=== PATIENT | female | born 1955 | race Caucasian/White ===

== ENCOUNTER 2017-11-17 02:16 | Outpatient (CLI) | payer MEDICAID, SELFPAY ==
[2017-11-17 11:18] LABS: Cholesterol 151 mg/dL (50-200); HDL Cholesterol 60 mg/dL (40-60); LDL CHOLESTEROL 77 mg/dL (<100); Triglyceride 100 mg/dL (30-150)
[2017-11-17 11:31] LABS: TSH 6.07 uIU/mL (0.358-3.74)
[2017-11-17 14:43] LABS: FREE T4 0.79 ng/dL (0.76-1.46)
[2017-11-17 15:02] LABS: Hemoglobin A1C 7.6 % (4.5-6.2)
[2017-11-17 21:33] LABS: T3, Total 157 ng/dl (97-169)
== END 2017-11-17 02:36 ==
PROVIDERS: PCP Family Medicine; Visit Provider Internal Medicine Endocrinology, Diabetes & Metabolism
DX: E05.90 Thyrotoxicosis, unspecified without thyrotoxic crisis or storm (principal); E78.5 Hyperlipidemia, unspecified; E11.3299 Type 2 diabetes mellitus with mild nonproliferative diabetic retinopathy without macular edema, unspecified eye
CPT/HCPCS: 36415; 80061; 83721; 83036; 84439; 84443; 84480

== ENCOUNTER 2018-01-25 02:19 | Outpatient (CLI) | payer MEDICAID, SELFPAY ==
[2018-01-25 13:14] LABS: FREE T4 0.89 ng/dL (0.76-1.46); TSH 2.85 uIU/mL (0.358-3.74)
[2018-01-25 21:50] LABS: T3, Total 148 ng/dl (97-169)
== END 2018-01-25 02:39 ==
PROVIDERS: PCP Family Medicine; Visit Provider Internal Medicine Endocrinology, Diabetes & Metabolism
DX: E05.90 Thyrotoxicosis, unspecified without thyrotoxic crisis or storm (principal)
CPT/HCPCS: 36415; 84439; 84443; 84480

== ENCOUNTER 2018-05-30 01:52 | Outpatient (CLI) | payer MEDICAID, SELFPAY ==
[2018-05-30 11:08] LABS: ALT 40 U/L (12-78); AST 23 U/L (15-37); Albumin 3.7 g/dL (3.4-5.0); Alkaline Phosphatase 87 U/L (46-116); Anion Gap 11.1 mmol/L (3-11); BUN 15 mg/dL (7-18); Bilirubin, Total 0.6 mg/dL (0.2-1.0); CO2 30.9 mmol/L (21.0-32.0); CREATININE 0.76 mg/dL (0.55-1.02); Calcium 9.5 mg/dL (8.5-10.1); Chloride 100 mmol/L (98-107); Cholesterol 166 mg/dL (50-200); Glucose 188 mg/dL (70-100); HDL Cholesterol 55 mg/dL (40-60); LDL CHOLESTEROL 88 mg/dL (<100); Potassium 3.9 mmol/L (3.5-5.1); Sodium 142 mmol/L (136-145); TSH 2.38 uIU/mL (0.358-3.74); Total Protein 7.1 g/dL (6.4-8.2); Triglyceride 104 mg/dL (30-150)
[2018-05-30 11:29] LABS: FREE T4 0.98 ng/dL (0.76-1.46)
[2018-05-30 12:48] LABS: Hemoglobin A1C 8.7 % (4.5-6.2)
[2018-05-30 21:25] LABS: T3, Total 150 ng/dl (97-169)
== END 2018-05-30 02:12 ==
PROVIDERS: PCP Family Medicine; Visit Provider Family Medicine
DX: E11.9 Type 2 diabetes mellitus without complications (principal); E05.90 Thyrotoxicosis, unspecified without thyrotoxic crisis or storm
CPT/HCPCS: 36415; 80053; 80061; 83721; 83036; 84439; 84443; 84480

== ENCOUNTER 2018-05-31 12:33 | Outpatient (REF) | payer MEDICAID, SELFPAY ==
[2018-05-31 13:10] LABS: Microalb ug/mg Crea 4.4 ug/mg Cr
== END 2018-05-31 12:53 ==
LOC: LBN 12:33
PROVIDERS: PCP Family Medicine; Visit Provider Family Medicine
DX: E11.9 Type 2 diabetes mellitus without complications (principal)
CPT/HCPCS: 82043; 82570

== ENCOUNTER 2018-06-16 02:14 | Outpatient (CLI) | payer MEDICAID, SELFPAY ==
--- NOTE | 2018-06-16 07:07 | DI.RAD_ITS ---
SYMPTOMS/DIAGNOSIS: PAIN ON PALPATION OF LATERAL MID PHALANX, M79.644, NO TRAUMA RIGHT MIDDLE FINGER: No fracture or dislocation is seen. There are mild to moderate degenerative changes of the distal interphalangeal joint. The proximal interphalangeal joint is unremarkable. No lytic or blastic bony lesion or foreign body is seen. IMPRESSION: Mild to moderate degenerative changes of the distal interphalangeal joint.
--- NOTE | 2018-06-16 15:39 | DI.MAMMO_ITS ---
SYMPTOMS/DIAGNOSIS: SCREENING, Z12.31 BILATERAL SCREENING MAMMOGRAM: Mammograms were interpreted according to the usual protocol including computer analysis with CAD system, tomosynthesis and C view imaging. Comparison is made with exams from 2012 and 2015. The breasts are composed of scattered fibroglandular densities, breast density category B. Left Breast: There is a new a mass in the upper outer quadrant with spiculated borders measuring 15 mm in diameter. A grouping of pleomorhic calcifications is seen anteromedial to the mass, also new. No additional masses are seen in the left breast. No adenopathy is visible. No skin thickening is seen. Right Breast: No masses or suspicious calcifications or changes are identified in the right breast. IMPRESSION: Right breast category 1, negative. Left breast category 0. New suspicious mass as well as calcifications in the upper outer quadrant of the left breast. Spot compression views and ultrasound are requested for further evaluation. MQSA ASSESSMENT OF FINDINGS: Incomplete: Needs additional imaging evaluation. Category 0. Patient will receive a letter notifying them of these results. BI-RADS category B. There are scattered areas of fibroglandular density.
== END 2018-06-16 02:34 ==
PROVIDERS: PCP Family Medicine; Visit Provider Family Medicine
DX: Z12.31 Encounter for screening mammogram for malignant neoplasm of breast (principal); R92.8 Other abnormal and inconclusive findings on diagnostic imaging of breast; M79.644 Pain in right finger(s); M19.041 Primary osteoarthritis, right hand
CPT/HCPCS: 77063; 77067; 73140

== ENCOUNTER 2018-06-19 00:39 | Outpatient (CLI) | payer MEDICAID, SELFPAY ==
--- NOTE | 2018-06-19 14:00 | DI.COMBO_ITS ---
SYMPTOMS/DIAGNOSIS: F/U MAMMO, NEW MASS UPPER OUTER QUADRANT WITH SPICULATED BORDERS, GROUPING OF PLEOMORPHIC CALCIFICATIONS ADDITIONAL VIEWS OF THE LEFT BREAST AND LEFT BREAST ULTRASOUND: Additional images are interpreted according to the usual protocol including tomosynthesis and 2D imaging. Additional views of the left breast again show a spiculated mass in the upper outer quadrant of the left breast. There is a collection of microcalcifications anterior and medial to the mass, which were not present on prior examinations. A left breast ultrasound was performed. There is a hypoechoic mass seen at the 2 o'clock position of the left breast, which appears to correspond to the mammographic abnormality. It exhibits an antiradial orientation. There is some posterior acoustic shadowing present. No definite internal blood flow is seen. IMPRESSION: A 1.4 cm mass at the 2 o'clock position of the left breast corresponding to the mammographic abnormality. There are new microcalcifications adjacent to the mass in the upper outer quadrant. Category 5. Breast density B. The findings were discussed with the patient and Dr. Morenita Ochoa on the date of the examination. MQSA ASSESSMENT OF FINDINGS: Highly suspicious of malignancy. Biopsy should be obtained. Category 5. Patient will receive a letter notifying them of these results. BI-RADS category B. There are scattered areas of fibroglandular density.
== END 2018-06-19 00:59 ==
PROVIDERS: PCP Family Medicine; Visit Provider Family Medicine
DX: Z12.31 Encounter for screening mammogram for malignant neoplasm of breast (principal); R92.8 Other abnormal and inconclusive findings on diagnostic imaging of breast; N63.21 Unspecified lump in the left breast, upper outer quadrant; R92.0 Mammographic microcalcification found on diagnostic imaging of breast
CPT/HCPCS: 76642; 77063; 77067

== ENCOUNTER 2018-07-06 08:50 | Outpatient (CLI) | payer MEDICAID, SELFPAY ==
--- NOTE | 2018-07-06 10:30 | DI.NM_ITS ---
SYMPTOMS/DIAGNOSIS: HYPERTHYROIDISM, E05.90 THYROID UPTAKE: 344 microcuries of I 123 Sodium Iodide was administered po. The four uptake is 18.4%, slightly above normal. The 24 hour uptake is calculated at 42%, above the normal range of 35%. IMPRESSION: Mildly increased thyroid uptake. THYROID SCAN: 0.34 millicuries of I 123 Sodium Iodide was administered IV for the thyroid scan. There is again noted to be increased activity in an apparently enlarged right lobe of the thyroid. The appearance is unchanged from the previous exam.
== END 2018-07-06 09:10 ==
PROVIDERS: PCP Family Medicine; Visit Provider Internal Medicine Endocrinology, Diabetes & Metabolism
DX: E05.90 Thyrotoxicosis, unspecified without thyrotoxic crisis or storm (principal); E04.8 Other specified nontoxic goiter
CPT/HCPCS: A9516

== ENCOUNTER 2018-07-07 12:29 | Outpatient (CLI) | payer MEDICAID, SELFPAY ==
--- NOTE | 2018-07-07 11:00 | DI.NM_ITS ---
SYMPTOMS/DIAGNOSIS: HYPERTHYROIDISM, E05.90 THYROID UPTAKE AND SCAN / AND 07/07/18: Please see dictation of 07/06/18 for the complete results of the thyroid uptake and scan.
== END 2018-07-07 12:49 ==
PROVIDERS: PCP Family Medicine; Visit Provider Internal Medicine Endocrinology, Diabetes & Metabolism
DX: E05.90 Thyrotoxicosis, unspecified without thyrotoxic crisis or storm (principal); E04.8 Other specified nontoxic goiter
CPT/HCPCS: 78014; A9512

== ENCOUNTER 2018-08-28 01:39 | Outpatient (CLI) | payer MEDICAID, SELFPAY ==
[2018-08-28 09:31] LABS: ALT 30 U/L (12-78); AST 15 U/L (15-37); Albumin 3.7 g/dL (3.4-5.0); Alkaline Phosphatase 85 U/L (46-116); Anion Gap 9.8 mmol/L (3-11); BUN 17 mg/dL (7-18); Bilirubin, Total 0.5 mg/dL (0.2-1.0); CO2 30.2 mmol/L (21.0-32.0); CREATININE 0.81 mg/dL (0.55-1.02); Calcium 9.6 mg/dL (8.5-10.1); Chloride 102 mmol/L (98-107); Glucose 182 mg/dL (70-100); Potassium 4.1 mmol/L (3.5-5.1); Sodium 142 mmol/L (136-145)
[2018-08-28 09:40] LABS: FREE T4 1.04 ng/dL (0.76-1.46); TSH 2.41 uIU/mL (0.358-3.74)
[2018-08-28 10:14] LABS: Hemoglobin A1C 8.1 % (4.5-6.2)
[2018-08-28 16:04] LABS: T3, Total 134 ng/dl (97-169)
== END 2018-08-28 01:59 ==
PROVIDERS: PCP Family Medicine; Visit Provider Internal Medicine Endocrinology, Diabetes & Metabolism
DX: E11.9 Type 2 diabetes mellitus without complications (principal); E05.90 Thyrotoxicosis, unspecified without thyrotoxic crisis or storm
CPT/HCPCS: 36415; 80053; 82043; 82570; 83036; 84439; 84443; 84480

== ENCOUNTER 2018-08-30 13:11 | Outpatient (REF) | payer MEDICAID, SELFPAY ==
[2018-08-30 14:34] LABS: COMMENT (LAB VIEW ONLY) 90.51 mg/dL; Microalb ug/mg Crea 6.4 ug/mg Cr
== END 2018-08-30 13:31 ==
LOC: NCHCN 13:11
PROVIDERS: PCP Family Medicine; Visit Provider Family Medicine
DX: E11.9 Type 2 diabetes mellitus without complications (principal)
CPT/HCPCS: 82043; 82570

== ENCOUNTER 2018-11-23 02:41 | Outpatient (CLI) | payer MEDICAID, SELFPAY ==
--- NOTE | 2018-11-23 13:40 | DI.DEXA_ITS ---
EXAM: XR DEXA BONE DENSITY W/WO JOE INDICATION: BREAST CA,C50.912, RESIDENTIAL USE OF AROMATASE INHIBITOR, Z79.811. COMPARISON: [facility] ONLY from 09/05/2012 TECHNIQUE: 2D digital imaging was performed. FINDINGS: DEXA scan was performed according to the usual protocol. Please see the accompanying data sheets. F indings for left hip scanning are T-score -1.0 with left femoral neck T-score -1.7. Findings for lum bar scanning are T-score -0.9. Findings for left forearm scanning or T-score -2.0. IMPRESSION: Findings consistent with osteopenia according to the WHO criteria. There appears to be minimal anter ior compression fracture of L3 vertebral body of uncertain age.
== END 2018-11-23 03:01 ==
PROVIDERS: PCP Family Medicine; Visit Provider Internal Medicine Hematology & Oncology
DX: C50.912 Malignant neoplasm of unspecified site of left female breast (principal); Z79.811 Long term (current) use of aromatase inhibitors; M85.88 Other specified disorders of bone density and structure, other site
CPT/HCPCS: 77080

== ENCOUNTER 2018-12-07 01:27 | Outpatient (CLI) | payer MEDICAID, SELFPAY ==
[2018-12-07 13:30] LABS: Vitamin D 25 Total 54.3 ng/ml (30-100)
[2018-12-07 13:37] LABS: Hemoglobin A1C 8.3 % (4.5-6.2)
[2018-12-07 13:39] LABS: TSH 2.75 uIU/mL (0.36-3.74)
== END 2018-12-07 01:47 ==
PROVIDERS: Internal Medicine Endocrinology, Diabetes & Metabolism; PCP Family Medicine; Visit Provider Internal Medicine Hematology & Oncology
DX: E05.90 Thyrotoxicosis, unspecified without thyrotoxic crisis or storm (principal); M85.80 Other specified disorders of bone density and structure, unspecified site
CPT/HCPCS: 36415; 82306; 83036; 84443

== ENCOUNTER 2019-01-19 01:16 | Outpatient (CLI) | payer MEDICAID, SELFPAY ==
[2019-01-19 10:17] LABS: Abs Immature Grans 0.01 k/cumm (0.0-0.09); Absolute Basophil Count 0.03 k/cumm (0.0-0.2); Absolute Eosinophil Count 0.11 k/cumm (0.0-0.7); Absolute Lymphocyte Count 0.79 k/cumm (1.2-3.4); Absolute Monocyte Count 0.44 k/cumm (0.11-0.7); Absolute Neutrophil Count 3.31 k/cumm (1.2-6.7); Basophils % 0.6; Eosinophils % 2.3; HCT 43.8 % (36.0-46.0); HGB 13.9 g/dL (12.0-15.5); Immature Grans % 0.2; Lymphocytes % 16.8; Mean Corp. HGB Concentration 31.7 g/dL (32.0-36.0); Mean Corpuscular Hemoglobin 28.9 pg (27.0-33.0); Mean Corpuscular Volume 91.1 fL (80-95); Mean Platelet Volume 10.2 fL (8.0-11.0); Monocytes % 9.4; Neutrophils % 70.7; Platelet Count 187 x1000/uL (130-400); RBC 4.81 m/cumm (4.00-5.20); RBC Distribution Width 13.9 % (11.7-14.6); White Blood Cell Count 4.69 k/cumm (4.4-10.8)
[2019-01-19 10:31] LABS: ALT 33 U/L (14-59); AST 20 U/L (15-37); Albumin 3.7 g/dL (3.4-5.0); Alkaline Phosphatase 75 U/L (46-116); Anion Gap 5.2 mmol/L (3-11); BUN 20 mg/dL (7-18); Bilirubin, Total 0.4 mg/dL (0.2-1.0); CO2 32.8 mmol/L (21.0-32.0); CREATININE 0.81 mg/dL (0.55-1.02); Calcium 9.4 mg/dL (8.5-10.1); Chloride 101 mmol/L (98-107); Glucose 244 mg/dL (74-106); Potassium 4.3 mmol/L (3.5-5.1); Sodium 139 mmol/L (136-145); Total Protein 7.6 g/dL (6.4-8.2)
== END 2019-01-19 01:36 ==
PROVIDERS: PCP Family Medicine; Visit Provider Internal Medicine Hematology & Oncology
DX: C50.912 Malignant neoplasm of unspecified site of left female breast (principal)
CPT/HCPCS: 36415; 80053; 85025

== ENCOUNTER 2019-03-13 01:35 | Outpatient (CLI) | payer MEDICAID, SELFPAY ==
[2019-03-13 10:53] LABS: ALT 29 U/L (14-59); AST 23 U/L (15-37); Albumin 3.5 g/dL (3.4-5.0); Alkaline Phosphatase 63 U/L (46-116); BUN 18 mg/dL (7-18); Bilirubin, Total 0.5 mg/dL (0.2-1.0); CREATININE 0.75 mg/dL (0.55-1.02); Calcium 9.3 mg/dL (8.5-10.1); Chloride 102 mmol/L (98-107); Glucose 240 mg/dL (74-106); Potassium 4.1 mmol/L (3.5-5.1); Sodium 138 mmol/L (136-145); Total Protein 6.8 g/dL (6.4-8.2)
== END 2019-03-13 01:55 ==
PROVIDERS: PCP Family Medicine; Visit Provider Internal Medicine Hematology & Oncology
DX: C50.912 Malignant neoplasm of unspecified site of left female breast (principal); Z17.0 Estrogen receptor positive status [ER+]
CPT/HCPCS: 36415; 80053

== ENCOUNTER 2019-04-30 01:51 | Outpatient (CLI) | payer MEDICAID, SELFPAY ==
[2019-04-30 12:06] LABS: Hemoglobin A1C 8.5 % (3.8-5.6)
[2019-04-30 12:17] LABS: Calculated LDL 74 mg/dL (<100); Cholesterol 144 mg/dL (<200); HDL Cholesterol 52 mg/dL (40-60); Triglyceride 94 mg/dL (<150); Vitamin B12 273 pg/mL (193-986)
== END 2019-04-30 02:11 ==
PROVIDERS: PCP Family Medicine; Visit Provider Family Medicine
DX: E11.9 Type 2 diabetes mellitus without complications (principal); E53.8 Deficiency of other specified B group vitamins
CPT/HCPCS: 36415; 80061; 82607; 83036

== ENCOUNTER 2019-07-23 02:34 | Outpatient (CLI) | payer MEDICAID, SELFPAY | END 2019-07-23 02:54 | PROVIDERS: PCP Family Medicine; Visit Provider Family Medicine | DX: E11.9 Type 2 diabetes mellitus without complications (principal) | CPT/HCPCS: 36415; 83036 ==

== ENCOUNTER 2019-09-20 03:12 | Outpatient (CLI) | payer MEDICAID, SELFPAY ==
[2019-09-20 13:30] LABS: COMMENT (LAB VIEW ONLY) 152.02 mg/dL; Microalb ug/mg Crea 10.5 ug/mg Cr
[2019-09-20 13:32] LABS: ALT 40 U/L (14-59); AST 29 U/L (15-37); Alkaline Phosphatase 68 U/L (46-116); Anion Gap 9.4 mmol/L (3-11); BUN 15 mg/dL (7-18); Bilirubin, Total 0.7 mg/dL (0.2-1.0); CO2 29.6 mmol/L (21.0-32.0); CREATININE 0.82 mg/dL (0.55-1.02); Calcium 9.7 mg/dL (8.5-10.1); Chloride 102 mmol/L (98-107); FREE T4 1.19 ng/dL (0.76-1.46); Glucose 135 mg/dL (74-106); Sodium 141 mmol/L (136-145); TSH 2.49 uIU/mL (0.36-3.74); Total Protein 7.1 g/dL (6.4-8.2)
[2019-09-20 13:34] LABS: Hemoglobin A1C 7.2 % (3.8-5.6)
[2019-09-20 22:09] LABS: T3, Total 145 ng/dL (97-169)
== END 2019-09-20 03:32 ==
PROVIDERS: PCP Family Medicine; Visit Provider Family Medicine
DX: E11.9 Type 2 diabetes mellitus without complications (principal); E04.9 Nontoxic goiter, unspecified
CPT/HCPCS: 36415; 80053; 82043; 82570; 83036; 84439; 84443; 84480

== ENCOUNTER 2020-01-28 03:05 | Outpatient (CLI) | payer MEDICAID, SELFPAY ==
[2020-01-28 11:57] LABS: ALT 37 U/L (14-59); AST 18 U/L (15-37); Albumin 3.8 g/dL (3.4-5.0); Alkaline Phosphatase 72 U/L (46-116); Anion Gap 3.2 mmol/L (3-11); BUN 14 mg/dL (7-18); Bilirubin, Total 0.6 mg/dL (0.2-1.0); CO2 31.8 mmol/L (21.0-32.0); CREATININE 0.92 mg/dL (0.55-1.02); Calcium 9.5 mg/dL (8.5-10.1); Chloride 102 mmol/L (98-107); Glucose 142 mg/dL (74-106); Potassium 4.1 mmol/L (3.5-5.1); Sodium 137 mmol/L (136-145); Total Protein 7.4 g/dL (6.4-8.2)
== END 2020-01-28 03:25 ==
PROVIDERS: PCP Family Medicine; Visit Provider Internal Medicine Hematology & Oncology
DX: C50.912 Malignant neoplasm of unspecified site of left female breast (principal); Z17.0 Estrogen receptor positive status [ER+]
CPT/HCPCS: 36415; 80053

== ENCOUNTER 2020-05-12 03:33 | Outpatient (CLI) | payer MEDICAID, SELFPAY ==
[2020-05-12 12:34] LABS: ALT 37 U/L (14-59); AST 22 U/L (15-37); Albumin 3.9 g/dL (3.4-5.0); Alkaline Phosphatase 71 U/L (46-116); Anion Gap 7.1 mmol/L (3-11); BUN 16 mg/dL (7-18); Bilirubin, Total 0.5 mg/dL (0.2-1.0); CO2 31.9 mmol/L (21.0-32.0); CREATININE 0.8 mg/dL (0.55-1.02); Calcium 9.4 mg/dL (8.5-10.1); Calculated LDL 71 mg/dL (<100); Chloride 104 mmol/L (98-107); Cholesterol 139 mg/dL (<200); Glucose 138 mg/dL (74-106); HDL Cholesterol 50 mg/dL (40-60); Potassium 4.3 mmol/L (3.5-5.1); Sodium 143 mmol/L (136-145); Triglyceride 94 mg/dL (<150)
[2020-05-12 12:40] LABS: Hemoglobin A1C 7.1 % (<5.7)
== END 2020-05-12 03:34 | disposition home or self-care (01) ==
LOC: LOS 03:33
PROVIDERS: PCP Family Medicine; Visit Provider Internal Medicine Hematology & Oncology
DX: E11.9 Type 2 diabetes mellitus without complications (principal); E55.9 Vitamin D deficiency, unspecified
CPT/HCPCS: 36415; 80053; 80061; 82306; 83036

== ENCOUNTER 2020-05-27 08:35 | Outpatient (CLI) | payer MEDICAID, SELFPAY ==
[2020-05-27 09:24] LABS: Bilirubin Negative (Negative); Blood Large (Negative); Clarity Cloudy (Clear); Glucose Negative (Negative); Ketones Negative (Negative); Leukocyte Esterase Large (Negative); Nitrite Positive (Negative)
[2020-05-27 09:33] LABS: Bacteria Packed HPF (Negative); C & S Indicated? Yes; WBC >50 HPF (0-5)
== END 2020-05-27 08:36 | disposition home or self-care (01) ==
LOC: LBO 08:39
PROVIDERS: PCP Family Medicine; Visit Provider Nurse Practitioner Family
DX: C50.412 Malignant neoplasm of upper-outer quadrant of left female breast (principal); Z17.0 Estrogen receptor positive status [ER+]; R82.998 Other abnormal findings in urine
CPT/HCPCS: 87077; 81003; 81015; 87086; 87186

== ENCOUNTER 2020-06-05 15:20 | Outpatient (REF) | payer MEDICAID, SELFPAY ==
[2020-06-05 15:59] LABS: Bilirubin Negative (Negative); Blood Small (Negative); Clarity Sl Cloudy (Clear); Glucose Negative (Negative); Ketones Negative (Negative); Leukocyte Esterase Large (Negative); Nitrite Positive (Negative); Urobilinogen 0.2 EU/dL (Up TO 0.2); pH 6.5 (5-8)
[2020-06-05 16:07] LABS: Bacteria Many HPF (Negative); C & S Indicated? Yes; Casts Negative LPF (Negative); Crystals Negative HPF (Negative); Epithelial Cells Rare HPF (Negative); Mucus Negative (Negative); RBC 0-2 HPF (0-2); WBC >50 HPF (0-5)
== END 2020-06-05 15:21 | disposition home or self-care (01) ==
LOC: LBN 15:20
PROVIDERS: PCP Family Medicine; Visit Provider Nurse Practitioner Family
DX: C50.412 Malignant neoplasm of upper-outer quadrant of left female breast (principal); Z17.0 Estrogen receptor positive status [ER+]; N39.0 Urinary tract infection, site not specified
CPT/HCPCS: 87077; 81003; 81015; 87086; 87186

== ENCOUNTER 2020-06-30 20:31 | Outpatient (REF) | payer MEDICAID, SELFPAY | END 2020-06-30 20:32 | disposition home or self-care (01) | LOC: LBN 20:31 | PROVIDERS: PCP Family Medicine; Visit Provider Obstetrics & Gynecology | DX: R39.15 Urgency of urination (principal) | CPT/HCPCS: 87077; 87086; 87186 ==

== ENCOUNTER 2020-08-06 17:25 | Outpatient (REF) | payer MEDICAID, SELFPAY | END 2020-08-06 17:26 | disposition home or self-care (01) | LOC: LBN 17:25 | PROVIDERS: PCP Family Medicine; Visit Provider Obstetrics & Gynecology Gynecology | DX: R30.0 Dysuria (principal); N39.0 Urinary tract infection, site not specified | CPT/HCPCS: 87077; 87086; 87186 ==

== ENCOUNTER 2020-09-01 03:09 | Outpatient (CLI) | payer MEDICAID, SELFPAY ==
[2020-09-01 12:43] LABS: Hemoglobin A1C 7.4 % (<5.7)
[2020-09-01 12:54] LABS: Anion Gap 10.1 mmol/L (3-11); BUN 10 mg/dL (7-18); CO2 28.9 mmol/L (21.0-32.0); CREATININE 0.9 mg/dL (0.55-1.02); Calcium 9.2 mg/dL (8.5-10.1); Chloride 101 mmol/L (98-107); FREE T4 1.09 ng/dL (0.76-1.46); Glucose 135 mg/dL (74-106); Potassium 3.9 mmol/L (3.5-5.1); Sodium 140 mmol/L (136-145)
[2020-09-01 16:05] LABS: T3, Total 155 ng/dL (97-169)
== END 2020-09-01 03:10 | disposition home or self-care (01) ==
LOC: LOS 03:10
PROVIDERS: PCP Nurse Practitioner Family; Visit Provider Family Medicine
DX: E11.9 Type 2 diabetes mellitus without complications (principal); E04.9 Nontoxic goiter, unspecified; N39.0 Urinary tract infection, site not specified
CPT/HCPCS: 36415; 80048; 87077; 83036; 84439; 84443; 84480; 87086

== ENCOUNTER 2020-09-05 03:05 | Outpatient (CLI) | payer MEDICAID, SELFPAY ==
--- NOTE | 2020-09-05 07:45 | DI.CT_ITS ---
Exam(s) CT ABDOMEN PELVIS WO/W EXAM: CT ABDOMEN PELVIS WO/W CLINICAL HISTORY: pelvic discomfort,RT URETERAL CALCULUS,HEMATURIA,R31.9,N20.1. TECHNIQUE: Imaging Protocol: Axial computed tomography images with coronal and sagittal reformatted images were created and reviewed. Images were performed before IV contrast, during the venous phase and after a 7 minutes delay after a dministration of IV contrast. CONTRAST MATERIAL: Intravenous: Omnipaque 350 Contrast volume:100 ml Oral: no COMPARISON: CT RENAL COLIC WO CONTRAST from 01/16/2016 FINDINGS: ABDOMEN: Lung Bases: Normal where visualized. Liver: Mild hepatic steatosis. No measurable mass. Gallbladder and biliary tract: No radiodense calculus. Stable mild dilation of the common bile duct. Pancreas: Mildly atrophic. Normal density, no abnormal calcifications or inflammatory process. Spleen: Normal. A few small accessory splenic tissue is seen. Kidneys: Normal size, contour and axis. No radiodense stones or obstructive uropathy. Few tiny cysts . No masses seen. Adrenal glands: No masses seen. Abdominal Aorta: Abdominal portion non-dilated. Mild atherosclerotic changes. PELVIS: Bladder: Mildly distended. No calculi.No wall thickening. Question of a small projection on the lef t inferior bladder.. Bowel: No obstruction or bowel wall thickening. Appendix is not visualized. Peritoneal cavity: No ascites, collection or mesenteric inflammatory response. Bones: Degenerative changes. Within normal limits for age. Reproductive organs: Status post hysterectomy. Pessary noted. Lymph nodes: Unremarkable. Soft tissues: Fatty containing hernia to the left of midline at the lower aspect of the incisional sc ar. Impression: No evidence of renal mass. No evidence of urinary tract calculi. Question of a small area of nodula rity at the inferior left side of the bladder. Cystoscopy could be considered for further evaluation . 4 centimeter fatty containing hernia left lower anterior abdominal wall. RADIATION DOSE DELIVERED: 3,984.56mGy.cm Total DLP 3,984.56mGy.cm Total DLP DATA REPOSITORY: All CT scans at this facility are submitted to the National Radiology Data Registry (NRDR) Dose Index Registry (DIR) with the [employer] (ACR). RADIATION OPTIMIZATION: All CT scans at this facility use at least one of these dose optimization te chniques: automated exposure control; mA and/or kV adjustment per patient size (includes targeted exa ms where dose is matched to clinical indication); or iterative reconstruction.
[2020-09-05] MEDS: Omnipaque 350 MG/ML 100 ML BTL IJ (14:29)
[2020-09-05] MEDS: Normal Saline - Diluent 50 ML VIAL IV (14:31)
== END 2020-09-05 03:25 ==
PROVIDERS: PCP Nurse Practitioner Family; Visit Provider Nurse Practitioner Gerontology
DX: K43.9 Ventral hernia without obstruction or gangrene; R31.9 Hematuria, unspecified
CPT/HCPCS: 74178; J3490

== ENCOUNTER 2020-09-18 14:30 | Outpatient (REF) | payer MEDICAID, SELFPAY | END 2020-09-18 14:31 | disposition home or self-care (01) | LOC: LBN 14:30 | PROVIDERS: PCP Nurse Practitioner Family; Visit Provider Urology | DX: N39.0 Urinary tract infection, site not specified (principal) | CPT/HCPCS: 87086 ==

== ENCOUNTER 2021-04-02 02:04 | Outpatient (CLI) | payer MEDICARE, MEDICAID, OTHER, SELFPAY ==
--- NOTE | 2021-04-02 13:24 | DI.DEXA_ITS ---
Exam(s) XR DEXA BONE DENSITY W/WO JOE EXAM: XR DEXA BONE DENSITY W/WO JOE CLINICAL HISTORY: LT BREAST CA,C50.912,OSTEOPENIA, M85.80,ALF USE AROMATASE INHIBITOR, TECHNIQUE: Routine DEXA evaluation of the lumbar spine, hip, or forearm. COMPARISON: CR XR DEXA BONE DENSITY W/WO JOE from 11/23/2018 FINDINGS: Performed on a Hologic unit. Lateral image: No compression fracture evident. Lumbar Spine total T-score: -0.6 . Two thousand nineteen reading was -0.9 Hip total T-score:-1.2. Reading in 2019 was -1.0 Independent reading at the level of the femoral neck yields at T-score of -1.8. Forearm total T-score: -2.4 IMPRESSION: Bone mineral density measures in the osteopenia range. Fracture risk is moderate. Note: Any spine fracture indicates 5x risk for subsequent spine fracture and 2x risk for subsequent h ip fracture. World Health Organization criteria for BMD interpretation classify patients: Normal...... T- Score at or above -1.0 Osteopenic... T- Score between -1.0 and -2.5 Osteoporosis... T-Score at or below -2.5
== END 2021-04-02 02:24 ==
PROVIDERS: PCP Nurse Practitioner Family; Visit Provider Nurse Practitioner Family
DX: M85.88 Other specified disorders of bone density and structure, other site (principal); C50.412 Malignant neoplasm of upper-outer quadrant of left female breast; Z79.811 Long term (current) use of aromatase inhibitors
CPT/HCPCS: 77080

== ENCOUNTER 2021-05-01 03:55 | Outpatient (CLI) | payer MEDICARE, MEDICAID, OTHER, SELFPAY ==
[2021-05-01 09:01] LABS: Hemoglobin A1C 8.1 % (<5.7)
[2021-05-01 09:24] LABS: ALT 33 U/L (14-59); AST 16 U/L (15-37); Albumin 3.7 g/dL (3.4-5.0); Alkaline Phosphatase 71 U/L (46-116); Anion Gap 6.4 mmol/L (3-11); BUN 18 mg/dL (7-18); Bilirubin, Total 0.4 mg/dL (0.2-1.0); CO2 31.6 mmol/L (21.0-32.0); CREATININE 0.7 mg/dL (0.55-1.02); Calculated LDL 68 mg/dL (<100); Chloride 102 mmol/L (98-107); Cholesterol 137 mg/dL (<200); Glucose 168 mg/dL (74-106); HDL Cholesterol 51 mg/dL (40-60); Potassium 4.3 mmol/L (3.5-5.1); Sodium 140 mmol/L (136-145); Total Protein 6.9 g/dL (6.4-8.2); Triglyceride 93 mg/dL (<150)
[2021-05-01 09:26] LABS: COMMENT (LAB VIEW ONLY) 161.81 mg/dL; Microalb ug/mg Crea 7.8 ug/mg Cr
[2021-05-01 09:28] LABS: Calcium 9.1 mg/dL (8.5-10.1)
== END 2021-05-01 03:56 | disposition home or self-care (01) ==
LOC: LBO 03:56
PROVIDERS: Nurse Practitioner Gerontology; PCP Nurse Practitioner Family; Visit Provider Internal Medicine Hematology & Oncology
DX: E11.9 Type 2 diabetes mellitus without complications (principal); E78.2 Mixed hyperlipidemia; I10 Essential (primary) hypertension; C50.412 Malignant neoplasm of upper-outer quadrant of left female breast; M85.88 Other specified disorders of bone density and structure, other site; Z79.811 Long term (current) use of aromatase inhibitors
CPT/HCPCS: 36415; 80053; 80061; 82043; 82570; 83036

== ENCOUNTER → 2021-08-19 01:05 | Outpatient (CLI) | payer MEDICARE, MEDICAID, SELFPAY ==
--- NOTE | 2021-08-19 15:00 | DI.MAMMO_ITS ---
Exam(s) MG MAMMO SCREENING 60 MIN DUR EXAM: MG MAMMO SCREENING 60 MIN DUR CLINICAL HISTORY: MALIGNANT NEOPLASM,UOQ,LT BREAST, ESTROGEN-RECEPTOR POSITIVE, C50.412,Z17.0 TECHNIQUE: Bilateral full field digital CC and MLO mammographic images were obtained with 3D tomosyn thesis and utilizing computer aided detection (CAD). COMPARISON: Available for comparison. FINDINGS: Masses/Architectural Distortion: None seen. The postoperative seroma in the upper outer quadrant of t he left breast has shown slight decrease in size compared to the prior examination from 08/13/2020. Microcalcifications: No suspicious pleomorphic-type are seen. There are stable calcifications seen in the upper outer quadrant of the left breast. Skin Thickening/Nipple Retraction: The patient is status post lumpectomy in the upper-outer quadrant of the left breast with a post operative seroma again seen. IMPRESSION: 1. Postsurgical changes of a left lumpectomy in the upper outer quadrant with a postoperative seroma again seen. There is been slight decrease in size of the seroma since 08/13/2020. 2. There are stable calcifications in the upper outer quadrant of the left breast. 3. Unless there is more urgent need, screening mammography is recommended, as per [employer] guidelines. BI-RADS Category 2 - Benign Findings Breast Density - Category A - Almost entirely fatty Breast density category C or D implies that the patient has dense breast tissue. Dense breast tissue is very common and is not abnormal but dense breast tissue can make it harder to find cancer on a ma mmogram. Also, dense breast tissue may increase their breast cancer risk. This information about the result of the mammogram report was provided to the patient to raise their awareness. Use this report when you speak with the patient about their risks for breast cancer, which includes their family hist ory. At that time, you may recommend for more screening tests (Ultrasound or MRI) as they might be us eful based on their risk. A negative radiographic report should not delay biopsy if a dominant or clinically suspicious mass is present. Up to ten percent of cancers are not identified on mammography. A negative report may reinforce clinical impression. Adenosis and dense breasts may obscure an underlying neoplasm. False positive reports average 6 to 10%. Patient will receive a letter notifying them of these results.
== END ==
PROVIDERS: PCP Nurse Practitioner Family; Visit Provider Surgery Surgical Oncology
DX: Z12.31 Encounter for screening mammogram for malignant neoplasm of breast (principal); Z85.3 Personal history of malignant neoplasm of breast; Z17.0 Estrogen receptor positive status [ER+]; Z98.890 Other specified postprocedural states; R92.1 Mammographic calcification found on diagnostic imaging of breast
CPT/HCPCS: 77063; 77067

== ENCOUNTER 2021-10-23 02:18 | Outpatient (CLI) | payer MEDICARE, MEDICAID, SELFPAY ==
--- OUTSIDE RECORDS SUMMARY | 2021-10-23 02:22 | XMS_ITS | Encounter Summary ---
:1955 Author Organization [place] [address] Care Team Providers Name Role Phone Veronica Chun MD Primary Care Provider Encounter Details Date Type Department Care Team Description 06/22/2021 Telephone General Surgery at [facility] [place] [phone] Social History Tobacco Use Types Packs/Day Years Used Date Never Smoker Smokeless Tobacco: Never Used Alcohol Use Standard Drinks/Week Comments Yes 0 (1 standard drink = 0.6 oz pure alcoho l) not even that much Alcohol Habits Answer Date Recorded How often do you have a drink containing alcohol? Monthly or less 08/28/2018 How many drinks containing alcohol do you have on a 1 or 2 08/28/2018 typical day when you are drinking? How often do you have six or more drinks on one Not asked occasion? Comment: not even that much 08/28/2018 Sex Assigned at Date Recorded Female 05/16/2020 8:19 PM EDT documented as of this encounter Miscellaneous Notes Telephone Encounter - Radha Ervin - 06/22/2021 11:09 AM EDT Corina is due to see Dr Larry and have a mammogram in July. She requested to have mammogram locally and just be followed by Dr Armendariz for her breast cancer care due to distance and difficulty getting transportation. Both Dr Larry and Dr Armendariz agreed to this plan. Will fax order to [facility]. documented in this encounter Plan of Treatment Upcoming Encounters Date Type Specialty Care Team Description 10/23/2021 Office Visit Hematology and Oncology Navid Armendariz MD [facility] DR ONCOLOGY [place], [place] [address] (Wo rk) 10/23/2021 Infusion Hematology and Oncology documented as of this encounter Visit Diagnoses Not on filedocumented in this encounter Care Teams Instrumentation Fitter Relationship Specialty Start Date End Date Veronica Chun MD PCP - General Family Medicine 01/20/[address] [place] [address] documented as of this encounter
--- OUTSIDE RECORDS SUMMARY | 2021-10-23 02:22 | XMS_ITS | Encounter Summary ---
:1955 Author Organization [facility] [place] [address] Care Team Providers Name Role Phone Veronica Chun MD Primary Care Provider Reason for Visit Reason Onset Date Comments Labs Only 05/05/2021 Encounter Details Date Type Department Care Team Description 05/05/2021 [facility] RN [address] [place] [phone] Social History Tobacco Use Types Packs/Day Years [...] this encounter Miscellaneous Notes Telephone Encounter - Damon Harrison RN - 05/05/2021 8:39 AM EDT Labs done at [facility] 05/01 are WNL for Prolia injection (her A1c is elevated, she is seeing her PCP nextmonth to follow up on this). Called to let her know. She is coming this for her Prolia as planned. ----- Message ----- From: Prerna Rodney APRN Sent: 04/09/2021 10:35 AM EST To: Stj Chemo Triage Corina Vo is tentatively scheduled for Prolia 05/07, with labs 05/05, please look for labs to make sure CA++ and renal are ok. She has new insurance plans now, so I wrote a new therapy plan with all the diagnosis and hopefully this goes through. Thanks, Lucy documented in this encounter Plan of Treatment Upcoming Encounters Date Type Specialty Care Team Description 10/23/2021 Office Visit Hematology and Oncology Navid Armendariz MD [facility] [address] ONCOLOGY [place], [place] [address] (Wo rk) 10/23/2021 Infusion Hematology and Oncology documented as of this encounter Visit Diagnoses Not on filedocumented in this encounter Care Teams Platen Press Feeder Relationship Specialty Start Date End Date Veronica Chun MD PCP - General Family Medicine 01/20/[address] [place] [address] documented as of this encounter
--- OUTSIDE RECORDS SUMMARY | 2021-10-23 02:22 | XMS_ITS | Encounter Summary ---
:1955 Author Organization [facility] [place] [address] Care Team Providers Name Role Phone Veronica Chun MD Primary Care Provider Encounter Details Date Type Department Care Team Description 03/30/2021 [facility] [address] [phone] Social History Tobacco Use Types [...] this encounter Miscellaneous Notes Telephone Encounter - Promise Velasquez - 03/30/2021 1:13 PM EST I spoke with Corina today and she let me know that her insurance coverage has changed. She is coming in for a visit on Monday 04/03 and plans to bring her updated insurance cards with her to be scanned into her chart. Corina was scheduled to have a Prolia injection after her visit with Dr. Armendariz but has chosen to opt out of this cycle because she does not believe she has insurance coverage for the injection. Corina said she was planning to defer anyway but will plan to speak with Dr. Armendariz about this when she comes in this week. documented in this encounter Plan of Treatment Upcoming Encounters Date Type Specialty Care Team Description 10/23/2021 Office Visit Hematology and Oncology Navid Armendariz MD [facility] [address] ONCOLOGY [place], [place] [address] (Wo rk) 10/23/2021 Infusion Hematology and Oncology documented as of this encounter Visit Diagnoses Not on filedocumented in this encounter Care Teams Pharmacometrician Relationship Specialty Start Date End Date Veronica Chun MD PCP - General Family Medicine 01/20/[address] [place] [address] documented as of this encounter
--- OUTSIDE RECORDS SUMMARY | 2021-10-23 02:22 | XMS_ITS | Encounter Summary ---
:1955 Author Organization [facility] [place] [address] Care Team Providers Name Role Phone Veronica Chun MD Primary Care Provider Reason for Visit Reason Onset Date Comments Other 05/11/2021 Encounter Details Date Type Department Care Team Description 05/11/2021 Telephone Hematology/Oncology at Brenda Pena RN Other [address] [phone] Social History Tobacco Use [...] this encounter Miscellaneous Notes Telephone Encounter - Brenda Lima RN - 05/11/2021 11:54 AM EDT Patient calls and states she had her prolia shot on felt fine that day then on Tuesday she started with aching back, and joints. She got hot and cold sweats. This went into Tuesday. Tuesday night she still had hot sweats. She feels tired today. She takes two aleve every night which helped her to sleep. She took two extra strength tylenol which helped with the achiness. The las time she had this shot she got a UTI. Reviewed side effects of prolia and the achiness and fatigue are there. Let her know that I would update Dr. Armendariz and if there was anything different he wanted he to do I would call her back, she agrees with plan. Dr. Armendariz agreed with plan. He states if he symptoms do get worse she needs to be evaluated by PCP.Spoke with Corina who agrees with this plan. documented in this encounter Plan of Treatment Upcoming Encounters Date Type Specialty Care Team Description 10/23/2021 Office Visit Hematology and Oncology Navid Armendariz MD [facility] DR ONCOLOGY [place], [place] [address] (Wo rk) 10/23/2021 Infusion Hematology and Oncology documented as of this encounter Visit Diagnoses Not on filedocumented in this encounter Care Teams Tandem Operator Relationship Specialty Start Date End Date Veronica Chun MD PCP - General Family Medicine 01/20/[address] [place] [address] documented as of this encounter
--- OUTSIDE RECORDS SUMMARY | 2021-10-23 02:22 | XMS_ITS | Encounter Summary ---
:1955 Author Organization [facility] [place] [address] Care Team Providers Name Role Phone Veronica Chun MD Primary Care Provider Encounter Details Date Type Department Care Team Description 04/03/2021 Office Visit Hematology/Oncology Rodger Armendariz MD [facility] [place] [address] Malignant neoplasm of upper-outer quadra nt of left breast in female, estrogen receptor positive; at [facility] Prerna oRdney APRN [address] [place] [address] [place] [address] [facility] current use of aromatase inhib itor; [address] [place] [address] Osteopenia, [place] [address] Social History Tobacco Use Types Packs/Day Years [...] PM EDT documented as of this encounter Last Filed Vital Signs Vital Sign Reading Time Taken Comments Blood Pressure 156/73 04/03/2021 2:34 PM EST Pulse 66 04/03/2021 2:34 PM EST Temperature 36.6 ??C (97.8 ??F) 04/03/2021 2:34 PM EST Respiratory Rate 16 04/03/2021 2:34 PM EST Oxygen Saturation 98% 04/03/2021 2:34 PM EST Inhaled Oxygen Concentration - - Weight 108 kg (238 lb 3.2 oz) 04/03/2021 2:34 PM EST Height 160 cm (5' 2.99) 04/03/2021 2:34 PM EST Body Mass Index 42.21 04/03/2021 2:34 PM EST documented in this encounter Progress Notes Prerna Rodney, ASSOCIATE DIRECTOR OF SALES - 04/03/2021 2:30 PM EST Subjective: Patient ID: Corina Brewster is a 65 y.o. female. Patient Active Problem List Diagnosis Code ??? Thyroid nodule E04.1 ??? Osteoarthrosis, unspecified whether generalized or localized, hand M19.049 ??? Osteoarthrosis, unspecified whether generalized or localized, lower leg [id number] ??? Trigger middle finger of left hand M65.332 ??? Trigger index finger of right hand M65.321 ??? HAM (obstructive sleep apnea) G47.33 ??? Restless leg syndrome G25.81 ??? Malignant neoplasm of upper-outer quadrant of left breast in female, estrogen receptor positive C50.412, Z17.0 HPI (Rodger Armendariz MD notes 02/01/20 phone visit) Ms. Brewster is a 64 yo female seen for evaluation and management of stage I cancer of the left breast(pT1c, N0, ER/WA +, Her-2/jocelin -). ?? Screening bilateral mammogram 05/2018. The right breast was negative. On the left, a 1.5 cm mass was seen in the UOQ with microcalcifications anterior and medial to the mass. US guided bx 06/27/18. Path -invasive ductal carcinoma, low grade with an SBR score of 5, and DCIS, low to intermediated grade. ER/WA was positive with strong staining and Her-2/jocelin was negative. ?? 07/31/18 - partial mastectomy and SLN excision. Path report is above - 1.7 cm invasive ductal carcinoma, low grade. 3 SLNs and 4 non-SLNs were removed, all negative - pT1c, pN0. The margins of resectionwere negative. Grade 2 DCIS was also seen and the margins were negative for this also (closest < 0.5 mm). ?? She met with Dr. Moya on 08/16/18 and discussed adjuvant systemic therapy. Adjuvant endocrine therapy with an AI was recommended. Oncotype Dx testing was done and showed a score of 13, in the low riskrange, and chemotherapy was not recommended. ?? She met with Dr. Pickard and received adjuvant radiation therapy from 10/03/18 to 10/31/18. ?? In 11/2018, she began therapy with anastrozole. Stopped after about a month due to stomach upset, myalgias and arthralgias. ?? A dexa scan was done on 11/23/18. Findings were consistent with osteopenia. BMD may be worsened by AIs. Therefore, asked that she start calcium with vitaimin D and encouraged weight bearing activity. She does not smoke and rarely drinks alcohol. Her vitamin D level in 11/2018 was WNL. Given the question of anterior L3 compression fracture, I felt it was reasonable to consider bisphosphonate therapy and we talked about starting reclast, 5 mg once a year. We reviewed potential side effects of bisphosphonate therapy, including transient flu-like symptoms, renal insufficiency, hypocalcemia, and osteonecrosis of the jaw (ONJ). The latter is a rare problem that is dependent upon the dose and duration of b isphosphonate treatment. It is most common in cancer patients with bone metastases who are treated with monthly doses of IV bisphosphonates for longer than two years. In patients with early-stage breast cancer, the incidence of IV ZA-related ONJ is about 0.25 percent. She preferred not to start a bisph osphonate. She is taking caltrate with D. ?? In 12/2019 she began therapy with aromasin. INTERVAL HPI 04/03/21 Corina Wick is a 64 yo female diagnosed with stage 1 left IDC breast cancer, T1N0, ER/WA+, HER2-jocelin negative in 05/2018. She had 3 negative sentinel nodes and 4 negative non-sentinel nodes removed. She had a partial mastectomy and radiation. (See history as summarized above.) Corina returns to the [facility] oncology clinic in [facility] alone today for 6 month routine follow-up. Corina has now been taking Aromasin since after trying Arimidex for about a month and finding the side effects intolerable. She had pelvic surgery for prolapse repair in 10/11. She was due for Prolia in 12/11 but was not seenhere. Corina says her insurance would not approve the Prolia, but now her insurance has changed again. She did ok with the dose given 06/11, felt a little ill for a day but no prolonged side effects. She gets intermittent hot flashes a few times a week. She has aches in her knees and lower back and blames those on age. She takes Aleve at night for those. Corina has not noticed new lumps or bumps in her breasts or other skin changes. She has not had lymphedema symptoms in her left arm. I have muscle aches I blame on my adge, my knees and lower back , I take a couple of aleve at night before I go to bed. Some days it feels stiff and hard Near her left breast on the upper chest. She does frequent breast and chest massage in the shower and does arm stretches which help control those symptoms. She feels she is recovering well from surgery. No shortness of breath, new cough, fever or chills. Other ROS are negative. Allergies Allergen Reactions ??? Oxycodone Nausea And Vomiting Current Medications ??? acetaminophen (Tylenol) 325 mg Tablet ??? ibuprofen (Advil) 200 mg Tablet ??? exemestane (Aromasin) 25 mg Tablet ??? estradioL (ESTRACE) 0.01 % (0.1 mg/gram) Cream ??? calcium citrate (CALCITRATE) 200 mg (950 mg) Tablet ??? ONETOUCH ULTRA BLUE TEST STRIP Strip ??? hydroCHLOROthiazide (HYDRODIURIL) 25 mg Tablet ??? naproxen sodium (ALEVE) 220 mg Capsule ??? atorvastatin (LIPITOR) 40 mg Tablet ??? atenolol (TENORMIN) 50 mg Tablet ??? ERGOCALCIFEROL, VITAMIN D2, (VITAMIN D ORAL) ??? metFORMIN (GLUCOPHAGE) 1,000 mg Tablet ??? zolpidem (AMBIEN CR) 12.5 mg Tablet, Multiphasic Release ??? aspirin 81 mg EC tablet ??? nitroGLYcerin (NITROSTAT) 0.4 mg SL tablet Social History Retired, lives in own home in [place], [place] . Never smoker Minimal social alcohol use No illicit drug use. Review of Systems Constitutional: Negative. HENT: Negative. Negative for dental problem. Respiratory: Negative for cough and shortness of breath. Cardiovascular: Negative for chest pain. Gastrointestinal: Negative for constipation, diarrhea and nausea. Endocrine: Hot flashes Genitourinary: Negative. Negative for frequency. Musculoskeletal: Positive for arthralgias. Knees and low back Skin: Negative. Psychiatric/Behavioral: Negative. Objective: Physical Exam Vitals reviewed. Constitutional: Comments: Pleasant, well-appearing, well-nourished female in NAD Cardiovascular: Rate and Rhythm: Normal rate and regular rhythm. Pulmonary: Breath sounds: Normal breath sounds. No wheezing or rales. Abdominal: General: Bowel sounds are normal. Palpations: Abdomen is soft. Musculoskeletal: General: Normal range of motion. Comments: Bilateral arms, full ROM Skin: General: Skin is warm and dry. Neurological: Mental Status: She is oriented to person, place, and time. Coordination: Coordination normal. Psychiatric: Mood and Affect: Mood normal. Thought Content: Thought content normal. Breast Exam - No new lumps or masses in right or left breast. No nipple discharge. Well healed left breast scar. No evidence of swelling or lumps in axillary areas. BP 156/73 (Patient Position: Sitting) Pulse 66 Temp 36.6 ??C (97.8 ??F) Resp 16 Ht 160 cm (5' 2.99) Wt 108 kg (238 lb 3.2 oz) SpO2 98% BMI 42.21 kg/m?? NO LABS THIS VISIT RECENT IMAGING 04/02/21 - Dexa Scan - Hip T-score -1.2; Forearm t-score -2.4. Osteopenia 08/13/20 - Mammogram with additional views on left breast due to calcifications. Final result Right breast normal and left breast negatve, BIRADS 2 on additional views. Assessment and Plan: Assessment: Corina Wick is a 64 yo female diagnosed with stage 1 left breast cancer, T1N0, ER/WA+, HER 2-jocelin negative in 05/2018. (See history as summarized above.) Corina returns to the [facility] onc[facility] clinicin [facility] alone today for 11 month routine follow-up. Corina is tolerating Aromasin with mild side effects. No clinical sign of breast cancer recurrence Osteopenia slightly worse in hip when compared to 2019 Plan; Continue daily Aromasin and daily Calcium/VitD supplement. Encouraged daily resistance or weight bearing exercises. Will reschedule Corina for Prolia 05/07/21 as stand alone with labs, and resubmit for approval. RTC 11/11 for visit with CMP and Prolia injection. documented in this encounter Plan of Treatment Upcoming Encounters Date Type Specialty Care Team Description 10/23/2021 Office Visit Hematology and Oncology Navid Armendariz MD [facility] DR ONCOLOGY [place] [address] (Wo rk) 10/23/2021 Infusion Hematology and Oncology Scheduled Orders Name Type Priority Associated Diagnoses Order S chedule Comprehensive metabolic Lab Routine Malignant neoplas m of Expected: 05/05/2021, panel (non-fasting) upper-outer quadrant of Expires: 04/09/2022 left breast in female, estrogen receptor positive [facility] current use of aromatase inhibi tor Osteopenia, unspecified location documented as of this encounter Visit Diagnoses Diagnosis Malignant neoplasm of upper-outer quadra nt of left breast in female, estrogen receptor positive 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
--- OUTSIDE RECORDS SUMMARY | 2021-10-23 02:22 | XMS_ITS | Clinical Summary ---
:1955 Author Organization [facility] [place] [address] Care Team Providers Name Role Phone Veronica Chun MD Primary Care Provider Allergies Active Allergy Reactions Severity Noted Date Comments Oxycodone Nausea And Vomiting 02/01/2017 Medications Medication Sig Dispensed Refills Start Date End Date Status aspirin 81 mg EC tablet 0 05/21/2008 Active metFORMIN (GLUCOPHAGE) take 1 tablet 0 01/24/2017 Active 1,000 mg by mouth twice TabletIndications: a day Osteoarthritis, unspecified osteoarthritis type, unspecified site, Osteoarthritis of left hand, unspecified osteoarthritis type, Fibromyalgia, Vitamin D deficiency atorvastatin (LIPITOR) 40 Take 40 mg by 0 Active mg Tablet mouth daily. atenolol (TENORMIN) 50 mg Take 50 mg by 0 Active Tablet mouth daily. naproxen sodium (ALEVE) Take by mouth 0 Active 220 mg Capsule as needed. hydroCHLOROthiazide Take 25 mg by 0 Active (HYDRODIURIL) 25 mg mouth. Tablet ONETOUCH ULTRA BLUE TEST TEST ONCE DAILY 0 9 Active STRIP Strip estradioL (ESTRACE) 0.01 Place 1 g 42.5 g 12 07/30/2020 Active % (0.1 mg/gram) Cream vaginally three times a week. exemestane (Aromasin) 25 Take 1 tablet 90 tablet 3 09/25/2020 Active mg TabletIndications: by mouth daily. 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 0 Active D3 315 mg-6.25 mcg (250 unit) Tablet [id number] Take by mouth. 0 Active MELN ORAL Active Problems Problem Noted Date [facility] current use of aromatase inhibitor 2 Osteopenia 04/09/2021 Malignant neoplasm of upper-outer quadrant of left lorenza ast in female, 08/28/2018 estrogen receptor positive Cancer Staging: Clinical: Stage IA (cT1c , cN0(sn), cM0, G1, ER+, IL+, HER2-) - Signed by Ziyad Pickard MD on 09/15/2018 Thyroid nodule 02/23/2012 Osteoarthrosis, unspecified whether generalized or loc alized, hand 02/23/2012 Osteoarthrosis, unspecified whether generalized or loc alized, lower leg 02/23/2012 Trigger middle finger of left hand 02/23/2012 Trigger index finger of right hand 02/23/2012 HAM (obstructive sleep apnea) 02/23/2012 Restless leg syndrome 02/23/2012 Resolved Problems Problem Noted Date Resolved Date Foreign body of bladder, initial encounter 09/19/2020 11/18/2020 Encounters Date Type Specialty Care Team Description 10/20/2021 Telephone Hematology and Oncology Navid Armendariz MD 08/19/2021 Ancillary Procedure Radiology Charlie Larry MD from Last 3 Months Family History Medical History Relation Comments Lymphoma Brother age 54 of same in 2006 Breast Cancer Neg Hx Ovarian Cancer Neg Hx Relation Status Comments Brother Social History Tobacco Use Types Packs/Day Years [...] Date Recorded Female 05/16/2020 8:19 PM EDT Last Filed Vital Signs Vital Sign Reading Time Taken Comments Blood Pressure 148/54 05/07/2021 11:52 AM EDT Pulse 59 05/07/2021 11:52 AM EDT Temperature 36.9 ??C (98.4 ??F) 05/07/2021 11:52 AM EDT Respiratory Rate 18 05/07/2021 11:52 AM EDT Oxygen Saturation 99% 05/07/2021 11:52 AM EDT Inhaled Oxygen Concentration - - Weight 106.1 kg (234 lb) 04/09/2021 2:31 PM EST Height 160 cm (5' 3) 05/07/2021 11:52 AM EDT Body Mass Index 41.45 04/09/2021 2:31 PM EST Plan of Treatment Upcoming Encounters Date Type Specialty Care Team Description 10/23/2021 Office Visit Hematology and Oncology Navid Armendariz MD [facility] DR ONCOLOGY [place] [address] (Wo rk) 10/23/2021 Infusion Hematology and Oncology Health Maintenance Due Date Last Done Comments Covid-19 Vaccine (#1) 07/30/1960 Hepatitis C Screening 07/30/1973 Tdap adult 07/30/1974 Tetanus vaccine 07/30/1974 HPV test 07/30/1985 PAP Smear 07/30/1985 Breast Cancer Share Decision Needed 1995 Colonoscopy 07/30/2000 Zoster vaccine (1 of 2) 07/30/2005 Bone Density Scan 07/30/2020 Pneumoccocal Vaccine: 65+ (1 - PCV) 07/30/2020 Diabetes Screening (HgbA1C or Glucose) 07/19/2021 9 Influenza (Flu) vaccine (1 of 1 - 10/22/2021 Influenza standard series) Breast Cancer screening 08/13/2022 08/13/2020, 08/01/2019 Medical Devices Implanted Type Area Director Mortgage Device Shelf Model / Serial / Identifier Expiration Lot Date Breast Clip-06/27/2018 Breast Left: [id number] / Implanted: Qty: 1 on 06/27/2018 by Liseth Henson MD Clip Breast [id number] / Description: [employer] ULTRACOR SUSAN LES ION 1 OF 2 Procedures Procedure Name Priority Date/Time Associated Diagnosis Comme nts MAMMOGRAM SCAN 08/20/2021 12:00 AM Result s for this EDT procedure are i n the results section. FILM LIBRARY Routine 08/19/2021 12:00 AM Results for this STORAGE ONLY MAMMO EDT procedure are in the results section. from Last 3 Months Results SCAN DOC: MAMMOGRAM (08/20/2021 12:00 AM EDT) Narrative This result has an attachment that is no t available. Unknown MEDIA MGR SCAN EXT ORDR/RSLT Film Library- Storage Only Mammo (08/19/2021 12:00 AM EDT) Specimen (Source) Anatomical Location Collection Method / Collectio n Time Received Time / Laterality Volume Narrative DH RAD - 08/20/2021 11:06 AM EDT This exam is auto-finalizing. It's purpo se is for storage only. Charlie Larry MD IMG FILM LIBRARY ORDERABLES Performing Organization Address City/State/ZIP Code Phon e Number [place], [place] from Last 3 Months Insurance Payer Benefit Plan / Subscriber ID Effective Dates Phone Addre ss Type Group MEDICARE MEDICARE PART [id number] 2021-Presen [phone] [id number] [place] [address] [place] [id number] 2019-Prese [phone] [address] [place] [address] [phone] [address] (Work) Advance Directives Documents on File Type Date Recorded Patient Scale Clerk Explanati on Advance Directives and 09/26/2018 4:54 PM [place] CE DIRECTIVES Living Will 09/26/2018 Latest Code Status on File Code Status Date Activated Date Inactivated Comments Full Code 2018 10:26 AM 2018 5:48 PM Does patient have capacity to make decision: Yes Care Teams Data Security Analyst Relationship Specialty Start Date End Date Veronica Chun MD PCP - General Family Medicine 01/20/[address] [place] [address]
--- OUTSIDE RECORDS SUMMARY | 2021-10-23 02:22 | XMS_ITS | Encounter Summary ---
:1955 Author Organization [place] [address] Care Team Providers Name Role Phone Veronica Chun MD Primary Care Provider Encounter Details Date Type Department Care Team Description 04/16/2021 TH Visit Obstetrics and Roni Lubin Recurren t UTI (urinary tract infection); (TeleHealth) Gynecology at [facility] OAB (overactive bladder) [facility] [address] [place] [phone] Social History Tobacco Use Types Packs/Day Years [...] Sign Reading Time Taken Comments Blood Pressure - - Pulse - - Temperature - - Respiratory Rate - - Oxygen Saturation - - Inhaled Oxygen Concentration - - Weight 106.1 kg (234 lb) 04/09/2021 2:31 PM EST Height 160 cm (5' 3) 04/09/2021 2:31 PM EST Body Mass Index 41.45 04/09/2021 2:31 PM EST documented in this encounter Progress Notes Michelle Oneal CCMA - 04/16/2021 9:30 AM EST ____ Patient not reached _x___Patient reached and the following information was reviewed/obtained per protocol. _x__Confirmed patient name and date of _x__Confirmed tele med appt (Virtual visit) is downloaded and functioning _x__Confirmed location of patient- TeleVisit is taking place in [place]_x_ [place]__[place]__ [place]__ If not on [facility], working on signing up for my DH Confirmed has completed any pre-visit questionnaires If has not received required previsit questionnaires, send via [facility] _x__Reviewed medications, allergies, pharmacy, pain/depression, education _x__Documented height/weight/LMP Other information or concerns: Roni Lubin MD - 04/16/2021 9:30 AM EST Female Pelvic Medicine and Reconstructive Surgery @ [facility] Telephone Follow-up Office Visit Patient Name: Corina Brewster Patient Primary Care Provider: Veronica Chun MD Corina Brewster verbally consented to conduct this clinical encounter by telephone. She acknowledges that her insurance may be billed for the care provided, similar to an in person appointment. She is currently at home in [place]. Prior to beginning the visit, I confirmed the patients name and date of . I obtained the patient's consent to receiving health care services at [facility] through telemedicine. We discussed the opportunities and limitations of delivering health care services through telemedicine. I told the patient that the telemedicine service is being delivered over a secure connection, except in the event of emergency conditions when such requirements may be waived. Patient agreed to the participation of other individuals assisting with their care by telemedicine, if indicated. Patient informed that telemedicine informed consent form is available for patient's review in [facility]'s patient portal, [facility]. Patient Active Problem List Diagnosis Code ??? Thyroid nodule E04.1 ??? Osteoarthrosis, unspecified whether generalized or localized, hand M19.049 ??? Osteoarthrosis, unspecified whether generalized or localized, lower leg [id number] ??? Trigger middle finger of left hand M65.332 ??? Trigger index finger of right hand M65.321 ??? HAM (obstructive sleep apnea) G47.33 ??? Restless leg syndrome G25.81 ??? Malignant neoplasm of upper-outer quadrant of left breast in female, estrogen receptor positive C50.412, Z17.0 ??? 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 Osteopenia M85.80 Date of surgery: 10-08-20 Procedure: Vaginectomy/colpocliesis, posterior colporrhaphy, cystoscopy and resection of synechiae by Chief Complaint: OAB History of Present Illness: Ms. Brewster is a 65 y.o. old woman, last seen 11/18/20 for post-op check. At that time she was healing well but noted an increased frequency q2-3 hours. This has persisted and she wonders if this is because of the surgery. Prior to the procedure, she had vaginal vault prolapse and recurrent UTIs. She denies recent UTIs. No urinary incontinence. But she does report the urinehaving different odors, not particular foul-smelling. She continues D-Mannose and topical Estrogen. Past Medical History: Diagnosis Date ??? Breast cancer ??? CAD (coronary artery disease) s/p circumflex angioplasty and stent ??? Diabetes ??? Essential hypertension ??? GERD (gastroesophageal reflux disease) ??? History of thyroid nodule 06/2018 S/p I-131 in June 2018 for hyperthyroidism. ??? Hyperlipemia ??? HAM (obstructive sleep apnea) ??? Restless leg syndrome ??? Trigger finger, left middle finger ??? Trigger finger, right index finger Past Surgical History: Procedure Laterality Date ??? BREAST BIOPSY Left 06/27/2018 DCIS ??? BREAST BIOPSY Left 06/27/2018 IDC ??? CORONARY ANGIOPLASTY WITH STENT PLACEMENT 2008 ??? HYSTERECTOMY age 27. for scar tissue. Still has 1 ovary ??? MAMMO STEREOTACTIC BIOPSY LEFT N/A 06/27/2018 Mammo Stereotactic Biopsy Left 06/27/2018 Liseth Henson MD [facility] RAD MAMMOGRAPHY ??? MAMMO US BIOPSY LEFT Left 06/27/2018 Mammo Us Biopsy Left 06/27/2018 Liseth Henson MD [facility] RAD MAMMOGRAPHY ??? PRO BX/REMV, LYMPH NODE, DEEP AXILL Left 2018 BIOPSY OR EXCISION OF LYMPH NODE(S), OPEN, DEEP AXILLARY NODE(S) (WRVU 6.43) performed by Charlie Larry MD at [facility] OSC ??? PRO CYSTOSCOPY, REMV CALCULUS, SIMPLE N/A 10/08/2020 CYSTO, REMOVAL OF STENT, FOREIGN BODY OR CALCULUS, SIMPLE (WRVU 2.81) performed by Yasemin Sparks MD at [facility] MAIN OR ??? PRO CYSTOURETHROSCOPY N/A 10/08/2020 CYSTO, CYSTOURETHROSCOPY, DIAGNOSTIC (WRVU 2.23) performed by Yasemin Sparks MD at [facility] MAIN OR ??? PRO EXC SKIN BENIG 0.6-1CM FACE, FACIAL N/A 2018 EXC BENIGN LESION ,RAINER .6 TO 1.0CM, FACE (WRVU 1.53) performed by Charlie Larry MD at [facility] OSC ??? PRO INTRAOP SENTINEL LYMPH ID W/DYE INJECTION Left 2018 INTRAOPERATIVE ID (MAPPING) SENTINEL LYMPH NODE,INCLUDES INJECTION (WRVU 2.5) performed by Charlie Larry MD at [facility] OSC ??? PRO MASTECTOMY PARTIAL Left 2018 MASTECTOMY PARTIAL (WRVU 10.13) performed by Charlie Larry MD at [facility] OSC ??? PRO POST COLPORRHAPHY, RECTUM/VAGINA N/A 10/08/2020 COLPORRHAPHY, POST RECTOCELE WITH OR W\O PERINEORRHAPHY (WRVU 11.5) performed by Roni Lubin MD at [facility] MAIN OR ??? PRO REMOVE VAGINA WALL, PARTIAL N/A 10/08/2020 VAGINECTOMY, PARTIAL REMOVAL OF VAGINAL WALL (WRVU 7.5) performed by Roni Lubin MD at [facility] MAIN OR OB History No obstetric history on file. Outpatient Medications Marked as Taking for the 04/16/21 encounter (TH Visit (TeleHealth)) with Roni Lubin MD Medication Sig Dispense Refill ??? Calcium Citrate-Vitamin D3 315 mg-6.25 mcg (250 unit) Tablet Take by mouth. ??? [id number]-[id number]-[id number]-FOS-BROMELN ORAL Take by mouth. ??? exemestane (Aromasin) 25 mg Tablet Take 1 tablet by mouth daily. 90 tablet 3 ??? estradioL (ESTRACE) 0.01 % (0.1 mg/gram) Cream Place 1 g vaginally three times a week. 42.5 g 12 ??? ONETOUCH ULTRA BLUE TEST STRIP Strip TEST ONCE DAILY 0 ??? hydroCHLOROthiazide (HYDRODIURIL) 25 mg Tablet Take 25 mg by mouth. ??? naproxen sodium (ALEVE) 220 mg Capsule Take by mouth as needed. ??? atorvastatin (LIPITOR) 40 mg Tablet Take 40 mg by mouth daily. ??? atenolol (TENORMIN) 50 mg Tablet Take 50 mg by mouth daily. ??? metFORMIN (GLUCOPHAGE) 1,000 mg Tablet take 1 tablet by mouth twice a day 0 ??? zolpidem (AMBIEN CR) 12.5 mg Tablet, Multiphasic Release nightly. 0 ??? aspirin 81 mg EC tablet Allergies Allergen Reactions ??? Oxycodone Nausea And Vomiting OBJECTIVE: Not performed Impression: Ms. Brewster is a .65 y.o. woman with OAB 6 months s/p vaginectomy, posterior colporrhaphy and resection of synechiae Recommendations: Based on the patients expressed goals for management I have recommended the following: ?? Ongoing behavioral measures for OAB ?? Continue D-Mannose and topical Estrogen ?? F/u PRN I spent 20 minutes total on the call with the patient, with 20 minutes of the time spent discussing her diagnosis and reviewing options for treatment. Call start: [phone] Call end: [phone] Roni Lubin MD Division of Female Pelvic Medicine/Reconstructive Surgery documented in this encounter Plan of Treatment Upcoming Encounters Date Type Specialty Care Team Description 10/23/2021 Office Visit Hematology and Oncology Navid Armendariz MD [facility] ONCOLOGY [place], [place] [address] (Wo rk) 10/23/2021 Infusion Hematology and Oncology documented as of this encounter Visit Diagnoses Diagnosis Recurrent UTI (urinary tract infection) Urinary tract infection, site not specif ied OAB (overactive bladder) Hypertonicity of bladder Breast cancer, stage 1, left documented in this encounter Care Teams Herd Tester Relationship Specialty Start Date End Date Veronica Chun MD PCP - General Family Medicine 01/20/[address] [place] [address] [address] [place] [address] documented as of this encounter
--- OUTSIDE RECORDS SUMMARY | 2021-10-23 02:22 | XMS_ITS | Encounter Summary ---
:1955 Author Organization [facility] [place] [address] Care Team Providers Name Role Phone Veronica Chun MD Primary Care Provider Encounter Details Date Type Department Care Team Description 04/03/2021 Telephone Obstetrics and Gynec ology at [facility] [place] [address] Social History Tobacco Use Types Packs/Day [...] PM EDT documented as of this encounter Plan of Treatment Upcoming Encounters Date Type Specialty Care Team Description 10/23/2021 Office Visit Hematology and Oncology Navid Armendariz MD [facility] ONCOLOGY [place], [place] [address] (Wo rk) 10/23/2021 Infusion Hematology and Oncology documented as of this encounter Visit Diagnoses Not on filedocumented in this encounter Care Teams High Man Relationship Specialty Start Date End Date Veronica Chun MD PCP - General Family Medicine 01/20/[address] [place] [address] documented as of this encounter
--- OUTSIDE RECORDS SUMMARY | 2021-10-23 02:22 | XMS_ITS | Encounter Summary ---
:1955 Author Organization [facility] [place] [address] Care Team Providers Name Role Phone Veronica Chun MD Primary Care Provider Encounter Details Date Type Department Care Team Description 10/20/2021 Telephone Hematology/Oncology at [facility] Navid MD [address] [phone] [place] [address] [phone] (Wo rk) Social History Tobacco Use Types Packs/Day Years [...] Visit Hematology and Oncology Navid Armendariz MD [facility] ONCOLOGY [place], [place] [address] (Wo rk) 10/23/2021 Infusion Hematology and Oncology Scheduled Orders Name Type Priority Associated Diagnoses Order S chedule Comprehensive metabolic Lab STAT Breast cancer, st age 1, Expected: 10/20/2021, panel (non-fasting) estrogen receptor Exp ires: 12/20/2021 positive, left documented as of this encounter Visit Diagnoses Diagnosis Breast cancer, stage 1, estrogen recepto r positive, left Breast cancer, stage 1, left documented in this encounter Care Teams Rn Night Relationship Specialty Start Date End Date Veronica Chun MD PCP - General Family Medicine 01/20/[address] [place] [address] documented as of this encounter
--- OUTSIDE RECORDS SUMMARY | 2021-10-23 02:22 | XMS_ITS | Encounter Summary ---
:1955 Author Organization [facility] [place] [address] Care Team Providers Name Role Phone Veronica Chun MD Primary Care Provider Reason for Visit Reason Comments Injections Prolia Treatment/Therapy Plan Authorization (Routine) - Authorized Specialty Diagnoses / Procedures Referred By Contact Refer red To Contact Diagnoses Malignant neoplasm of upper-outer quadrant of left breast in female, estrogen receptor positive residential current use of aromatase inhibitor Osteopenia, unspecified location Prerna Rodney APRN [address] [place] [address] HEMATOLOGY ONCOLOGY [place], [place] [address] Referral ID Status Reason Start Date Expiration Date Visits V isits Requested Authorized [id number] Authorized 04/09/2021 04/09/2022 99 99 Encounter Details Date Type Department Care Team Description 05/07/2021 Infusion Hematology Oncology at [facility] ng term current use of aromatase inhibitor; [facility] Osteopenia, unspecified loca tion; [address] [place] [address] Malignant neoplasm of upper- outer quadrant of left breast in female, estrogen receptor positive [place], [place] [phone] Social History Tobacco Use Types [...] EDT Inhaled Oxygen Concentration - - Weight - - Height 160 cm (5' 3) 05/07/2021 11:52 AM EDT Body Mass Index - - documented in this encounter Progress Notes Damon Harrison RN - 05/07/2021 12:00 PM EDT Infusion Note Diagnosis: Breast cancer Treatment: Prolia injection Labs done 05/01/21 at [facility]- CrCl 135 ml/min. Prolia given SQ in right arm. Patient advised to call clinic with any questions or concerns. Plan: Return to clinic as scheduled. documented in this encounter Plan of Treatment Upcoming Encounters Date Type Specialty Care Team Description 10/23/2021 Office Visit Hematology and Oncology Navid Armendariz MD [facility] DR ONCOLOGY [place] [id number] (Wo rk) 10/23/2021 Infusion Hematology and Oncology documented as of this encounter Visit Diagnoses Diagnosis residential current use of aromatase inhib itor Use of aromatase inhibitors Osteopenia, unspecified location Malignant neoplasm of upper-outer quadra nt of left breast in female, estrogen receptor positive Breast cancer, stage 1, left documented in this encounter Administered Medications Inactive Administered Medications - up to 3 most recent administrations Medication Order MAR Action Action Date Dose Rate Site denosumab (Prolia) (60 mg/mL) Given 05/07/2021 12:08 PM EDT 60 m g Right Arm subcutaneous injection 60 mg 60 mg, Subcutaneous, ONCE, 1 dose, On Naty 05/07/21 at 1200, Bring to room temperature 15-30 mins before administration. Monitor patients with severe impairment (CRCL less than 30 mL/minute or on dialysis) due to increased risk of hypocalcemia., Restricted to outpatient use. Requires P&T approval for inpatient use. Use in outpatient setting documented in this encounter Care Teams Branch Office Manager Relationship Specialty Start Date End Date Veronica Chun MD PCP - General Family Medicine 01/20/17 [facility] [address] [place] [address] documented as of this encounter
--- OUTSIDE RECORDS SUMMARY | 2021-10-23 02:23 | XMS_ITS | Encounter Summary ---
:1955 Author Organization [facility] [place] [address] Care Team Providers Name Role Phone Veronica Chun MD Primary Care Provider Encounter Details Date Type Department Care Team Description 07/29/2020 Office Visit Obstetrics and Roni Lubin, OAB (ove ractive bladder); Gynecology at [facility] Recurrent UTI (urinary tract infection) [facility] [address] [place] [phone] Social History Tobacco Use Types Packs/Day Years [...] Sign Reading Time Taken Comments Blood Pressure 136/103 07/29/2020 1:23 PM EDT Pulse 69 07/29/2020 1:23 PM EDT Temperature - - Respiratory Rate 18 07/29/2020 1:23 PM EDT Oxygen Saturation 99% 07/29/2020 1:23 PM EDT Inhaled Oxygen Concentration - - Weight 104.8 kg (231 lb) 07/29/2020 1:23 PM EDT Height 160 cm (5' 3) 07/29/2020 1:23 PM EDT Body Mass Index 40.92 07/29/2020 1:23 PM EDT documented in this encounter Progress Notes Roni Lubin MD - 07/29/2020 1:00 PM EDT Images from the original note were not included. Cystourethroscopy Procedure Note Indications/Diagnosis: Urinary urgency, Urinary frequency, Urge Incontinence and Recurrent urinary tract infections Anesthesia: 2% Xylocaine jelly, intraurethral. Procedure Details The risks, benefits, complications, treatment options, and expected outcomes were discussed with thepatient. The patient concurred with the proposed plan, giving informed consent. Prior to the procedure, time out protocol was followed with identification of the patient by name, date of . The planned procedure was confirmed. Cystoscopy was performed today under local anesthesia, using sterile technique. The patient was placed in the dorsal lithotomy position, prepped with Betadine, and draped in the usual sterile fashion. 2% Xylocaine jelly was inserted intraurethrally with a sterile cotton swab. A rigid cystoscope was used to inspect both the urethra and bladder. Findings: Urethra: angled superiorly with support from prior urethropexy, coapts well, no strictures Bladder: mucosa normal aside from a pillar extending from the trigone 5mm medial to the left (patent) UO to the Space of Retzius - suspicious for a permanent suture covered by healthy urothelium (photobelow); mild trabeculations; no stones or polyps. Cystocele present and bladder base raised with a digit in the vagina. Ureteral orifice(s): were seen bilaterally with urine efflux and in normal position. Specimens: None Complications: None, patient tolerated the procedure well. Prophylaxis: The patient is planning to complete tomorrow a 1-week course of Augmentin for urinary tract infection. Condition: stable Roni Lubin MD documented in this encounter Plan of Treatment Upcoming Encounters Date Type Specialty Care Team Description 10/23/2021 Office Visit Hematology and Oncology Navid Armendariz MD [facility] ONCOLOGY [place], [place] [address] (Wo rk) 10/23/2021 Infusion Hematology and Oncology documented as of this encounter Visit Diagnoses Diagnosis OAB (overactive bladder) Hypertonicity of bladder Recurrent UTI (urinary tract infection) Urinary tract infection, site not specif ied Breast cancer, stage 1, left documented in this encounter Care Teams Home Economist Consumer Service Relationship Specialty Start Date End Date Veronica Chun MD PCP - General Family Medicine 01/20/[address] [place] [address] documented as of this encounter
--- OUTSIDE RECORDS SUMMARY | 2021-10-23 02:23 | XMS_ITS | Encounter Summary ---
:1955 Author Organization [facility] Address [facility] [place] [address] Care Team Providers Name Role Phone Veronica Chun MD Primary Care Provider Encounter Details Date Type Department Care Team Description 09/04/2020 Orders Only Urology at [facility] Yasemin Sparks Other symptoms and [facility] MD Lor signs involving the Drive [facility] [place] [address] UROLOGY DEPT. [phone] [place], [place] [address] (Wo rk) Social History Tobacco Use Types [...] Armendariz MD [facility] ONCOLOGY [place], [place] [address] (Wo rk) 10/23/2021 Infusion Hematology and Oncology documented as of this encounter Visit Diagnoses Diagnosis Other symptoms and signs involving the g enitourinary system Breast cancer, stage 1, left documented in this encounter Care Teams Utilities Estimator And Drafter Relationship Specialty Start Date End Date Veronica Chun MD PCP - General Family Medicine 01/20/[address] [place] [address] documented as of this encounter
--- OUTSIDE RECORDS SUMMARY | 2021-10-23 02:23 | XMS_ITS | Encounter Summary ---
:1955 Author Organization [facility] [place] [address] Care Team Providers Name Role Phone Veronica Chun MD Primary Care Provider Reason for Visit Reason Onset Date Comments Follow-up 05/29/2020 Encounter Details Date Type Department Care Team Description 05/29/2020 Telephone Hematology/Oncology at Brenda Pena RN Follow-up [address] [phone] Social History Tobacco Use [...] Telephone Encounter - Brenda Lima RN - 05/29/2020 3:47 PM EDT Lukas Rodney NP reviewed urine culture sensitivities and will keep pt on macrodantin. Pt called and told about this. She agrees with plan. documented in this encounter Plan of Treatment Upcoming Encounters Date Type Specialty Care Team Description 10/23/2021 Office Visit Hematology and Oncology Navid Armendariz MD [facility] DR ONCOLOGY [place], [place] [address] (Wo rk) 10/23/2021 Infusion Hematology and Oncology documented as of this encounter Visit Diagnoses Not on filedocumented in this encounter Care Teams Manager Bilingual Relationship Specialty Start Date End Date Veronica Chun MD PCP - General Family Medicine 01/20/[address] [place] [address] documented as of this encounter
--- OUTSIDE RECORDS SUMMARY | 2021-10-23 02:23 | XMS_ITS | Encounter Summary ---
:1955 Author Organization [facility] [place] [address] Care Team Providers Name Role Phone Veronica Chun MD Primary Care Provider Encounter Details Date Type Department Care Team Description 02/01/2020 TH Visit Hematology/Oncology Rodger Armendariz MD [facility] [place] [address] Osteopenia, unspecified location; (TeleHealth) at [facility] Prerna Rodney APRN [address] [place] [address] [place] [address] Breast cancer, stage 1, left [address] [place] [phone] Social History Tobacco Use Types Packs/Day [...] PM EDT documented as of this encounter Progress Notes Navid Armendariz MD - 02/01/2020 2:00 PM EST Subjective: Patient ID: Corina Brewster is a 64 y.o. female. Problem List: 1. Cancer of the left breast, pT1cN0; ER/KY+, Her-2/jocelin - A. Bilateral breast mammogram 05/2018, [facility] second read - FINDINGS: Left breast: Within the upper and outer left breast, at approximately 2:00, 9.5 cm from the nipple, there is an irregular/spiculated mass which measures approximately 1.5 cm with subtle internal microcalcifications. Segmental and indeterminant microcalcifications are noted immediately anterior and medial to the mass. ?? Additional diagnostic views of the left breast, confirm this irregular mass, and segmental extension of abnormal microcalcifications, as above. ?? Static images from outside ultrasound, for review, not for primary interpretation. Within those limitations, static images labeled 2:00, 5 cm from the nipple, left breast reveal an antiparallel hypoechoic mass with irregular echogenic margin, which measures approximately 1.4 x 1.2 x 1.1 cm with peripheral vascular flow. No additional findings. ?? Right breast: No suspicious calcifications, mass, distortion. ?? IMPRESSION Left breast: Highly suspicious mass on outside static ultrasound images/mammography with microcalcifications extension anterior/medial to the mass in a segmental distribution. Right breast: Negative mammography. ?? RECOMMENDATION: Left breast: Ultrasound-guided biopsy. Prior to ultrasound biopsy, spot magnification views of abnormal microcalcifications are recommended, left breast. Right breast: Annual screening. B. US guided biopsy 06/27/18 Path - A - ??Needle biopsies: ??Left breast, lesion 1 of 2. Diagnosis: - Invasive ductal carcinoma (see discussion) ? Low grade, modified SBR score = 5 ? 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 Diagnosis: ?Ductal carcinoma in-situ, low to intermediate nuclear grade, cribriformand solid patterns without necrosis, and involving a intraductal papilloma Microcalcifications: ??Associated with intraductal papilloma ER immunoreactivity: Positive (>90% cancer cells with immunostaining) Stain intensity: Strong [place] immunoreactivity: Positive (>90% cancer cells with immunostaining) Stain intensity: Strong NEGATIVE FOR HER2/JOCELIN AMPLIFICATION C. 07/31/18 - Left breast partial mastectomy and SLN excision Path - DIAGNOSIS A - Left breast new anterior margin: - Benign fibroadipose tissue. B - Left breast partial mastectomy: - Invasive ductal carcinoma, 1.7 cm, low grade, associated with intermediate grade DCIS (biopsy site 1) - Ductal carcinoma in-situ, low and intermediate grade, involving a papillary lesion, (biopsy site 2). - See Discussion. (See SYNOPTIC REPORT) C - Left non sentinel node: One lymph node, negative for malignancy, (0/1). D - Left axillary sentinel node: Three lymph nodes, negative for malignancy, (0/3). E - Left axillary non-sentinel node Three lymph nodes, negative for malignancy, (0/3). Specimen ?Procedure: ??Excision (less than total mastectomy) ?Specimen Laterality: ?? Left Tumor ?Histologic Type: ?? Invasive carcinoma of no special type (ductal, not otherwise specified) ?Histologic Grade ([place] Histologic Score) ? Glandular (Acinar) / Tubular Differentiation: ?Score 1 ? Nuclear Pleomorphism: ?? Score 3 ? Diameter of Microscope Field in Millimeters (mm): ?0.55 mm ? Mitotic Rate: ?? Score 1 (<=3 mitoses per mm2) ? Overall Grade: ?? Grade 1 (scores of 3, 4 or 5) ?Tumor Size: ?? 17 Millimeters (mm) ?Tumor Focality: ?? Single focus of invasive carcinoma ?Ductal Carcinoma In Situ (DCIS): ?Present ? Architectural Patterns: ?? Cribriform, Papillary ? Nuclear Grade: ?? Grade II (intermediate) ? Necrosis: ??Present, focal (small foci or single cell necrosis) ?Tumor Extent ? Skin: ??Skin is not present ? Skeletal Muscle: ?? No skeletal muscle is present ?Accessory Findings ? Lymphovascular Invasion: ?? Cannot be determined - See Comment ? Dermal Lymphovascular Invasion: ?? No skin present ? Treatment Effect: ?? No known presurgical therapy Margins ?Invasive Carcinoma Margins: ?? Uninvolved by invasive carcinoma ? Distance from Other Specified Margin: ?From all RM > 10 Millimeters (mm) ?DCIS Margins: ?? Uninvolved by DCIS ? Distance of DCIS to Posterior Margin: ?0.5 Millimeters (mm) ? Distance from Other Specified Margin: ?From other RM > 10 Millimeters (mm) Lymph Nodes ?Regional Lymph Nodes: ?? Uninvolved by tumor cells ? Number of Lymph Nodes Examined: ?? 7 ? Number of [place] Nodes Examined: ?3 Pathologic Stage Classification (pTNM, AJCC 8th Edition) ?Primary Tumor (Invasive Carcinoma) (pT): ?pT1c ?Regional Lymph Nodes (pN) ? Category (pN): ?? pN0 Additional Findings ?Additional Pathologic Findings: ?? Atypical ductal hyperplasia (ADH). ?Columnar cell change and hyperplasia with adenosis. ?Papillary lesion associated with DCIS in biopsy site #2. Comments ?In B11, a small arteriole shows tumor within the lumen with intimal reactive change. D. OncoType Dx score - 13, in low risk E. Adjuvant radiation, completed 10/31/18 F. 11/2018 - began therapy with anastrozole Tolerated poorly, stopped after about a month 12/2018 - began therapy with aromasin G. Bilateral mammogram 08/01/2019 - CONCLUSION: No mammographic evidence of malignancy. ?? RECOMMENDATION:Routine screening. ?? BIRADS CATEGORY 2: BENIGN FINDINGS 2. Hyperthyroidism S/p LEWIS 06/2018 3. DM 4. HTN 5. Hyperlipidemia 6. Osteoarthritis 7. Obstructive sleep apnea, presumed. She has not undergone formal testing 8. Restless leg syndrome 9. S/p hysterectomy and USO at age 27 10. Dexa scan 11/23/18 - Impression: Findings consistent with osteopenia according to WHO criteria. There appears to be minimal anteriorcompression fracture of L3 vertebral body of uncertain age. HPI Ms. Brewster is referred for evaluation and continued management of stage I cancer of the left breast. The history is summarized above. She completed a course of adjuvant radiation therapy to the left breast on 10/31/18. In 11/2018, she began therapy with anastrozole. Stopped after about a month due to stomach upset, myalgias and arthralgias. This is a telephone encounter. She is feeling well overall. She is taking aromasin and tolerating that well. She has some occasional twinges of the chest wall in the area of the prior breast surgery.She still has intermittent tenderness in the axilla. These symptoms are mor noticeable if she is doing more with her arm. She has been doing lymphedema massage and the swelling that she has is much better. She has a hot flash on occasion. She checks her BP at home. Yesterday it was 134/73, her HR was 62 and her weight was 232.2# and her BS was 108. She does BSE and has not noted any areas of concern.She has some areas of myalgias and arthralgias but no new or worsening areas of pain. 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 Genitourinary: Comments: Breast exam - not performed, telephone encounter Neurological: Mental Status: She is alert. Labs: BUN//Cr - 14/0.92. Glucose - 142. Lytes and LFTs o/w unremarkable Vit D 11/2018 - 54.3 Assessment and Plan: Ms. Brewster is a 64 yo female seen for evaluation and management of stage I cancer of the left breast(pT1c, N0, ER/KY +, Her-2/joceiln -). Screening bilateral mammogram 05/2018. The right breast was negative. On the left, a 1.5 cm mass was seen in the UOQ with microcalcifications anterior and medial to the mass. US guided bx 06/27/18. Path -invasive ductal carcinoma, low grade with an SBR score of 5, and DCIS, low to intermediated grade. ER/KY was positive with strong staining and Her-2/jocelin was negative. 07/31/18 - partial mastectomy and SLN excision. Path report is above - 1.7 cm invasive ductal carcinoma, low grade. 3 SLNs and 4 non-SLNs were removed, all negative - pT1c, pN0. The margins of resectionwere negative. Grade 2 DCIS was also seen and the margins were negative for this also (closest < 0.5 mm). She met with Dr. Moya on 08/16/18 and discussed adjuvant systemic therapy. Adjuvant endocrine therapy with an AI was recommended. Oncotype Dx testing was done and showed a score of 13, in the low riskrange, and chemotherapy was not recommended. She met with Dr. Pickard and received adjuvant radiation therapy from 10/03/18 to 10/31/18. In 11/2018, she began therapy with anastrozole. Stopped after about a month due to stomach upset, myalgias and arthralgias. A dexa scan was done on 10/3/19. Findings were consistent with osteopenia. BMD may [...] osphonate. She is taking caltrate with D. In 12/2019 she began therapy with aromasin. Clinically she is doing well. Will have her continue the aromasin. We will see her in 3 months. She is planning to have a mammogram and f/u appt with Dr. Larry in July. We will recheck her Vit D level and a fastin lipid panel. She will be due for a repeat Dexa scan next fall. I provided care to the patient today via telephone call. The total time associated with this visit was 20 minutes. documented in this encounter Plan of Treatment Upcoming Encounters Date Type Specialty Care Team Description 10/23/2021 Office Visit Hematology and Oncology Navid Armendariz MD [facility] ONCOLOGY [place], [place] [address] (Wo rk) 10/23/2021 Infusion Hematology and Oncology documented as of this encounter Visit Diagnoses Diagnosis Osteopenia, unspecified location Breast cancer, stage 1, left Breast cancer, stage 1, left documented in this encounter Care Teams Chemical Processing Laborer Relationship Specialty Start Date End Date Veronica Chun MD PCP - General Family Medicine 01/20/[address] [place] [address] [address] [place] [address] documented as of this encounter
--- OUTSIDE RECORDS SUMMARY | 2021-10-23 02:23 | XMS_ITS | Encounter Summary ---
:1955 Author Organization [facility] Address [address] [place] [address] Care Team Providers Name Role Phone Veronica Chun MD Primary Care Provider Reason for Visit Reason Comments Follow-up Encounter Details Date Type Department Care Team Description 08/01/2019 Office Visit Hematology and Kendy, Charlie Hale, Zeeshan t neoplasm of Oncology at [facility] left breast in female, [facility] est rogen receptor [address] DR positive, unspecified [place], [place] GENERAL SURGERY site of breast [address] [place] [address] [phone] Social History Tobacco Use Types Packs/Day Years [...] Sign Reading Time Taken Comments Blood Pressure 147/73 08/01/2019 11:28 AM EDT Pulse 89 08/01/2019 11:28 AM EDT Temperature 36.8 ??C (98.2 ??F) 08/01/2019 11:28 AM EDT Respiratory Rate 18 08/01/2019 11:28 AM EDT Oxygen Saturation 98% 08/01/2019 11:28 AM EDT Inhaled Oxygen Concentration - - Weight 111.6 kg (246 lb) 08/01/2019 11:28 AM EDT Height 160.5 cm (5' 3.19) 08/01/2019 11:28 AM EDT Body Mass Index 43.32 08/01/2019 11:28 AM EDT documented in this encounter Progress Notes Charlie Larry MD - 08/01/2019 11:30 AM EDT Chante Brewster is a 64-year-old woman who returns after left partial mastectomy and sentinel node excision for breast cancer on 2018. She had a 1.7 cm low-grade infiltrating ductal carcinoma, ER positive, HER-2 negative excised with negative margins. 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 She had 3 negative sentinel nodes and 4 negative non-sentinel nodes. Oncotype dx score 13, low. Received XRT in [facility]. Dr. Armendariz prescribed Arimidex, caused GI upset, she is now on exemestane. She now returns for a check. She has felt a mass at her surgical site since soon after surgery that is not increasing in size and does not bother her. She has been doing breast massage for edema after XRT and feels that there has been improvement. On physical exam there is a 4 X 3 cm mass that is soft and consistent with a seroma under her left breast scar, upper outer breast. She does have mild left breast edema. There are no right breast masses. No axillary adenopathy. Bilateral mammo from today: benign. A 5-6 cm oval shaped density is seen consistent with a seroma. Her 6 month f/u mammo showed a larger density that appears to have consolidated since then. Impression: No evidence of breast cancer recurrence. Seroma. Plan: I will plan to see her back in 1 year with a bilateral mammogram. documented in this encounter Plan of Treatment Upcoming Encounters Date Type Specialty Care Team Description 10/23/2021 Office Visit Hematology and Oncology Navid Armendariz MD [facility] DR ONCOLOGY [place], [place] [address] (Wo rk) 10/23/2021 Infusion Hematology and Oncology documented as of this encounter Results Mammo Screening Cad and Sadi Bilateral (08/13/2020 10:04 AM EDT) Anatomical Region Laterality Modality Breast Bilateral Mammography Specimen (Source) Anatomical Location Collection Method / Collectio n Time Received Time / Laterality Volume Impressions 08/13/2020 11:03 AM EDT The Left breast demonstrates two groups of calcifications in the upper outer breast, at 1:00, 2 cm from t he nipple, for which additional imaging is recommended. The Breast Imaging Division will contact the patient to coordinate this follow-up. BI-RADS Category 0: Incomplete-Need Akin tional Imaging Evaluation and/or Prior Mammograms for Comparison * ??Regular screening mammograms startin g between age 40 and 50 reduces the risk of from breast cancer. * ??All screening tests have both risks and benefits. These risks and benefits should be assessed for each individual p atient through discussion with their provider to determine their preferred [facility] cancer screening schedule. * ??Women should report any breast patel es to a health care provider right away. * ??Some women, because of their family history, a genetic tendency, or other factors, should be screened with annual breast MRI as well as with mammograms. (The number of women who fall into this category is very small). Patients and health care providers should discuss the history of each patient to decide if earlier screening and/or breast MRI are appropriate. * ??Screening should continue as long as a woman is in good health and is expected to live 10 years or longer. * ??Screening mammography may not detect 10-15% of breast cancers. Thank you for letting us participate in the care of this patient. ??If you are a health care provider and have any questi ons regarding this report, please contact the number below. ??For patients who have questions please contact the health critical care unit nurse that requested your imaging first. ? Narrative 08/13/2020 11:03 AM EDT EXAMINATION: MAMMO SCREENING CAD AND SADI BILATERAL CLINICAL HISTORY: s/p left lumpectomy fo r left breast cancer 2018. TECHNIQUE: CC and MLO views were obtaine d of each breast. 2-D and 3- D tomosynthesis images were obtained. Comp uter aided detection was used. COMPARISON: This is compared with prior images. FINDINGS: Breast density: There are scattered area s of fibroglandular density. The right breast is normal. There are post treatment changes in the Left breast; the previously seen seroma at the excision site has decreased in si ze. The Left breast demonstrates two groups of calcifications in the upper ou ter breast, at 1:00, 2 cm from the nipple. ?? Charlie Larry MD IMG MAMMO ORDERABLES documented in this encounter Visit Diagnoses Diagnosis Malignant neoplasm of left breast in fem radha, estrogen receptor positive, unspecified site of breast Malignant neoplasm of left breast in fem radha, estrogen receptor positive, unspecified site of breast Breast cancer, stage 1, left documented in this encounter Care Teams Accounting/Finance Tutor Relationship Specialty Start Date End Date Veronica Chun MD PCP - General Family Medicine 01/20/[address] [place] [address] [address] [facility] [address] [place] [address] documented as of this encounter
--- OUTSIDE RECORDS SUMMARY | 2021-10-23 02:23 | XMS_ITS | Encounter Summary ---
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 of aromatase inhib itor [address] [place] [address] HEMATOLOGY ONCO LOGY [address] [place], [place] [phone] (Wo rk) Social History Tobacco Use Types [...] Visit Hematology and Oncology Navid Armendariz MD [facility] [address] [place], [place] [address] (Wo rk) 10/23/2021 Infusion Hematology and Oncology Scheduled Orders Name Type Priority Associated Diagnoses Order S chedule CBC (with Diff) Lab Routine Malignant neoplasm of Exp ected: 02/14/2021 upper-outer quadrant of (Arlin roximate), left breast in female, Expir es: 01/15/2022 estrogen receptor positive long-term current use of aromatase inhibitor Comprehensive metabolic Lab Routine Malignant neoplas m of Expected: 02/14/2021, panel (non-fasting) upper-outer quadrant of Expires: 01/15/2022 left breast in female, estrogen receptor positive long-term current use of aromatase inhibitor documented as of this encounter Visit Diagnoses Diagnosis Malignant neoplasm of upper-outer quadra nt of left breast in female, estrogen receptor positive long-term current use of aromatase inhib itor Use of aromatase inhibitors Breast cancer, stage 1, left documented in this encounter Care Teams Returned Goods Sorter Relationship Specialty Start Date End Date Veronica Chun MD PCP - General Family Medicine 01/20/[address] [place] [address] documented as of this encounter
--- OUTSIDE RECORDS SUMMARY | 2021-10-23 02:23 | XMS_ITS | Encounter Summary ---
:1955 Author Organization [facility] [place] [address] Care Team Providers Name Role Phone Veronica Chun MD Primary Care Provider Encounter Details Date Type Department Care Team Description 12/04/2020 Telephone Urology at [facility] Yasemin Sparks, [facility] [place] [address] [facility] [phone] UROLOGY DEPT. [place], [place] [address] (Wo rk) Social History Tobacco [...] this encounter Miscellaneous Notes Telephone Encounter - PrasadRudy townsend - 12/04/2020 1:15 PM EDT Patient calling, wondering if it is okay to have her post op appointment with Dr. Sparks be a telehealth instead of coming into the clinic. Patient is feeling back to herself again since surgery and if she doesn't have to make the trip up here as transportation is sometimes hard than that would be best. PHONE: [phone] documented in this encounter Plan of Treatment Upcoming Encounters Date Type Specialty Care Team Description 10/23/2021 Office Visit Hematology and Oncology Navid Armendariz MD [facility] DR ONCOLOGY [place], [place] [address] (Wo rk) 10/23/2021 Infusion Hematology and Oncology documented as of this encounter Visit Diagnoses Not on filedocumented in this encounter Care Teams Grievance And Appeals Specialist Relationship Specialty Start Date End Date Veronica Chun MD PCP - General Family Medicine 01/20/17 [address] [place] [address] documented as of this encounter
--- OUTSIDE RECORDS SUMMARY | 2021-10-23 02:23 | XMS_ITS | Encounter Summary ---
:1955 Author Organization [facility] [place] [address] Care Team Providers Name Role Phone Veronica Chun MD Primary Care Provider Reason for Visit Reason Onset Date Comments Medication Refill 01/01/2020 Exemestane Encounter Details Date Type Department Care Team Description 01/01/2020 [facility] neoplasm of left breast in female, estrogen receptor positive, unspecified site of breast; [facility] Malignant neoplasm of upper-outer quadra nt of left breast in female, estrogen receptor positive; [address] [place] [address] 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 She uses [facility] in [place]. She is asking for her FUV next month alicia a TOV unless Dr Armendariz needs to see her in the office. She has concerns with the growing cases ofCOVID and wants to avoid coming in if that is reasonable. Explained I would ask provider and call her with answer. ----- Message from Carmen Delarosa sent at 01/01/2020 11:59 AM EST ----- Regarding: pls call Corina called regarding her exemestane (Aromasin) 25 mg Tablet prescription. She went to have it refilled and per the pharmacy, she is out of refills. She will run out before she sees Dr. Armendariz and wants to know what she should do. Please reach out to her when available at [phone]. Thanks Carmen documented in this encounter Plan of Treatment Upcoming Encounters Date Type Specialty Care Team Description 10/23/2021 Office Visit Hematology and Oncology Navid Armendariz MD [facility] DR ONCOLOGY [place] [address] (Wo rk) 10/23/2021 Infusion Hematology and Oncology documented as of this encounter Visit Diagnoses Diagnosis Malignant neoplasm of left breast in fem radha, estrogen receptor positive, unspecified site of breast Malignant neoplasm of upper-outer quadra nt of left breast in female, estrogen receptor positive assisted current use of aromatase inhib itor Use of aromatase inhibitors Breast cancer, stage 1, left documented in this encounter Care Teams Cinder Snapper Relationship Specialty Start Date End Date Veronica Chun MD PCP - General Family Medicine 01/20/[address] [place] [address] documented as of this encounter
--- OUTSIDE RECORDS SUMMARY | 2021-10-23 02:23 | XMS_ITS | Encounter Summary ---
:1955 Author Organization [facility] [place] [address] Care Team Providers Name Role Phone Veronica Chun MD Primary Care Provider Encounter Details Date Type Department Care Team Description 07/29/2020 Office Visit Obstetrics and Roni Lubin, OAB (ove ractive bladder); Gynecology at [facility] Foreign body in bladder, initial encount er [facility] [address] [place] [id number] [phone] Social History Tobacco Use Types Packs/Day Years [...] documented as of this encounter Progress Notes Roni Lubin MD - 07/29/2020 2:00 PM EDT Images from the original note were not included. Female Pelvic Medicine and Reconstructive Surgery @ [facility] Follow-up visit Patient Name: Corina Brewster Patient Primary Care Provider: Veronica Chun MD Patient Active Problem List Diagnosis Code ??? Thyroid nodule E04.1 ??? Osteoarthrosis, unspecified whether generalized or localized, hand M19.049 ??? Osteoarthrosis, unspecified whether generalized or localized, lower leg M17.10 ??? Trigger middle finger of left hand M65.332 ??? Trigger index finger of right hand M65.321 ??? HAM (obstructive sleep apnea) G47.33 ??? Restless leg syndrome G25.81 ??? Malignant neoplasm of upper-outer quadrant of left breast in female, estrogen receptor positive C50.412, Z17.0 Chief Complaint: OAB and recurrent prolapse History of Present Illness: Ms. Brewster is a 65 y.o. old woman, last seen 07/22/20 for OAB and likely recurrent pelvic organ prolapse in the setting of multiple prior pelvic surgeries At that time she reported a PSH significant for x1 , x1 (breech), CHANCE in 1982 c/b cystotomy, open my bladder, a subsequent retropubic urethropexy or paravaginal repair (with Gortex sutures) and a rectocele repair (Dr. Martinez Flowers) at time of abdominal incision for concomitant RSO and omentectomy for benign pelvic mass. Scan docs from [facility]: UA 5/10 mod leuks, +ve nitrites and trace blood UA 4/6 large leuks, +ve nitrites and large blood --> Report of E coli on urine culture 06/06/2005/12 labs: BUN 16, Cr 0.8, eGFR >60, HbA1c 7.1 Today she is here for pelvic exam and cystoscopy. Past Medical History: Diagnosis Date ??? Breast [...] Stereotactic Biopsy Left 06/27/2018 Liseth Henson MD [facility]MO[facility] ??? MAMMO US BIOPSY LEFT Left 06/27/2018 Mammo Us Biopsy Left 06/27/2018 Liseth Henson MD [facility] ??? PRO BX/REMV, LYMPH NODE, DEEP AXILL Left 2018 BIOPSY OR EXCISION OF LYMPH NODE(S), OPEN, DEEP AXILLARY NODE(S) (WRVU 6.43) performed by Charlie Larry MD at [facility] ??? PRO EXC SKIN BENIG 0.6-1CM FACE, FACIAL N/A 2018 EXC BENIGN LESION ,RAINER .6 TO 1.0CM, FACE (WRVU 1.53) performed by Charlie Larry MD at [facility] ??? PRO INTRAOP SENTINEL LYMPH ID W/DYE INJECTION Left 2018 INTRAOPERATIVE ID (MAPPING) SENTINEL LYMPH NODE,INCLUDES INJECTION (WRVU 2.5) performed by Charlie Larry MD at [facility] ??? PRO MASTECTOMY PARTIAL Left 2018 MASTECTOMY PARTIAL (WRVU 10.13) performed by Charlie Larry MD at [facility] OB History No obstetric history on file. No outpatient medications have been marked as taking for the 07/29/20 encounter (Office Visit) with Roni Lubin MD. Allergies Allergen Reactions ??? Oxycodone Nausea And Vomiting Social History Socioeconomic History ??? Marital status: Spouse name: Not on file ??? Number of children: Not on file ??? Years of education: Not on file ??? Highest education level: Not on file Occupational History ??? 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 Smoking status: Never Smoker ??? Smokeless tobacco: Never Used Vaping Use ??? Vaping Use: Never used Substance and Sexual Activity ??? Alcohol use: Yes Comment: not even that much ??? Drug use: Not Currently ??? Sexual activity: Not on file Other Topics Concern ??? Not on file Social History Narrative ??? Not on file Social Determinants of Health Financial Resource Strain: ??? Difficulty of Paying Living Expenses: Food Insecurity: ??? Worried About Running Out of Food in the Last Year: ??? Ran Out of Food in the Last Year: Transportation Needs: ??? Lack of Transportation (Medical): ??? Lack of Transportation (Non-Medical): Physical Activity: ??? Days of Exercise per Week: ??? Minutes of Exercise per Session: Family History Problem Relation Age of Onset ??? Lymphoma Brother 54 age 54 of same in 2006 ??? Breast Cancer Neg Hx ??? Ovarian Cancer Neg Hx OBJECTIVE: VS: HR 69 General: normal appearing female, pleasant mood, normal speech Skin: skin of abdomen/pelvis normal appearance Respiratory: clear to auscultation bilaterally Neuro: no paraspinous tenderness; saddle sensory function (S2-4) intact in the pelvic area to touch Cardiac: regular rate and rhythm, no appreciated murmurs Gastrointestinal: vertical midline scar, no palpable masses/organomegaly, soft/nontender, no appreciable hernia Musculoskeletal: levator ani tone (0-5): 1, levator ani contraction (0-5): 2, moderate levator tenderness; lower extremity motor 5/5 bilaterally Pelvic: Cough stress test (empty supine): neg External Genitalia: Vulva, Rossiter's and Bartholin glands normal, urethra without tenderness or mass Vagina: See POPQ Atrophic epithelium (yes/no)?: yes Discharge?: no Cervix: absent Bimanual (uterus/adnexa): tender at cuff Rectovaginal: Enterocele: yes Rectocele: no Anal sphincter: Resting tone 2/5 and squeeze 3/5 Anal wink: present External anal sphincter: intact POP Q Measurements: Aa -2 Ba 0 C -3 GH 4, 5 PB 4, 4 TVL 6 Ap -2 Bp -2 D n/a A #3 ring and small Gellhorn (short stem) pessaries were attmepted but no comfortable fit found. Therefore, a small cube pessary was inserted patient was comfortable with the pessary in situ. The patient was instructed to ambulate for several minutes, and to try void without expelling the pessary. She was not counseled on proper techniques for pessary insertion and removal today. Photos from today's cysto: Impression: Ms. Brewster is a .65 y.o. woman with recurrent pelvic organ prolapse, incomplete bladder emptying andrecurrent UTIs in setting of prior urethropexy - cystoscopy today confirms cystocele, chronic irritation, h/o foreign body - now covered with urothelium Recommendations: Based on the patients expressed goals for management I have recommended the following: ?? Correction of prolapse and incomplete bladder emptying with pessary (cube pessary placed today) ?? Vaginal Estrogen (pea-sized amount) twice weekly - script sent to preferred pharmacy - to call ifinsurance does not cover and/or too expensive and we would then send script to compounding pharmacy ?? Will discuss with Urology regarding optimum management of intra-vesical foreign body ?? F/u in 2 days via Telehealth to determine comfort with pessary I spent 60 minutes total with the patient, with 40 minutes of the time spent [id number] in discussing her diagnosis and reviewing options for treatment. Roni Lubin MD Division of Female Pelvic Medicine/Reconstructive Surgery CC: Veronica Chun MD No ref. provider found documented in this encounter Plan of Treatment Upcoming Encounters Date Type Specialty Care Team Description 10/23/2021 Office Visit Hematology and Oncology Navid Armendariz MD [facility] [address] ONCOLOGY [place], [place] [address] (Wo rk) 10/23/2021 Infusion Hematology and Oncology documented as of this encounter Visit Diagnoses Diagnosis OAB (overactive bladder) Hypertonicity of bladder Foreign body in bladder, initial encount er Breast cancer, stage 1, left documented in this encounter Care Teams Ultrasound Manager Relationship Specialty Start Date End Date Veronica Chun MD PCP - General Family Medicine 01/20/[address] [place] [address] [address] [place] [address] documented as of this encounter
--- OUTSIDE RECORDS SUMMARY | 2021-10-23 02:23 | XMS_ITS | Encounter Summary ---
:1955 Author Organization [facility] [place] [address] Care Team Providers Name Role Phone Veronica Chun MD Primary Care Provider Encounter Details Date Type Department Care Team Description 10/09/2020 Telephone Urology at [facility] Yasemin Sparks, [facility] [place] [address] [facility] [phone] UROLOGY DEPT. [place], [place] [address] (Wo rk) Social History Tobacco [...] Notes Telephone Encounter - PrasadRudy townsend - 10/09/2020 9:58 AM EDT Patient calling, would like to discuss with someone on what she can and can't use since having surgery on the soreness where the incision is. 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 documented in this encounter Plan of Treatment Upcoming Encounters Date Type Specialty Care Team Description 10/23/2021 Office Visit Hematology and Oncology Navid Armendariz MD [facility] DR ONCOLOGY [place], [place] [address] (Wo rk) 10/23/2021 Infusion Hematology and Oncology documented as of this encounter Visit Diagnoses Not on filedocumented in this encounter Care Teams Internal Control Consultant Relationship Specialty Start Date End Date Veronica Chun MD PCP - General Family Medicine 01/20/17 [facility] [address] [place] [address] documented as of this encounter
--- OUTSIDE RECORDS SUMMARY | 2021-10-23 02:23 | XMS_ITS | Encounter Summary ---
:1955 Author Organization [facility] Address [facility] [facility] [place] [address] Care Team Providers Name Role Phone Veronica Chun MD Primary Care Provider Reason for Visit Reason Comments Follow-up Encounter Details Date Type Department Care Team Description 08/13/2020 Office Visit Hematology and Kendy, Charlie Hale, Zeeshan junior neoplasm of Oncology [place] [facility] upper-outer quadrant [facility] of left breast in Drive DR arredondo, estrogen [place], [place] GENERAL SURGERY receptor positive [id number] [place] [address] [phone] Social History Tobacco Use Types Packs/Day Years [...] Sign Reading Time Taken Comments Blood Pressure 148/63 08/13/2020 10:38 AM EDT Pulse 64 08/13/2020 10:38 AM EDT Temperature 36.5 ??C (97.7 ??F) 08/13/2020 10:38 AM EDT Respiratory Rate 18 08/13/2020 10:38 AM EDT Oxygen Saturation 95% 08/13/2020 10:38 AM EDT Inhaled Oxygen Concentration - - Weight 104.1 kg (229 lb 6.4 oz) 08/13/2020 10:38 AM EDT Height - - Body Mass Index 40.65 07/30/2020 8:57 AM EDT documented in this encounter Progress Notes Charlie Larry MD - 08/13/2020 11:00 AM EDT Chante Brewster is a 65-year-old woman who returns after left partial mastectomy [...] dx score 13, low. Received XRT in [facility]. Dr. Armendariz prescribed Arimidex, caused GI [...] mass that is soft and consistent with fibrosis under her left breast scar, upper outer breast. She does have mild left breast edema. There are no right breast masses. No axillary adenopathy. Bilateral mammo from today: benign. A 5-6 cm oval shaped density is seen consistent with a seroma/fibrosis. Her 6 month f/u mammo showed a larger density that appears to have consolidated since then. She had some coarse calcifications seen that required additional views and were felt to be benign. Impression: No evidence of breast cancer recurrence. Has seroma/fibrosis. Plan: I will schedule her to see our breast TOP INSTALLER in 1 year with a bilateral mammogram. documented in this encounter Plan of Treatment Upcoming Encounters Date Type Specialty Care Team Description 10/23/2021 Office Visit Hematology and Oncology Navid Armendariz MD [facility] ONCOLOGY [place], [place] [address] (Wo rk) 10/23/2021 Infusion Hematology and Oncology documented as of this encounter Visit Diagnoses Diagnosis Malignant neoplasm of upper-outer quadra nt of left breast in female, estrogen receptor positive Breast cancer, stage 1, left documented in this encounter Care Teams Circuit Designer Relationship Specialty Start Date End Date Veronica Chun MD PCP - General Family Medicine 01/20/[address] [place] [address] documented as of this encounter
--- OUTSIDE RECORDS SUMMARY | 2021-10-23 02:23 | XMS_ITS | Encounter Summary ---
:1955 Author Organization [facility] [place] [address] Care Team Providers Name Role Phone Veronica Chun MD Primary Care Provider Encounter Details Date Type Department Care Team Description 09/25/2020 Telephone Hematology/Oncology at [place] Navid MD [phone] [place] [address] [phone] (Wo rk) Social History Tobacco Use Types [...] Visit Hematology and Oncology Navid Armendariz MD [facility] ONCOLOGY [place], [place] [address] (Wo rk) 10/23/2021 Infusion Hematology and Oncology documented as of this encounter Visit Diagnoses Diagnosis Malignant neoplasm of left breast in fem radha, estrogen receptor positive, unspecified site of breast Malignant neoplasm of upper-outer quadra nt of left breast in female, estrogen receptor positive 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
--- OUTSIDE RECORDS SUMMARY | 2021-10-23 02:23 | XMS_ITS | Encounter Summary ---
:1955 Author Organization [facility] [place] [address] Care Team Providers Name Role Phone Veronica Chun MD Primary Care Provider Encounter Details Date Type Department Care Team Description 09/04/2020 Telephone Urology at [facility] Yasemin Sparks, [facility] [place] [address] [facility] [phone] UROLOGY DEPT. [place], [place] [address] (Wo rk) Social History Tobacco [...] this encounter Miscellaneous Notes Telephone Encounter - Dolores Feliz - 09/04/2020 10:47 AM EDT Spoke with patient who would like to get CT done at [facility]. Sent info over to see if can be done priorto 09/15 documented in this encounter Plan of Treatment Upcoming Encounters Date Type Specialty Care Team Description 10/23/2021 Office Visit Hematology and Oncology Navid Armendariz MD [facility] DR ONCOLOGY [place], [place] [address] (Wo rk) 10/23/2021 Infusion Hematology and Oncology documented as of this encounter Visit Diagnoses Not on filedocumented in this encounter Care Teams Ingot Buggy Operator Relationship Specialty Start Date End Date Veronica Chun MD PCP - General Family Medicine 01/20/[address] [place] [address] documented as of this encounter
--- OUTSIDE RECORDS SUMMARY | 2021-10-23 02:23 | XMS_ITS | Encounter Summary ---
:1955 Author Organization [facility] [place] [address] Care Team Providers Name Role Phone Veronica Chun MD Primary Care Provider Encounter Details Date Type Department Care Team Description 08/13/2020 Hospital Encounter Mammography/DXA at Charlie Larry neoplasm [facility] MD Geoffrey of left breast in [facility] DR receptor positive, [place], [place] GENERAL SURGERY unspecified site of [address] [place] [address] breast [phone] [facility] Social History Tobacco Use Types Packs/Day Years [...] PM EDT documented as of this encounter Medications at Time of Discharge Medication Sig Dispensed Refills Start Date End Date estradioL (ESTRACE) 0.01 % Place 1 g 42.5 g 12 1 (0.1 mg/gram) Cream vaginally three times a week. [employer] ULTRA BLUE TEST TEST ONCE DAILY 0 2018 STRIP Strip hydroCHLOROthiazide Take 25 mg by 0 (HYDRODIURIL) 25 mg Tablet mouth. naproxen sodium (ALEVE) 220 Take by mouth as 0 mg Capsule needed. atorvastatin (LIPITOR) 40 Take 40 mg by 0 mg Tablet mouth daily. atenolol (TENORMIN) 50 mg Take 50 mg by 0 Tablet mouth daily. metFORMIN (GLUCOPHAGE) take 1 tablet by 0 017 1,000 mg TabletIndications: mouth twice a day Osteoarthritis, unspecified osteoarthritis type, unspecified site, Osteoarthritis of left hand, unspecified osteoarthritis type, Fibromyalgia, Vitamin D deficiency aspirin 81 mg EC tablet 0 05/21/2008 amoxicillin-clavulanate TAKE 1 TABLET BY 0 202009/23/2020 (Augmentin) 875-125 mg MOUTH TWICE DAILY Tablet solifenacin (VESICARE) 5 mg Take 10 mg by 0 09/23/2020 Tablet mouth daily. nitrofurantoin Take 1 capsule by 20 capsule 0 05/28/202004/2020 (MACRODANTIN) 50 mg mouth 4 times CapsuleIndications: Acute daily. UTI (urinary tract infection) empagliflozin (JARDIANCE Take 10 mg by 0 09/23/2020 ORAL) mouth daily. exemestane (Aromasin) 25 mg Take 1 tablet by 30 tablet 11 09/25/2020 TabletIndications: mouth daily. Malignant neoplasm of left breast in female, estrogen receptor positive, unspecified site of breast, Malignant neoplasm of upper-outer quadrant of left breast in female, estrogen receptor positive, nursing home current use of aromatase inhibitor calcium citrate Take 1 tablet by 0 12/2021 (CALCITRATE) 200 mg (950 mouth daily. mg) Tablet ERGOCALCIFEROL, VITAMIN D2, Take 1,000 mg by 0 04/03/2021 (VITAMIN D ORAL) mouth daily. zolpidem (AMBIEN CR) 12.5 nightly. 0 01/11/2017 04/16/2021 mg Tablet, Multiphasic ReleaseIndications: Osteoarthritis, unspecified osteoarthritis type, unspecified site, Osteoarthritis of left hand, unspecified osteoarthritis type, Fibromyalgia, Vitamin D deficiency nitroGLYcerin (NITROSTAT) 0 05/21/2008 04/03/2021 0.4 mg SL tablet documented as of this encounter Plan of Treatment Upcoming Encounters Date Type Specialty Care Team Description 10/23/2021 Office Visit Hematology and Oncology Navid Armendariz MD [facility] [address] ONCOLOGY [place], [place] [address] (Wo rk) 10/23/2021 Infusion Hematology and Oncology documented as of this encounter Procedures Procedure Name Priority Date/Time Associated Diagnosis Comme nts MAMMO SCREENING CAD Routine 08/13/2020 10:04 AM Malignant neop lasm Results for this AND FERNANDO BILATERAL EDT of left breast in proc edure are in female, estrogen the results receptor positive, section. unspecified site of breast documented in this encounter Results Mammo Screening Cad and Fernando Bilateral (08/13/2020 10:04 AM EDT) Anatomical Region [...] with their provider to determine their preferred [facility] cancer screening schedule. * ??Women should report [...] who have questions please contact the health palliative care coordinator that requested your imaging first. ? Electronically signed by: Claudia Reyes MD, [facility] ([phone]), at 08/13/2020 11:03 AM Narrative 08/13/2020 11:03 AM EDT EXAMINATION: MAMMO SCREENING CAD AND FERNANDO BILATERAL CLINICAL HISTORY: s/p left lumpectomy fo [...] left documented in this encounter Care Teams Dean Of Graduate Studies Relationship Specialty Start Date End Date Veronica Chun MD PCP - General Family Medicine 01/20/[address] [place] [address] documented as of this encounter
--- OUTSIDE RECORDS SUMMARY | 2021-10-23 02:23 | XMS_ITS | Encounter Summary ---
:1955 Author Organization [facility] Address [address] [place] [address] Care Team Providers Name Role Phone Veronica Chun MD Primary Care Provider Encounter Details Date Type Department Care Team Description 2020 TH Visit Obstetrics and Roni Lubin Recurren t UTI (urinary tract infection); (TeleHealth) Gynecology at [facility] Foreign body in bladder, initial encount er [facility] [address], [place], [place] [phone] Social History Tobacco Use Types Packs/Day Years [...] - Inhaled Oxygen Concentration - - Weight 104.8 kg (231 lb) 07/30/2020 8:57 AM EDT Height 160 cm (5' 2.99) 07/30/2020 8:57 AM EDT Body Mass Index 40.93 07/30/2020 8:57 AM EDT documented in this encounter Progress Notes Cherise Arias LNA - 2020 1:00 PM EDT ____ Patient not reached __X__Patient reached and the following information was reviewed/obtained per protocol. __X_Confirmed patient name and date of _X__Confirmed tele med appt (Virtual visit) is downloaded and functioning __X_Confirmed location of patient- TeleVisit is taking place in [place]_X_ [place]__[place]__ [place]__ If not on myD, working on signing up for my DH Confirmed has completed any pre-visit questionnaires If has not received required previsit questionnaires, send via [facility] _X__Reviewed medications, allergies, pharmacy, pain/depression, education _X__Documented height/weight/LMP Other information or concerns: Roni Lubin MD - 2020 1:00 PM EDT Female Pelvic Medicine and Reconstructive Surgery @ [facility] Telehealth Follow-up Office Visit Patient Name: Corina Brewster Patient Primary Care Provider: Veronica Chun MD Corina Brewster verbally consented to conduct this clinical encounter by telephone. She acknowledges that her insurance may be billed for the care provided, similar to an in person appointment. She is currently at home in [place]. Prior to beginning the visit, I confirmed the patients name and date of . I obtained the patient's consent to receiving health care services at [facility] through telemedicine. We discussed the opportunities and [...] form is available for patient's review in [facility] patient portal, [facility]. Patient Active Problem List Diagnosis Code [...] estrogen receptor positive C50.412, Z17.0 Chief Complaint: OAB, rUTIs History of Present Illness: Ms. Brewster is a 65 y.o. old para 2 woman, last seen 07/29 for recurrent pelvic organ prolapse, incomplete bladder emptying and recurrent UTIs in setting of prior urethropexy. At that time she was fitted for a small cube pessary. Since then she reports a better urinary streamwithout ice-pick feeling with urination. Feels like bladder emptying better. However, she is not very comfortable with the pessary. Would like to plan definitive surgical management for the prolapse. Past Medical History: Diagnosis Date ??? Breast [...] Stereotactic Biopsy Left 06/27/2018 Liseth Henson MD [facility] RAD MAMMOGRAPHY ??? MAMMO US BIOPSY LEFT Left 06/27/2018 Mammo Us Biopsy Left 06/27/2018 Liseth Henson MD [facility] RAD MAMMOGRAPHY ??? PRO BX/REMV, LYMPH NODE, DEEP AXILL Left 2018 BIOPSY OR EXCISION OF LYMPH NODE(S), OPEN, DEEP AXILLARY NODE(S) (WRVU 6.43) performed by Charlie Larry MD at [facility] OSC ??? PRO EXC SKIN BENIG 0.6-1CM FACE, FACIAL N/A 2018 EXC BENIGN LESION ,RAINER .6 TO 1.0CM, FACE (WRVU 1.53) performed by Charlie Larry MD at [facility] OSC ??? PRO INTRAOP SENTINEL LYMPH ID W/DYE INJECTION Left 2018 INTRAOPERATIVE ID (MAPPING) SENTINEL LYMPH NODE,INCLUDES INJECTION (WRVU 2.5) performed by Charlie Larry MD at [facility] OSC ??? PRO MASTECTOMY PARTIAL Left 2018 MASTECTOMY PARTIAL (WRVU 10.13) performed by Charlie Larry MD at [facility] OSC OB History No obstetric history on file. Outpatient Medications Marked as Taking for the 07/31/20 encounter (TH Visit (TeleHealth)) with Roni Lubin MD Medication Sig Dispense Refill ??? solifenacin (VESICARE) 5 mg Tablet Take 10 mg by mouth daily. ??? empagliflozin (JARDIANCE ORAL) Take 10 mg by mouth daily. ??? exemestane (Aromasin) 25 mg Tablet Take 1 tablet by mouth daily. 30 tablet 11 ??? calcium citrate (CALCITRATE) 200 mg (950 mg) Tablet Take 1 tablet by mouth daily. ??? ONETOUCH ULTRA BLUE TEST STRIP Strip TEST ONCE DAILY 0 ??? hydroCHLOROthiazide (HYDRODIURIL) 25 mg Tablet Take 25 mg by mouth. ??? naproxen sodium (ALEVE) 220 mg Capsule Take by mouth as needed. ??? atorvastatin (LIPITOR) 40 mg Tablet Take 40 mg by mouth daily. ??? atenolol (TENORMIN) 50 mg Tablet Take 50 mg by mouth daily. ??? ERGOCALCIFEROL, VITAMIN D2, (VITAMIN D ORAL) Take 1,000 mg by mouth daily. ??? metFORMIN (GLUCOPHAGE) 1,000 mg Tablet take 1 tablet by mouth twice a day 0 ??? zolpidem (AMBIEN CR) 12.5 mg Tablet, Multiphasic Release nightly. 0 ??? aspirin 81 mg EC tablet (Patient taking differently: daily) Allergies Allergen Reactions ??? Oxycodone Nausea And Vomiting OBJECTIVE: Not performed Impression: Ms. Brewster is a .65 y.o. woman with recurrent pelvic organ prolapse, incomplete bladder emptying andrecurrent UTIs in setting of prior urethropexy The following surgical options were reviewed with the patient for treatment of her vaginal vault prolapse: 1. Galena ligament (uterosacral or sacrospinous) repair, with 70-80% success at 5 years out from surgery. 2. Laparoscopic mesh sacral colpopexy, with 90% success at 5 years out from surgery, but increased risks for complications of bowel obstruction, mesh erosion and longer anesthetic time. 3. Partial or complete colpectomy, with closure of the vagina, with 90-95% success at 5 years out from surgery. We discussed that this closed the vagina and that vaginal sexual intercourse is no longerpossible. We discussed that this would have the shortest anesthetic time and lower risks. - She is interested in a colpectomy. She is no longer sexually active and desires the procedure withthe lowest risks and best longevity. Recommendations: Based on the patients expressed goals for management I have recommended the following: ?? Find surgical date for colpectomy/colpocleisis and pre-op visit (would repeat attempt at PVR then) ?? Referral to Urology for consideration of concomitant intra-vesical excision of bladder pillar, likely surrounding prior urethropexy permanent suture ?? Continue topical Estrogen three times weekly I spent 15 minutes total on the call with the patient, with 15 minutes of the time spent discussing her diagnosis and reviewing options for treatment. Call start: [phone] Call end: [phone] Roni Lubin MD Division of Female Pelvic Medicine/Reconstructive Surgery documented in this encounter Plan of Treatment Upcoming Encounters Date Type Specialty Care Team Description 10/23/2021 Office Visit Hematology and Oncology Navid Armendariz MD [facility] ONCOLOGY [place], [place] [address] (Wo rk) 10/23/2021 Infusion Hematology and Oncology documented as of this encounter Visit Diagnoses Diagnosis Recurrent UTI (urinary tract infection) Urinary tract infection, site not specif ied Foreign body in bladder, initial encount er Breast cancer, stage 1, left documented in this encounter Care Teams Pin Worker Relationship Specialty Start Date End Date Veronica Chun MD PCP - General Family Medicine 01/20/[address] [place] [address] documented as of this encounter
--- OUTSIDE RECORDS SUMMARY | 2021-10-23 02:23 | XMS_ITS | Encounter Summary ---
:1955 Author Organization [facility] [place] [address] Care Team Providers Name Role Phone Veronica Chun MD Primary Care Provider Encounter Details Date Type Department Care Team Description 01/01[facility] [address] [phone] Social History Tobacco Use [...] Visit Hematology and Oncology Navid Armendariz MD [facility] [address] ONCOLOGY [place], [place] [address] (Wo rk) 10/23/2021 Infusion Hematology and Oncology documented as of this encounter Visit Diagnoses Not on filedocumented in this encounter Care Teams Slide Fastener Repairer Relationship Specialty Start Date End Date Veronica Chun MD PCP - General Family Medicine 01/20/[address] [place] [address] documented as of this encounter
--- OUTSIDE RECORDS SUMMARY | 2021-10-23 02:23 | XMS_ITS | Encounter Summary ---
:1955 Author Organization [place] [address] Care Team Providers Name Role Phone Veronica Chun MD Primary Care Provider Reason for Visit Physical Therapy (Routine) - Closed Specialty Diagnoses / Procedures Referred By Contact Refer red To Contact Physical Therapy Diagnoses Breast cancer Pt would like telehealth visit Charlie Larry MD [facility] Pt Rehab [facility] [place] [address] [place] [address] Fax: Referral ID Status Reason Start Date Expiration Date Visits Requ ested Visits Authorized [id number] Closed 08/01/2019 2020 1 1 Encounter Details Date Type Department Care Team Description 08/06/2019 TH Visit Physical Therapy at Shanon Welch, PT Swelling (TeleHealth) [facility] PHYSICAL MEDICINE [address] [place] [address] [place] [address] Social History Tobacco Use Types Packs/Day Years [...] documented as of this encounter Miscellaneous Notes Initial Evaluation - Jared Welch, PT - 08/06/2019 1:00 PM EDT Rehabilitation Medicine - Telemedicine Encounter Patient: Corina Brewster MR Number: [id number] Date of : 1955 Home Address: [address] [facility] [address] Phone Number (Home, Mobile): Mobile Not on file. Date of Visit: 08/06/2019 Patient Location at time of visit: [place], [place]; Corina Brewster is aware that I will need to confirm this location each time we meet. Others in the same physical location as the patient: pt'faye sprague This therapist is legally able to treat the patient in [place] and [place] via Telehealth due to license waiver agreement during Covid 19 crisis. NOTE: Corina Wick has verbally consented to participate in a Telemedicine visit with JARED WELCH PT as her Rehabilitation Medicine provider while the [facility] Covid 19 crisis is takingplace. This Telemedicine visit was comprised of both Audio and Visual through a secure connection throughout the duration of this visit. Patient understands this is a therapy service and will be billed to her insurance. Patient consents that therapy or educational materials could be sent through [facility] or e-mail address at: [email or web address]. Corina Wick did not have any questions for me at this time and was informed the best way to reach me is through [facility]. PHYSICAL THERAPY EVALUATION Date of Exam/First treatment: 08/06/19 Date of Onset : ~ Jan 2019 Referring Provider: Charlie Larry MD Primary Insurance: Payor: [place] / Plan: [place] / Product Type: *No Product type* / Diagnosis and pertinent co-morbidities: L breast edema s/p partial mastectomy 07/31/18 total treatment time: 30 minutes total timed code treatment: 30 minutes eval CURRENT HISTORY: Corina Brewster is a 64 y.o. female s/p left partial mastectomy 07/31/18 with 0/7 LNPinfiltrating ductal carcinoma, ER positive, HER-2 negative , . No complications. S/P XRT. Pt noted swelling in her left breast ~ Jan 2019. She looked for lymphedema therapist closer to home without much luck. She noted some arm swelling shortly after surgery and purchased an OTS athletic compression sleeve and since then she no longer has any arm swelling. Patient Active Problem List Diagnosis Date Noted ??? Malignant neoplasm of upper-outer quadrant of left breast in female, estrogen receptor positive 08/28/2018 ??? Thyroid nodule 02/23/2012 ??? Osteoarthrosis, unspecified whether generalized or localized, hand 02/23/2012 ??? Osteoarthrosis, unspecified whether generalized or localized, lower leg 02/23/2012 ??? Trigger middle finger of left hand 02/23/2012 ??? Trigger index finger of right hand 02/23/2012 ??? HAM (obstructive sleep apnea) 02/23/2012 ??? Restless leg syndrome 02/23/2012 Social: Pt. lives in Lives in [place], [place] Work: not working outside the home Pain: No pain. FUNCTIONAL LIMITATIONS: On a difficulty scale with 0 being unable to perform an activity, and 10 being able to perform at a pre injury level she rates 10/10 but sometimes the swelling really bothers her by the end of the day. At risk for cellulitis CLINICAL FINDINGS: Unable to inspect area very well given we are using telehealth. Pt points to/indicates her swelling is in her lateral left breast area. CLINICAL EVALUATION AND DIAGNOSIS: 64 yo female s/p left partial mastectomy 07/31/18 0/7 LNP, followed by radiation. Pt began to experience left lateral breast swelling several months ago. Her symptoms are consistent with breast lymphedema (secondary lymphedema). She would likely benefit from MLD and co mpression with bra and Swell Spot/Chip pad/Jovipak. Clinical presentation: Stable Evolving Unstable x Notes: Today Eval Pt education re lymphedema and lymphedema treatment Instruction in self MLD and link for video sent Discussion about compression garments OTS sports bra vs medical grade bra. Patient stated she has a good fitting sports bra that zips in the front that she'd like to try first. She would also prefer to order a Swell Spot/Jovipak on -line and I provided her with suggested sites. Because of the costs involved and patient would prefer to keep out of pocket costs minimal I suggested she could try lateral pad or even an oval or round multipurpose pad. Pt declined going through [employer] to see if insurance would cover costs. Clinical decision making of low complexity using standardized patient assessment instrument and measurable assessment of functional outcome. The patient's rehabilitation potential is good. GOALS: Therapy Short Term Goals: 3 weeks 1. Obtain Swell Spot for lateral chest 2. Decrease left lateral breast swelling 3.Ind in self care Therapy Care Home Goals: 6 weeks 1. Maintain reduction in swelling Plan: No FU scheduled at this time. Pt declined however said she would be in touch through [facility] or will call our office to schedule in-person or telehealth if needed. I also offered to provide names of other lymphedema therapists in her area. She declined at this time and is hoping telehealth will suffice, avoiding the need for an in-person visit. The plan has been discussed with the patient and she has agreed with it. JARED WELCH, PT documented in this encounter Plan of Treatment Upcoming Encounters Date Type Specialty Care Team Description 10/23/2021 Office Visit Hematology and Oncology Navid Armendariz MD [facility] DR ONCOLOGY [place], [place] [address] (Wo rk) 10/23/2021 Infusion Hematology and Oncology documented as of this encounter Visit Diagnoses Diagnosis Swelling Edema Breast cancer, stage 1, left documented in this encounter Care Teams Solution Developer Relationship Specialty Start Date End Date Veronica Chun MD PCP - General Family Medicine 01/20/[address] [place] [address] documented as of this encounter
--- OUTSIDE RECORDS SUMMARY | 2021-10-23 02:23 | XMS_ITS | Encounter Summary ---
:1955 Author Organization [facility] [place] [address] Care Team Providers Name Role Phone Veronica Chun MD Primary Care Provider Reason for Referral Consultation (Urgent) - Closed Specialty Diagnoses / Procedures Referred By Contact Refer red To Contact Urology Diagnoses Recurrent UTI (urinary tract infection) Roni Lubin MD [place], Elizabeth Ann, [facility] [place] [address] [facility] UROLOGY DEPT. [place], [place] [address] Phone: Fax: Referral ID Status Reason Start Date Expiration Date Visits V isits Requested Authorized [id number] Closed Consult, 08/21/2020 08/21/2021 1 1 Test & Treat Encounter Details Date Type Department Care Team Description 08/21/2020 Orders Only Obstetrics and Roni Lubin Recurren t UTI (urinary Gynecology at [facility] MD tract infection) [facility] [address] [place], [place] [phone] Social History Tobacco Use Types Packs/Day Years [...] Visit Hematology and Oncology Navid Armendariz MD [facility] ON[facility] [place], [place] [address] (Wo rk) 10/23/2021 Infusion Hematology and Oncology Scheduled Referrals Name Type Priority Associated Diagnoses Order S chedule Referral to Outpatient Referral Routine Recurrent UTI Ordered : Urology (urinary tract 08/21/2020 infection) documented as of this encounter Visit Diagnoses Diagnosis Recurrent UTI (urinary tract infection) Urinary tract infection, site not specif ied Breast cancer, stage 1, left documented in this encounter Care Teams Long Filler Cigar Roller Machine Relationship Specialty Start Date End Date Veronica Chun MD PCP - General Family Medicine 01/20/[address] [place] [address] [address] [place] [address] documented as of this encounter
--- OUTSIDE RECORDS SUMMARY | 2021-10-23 02:23 | XMS_ITS | Encounter Summary ---
:1955 Author Organization [facility] [place] [address] Care Team Providers Name Role Phone Veronica Chun MD Primary Care Provider Encounter Details Date Type Department Care Team Description 08/13/2020 Hospital Encounter M[facility] [place] [facility]-Amy Abnormal mammogram [facility] Claudia MD of left breast Drive [facility] [address] DIAGNOSTIC [phone] [place] [address] Social History Tobacco Use Types Packs/Day Years [...] mg/gram) Cream vaginally three times a week. [employer] ULTRA BLUE TEST TEST ONCE DAILY 0 [...] left breast in female, estrogen receptor positive, watermaster current use of aromatase inhibitor calcium citrate [...] Navid Armendariz MD [facility] [address] [place] [address] (Wo rk) 10/23/2021 Infusion Hematology and Oncology documented as of this encounter Procedures Procedure Name Priority Date/Time Associated Comments Diagnosis MAMMO CALL BACK Routine 08/13/2020 3:18 PM Abnormal mammogram Results for this DIAGNOSTIC CAD LEFT EDT of left breast proced ure are in the results section. documented in this encounter Results Mammo Call Back Diagnostic Cad Left (08/13/2020 3:18 PM EDT) Anatomical Region Laterality Modality Breast Left Mammography Specimen (Source) Anatomical Location Collection Method / Collectio n Time Received Time / Laterality Volume Narrative 08/13/2020 3:30 PM EDT DIAGNOSTIC MAMMOGRAPHY OF THE LEFT BREAST CLINICAL HISTORY: abnormal . ??New cance r and history of LEFT breast lumpectomy and radiation treatment TECHNIQUE AND VIEWS OBTAINED: Images acquired with direct digital capt ure LEFT mag CC, LEFT mag ML, tangential ski n calcification views. COMPARISONS: Audible priors BREAST DENSITY: The breasts are almost entirely fatty FINDINGS: The tangential views confirmed that the patient's 2 groups of new coarse heterogeneous calcifications are within the skin consistent with dystrophic calcifications in the her scar tissue of no clinical significance INTERPRETATION: BIRADS 2. Benign finding RECOMMENDATION: * ??Regular screening mammograms startin g between age 40 and 50 reduces the risk of from breast cancer. * ??All screening tests have both risks and benefits. These risks and benefits should be assessed for each individual p atient through discussion with their provider to determine their preferred [facility] cancer screening schedule. * ??Women should report any breast patel es to a health care provider right away. * ??Some women, because of their family history, a genetic tendency, or other factors, should be screened with annual breast MRI as well as with mammograms. (The number of women who fall into this category is very small). Patients and health care providers should discuss eac h patients history to decide if earlier screening and/or breast MRI are appropri ate. * ??Screening should continue as long as [...] who have questions please contact the health post acute care nurse practitioner that requested your imaging first. ? Claudia Davidson MD IMG MAMMO ORDERABLES documented in this encounter Visit Diagnoses Diagnosis Abnormal mammogram of left breast Breast cancer, stage 1, left documented in this encounter Care Teams Casing Puller Relationship Specialty Start Date End Date Veronica Chun MD PCP - General Family Medicine 01/20/[address] [place] [address] documented as of this encounter
--- OUTSIDE RECORDS SUMMARY | 2021-10-23 02:23 | XMS_ITS | Encounter Summary ---
:1955 Author Organization [facility] [place] [address] Care Team Providers Name Role Phone Veronica Chun MD Primary Care Provider Encounter Details Date Type Department Care Team Description 10/13/2020 Telephone Obstetrics and Gynec ology at [facility] Kaylynn Schmidt, [place] [address] Social History Tobacco Use Types Packs/Day [...] this encounter Miscellaneous Notes Telephone Encounter - Kaylynn Schmidt RN - 10/13/2020 11:05 AM EDT TELEPHONE NOTE Caller: Chante Brewster Reason for call: Questions procedure 10/08/20 Tender vaginal opening after washing this morning, reports using washcloth which caught on a suture - Denies bleeding, advised to wash with hand only. Discussed that sutures will dissolve but can be long lasting. She should be seen if there is increasing pain or bleeding Asks if she can do kegel exercises yet - Advised not to until seen post op Sutures Assessment: Plan/Instructions: Pt agrees to scheduled F/u and to call with pain fever or bleeding ----- Message from Gloria Nguyen RN sent at 10/13/2020 10:36 AM EDT ----- Regarding: FW: Post Op questions ----- Message ----- From: Cecilia Davis Sent: 10/13/2020 9:26 AM EDT To: [facility] Vice President Of Manufacturing Triage Nurse Subject: Post Op questions Caller's name: Corina Call back #: [phone] Patient's provider/team: Dr Lubin Reason for call: post op questions documented in this encounter Plan of Treatment Upcoming Encounters Date Type Specialty Care Team Description 10/23/2021 Office Visit Hematology and Oncology Navid Armendariz MD [facility] ONCOLOGY [place], [place] [address] (Wo rk) 10/23/2021 Infusion Hematology and Oncology documented as of this encounter Visit Diagnoses Not on filedocumented in this encounter Care Teams Customer Service Sales Associate Relationship Specialty Start Date End Date Veronica Chun MD PCP - General Family Medicine 01/20/[address] [place] [address] documented as of this encounter
--- OUTSIDE RECORDS SUMMARY | 2021-10-23 02:23 | XMS_ITS | Encounter Summary ---
:1955 Author Organization [facility] [place] [address] Care Team Providers Name Role Phone Veronica Chun MD Primary Care Provider Encounter Details Date Type Department Care Team Description 09/23/2020 Orders Only Obstetrics and Gynecology Roni Lubin MD at [facility] [place] [address] [place] [address] [phone] Social History Tobacco Use Types Packs/Day Years [...] Armendariz MD [facility] ONCOLOGY [place], [place] [address] (Wo rk) 10/23/2021 Infusion Hematology and Oncology documented as of this encounter Visit Diagnoses Not on filedocumented in this encounter Care Teams Requisition Approver Relationship Specialty Start Date End Date Veronica Chun MD PCP - General Family Medicine 01/20/17 [address] [place] [address] documented as of this encounter
--- OUTSIDE RECORDS SUMMARY | 2021-10-23 02:23 | XMS_ITS | Encounter Summary ---
:1955 Author Organization [facility] [place] [address] Care Team Providers Name Role Phone Veronica Chun MD Primary Care Provider Encounter Details Date Type Department Care Team Description 05/28/2020 Orders Only Hematology/Oncology Prerna Rodney kay UTI (urinary at [facility] A, PHOTO FINISHER tract infection) [address] [place], [place] HEMATOLOGY ONCO LOGY [address] [place], [place] [phone] (Wo rk) Social History Tobacco Use Types [...] Visit Hematology and Oncology Navid Armendariz MD [facility] ONCOLOGY [place], [place] [address] (Wo rk) 10/23/2021 Infusion Hematology and Oncology documented as of this encounter Visit Diagnoses Diagnosis Acute UTI (urinary tract infection) Urinary tract infection, site not specif ied Breast cancer, stage 1, left documented in this encounter Care Teams Manager Credit Relationship Specialty Start Date End Date Veronica Chun MD PCP - General Family Medicine 01/20/[address] [place] [address] [address] [place] [address] documented as of this encounter
--- OUTSIDE RECORDS SUMMARY | 2021-10-23 02:23 | XMS_ITS | Encounter Summary ---
:1955 Author Organization [facility] [address] Care Team Providers Name Role Phone Veronica Chun MD Primary Care Provider Encounter Details Date Type Department Care Team Description 09/04/2020 Telephone Urology at [place] Yasemin Sparks, [facility] [place] [address] [facility] [phone] UROLOGY DEPT. [place], [place] [address] (Wo rk) Social History Tobacco [...] Telephone Encounter - Dolores Feliz - 09/04/2020 11:41 AM EDT Sent order to [facility] for CRE to be done prior to 09/15 CT and Appt. Pt knows to go. documented in this encounter Plan of Treatment Upcoming Encounters Date Type Specialty Care Team Description 10/23/2021 Office Visit Hematology and Oncology Navid Armendariz MD [facility] [address] ONCOLOGY [place], [place] [address] (Wo rk) 10/23/2021 Infusion Hematology and Oncology documented as of this encounter Visit Diagnoses Not on filedocumented in this encounter Care Teams Building Construction Ironworker Relationship Specialty Start Date End Date Veronica Chun MD PCP - General Family Medicine 01/20/[address] [place] [address] documented as of this encounter
--- OUTSIDE RECORDS SUMMARY | 2021-10-23 02:23 | XMS_ITS | Encounter Summary ---
:1955 Author Organization [facility] Address [facility] [place] [address] Care Team Providers Name Role Phone Veronica Chun MD Primary Care Provider Encounter Details Date Type Department Care Team Description 09/04/2020 Orders Only Urology at [facility] Yasemin Sparks Other symptoms and [facility] MD Lor signs involving the Drive [facility] [place] [address] UROLOGY DEPT. [phone] [place], [place] [address] (Wo rk) Social History Tobacco [...] Visit Hematology and Oncology Navid Armendariz MD [facility] ONCOLOGY [place], [place] [address] (Wo rk) 10/23/2021 Infusion Hematology and Oncology Scheduled Orders Name Type Priority Associated Diagnoses Order S chedule Creatinine Lab Routine Other symptoms and signs Exp ected: 09/04/2020 involving the genitourinary (Approximate), Expires: system 09/04/2021 documented as of this encounter Visit Diagnoses Diagnosis Other symptoms and signs involving the g enitourinary system Breast cancer, stage 1, left documented in this encounter Care Teams Subscription Clerk Relationship Specialty Start Date End Date Veronica Chun MD PCP - General Family Medicine 01/20/[address] [facility] [address] [place] [address] documented as of this encounter
--- OUTSIDE RECORDS SUMMARY | 2021-10-23 02:23 | XMS_ITS | Encounter Summary ---
:1955 Author Organization [facility] [place] [address] Care Team Providers Name Role Phone Veronica Chun MD Primary Care Provider Encounter Details Date Type Department Care Team Description 09/23/2020 Office Visit Obstetrics and Roni Lubin MD [facility] [address] Recurrent UTI (urinary tract infection); Gynecology at [facility] Betty Fofana APRN [facility] [place] [address] Foreign body in bladder, initial encount er; [facility] Vaginal v [place] [address] Social History Tobacco Use Types Packs/Day Years [...] Sign Reading Time Taken Comments Blood Pressure 139/69 09/23/2020 3:47 PM EDT Pulse 76 09/23/2020 3:47 PM EDT Temperature 35.9 ??C (96.7 ??F) 09/23/2020 3:47 PM EDT Respiratory Rate 12 09/23/2020 3:47 PM EDT Oxygen Saturation 97% 09/23/2020 3:47 PM EDT Inhaled Oxygen Concentration - - Weight 101.2 kg (223 lb) 09/23/2020 3:47 PM EDT Height - - Body Mass Index 39.51 07/30/2020 8:57 AM EDT documented in this encounter Progress Notes Betty Fofana, SELLING SPECIALIST - 09/23/2020 4:00 PM EDT Date of Visit: 09/23/2020 Planned Surgery Date: 10-08-20 Planned Procedure: Vaginectomy/colpocleisis, posterior repair, cystoscopy - combined with cystoscopic resection of permanent suture (Dr. Sparks) Indications/Pre-op Diagnosis: recurrent vaginal vault prolapse HISTORY OF PRESENT ILLNESS: Ms. Brewster is a 65 y.o. para 2 woman who presents for her preoperative examination with urinalysis, C&S and post-void residual. Patient presents with a history of symptomatic vaginal vault prolapse. She desires surgical repair. Please see prior encounter notes for more detail. Shamika is a type 2 diabetic on metformin, and I have not found a recent hgbA1c in her scan docs. She says it was done at [facility] and was 7.4. A urine culture is pending at [facility]. REVIEW OF SYMPTOMS/FUNCTIONAL STATUS: Chest pain: none lately Shortness of breath: no Can you walk 1/2 mile or more? yes Can you go up more than 2 flights of stairs? yes Patient can dress herself? yes Prepare meals herself? yes Bleeding disorder (h/o nose bleeds, excessive bleeding following a surgical procedure?): no Personal or Family history of blood clots?: no but she has a cardiac stent and takes 81 mg aspirin Sexually active?: no Last PAP smear: S/p hysterectomy, no further screening Past anesthesia problems?: Nausea and vomiting Past Medical History: Diagnosis Date ??? Breast [...] Stereotactic Biopsy Left 06/27/2018 Liseth Henson MD [facility] RAD MAMMOGRAPHY ??? MAMMO US BIOPSY LEFT Left 06/27/2018 Mammo Us Biopsy Left 06/27/2018 Liseth Henson MD [facility] RAD MAMMOGRAPHY ??? PRO BX/REMV, LYMPH NODE, DEEP AXILL Left 2018 BIOPSY OR EXCISION OF LYMPH NODE(S), OPEN, DEEP AXILLARY NODE(S) (WRVU 6.43) performed by Charlie Larry MD at [facility] OSC ??? PRO EXC SKIN BENIG 0.6-1CM FACE, FACIAL N/A 2018 EXC BENIGN LESION ,RAINER .6 TO 1.0CM, FACE (WRVU 1.53) performed by Charlie Larry MD at [facility] OSC ??? PRO INTRAOP SENTINEL LYMPH ID W/DYE INJECTION Left 2018 INTRAOPERATIVE ID (MAPPING) SENTINEL LYMPH NODE,INCLUDES INJECTION (WRVU 2.5) performed by Charlie Larry MD at [facility] OSC ??? PRO MASTECTOMY PARTIAL Left 2018 MASTECTOMY PARTIAL (WRVU 10.13) performed by Charlie Larry MD at [facility] OSC Social History Socioeconomic History ??? Marital status: Spouse name: Not on file ??? Number of children: Not on file ??? Years of education: Not on file ??? Highest education level: Not on file Occupational History ??? 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 Smoking status: Never [...] Brother 54 age 54 of same in 2005 ??? Breast Cancer Neg Hx ??? Ovarian Cancer Neg Hx Allergies Allergen Reactions ??? Oxycodone Nausea And Vomiting Outpatient Medications Marked as Taking for the 09/23/20 encounter (Office Visit) with Roni Lubin MD Medication Sig Dispense Refill ??? estradioL (ESTRACE) 0.01 % (0.1 mg/gram) Cream Place 1 g vaginally three times a week. 42.5 g 12 ??? [DISCONTINUED] solifenacin (VESICARE) 5 mg Tablet Take 10 mg by mouth daily. ??? [DISCONTINUED] empagliflozin (JARDIANCE ORAL) Take 10 mg by [...] mg EC tablet (Patient taking differently: daily) ??? nitroGLYcerin (NITROSTAT) 0.4 mg SL tablet PHYSICAL EXAMINATION: POC UA: pending US PVR: 20 mL Blood pressure 139/69, pulse 76, temperature 35.9 ??C (96.7 ??F), resp. rate 12, weight 101.2 kg (223 lb), SpO2 97 %. EXAM: General: alert/oriented x 3, NAD, cooperative ENT: No lymphadenopathy, pharynx Mallampati III, full dentures Neck: No lymphadenopathy, no thyromegaly Chest: clear to ausc bilaterally COR: Regular rate, normal rhythm, no murmur Abdomen: obese, soft, periumbilical hernia, no mass noted Rectal: deferred to operating room. Extremities: no calf tenderness, minimal swelling Opioid Risk Tool Female Male 1. Family history of Substance Abuse Alcohol [] 1 [] 3 Illegal Drugs [] 2 [] 3 Prescription Drugs [] 4 [] 4 2. Personal History of Substance Abuse Alcohol [] 3 [] 3 Illegal Drugs [] 4 [] 4 Prescription Drugs [] 5 [] 5 3. Age (eric box if 16-45) [] 1 [] 1 4. History of Preadolescent Sexual Abuse [] 3 [] 0 5. Psychological Disease Attention Deficit Disorder, Obsessive Compulsive D/o, Bipolar, Schizophrenia [] 2 [] 2 Depression [] 1 [] 1 TOTAL: 0 Comments about ORT in relation to this patient: N& v with oxycodone Opioid Risk Category: low risk 0-3 The patient has signed the opioid consent in anticipation of requiring opioid pain medications following their surgery. IMPRESSION: Corina Brewster is a 65 y.o. woman with vaginal vault prolapse and recurrent UTIs who desires surgical repair. The following surgical options were reviewed with the patient for treatment of her vaginal vault prolapse: 1. [place] ligament (uterosacral or sacrospinous) repair, with 70-80% [...] have the shortest anesthetic time and lower risks - She elects for vaginectomy/colpocleisis, posterior repair This will be combined with cystoscopic resection of permanent suture with Dr. Sparks PLAN: ??? We will proceed with the above procedures on 10-08-20. ??? In view of h/o recurrent UTIs and today's UA suggestive of a UTI, I am empirically prescribing Macrobid 100mg BID for 10 days to treat the current UTI and prevent recurrence prior to DOS. - would switch abx pending urine culture ??? Anesthesia preference: per anesthesia and patient. ??? Pre- and post-op patient education sheets are printed, personalized, and reviewed with her in detail during this visit. Med list printed and reviewed in detail. ??? Do all you can to keep blood sugar in normal range before and after surgery. ??? (x) Medications and herbal preparations reviewed Discussed: (x) Discontinuation of all herbal preparations, vitamin E 7-10 days preop (x) 81 mg ASA to continue unless otherwise advised, stop all NSAIDS 10 days prior to surgery (x) Hormones: Continue vaginal estradiol as ordered ?? (x) Discontinue Solid foods at midnight ?? (x) Clear liquids (water, apple juice, andrew radha, or black coffee) may be consumed until 2 hoursprior to scheduled procedure. PROCEDURE CONSENT: ?? (x) Reviewed and signed with Dr. Lubin on this date ?? As part of the consent for surgery, we reviewed that there are health care personnel who are trainees at [facility], which includes medical students, resident physicians, and fellows. As a part of the start of any surgery, a pelvic exam is usually performed by the attending physician, which then may be repeated by the trainee with supervision. The patient does give her permission for a trainee to perform an exam under anesthesia. Betty Fofana APRN Division of Female Pelvic Medicine and Reconstructive Surgery documented in this encounter Plan of Treatment Upcoming Encounters Date Type Specialty Care Team Description 10/23/2021 Office Visit Hematology and Oncology Navid Armendariz MD [facility] [address] ONCOLOGY [place] [address] (Wo rk) 10/23/2021 Infusion Hematology and Oncology documented as of this encounter Procedures Procedure Name Priority Date/Time Associated Diagnosis Comme nts BLADDER SCANNER Routine 09/23/2020 Recurrent UTI (urinary Re sults for this tract infection) procedure a re in the results section . POCT URINE DIPSTICK Routine 09/23/2020 Recurrent UTI (urinar y Results for this tract infection) procedure a re in the results section . documented in this encounter Results Bladder Scanner (09/23/2020) athologist Signature Bladder Scan 20 mL (mL) Roni Lubin MD UROLOGY ORDERABLES POCT urine dipstick (09/23/2020) athologist Signature POC Sp [place] 1.02 1.002 - 1.030 POC pH, UA 5 5.0 - 8.5 POC Leuk, UA ++ Negative - Negative POC Nitrite, neg Negative - UA Negative POC Protein, ++ Negative - UA Negative mg/dL POC Glucose, norm Normal - UA Normal mg/dL POC Ketone, UA neg Negative - Negative POC Urobil, UA norm 0.2 - 1.0 mg/dL POC Bili, UA ++ Negative - Negative POC Blood, UA 50 Negative - Negative lakeshia/uL Roni Lubin MD POINT OF CARE TEST ORDERABLE S documented in this encounter Visit Diagnoses Diagnosis Recurrent UTI (urinary tract infection) Urinary tract infection, site not specif ied Foreign body in bladder, initial encount er Vaginal vault prolapse after hysterectom y Prolapse of vaginal vault after hysterec aram Breast cancer, stage 1, left documented in this encounter Care Teams Relationship Manager Relationship Specialty Start Date End Date Veronica Chun MD PCP - General Family Medicine 01/20/[address] [place] [address] documented as of this encounter
--- OUTSIDE RECORDS SUMMARY | 2021-10-23 02:23 | XMS_ITS | Encounter Summary ---
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 [place] [address] Social History Tobacco Use Types [...] Sign Reading Time Taken Comments Blood Pressure 147/65 05/23/2020 1:56 PM EDT Pulse 62 05/23/2020 1:56 PM EDT Temperature 36.6 ??C (97.8 ??F) 05/23/2020 1:56 PM EDT Respiratory Rate 18 05/23/2020 1:56 PM EDT Oxygen Saturation 98% 05/23/2020 1:56 PM EDT Inhaled Oxygen Concentration - - Weight 107.4 kg (236 lb 12.8 oz) 05/23/2020 1:56 PM EDT Height 160 cm (5' 2.99) 05/23/2020 1:56 PM EDT Body Mass Index 41.96 05/23/2020 1:56 PM EDT documented in this encounter Progress Notes Prerna Rodney APRN - 05/23/2020 2:00 PM EDT Subjective: Patient ID: Corina Brewster is a 64 y.o. female. Patient Active Problem List Diagnosis [...] I cancer of the left breast(pT1c, N0, ER/CT +, Her-2/jocelin -). ?? Screening bilateral mammogram 05/2018. The right breast was negative. On the left, a 1.5 cm mass was seen in the UOQ with microcalcifications anterior and medial to the mass. US guided bx 06/27/18. Path -invasive ductal carcinoma, low grade with an SBR score of 5, and DCIS, low to intermediated grade. ER/CT was positive with strong staining and Her-2/jocelin [...] she began therapy with aromasin. INTERVAL HPI 05/23/20 Corina Wick is a 64 yo female diagnosed with stage 1 left IDC breast cancer, T1N0, ER/CT+, HER2-jocelin negative in 05/2018. She had 3 negative sentinel nodes and 4 negative non-sentinel nodes removed. (See history as summarized above.) Corina returns to the [facility] onc[facility] clinic in [facility] alone today for 6 month routine follow-up. Corina has now been taking Aromasin since after trying Arimidex for about a month and finding the side effects intolerable. She wasn't having hot flashes until 5-6 months ago and now they occursporadically, several times a week. Corina states she does have sore knees, but doesn't think they are any worse than they ever were. Shehas stretches she does. No other significant joint aches. She denies left arm pain. 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 Initially she wore a sleeve. She then learned lymphedema massage techniques and has been able to prevent lymphedema from recurring without the sleeve. She has not noticed any new lumps or bumps. She demonstrates full arm and shoulder ROM. Her appetite is good, she has no GI complaints. Corina denies dental problems. She has a few original teeth in her lower jaw, and all other teeth aredentures. She is taking Vitamin D and Calcium 950 mg. We talked about starting Prolia to help protect bone density, given the Dexa Scan done 11/2018 was read as osteopenia and that AI therapy causes bone thinning. I explained Prolia can rarely cause dental problems such as jaw osteonecrosis. It is important to keep taking Calcium while on the Prolia. We r eviewed minor side effects which are generally transient, such as fever, flu- like symptoms or muscleaches. Allergies Allergen Reactions ??? Oxycodone Nausea And Vomiting Current Medications ??? exemestane (Aromasin) 25 mg Tablet ??? calcium citrate (CALCITRATE) 200 mg (950 [...] ??? aspirin 81 mg EC tablet ??? empagliflozin (JARDIANCE ORAL) ??? nitroGLYcerin (NITROSTAT) 0.4 mg SL tablet Social History Retired, lives in own home in [place], [place] . Never smoker Minimal social alcohol use No illicit drug use. Review of Systems Constitutional: Negative. HENT: Negative. Negative for dental problem. Respiratory: Negative for cough and shortness of breath. Cardiovascular: Negative for chest pain. Gastrointestinal: Negative for constipation, diarrhea and nausea. Endocrine: Hot flashes Genitourinary: Negative. Negative for frequency. Musculoskeletal: Positive for arthralgias. Knees Skin: Negative. Psychiatric/Behavioral: Negative. Objective: Physical Exam [...] nipple discharge. Well healed left breast scar. BP 147/65 (Patient Position: Sitting) Pulse 62 Temp 36.6 ??C (97.8 ??F) (Temporal) Resp 18 Ht 160 cm (5' 2.99) Wt 107.4 kg (236 lb 12.8 oz) SpO2 98% BMI 41.96 kg/m?? LABS 05/12/20 (No CBC) VIT D 25 - 45.0; HGB A1C 7.1; BUN 16; CREAT 0.8; CA++9.4; BILI 0.5; ALP 71; AST 22; ALT 37. Assessment and Plan: Assessment: Corina Wick is a 64 yo female diagnosed with stage 1 left breast cancer, T1N0, ER/CT+, HER 2-jocelin negative in 05/2018. (See history as summarized above.) Corina returns to the [facility] alone today for 6 month routine follow-up. Corina is tolerating Aromasin with mild side effects. No clinical sign of breast cancer recurrence Corina would like to start Prolia. Plan; Continue daily Aromasin. Prolia injection today. RTC 6 months for visit, Prolia and Dexa Scan. documented in this encounter Plan of Treatment Upcoming Encounters Date Type Specialty Care Team Description 10/23/2021 Office Visit Hematology and Oncology Navid Armendariz MD [facility] DR ONCOLOGY [place] [address] (Wo rk) 10/23/2021 Infusion Hematology and Oncology documented as of this encounter Procedures Procedure Name Priority Date/Time Associated Diagnosis Comme nts LAB SCAN 05/27/2020 12:00 AM Results for this EDT procedure are i n the results section . documented in this encounter Results SCAN DOC: LAB (05/27/2020 12:00 AM EDT) Narrative 05/27/2020 12:00 AM EDT This result has an attachment that is no t available. Ordered by an unspecified provider. 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
--- OUTSIDE RECORDS SUMMARY | 2021-10-23 02:23 | XMS_ITS | Encounter Summary ---
:1955 Author Organization [place] [address] Care Team Providers Name Role Phone Veronica Chun MD Primary Care Provider Reason for Visit Consultation (Routine) - Closed Specialty Diagnoses / Procedures Referred By Contact Refer red To Contact Obstetrics and Diagnoses Acquired absence of both cervix and uterus Urgency of urination Urinary tract infection, site not specified Carole Belle DO [facility] Assistant Account Executive 5l Gynecology [address] [place] [id number] [place] [phone] Phone: Fax: Referral ID Status Reason Start Date Expiration Date Visits V isits Requested Authorized [id number] Closed Consult, Test 07/08/2020 07/08/2021 [facility] PCP Updated and/or Approved Encounter Details Date Type Department Care Team Description 07/22/2020 TH Visit Obstetrics and Roni Lubin OAB (ove ractive (TeleHealth) Gynecology at [facility]) [facility] [address] [place] [phone] Social History Tobacco Use Types Packs/Day Years [...] - - Weight 104.8 kg (231 lb) 07/17/2020 11:12 AM EDT Height 161.9 cm (5' 3.75) 07/17/2020 11:12 AM EDT Body Mass Index 39.96 07/17/2020 11:12 AM EDT documented in this encounter Progress Notes Cherise Arias LNA - 07/22/2020 9:00 AM EDT ____ Patient not reached __X__Patient reached and the following information was reviewed/obtained per protocol. _X__Confirmed patient name and date of __X_Confirmed tele med appt (Virtual visit) is downloaded and functioning __X_Confirmed location of patient- TeleVisit is taking place in [place]_ [place]__[place]__ [place]__ If not on myD, working on signing up for my Confirmed has completed any pre-visit questionnaires If has not received required previsit questionnaires, send via [facility] _X__Reviewed medications, allergies, pharmacy, pain/depression, education __X_Documented height/weight/LMP Other information or concerns: Roni Lubin MD - 07/22/2020 9:00 AM EDT Female Pelvic Medicine and Reconstructive Surgery @ [facility] Telehealth Office Visit Patient Name: Corina Ney Patient Primary Care Provider: MD Corina Dang verbally consented to conduct this clinical encounter by telephone. She acknowledges that her insurance may be billed for the care provided, similar to an in person appointment. She is currently at home in [place]. Prior to beginning the visit, I confirmed the patients name and date of . I obtained the patient's consent to receiving health care services at [facility] through telemedicine. We discussed the opportunities [...] form is available for patient's review in -'s patient portal, [facility]-. Patient Active Problem List Diagnosis Code ??? [...] estrogen receptor positive C50.412, Z17.0 Chief Complaint: Bladder discomfort, urinary urgency and frequency History of Present Illness: Ms. Brewster is a 64 y.o. old para 2 woman, seen at the kind request of Dr. Carole Belle. She presents for evaluation and assessment of urinary frequency/urgency of several month's duration. She had x1 and x1 (breech). She is s/o CHANCE in 1982 for dysmenorrhea - when they did the hyst it was more extensive then expected and they sliced open my bladder. She reports going home with a catheter but had incontinence when it was removed which required surgical repair at the time- this may have been a retropubic urethropexy based on intra-op findings at a later surgery In 1999 she subsequently underwent a paravaginal repair (with Gortex sutures) and a rectocele repair (Dr. Martinez Flowers) via an abdominal incision for concomitant RSO and omentectomy for benign pelvic mass (op report reviewed). It was during this retropubic procedure that Dr. Flowers reported urethrovesical juncture was well supported..full range of motion the previous retropubic urethropexy. No apical support was performed due to absence of enterocele. She reports new-onset pelvic pain several months ago associated with a bubble in the vagina. She reports she feels an intermittent bulge in the vagina. Worse with lifting, standing, walking - feels uncomfortable. Has been told it looks like a baby's head crowing. She thinks it arose following lifting and straining. She was given a course of Macrobid which helped the pain from a suspected UTI but this did not improve the frequency. She was prescribed Oxybutynin but had dry mouth and eyes. Switched to Vesicare 07/14 (O'[place]htaq) with mild relief so far. She takes it twice daily because it provides more relief than once daily. Despite this, urinary frequency can be q10-15 mins. Max she can hold is 90 mins if she doesn't take her HCTZ and if she avoids coffee. She reports a very strong urgency whole body shudders but the volume of urination is low. She is surprised by the small amount for such a strong urge. Nocturia x4-6. She thinks she has had x4 UTIs in the last year but doesn't always report the symptoms - she drinks a lot of water and flushes it out. Urinary tract history Patient reports history of recurrent urinary tract infection. Patient denies history of pyelonephritis. Patient denies history of urinary tract abnormality. Patient reports remote history of nephrolithiasis - had surgery with Dr. Herrmann (urology) Patient denies history of hematuria. Bladder Function Daytime frequency of voiding: Q10-15 mis Nocturia: X4/night Urinary incontinence: no Bladder irritants: Fluid intake: 100-120oz/day water Caffeine intake: X1 cups/day Cigarette smoking (packs, time, if quit when): no Alcohol: rare Storage symptoms x Urinary frequency x Nocturia Stress urinary incontinence - leakage with exertion, cough/sneeze Urge urinary incontinence - leakage preceded immediately by urge to void Noctural enuresis - NOT IN ASSOCIATION WITH URGE Continuous urinary leakage Other: (e,g. giggle, intercourse-related) Bladder sensation Normal - aware of filling and increased sensation up to desire to void x Increased - feels an early and persistent need to void Reduced - aware of filling but NOT definite desire to void Absent - NO sensation of filling or need to void Non-specific - No specific bladder symptoms during filling or void Voiding symptoms None x Slow stream Spraying Intermittent stream - stop/start on > 1 occasion during void Straining - muscular effort to initiate, maintain OR improve stream Terminal dribble - prolonged final part of void x Feeling of incomplete emptying Pelvic Organ Prolapse (POP) Any personally see or feel a vaginal bulge? yes What precipitates prolapse or symptoms of prolapse? Lifting, standing, walking Previous treatment for POP (physical therapy, pessary, surgery)?: Paravaginal repair, rectocele repair Bowel Function Number of bowel movements (day/week): Daily, normal consistency Fecal incontinence (yes/no): no Number of fecal incontinent episodes (day/week): n/a Last Colonoscopy: not yet Defecatory Dysfunction: Symptom Presence Symptom Presence NONE x Incomplete Emptying Straining Infrequent stools (<3 week) Splinting Abdominal discomfort Loose stools Defecatory urgency Hard stools Other Sexual Function Active?: Not currently, due to partner's health Pain with intercourse?: no Desire to retain sexual function? yes Last PAP smear: s/p hyst Past Medical History: Diagnosis Date ??? Breast [...] Stereotactic Biopsy Left 06/27/2018 Liseth Henson MD [facility] RAD MAMMOGRAPHY ??? MAMMO US BIOPSY LEFT Left 06/27/2018 Mammo Us Biopsy Left 06/27/2018 Liseth Henson MD [facility] RAD MAMMOGRAPHY ??? PRO BX/REMV, LYMPH NODE, DEEP AXILL Left 2018 BIOPSY OR EXCISION OF LYMPH NODE(S), OPEN, DEEP AXILLARY NODE(S) (WRVU 6.43) performed by Charlie Larry MD at [facility] ??? PRO EXC SKIN BENIG 0.6-1CM FACE, FACIAL N/A 2018 EXC BENIGN LESION ,RAINER .6 TO 1.0CM, FACE (WRVU 1.53) performed by Charlie Larry MD at [facility] ??? PRO INTRAOP SENTINEL LYMPH ID W/DYE INJECTION Left 2018 INTRAOPERATIVE ID (MAPPING) SENTINEL LYMPH NODE,INCLUDES INJECTION (WRVU 2.5) performed by Charlie Larry MD at [facility] ??? PRO MASTECTOMY PARTIAL Left 2018 MASTECTOMY PARTIAL (WRVU 10.13) performed by Charlie Larry MD at [facility] OB History No obstetric history on file. Outpatient Medications Marked as Taking for the 07/22/20 encounter (TH Visit (TeleHealth)) with Roni Lubin [...] file Occupational History ??? Occupation: retired Comment: [employer] Tobacco Use ??? Smoking status: Never Smoker [...] Neg Hx ??? Ovarian Cancer Neg Hx Family history: denies history of gynecologic cancer ROS: Review of all other systems negative except for those mentioned above or indicated below: System Symptom Presence Constitutional Weight Loss Weight gain Eyes History of glaucoma ENT/Mouth Mouth sores/Dry mouth Dry mouth and dry eyes Cardiovascular Chest pain Leg swelling x Respiratory Wheezing SOB x GI Nausea/vomiting Abdominal pain x Skin/Breast Breast masses Rash/ulcer Musculoskeletal Muscle weakness x Trouble Walking x Neurological Dizziness/falling Numbness Psychiatric Depression Anxiety Endocrine Abnormal thirst Hot flashes Hematologic Frequent bruising History of blood transfusions no Blood clots (DVT / PE) no Prior problems w/ anesthesia no Outside medical records reviewed: yes OBJECTIVE: Not performed Impression: Ms. Brewster is a .64 y.o. woman with OAB and likely recurrent pelvic organ prolapse in the setting ofmultiple prior pelvic surgeries I reviewed the anatomy and physiology of OAB and recurrent pelvic organ prolapse. We discussed options for management including: Continued observation, conservative management including pelvic floor exercises (supervised or unsupervised), pessary, medications and/or procedures. We discussed the AUA guidelines on the treatment of OAB, beginning with first line therapies. We discussed that the 4 most common bladder irritants are: 1) caffeine 2) artificial sweeteners 3) carbonation 4) alcohol We further discussed other conservative treatment options including weight loss, timed voids, and urge suppression strategies. We also discussed pelvic floor muscles exercises (Kegel exercises). Written information was given. If treatment goals are not met with lifestyle and behavioral changes, medications may be considered. We reviewed the pros and cons of the (second line) medical therapies, such as antimuscarinics which work to block a bladder contraction but have associated side effects such as dry mouth, constipation,dry eyes, cognitive dysfunction, and are contraindicated in uncontrolled narrow-angle glaucoma, gastric and urinary retention. We discussed mirabegron, a Beta-3 agonist which works to promote bladder relaxation but should be avoided in patients with uncontrolled hypertension. We discussed that mirabegron typically takes ~12 weeks to work and does not start working right away. - She would be interested in Myrbetriq if Vesicare not providing sufficient relief and/or causing side effects after an additional 3 weeks (to complete 4 weeks of Vesicare) Recommendations: Based on the patients expressed goals for management I have recommended the following: ?? Agree to patient's preference to request Dr. Herrmann (Urology) to complete a urodynamic evaluation locally ?? Subsequently, would recommend an in-0person visit in [place] at which time I would perform a cystoscopy ?? During that visit, would also consider a pessary fitting if recurrent prolapse determined on exam I spent 45 minutes total on the call with the patient, with 45 minutes of the time spent discussing her diagnosis and reviewing options for treatment. Call start: [phone] Call end: [phone] Roni Lubin MD Division of Female Pelvic Medicine/Reconstructive Surgery documented in this encounter Plan of Treatment Upcoming Encounters Date Type Specialty Care Team Description 10/23/2021 Office Visit Hematology and Oncology Navid Armendariz MD [facility] [address] ONCOLOGY [place], [place] [address] (Wo rk) 10/23/2021 Infusion Hematology and Oncology documented as of this encounter Visit Diagnoses Diagnosis OAB (overactive bladder) Hypertonicity of bladder Breast cancer, stage 1, left documented in this encounter Care Teams Contract Consultant Relationship Specialty Start Date End Date Veronica Chun MD PCP - General Family Medicine 01/20/[address] [place] [address] documented as of this encounter
--- OUTSIDE RECORDS SUMMARY | 2021-10-23 02:23 | XMS_ITS | Encounter Summary ---
:1955 Author Organization [facility] [place] [address] Care Team Providers Name Role Phone Veronica Chun MD Primary Care Provider Reason for Visit Reason Onset Date Comments Other 06/05/2020 UTI symptoms back Encounter Details Date Type Department Care Team Description 06/05/2020 Telephone Hematology/Oncology at Brenda Lima RN Other (UTI symptoms [facility] back) [address] [place] [phone] Social History Tobacco Use Types Packs/Day [...] Telephone Encounter - Brenda Lima RN - 06/05/2020 3:30 PM EDT Pt diagnosed with UTI last week took macrodantin for five full days as prescribed. Today she calls and states her urinary urgency is back. She urinates , feels bladder is empty and 5 minutes later has urge to void again. She is drinking 120 oz of water a day. She has tried taking over the counter pyridium with no help. Reviewed with Lukas barrow NP who would like her to get another U/a with culture today. Pt going to [facility]. Will follow up on results tomorrow. Pt agrees with plan. 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
--- OUTSIDE RECORDS SUMMARY | 2021-10-23 02:23 | XMS_ITS | Encounter Summary ---
:1955 Author Organization [facility] Address [address] [address] Care Team Providers Name Role Phone Veronica Chun MD Primary Care Provider Reason for Visit Reason Onset Date Comments Parental/patient Concern 05/26/2020 Concerned about urinary symptoms Encounter Details Date Type Department Care Team Description 05/26/2020 Telephone Hematology Oncology at Liliana Cash, Parental/patient [facility] RN Concern (Concerned [address] about urinary symptoms) [place] [phone] Social History Tobacco Use Types Packs/Day Years [...] this encounter Miscellaneous Notes Telephone Encounter - Liliana Cash RN - 05/26/2020 4:35 PM EDT TRIAGE CALL Caller: Corina Reason for Call: concerns about urinary symptoms since receiving prolia on Tuesday05/23/20. Discussed this with Prerna and she wants the patient to obtain a urinalysis. Patient will have urine done at [facility] tomorrow. I will send the order there. Symptom Review: Onset: Tuesday05/24/20 Location: Urine frequency and strong odor, denies fever Duration: ongoing What makes it better: NA What makes it worse: NA Timing of symptoms: ongoing Review of Systems related to Reason for Call: : Urinary frequency and strong odor to urine. Pertinent Positive and Negative findings: Select specific Decision Support Tool used: Telephone Triage for Oncology Nurse: Third Edition Disposition: Will need to obtain urinalysis at [facility] or PCP office. Plan of Care: Drink fluids. Obtain ua Patient/responsible caregiver able to read back instructions/plan of care? yes Recommendations for worsening condition given to patient/responsible caregiver? Yes. Fever or worsening condition, seek care at local ED. Patient/responsible caregiver able to read back actions for worsening condition? Yes Patient/responsible caregiver intends to comply with action/disposition? Yes Follow up needed? Yes. Will look for results of UA and follow up accordingly. documented in this encounter Plan of Treatment Upcoming Encounters Date Type Specialty Care Team Description 10/23/2021 Office Visit Hematology and Oncology Navid Armendariz MD [facility] [address] ONCOLOGY [place], [place] [address] (Wo rk) 10/23/2021 Infusion Hematology and Oncology documented as of this encounter Visit Diagnoses Not on filedocumented in this encounter Care Teams Music Leader Relationship Specialty Start Date End Date Veronica Chun MD PCP - General Family Medicine 01/20/[address] [place] [address] [address] [place] [address] documented as of this encounter
--- OUTSIDE RECORDS SUMMARY | 2021-10-23 02:23 | XMS_ITS | Encounter Summary ---
:1955 Author Organization [facility] [place] [address] Care Team Providers Name Role Phone Veronica Chun MD Primary Care Provider Reason for Visit Reason Onset Date Comments Urinary Tract Infection 06/06/2020 Encounter Details Date Type Department Care Team Description 06/06/2020 Refill Hematology/Oncology at [facility] Navid MD [address] ONCOLOGY [place], [place] [phone] [place] [address] [phone] (Wo rk) Social History Tobacco Use Types [...] this encounter Miscellaneous Notes Telephone Encounter - Imelda Donis RN - 06/06/2020 1:52 PM EDT Urine culture from yesterday showed E. Coli again. Dr. Ripple reviewed and ordered Cipro 500mg BID for 5 days. I called Shamika to let her know and she agreed with new abx and to call if this does not resolve her urgency symptoms. Reviewed front to back wiping as well. documented in this encounter Plan of Treatment Upcoming Encounters Date Type Specialty Care Team Description 10/23/2021 Office Visit Hematology and Oncology Navid Armendariz MD [facility] [address] ONCOLOGY [place], [place] [address] (Wo rk) 10/23/2021 Infusion Hematology and Oncology documented as of this encounter Visit Diagnoses Not on filedocumented in this encounter Care Teams Weather Strip Installer Relationship Specialty Start Date End Date Veronica Chun MD PCP - General Family Medicine 01/20/[address] [place] [address] documented as of this encounter
--- OUTSIDE RECORDS SUMMARY | 2021-10-23 02:23 | XMS_ITS | Encounter Summary ---
:1955 Author Organization [facility] [place] [address] Care Team Providers Name Role Phone Veronica Chun MD Primary Care Provider Reason for Visit Auth/Cert Specialty Diagnoses / Procedures Referred By Contact Refer red To Contact Diagnoses Pelvic prolapse bladder foreign body PELVIC ORGAN PROLAPSE Procedures PRO REMOVE VAGINA WALL, PARTIAL PRO POST COLPORRHAPHY, RECTUM/VAGINA PRO CYSTOURETHROSCOPY PRO CYSTOSCOPY, REMV CALCULUS, SIMPLE CYSTO, CYSTOURETHROSCOPY, DIAGNOSTIC (WRVU 2.23) (MSURG) CYSTO,REMOVAL OF DAVIS NT,FOREIGN BODY OR CALCULUS,SIMPLE VAGINECTOMY, PARTIAL REMOVAL OF VAGINAL WALL (WRVU 7.5) COLPORRHAPHY, POST RECTOCELE WITH OR W\O PERINEORRHAPHY (WRVU 11.5) CYSTO, CYSTOURETHROSCOPY, DIAGNOSTIC (WRVU 2.23) CYSTO, REMOVAL OF STENT, FOREIGN BODY OR CALCULU S, SIMPLE (WRVU 2.81) Referral ID Status Reason Start Date Expiration Date Visits Requ ested Visits Authorized [id number] 1 1 Encounter Details Date Type Department Care Team Description 10/08/2020 Surgery Main Operating Room Jr Lubin MD VAGINECTOMY, [facility] REMOVAL OF VAGINAL WALL [facility] (WRVU 7.5) [place], [place] [address] [place] [address] [phone] Social History Tobacco Use Types Packs/Day Years [...] Sign Reading Time Taken Comments Blood Pressure 160/68 10/08/2020 6:28 AM EDT Pulse 68 10/08/2020 6:28 AM EDT Temperature 36.7 ??C (98.1 ??F) 10/08/2020 6:28 AM EDT Respiratory Rate 18 10/08/2020 6:28 AM EDT Oxygen Saturation 99% 10/08/2020 6:28 AM EDT Inhaled Oxygen Concentration - - Weight 102.5 kg (226 lb) 10/08/2020 6:28 AM EDT Height 160 cm (5' 3) 10/08/2020 6:28 AM EDT Body Mass Index 40.03 10/08/2020 6:28 AM EDT documented in this encounter Discharge Instructions Discharge InstructionsJanae Mejia RN - 10/08/2020 12:50 PM EDT Next dose of acetaminophen (tylenol) can be taken at 3PM. Next dose of ibuprofen (motrin) can be taken at 6PM. Patient InstructionsFay Ngo MD - 10/08/2020 6:52 AM EDT Follow up Appointments: Future Appointments Date Time Provider Department Center 10/13/2020 1:00 PM Yasemin Sparks MD [facility] URO [facility] 10/13/2020 1:00 PM UROLOGY, NURSE [facility] 11/18/2020 1:30 PM Roni Lubin MD [facility] OBG 5L [facility] 12/29/2020 9:00 AM Yasemin Sparks MD [facility] URO [facility] Patient Discharge Instructions: Special Physician Instructions: If you are still needing a catheter to drain your bladder, please follow the instructions given to you separately for when to use the catheter and how to care for it. Inaddition, please call to check in with the urogynecology office nurse at [phone] to review how your bladder is working and when the catheter use can be discontinued. For problems or concerns related to this hospitalization call: [phone] weekdays, or [phone] weekends or nights. Call your doctor if you develop: --A fever over 101 degrees F --Severe pain -- Nausea / vomiting, diarrhea, intolerance of food or drink --Heavy vaginal bleeding --Urinary frequency, urgency, or feeling of incomplete emptying of the bladder --If your wound is red, hot, swollen, tender or draining yellow/green fluid Activity level: You should be able to resume your usual activities of daily living (eating, drinking, washing, walking.). You can walk or climb stairs as long as you are not straining. You should avoidmore vigorous exercise for at least 6 weeks. No lifting, pushing or pulling greater than 5-10 poundsfor 6 weeks. No sexual intercourse and place nothing in the vagina for 6 weeks. Diet: Regular as tolerated, drink plenty of fluids. Use a stool softener (Colace) twice daily and Metamucil or Citrucel once or twice daily to keep your bowel movement soft and regular, so you do not have to strain. Driving: Do not drive until you are off of all narcotic medications and you are not feeling pain; usually about 1-2 weeks. Shower/Bath: Showering is fine. Do not soak in a tub for six weeks following surgery, this may causeyour stitches to dissolve too early. Wound Care: Most women will experience some vaginal bleeding and discharge after surgery. You will want to have some menstrual pads at home. documented in this encounter Medications at Time of Discharge Medication Sig Dispensed Refills Start Date End Date exemestane (Aromasin) 25 mg Take 1 tablet by 90 tablet 3 TabletIndications: Malignant mouth daily. neoplasm of left breast in female, estrogen receptor positive, unspecified site of breast, Malignant neoplasm of upper-outer quadrant of left breast in female, estrogen receptor positive, [facility] current use of aromatase inhibitor estradioL (ESTRACE) 0.01 % Place 1 g 42.5 g 12 1 (0.1 mg/gram) Cream vaginally three times a week. [employer] ULTRA BLUE TEST TEST ONCE DAILY 0 2018 STRIP Strip hydroCHLOROthiazide Take 25 mg by 0 (HYDRODIURIL) 25 mg Tablet mouth. naproxen sodium (ALEVE) 220 Take by mouth as 0 mg Capsule needed. atorvastatin (LIPITOR) 40 mg Take 40 mg by 0 Tablet mouth daily. atenolol (TENORMIN) 50 mg Take 50 mg by 0 Tablet mouth daily. metFORMIN (GLUCOPHAGE) 1,000 take 1 tablet by 0 1 03/27/2016 mg TabletIndications: mouth twice a day Osteoarthritis, unspecified osteoarthritis type, unspecified site, Osteoarthritis of left hand, unspecified osteoarthritis type, Fibromyalgia, Vitamin D deficiency aspirin 81 mg EC tablet 0 05/21/2008 acetaminophen (Tylenol) 325 Take 2 tablets by 30 tablet 1 0 10/08/2020 04/03/2021 mg Tablet mouth every 6 hours as needed for Pain. ibuprofen (Advil) 200 mg Take 3 tablets by 30 tablet 12 09/2104/03/2021 Tablet mouth every 6 hours as needed for Pain. Take one to four tablets three times a day with food. nitrofurantoin (Macrobid) Take 1 capsule by 20 tablet 0 04/202011/18/2020 100 mg Capsule mouth 2 times daily. calcium citrate (CALCITRATE) Take 1 tablet by 0 04/03/2021 200 mg (950 mg) Tablet mouth daily. ERGOCALCIFEROL, VITAMIN D2, Take 1,000 mg by 0 04/03/2021 (VITAMIN D ORAL) mouth daily. zolpidem (AMBIEN CR) 12.5 mg nightly. 0 017 04/16/2021 Tablet, Multiphasic ReleaseIndications: Osteoarthritis, unspecified osteoarthritis type, unspecified site, Osteoarthritis of left hand, unspecified osteoarthritis type, Fibromyalgia, Vitamin D deficiency nitroGLYcerin (NITROSTAT) 0 05/21/2008 04/03/2021 0.4 mg SL tablet documented as of this encounter H&P Notes Fay Ngo MD - 10/08/2020 7:25 AM EDT STOPPING BUILDER Interval Pre-op H&P I have reviewed the pre-procedure H&P completed by Betty Fofana APRN on 09/23/2020. Consents were reviewed and signed. Condition unchanged since H&P originally performed. Interval Note: Corina Brewster is a 65 y.o. patient with a history of pelvic organ prolapse and recurrent UTIs presenting for a pre-op visit for a scheduled partial vaginectomy, colpocleisis, posterior colporrhaphy, and cystoscopy for pelvic organ prolapse. This will be a combined cystoscopic resection of permanent craig ture with Dr. Sparks. Past medical hx of: CAD, T2DM, HTN, GERD, HLD, HAM PSHX: x1 , x1 (breech), CHANCE in 1982 c/b cystotomy, a subsequent retropubic urethropexy or paravaginal repair (with Gortex sutures) and a rectocele repair (Dr. Martinez Flowers) at time of abdominal incision for concomitant RSO and omentectomy for benign pelvic mass. Patient reports that her health has not changed since her preop visit. She denies any new illnesses, hospitalizations, or medications. She desires to proceed with the planned procedure. Denies lightheadedness, shortness of breath, chest pain, nausea/vomiting/diarrhea, abdominal pain, leg cramping. Plan: Proceed with scheduled procedure ??? Antibiotics - Ancef ??? DVT prophylaxis - SCDs ??? She has tolerated Tylenol and ibuprofen in the past. She reports n/v with oxycodone. ??? Surgical consent reviewed ??? ORT and opioid consent completed. Seen and discussed with Dr. Tristian Ngo MD, PGY-1 Obstetrics and Gynecology 10/03/2020 Min Ly MD - 10/08/2020 7:03 AM EDT Urology PreOp H&P Corina Brewster 65 y.o. female with recurrent pelvic organ prolapse, incomplete bladder emptying, recurrent UTIs, and prior urethropexy surgery who presents for colpocleisis with Staff Antisubmarine Officer and excision of intra-vesical pillar/suture with with Urology (via endoscopic or laparoscopic approach). No changes to medications, no fevers, chills, headaches, chest pain, new cough, nausea, emesis, constipation, diarrhea, difficulty urinating, one sided numbness or tingling sensation. Denies recent hospitalization. No current facility-administered medications on file prior to encounter. Current Outpatient Medications on File Prior to Encounter Medication Sig Dispense Refill ??? calcium citrate (CALCITRATE) 200 mg (950 mg) Tablet Take 1 tablet by mouth daily. ??? hydroCHLOROthiazide (HYDRODIURIL) 25 mg Tablet Take 25 mg by mouth. ??? atorvastatin (LIPITOR) 40 mg Tablet Take [...] EC tablet (Patient taking differently: daily) ??? estradioL (ESTRACE) 0.01 % (0.1 mg/gram) Cream Place 1 g vaginally three times a week. 42.5 g 12 ??? ONETOUCH ULTRA BLUE TEST STRIP Strip TEST ONCE DAILY 0 ??? naproxen sodium (ALEVE) 220 mg Capsule Take by mouth as needed. ??? nitroGLYcerin (NITROSTAT) 0.4 mg SL tablet Allergies Allergen Reactions ??? Oxycodone Nausea And Vomiting There were no vitals filed for this visit. Exam: General: Alert and oriented x4 Heart: RRR Lungs: No audible wheezing Abdomen: Soft, non-tender/distended Extremities: Warm, no edema No results found for this or any previous visit (from the past 24 hour(s)). Assessment/Plan Proceed with scheduled procedure Procedure(s): VAGINECTOMY, PARTIAL REMOVAL OF VAGINAL WALL (WRVU 7.5) COLPORRHAPHY, POST RECTOCELE WITH OR W\O PERINEORRHAPHY (WRVU 11.5) CYSTO, CYSTOURETHROSCOPY, DIAGNOSTIC (WRVU 2.23) CYSTO, REMOVAL OF STENT, FOREIGN BODY OR CALCULUS, SIMPLE (WRVU 2.81) Associated attestation - Yasemin Sparks MD - 10/09/2020 10:20 AM EDT I saw the patient in same day Agree with the assessment and plan. documented in this encounter Miscellaneous Notes OR Attestation - Yasemin Sparks MD - 10/08/2020 1:22 PM EDT Attestation: Case Date: 10/08/2020 I was present and I participated during the entire procedure (does not need to include opening and closing). YASEMIN SPARKS MD 10/09/2020 Op Note - Roni Lubin MD - 10/08/2020 11:13 AM EDT [facility] Operative Note Patient Name: Corina Brewster : [id number] MR#: [id number] Case Date: 10/08/2020 Surgeon: Surgeon(s) and Role: Panel 1: * Roni Lubin MD - Primary * Uriel Bo DO - Fellow * Fay Ngo MD - Resident Panel 2: * Yasemin Sparks MD - Primary * Min Ly MD - Resident Preoperative diagnosis: PELVIC ORGAN PROLAPSE Postoperative diagnosis: PELVIC ORGAN PROLAPSE Procedure(s) (LRB): VAGINECTOMY, PARTIAL REMOVAL OF VAGINAL WALL (WRVU 7.5) (N/A) COLPORRHAPHY, POST RECTOCELE WITH OR W\O PERINEORRHAPHY (WRVU 11.5) (N/A) CYSTO, CYSTOURETHROSCOPY, DIAGNOSTIC (WRVU 2.23) (N/A) CYSTO, REMOVAL OF STENT, FOREIGN BODY OR CALCULUS, SIMPLE (WRVU 2.81) (N/A) Anesthesia: General Estimated Blood Loss:25 cc Specimens removed during surgery: None for Panel 1 Drains: Nielsen Surgical Closure: Primary Closure - skin incision is completely closed without any wires, abdoul, drains or other devices Disposition: awakened from anesthesia, extubated and taken to the recovery room in a stable condition, having suffered no apparent untoward event. Condition: doing well without problems (Please see the Surgical Encounter Summary for any Implant and Specimen details pertinent to this patient.) HPI/Surgical Indications: Ms. Brewster is a .65 y.o. woman with recurrent pelvic organ prolapse, incomplete bladder emptying and recurrent UTIs in setting of prior urethropexy. Office cysto found an intra-vesical bladder pillar, possibly surrounding prior urethropexy permanent suture and contributing torecurrent UTIs. She requested surgical correction of prolapse at time of excision of bladder pillar. Findings: EUA found dense scar tissue on both the distal anterior vaginal wall and at the cuff as seen in the office. The proximal anterior vaginal wall descended to the level of the introitus. Cystoscopy performed under Panel 1 (Dr Sparks) found what appeared to be a bladder synechiae, rather than apermanent suture. Cystoscopy repeated following prolapse repair confirmed bilateral ureteral orifices in orthotopic position with brisk jets of pyridium-stained urine. Urethroscopy normal with good coaptation. Normal digital rectal exam. Procedure Description: The patient was brought to OR#27. She was positioned in the dorsal lithotomy position in adjustable Yellowfin stirrups in what was felt to be a neurologically safe positioning. She had knee-high intermittent pneumatic compression stockings in place throughout the procedure. She received 2g Ancef IV prior to incision. Exam under anesthesia was performed. She was prepped and draped in the usual sterile fashion. A timeout protocol was adhered to, confirming the patient's identity, planned procedure and safety measures. Following completion of cystoscopic resection of bladder pillar, a Nielsen catheter was reinserted using sterile technique. The area for the partial colpectomy was mapped out in preparation for a [place]type colpectomy, with the closed cuff as the apex, rather than the cervix. The posterior wall was dis sected first with the trapezoid extending from within a cm of the cuff to within 2 cm of the distal vagina at the posterior fourchette. The area was infiltrated with 0.25% Sensorcaine with 1:119007 Epinephrine solution. A similar trapezoid was mapped out and excised on the anterior vaginal wall. The corners of the dissection at the level of the cuff were sutured together with 0-Vicryl mattress sutures. A channel was created across the cuff, imbricating the remaining vaginal tissue adjacent to the cuff from anterior to posterior. Lateral channels were then begun by adding interrupted 0-Vicryl m attress sutures, beginning near the cuff and continuing towards the vaginal forchette. The distal vagina was reapproximated with [id number] 0 Vicryl sutures. Cystoscopy was the repeated with a 70-degree cystoscope with reassuring findings, including patent ureters. Pyridium had been administered pre- operatively to aid in identification of the ureteral jets.The bladder was again drained with a Nielsen catheter. The posterior colpoperineorrhaphy was initiated. The posterior fourchette and remaining posterior vagina was infiltrated with lidocaine with epinephrine solution, and a wedge of posterior vaginal wall extending out along the peritoneal body was excised. The rectum was dissected away from the vaginal wall laterally on the distal posterior vagina. Three interrupted 0 Vicryl PDS sutures were then used to incorporate the lateral puborectalis muscle across the midline to provide a shelf of support. A running 2-0 Vicryl suture was then used to reapproximate the remaining unclosed portion at the apex of the vagina. A second running 2-0 Vicryl suture was used to reapproximate the posterior vaginal wall extending to the perineal body. A rectal examination confirmed no injury to the rectum. Sponge and needle counts were correct at the conclusion of the procedure Infection Bundle used? No Attestation: Case Date: 10/08/2020 I was present and I participated during the entire procedure (does not need to include opening and closing). Roni Lubin MD 10/08/2020 Op Note - Yasemin Sparks MD - 10/08/2020 9:15 AM EDT [facility] Operative Note Patient Name: Corina Brewster : [id number] MR#: [id number] Case Date: 10/08/2020 Surgeon: Surgeon(s) and Role: Panel 1: * Roni Lubin MD - Primary * Uriel Bo DO - Fellow * Fay Ngo MD - Resident Panel 2: * Yasemin Sparks MD - Primary * Min Ly MD - Resident Preoperative diagnosis: PELVIC ORGAN PROLAPSE Postoperative diagnosis: PELVIC ORGAN PROLAPSE Procedure(s) (LRB): VAGINECTOMY, PARTIAL REMOVAL OF VAGINAL WALL (WRVU 7.5) (N/A) COLPORRHAPHY, POST RECTOCELE WITH OR W\O PERINEORRHAPHY (WRVU 11.5) (N/A) CYSTO, CYSTOURETHROSCOPY, DIAGNOSTIC (WRVU 2.23) (N/A) CYSTO, REMOVAL OF STENT, FOREIGN BODY OR CALCULUS, SIMPLE (WRVU 2.81) (N/A) Findings: Bladder synechia on left lateral wall; resected with hysteroscopic scissors; cut ends fulgurated with Bugbee Anesthesia: General Estimated Blood Loss: 5 Specimens removed during surgery: Order Name Source Comment Collection Info Order Time SPECIMEN TO PATHOLOGY Permanent OR 27 [id number] PELVIC ORGAN PROLAPSE Bladder Synechia excision No 10/08/2020 8:31 AM Time specimen removed from patient: 8:30 AM Number of tissue samples (in container) 1 Biospecimen to store? No Drains: 14 Fr Nielsen in bladder Surgical Closure: None Disposition: Care Transferred to Staff Antisubmarine Officer Service Condition: doing well without problems (Please see the Surgical Encounter Summary for any Implant and Specimen details pertinent to this patient.) HPI/Surgical Indications: Corina Brewster 65 y.o. female with recurrent pelvic organ prolapse, incomplete bladder emptying, recurrent UTIs, and prior urethropexy surgery who presents for colpocleisis with Staff Antisubmarine Officer and excision of intra-vesical pillar/suture with with Urology (via endoscopic or laparoscopic a pproach). ?? Procedure Description: The patient was identified in the pre-operative holding area. Consent was verified. The patient was taken to the operating room and placed supine on the operating table. General anesthesia was induced. The patient was then moved to the lithotomy position and prepped and draped in the usual sterile fashion. A timeout was performed involving all members of the OR team confirming the patient's identity and planned procedure. Preoperative antibiotics were administered. The 22 New Ze[place]ander cystoscope was inserted the patient's bladder. The bladder was systematically examinedwith the 30 degree lens. The UOs were in orthotopic position. There was a bladder synechiae on the left lateral wall. It was unclear whether this was a urothelial structure versus a suture that had been covered with urothelium over time. We placed a 5 New Ze[place]ander Pollack catheter through the scope. The Pollack was wrapped around the bladder synechiae and then brought out through the urethral meatus as a traction device. We then used the hysteroscopic scissors to incise the bladder synechiae off the left lateral wall as well as of the bladder trigone. The insertion site on the trigone was just medial to the left ureteral orifice. We then removed the bladder synechia intact from the bladder. This was sent to pathology for routine analysis. There was no clear suture within in. The cut edges of the bladder synechia on the left lateral wall and trigone were then fulgurated with the Bugbee to achieve excellent hemostasis. Both ureteral orifices were excreting Pyridium colored urine at the end of our procedure. The patient tolerated the procedure well without complication. Care was then transferred over to theUro-Gynn team after Nielsen catheter was placed on bladder. Dr. Sparks, the attending surgeon, was present for the entire procedure. documented in this encounter Plan of Treatment Upcoming Encounters Date Type Specialty Care Team Description 10/23/2021 Office Visit Hematology and Oncology Navid Armendariz MD [facility] [place], [place] [address] (Wo rk) 10/23/2021 Infusion Hematology and Oncology documented as of this encounter Procedures Procedure Name Priority Date/Time Associated Comments Diagnosis POCT GLUCOSE Routine 10/08/2020 11:46 Results for this AM EDT procedure are i n the results section. SPECIMEN TO PATHOLOGY Routine 10/08/2020 8:31 AM Results for this EDT procedure are i n the results section. SURGICAL PATHOLOGY Routine 10/08/2020 8:30 AM Res ults for this REPORT EDT procedure are i n the results section. CYSTO, REMOVAL OF 10/08/2020 7:51 AM PELVIC ORGAN STENT, FOREIGN BODY OR EDT PROLAPSE CALCULUS, SIMPLE (WRVU 2.81) CYSTO, 10/08/2020 7:51 AM PELVIC ORGAN CYSTOURETHROSCOPY, EDT PROLAPSE DIAGNOSTIC (WRVU 2.23) COLPORRHAPHY, POST 10/08/2020 7:51 AM PELVIC ORGAN RECTOCELE WITH OR W\O EDT PROLAPSE PERINEORRHAPHY (WRVU 11.5) VAGINECTOMY, PARTIAL 10/08/2020 7:51 AM PELVIC ORGAN REMOVAL OF VAGINAL WALL EDT PROLAPSE (WRVU 7.5) POCT GLUCOSE Routine 10/08/2020 7:01 AM Results f or this EDT procedure are i n the results section. HEMOGRAM STAT 10/08/2020 6:12 AM Results f or this EDT procedure are i n the results section. DIFFERENTIAL, AUTOMATED STAT 10/08/2020 6:12 AM Results for this EDT procedure are i n the results section. HC CREATININE STAT 10/08/2020 6:12 AM Results for this EDT procedure are i n the results section. HC CBC,PLT & AUTO DIFF STAT 10/08/2020 6:12 AM EDT documented in this encounter Results POCT Glucose (10/08/2020 11:46 AM EDT) P athologist Signature POC Glucose 121 65 - 199 IKE KIMANI mg/dL [facility] Comment: Supplemental ranges: <140 mg/dL before meals <180 mg/dL all other times of the day Specimen Anatomical Collection Method Collection Time Receive d Time (Source) Location / / Volume Laterality Blood 10/08/2020 11:46 10/08/2020 AM EDT 11:46 AM EDT Roni Lubin MD POINT OF CARE TEST ORDERABLE S Performing Organization Address City/[facility]/[place] [address] Specimen to Pathology (10/08/2020 8:31 AM EDT) Specimen Anatomical Collection Method Collection Time Receive d Time (Source) Location / / Volume Laterality AP Specimen 10/08/2020 8:31 AM 8:[address] [facility] - 10/08/2020 8:31 AM EDT Specimen requisition ordered. ??Separate Pathology report to follow Roni Lubin MD PATHOLOGY/CYTOLOGY ORDERABLE S Performing Organization Address City/[facility]/[place] [address] Surgical Pathology Report (10/08/2020 8:30 AM EDT) Component Value Ref Test Analysis Performed At [facility] gist Range Method Time Signature Surgical [id number] ? Location: [facility]; [facility]; A [facility] Report The signing pathologist has (i) examined the relevant preparation(s) for the [facility] specimen(s) and (ii) rendered or confirmed the diagnosis(es) . HOSPITAL LABORATORY . ?Surgic al Pathology DIAGNOSIS Bladder synechia: ?? No evidence of dysplasia or malignancy. CR-0 Electronically signed by: ?Wilner OMER, Jerome Martinez Verified: ??10/13/2020 13:30 ??Pathologist Performed at: ??-[facility] Dept. of Pathology, [place], [place] SPECIMEN(S) SUBMITTED A - Bladder synechia, excision CLINICAL INFORMATION Pelvic organ prolapse SPECIMEN PROCESSING A - Labeled/Fixative: Bladder synechia, fresh. Quantity/Size: Single, 0.7 x 0.6 x 0.6 cm. Tissue Description: Small, firm aguilar-white dumbbell-sha ped tissue with smooth contours. Sections/Processing: Bisecte d and entirely submitted in 1 cassette labeled A1. lv Specimen (Source) Anatomical Collection Method Collection Time Re ceived Time Location / / Volume Laterality 10/08/2020 8:30 AM EDT Roni Lubin MD PATHOLOGY/CYTOLOGY ORDERABLE S Performing Organization Address City/State/[place] [address] POCT Glucose (10/08/2020 7:01 AM EDT) P athologist Signature POC Glucose 136 65 - 199 [facility] mg/dL [facility] Comment: Supplemental ranges: <140 mg/dL before meals <180 mg/dL all other times of the day Specimen Anatomical Collection Method Collection Time Receive d Time (Source) Location / / Volume Laterality Blood 10/08/2020 7:01 AM 7:01 EDT AM EDT Roni Lubin MD POINT OF CARE TEST ORDERABLE S Performing Organization Address City/State/[place] [address] (ABNORMAL) Differential, Automated (10/08/2020 6:12 AM EDT) Patholo gist Method Time Signature Neutrophils % 74.5 % [facility] Neutr Abs (ANC) 4.88 1.70 - [facility] 6.10 [facility] x10(3)/[facility] LABORATORY Lymphocytes % 12.5 % [facility] Lymphocytes Abs 0.8 (L) 0.9 - 3.2 [facility] x10(3)/[facility] LABORATORY Monocytes % 9.2 % [facility] Monocyte Abs 0.6 0.3 - 0.9 [facility] x10(3)/[facility] LABORATORY Eosinophils % 2.3 % [facility] Eosinophils Abs 0.2 0.0 - 0.4 [facility] x10(3)/[facility] LABORATORY Basophils % 1.2 % [facility] Basophils Abs 0.1 0.0 - 0.1 [facility] x10(3)/[facility] LABORATORY Immature Gran % 0.30 % [facility] Comment: Immature granulocytes(IG's)percentage an d absolute count will include metamyelocytes, myelocytes, and promyelo cytes. Blood smears from CBCs yielding IG's will be scanned manually for concor dance. If this scan disagrees with the automated IG or if promyelocytes are not ed, a manual differential will be performed. Willa Gran Abs 0.02 0.00 - 0.04 x10(3)/[facility] Specimen Anatomical Collection Method Collection Time Receive d Time (Source) Location / / Volume Laterality Blood 10/08/2020 6:12 AM 6:15 EDT AM EDT Resulting Agency Comment Spec In Lab Julissa Denton MD HEMATOLOGY ORDERABLES Performing Organization Address City/State/ZIP [place] [address] (ABNORMAL) Hemogram (10/08/2020 6:12 AM EDT) Analysis Performed At Patho logist Time Signature WBC 6.6 4.0 - 9.5 [facility] x10(3)/[facility] LABORATORY RBC 4.64 4.00 - [facility] x10(6)/[facility] LABORATORY Hemoglobin 13.6 11.7 - [facility]/dL [facility] Hematocrit 42.1 35.7 - [facility] 45.8 % [facility] MCV 90.7 82.6 - [facility] 94.4 [facility] LABORATORY MCH 29.3 27.1 - [facility] KIMANI 32.0 pg [facility] MCHC 32.3 31.7 - [facility] 35.[facility] gm/dL [facility] Platelets 214 145 - 357 [facility] x10(3)/[facility] LABORATORY RDWSD 46.1 (H) 37.0 - [facility].0 [facility] LABORATORY RDWCV 13.9 11.5 - [facility] KIMANI 14.1 % [facility] MPV 10.1 7.6 - 12.9 IKE KIMANI [facility] LABORATORY nRBC % Auto 0.0 % [facility] nRBC Abs Auto 0.000 0.000 - IKE HARMAN 0.000 [facility] x10(3)/[facility] LABORATORY Specimen Anatomical Collection Method Collection Time Receive d Time (Source) Location / / Volume Laterality Blood 10/08/2020 6:12 AM 6:15 EDT AM EDT Resulting Agency Comment Spec In Lab Julissa Denton MD HEMATOLOGY ORDERABLES Performing Organization Address City/[facility]/ZIP Code Phon e Number [address] (ABNORMAL) Creatinine (10/08/2020 6:12 AM EDT) Analysis Performed At Patho [facility] Time Signature Creatinine 0.68 (L) 0.70 - [facility] 1.20 mg/dL [facility] Estimated GFR 92 >=60 [facility] mL/min/1.7 [facility] 3 m?? [facility] Comment: This patient? s estimated glomerular filtration rate (eGFR) is between 92 mL/min/1.73 m2 (patients with less muscl e mass) and 106 mL/min/1.73 m2 (patients with more muscle mass) as dete rmined by the CKD-EPI equation. Assessment of eGFR is not appropriate wh en creatinine concentrations are rapidly changing. For clinical decisions where creatinine clearance will affect therapy, a 24-hour urine creatinine rachel judie may be advised. Assignment of CKD stage 1 - 5 for patien ts with an eGFR near the transition point between stages may be based on cli nical assessment of muscle mass and symptoms in addition to eGFR. Specimen Anatomical Collection Method Collection Time Receive d Time (Source) Location / / Volume Laterality Blood 10/08/2020 6:12 AM 6:15 EDT AM EDT Resulting Agency Comment Spec In Lab Roni Lubin MD CHEMISTRY ORDERABLES Performing Organization Address City/[facility]/[place] [address] documented in this encounter Visit Diagnoses Not on filedocumented in this encounter Administered Medications Inactive Administered Medications - up to 3 most recent administrations Medication Order MAR Action Action Date Dose Rate Site acetaminophen (Tylenol) tablet Given 10/08/2020 7:07 AM EDT 1,00 0 mg 1,000 mg 1,000 mg, Oral, ONCE, 1 dose, On Tue10/08/20 at 0645, Administer with SIP of H2O only., Day of Surgery (Day of Procedure), Routine heparin (porcine) (5,000 units/1 mL) Given 10/08/2020 7:07 AM ED T 5,000 Units subcutaneous injection 5,000 Units 5,000 Units, Subcutaneous, ONCE, 1 dose, On Tue10/08/20 at 0645, Routine ketorolac (Toradol) (15 mg/mL) injection 15 Given 10/08/2020 12:45 PM EDT 15 mg mg 15 mg, Intravenous, ONCE, 1 dose, On Tue10/08/20 at 1200, PRN pain scale 4-6, Day of Surgery (Day of Procedure), STAT lactated ringers infusion Restarted 10/08/2020 7:52 AM EDT 1,000 mL, at 100 mL/hr, Intravenous, CONTINUOUS, Starting on Tue10/08/20 at 0645, Until Tue10/08/20 at 1316, Day of Surgery (Day of Procedure) New Bag 10/08/2020 7:10 AM EDT 1,000 mLs 100 mL/hr lidocaine-EPINEPHrine (1% - Given 10/08/2020 11:15 AM 10 mLs 19- Surgical Site 1:100,000) injection EDT ONCE PRN, Starting on Tue10/08/20 at 1027, Until Tue10/08/20 at 1528, Intra-Operative (Intra-Procedure), Routine Given 10/08/2020 10:54 AM EDT 4 mLs 19- Surgical Site Given 10/08/2020 10:27 AM EDT 12 mLs 19- Surgical Site phenazopyridine (Pyridium) tablet 200 mg Given 10/08/2020 7:07 AM EDT 200 mg 200 mg (rounded from 190 mg), Oral, ONCE, 1 dose, On Tue10/08/20 at 0645, Day of Surgery (Day of Procedure), Routine documented in this encounter Active and Recently Administered Medications Times are shown in EDT. Scheduled Medication Order 10/06/2020 10/07/2020 10/08/2020 acetaminophen (Tylenol) tablet 1,000 mg (COMPLETED) 0707 (Given - Provider: Madeline Rodriguez RN) 1,000 mg, Oral, ONCE, 1 dose, On 09/21 at 0645, Administer with SIP of H2O only., Day of Surgery (Day of Procedure), Routine ceFAZolin (Ancef) 2 g in dextrose 5% 100 mL infusion (COMPLETED) 0800 (Given - Provider: Yocasta Mckeon MD) 2 g, Intravenous, ONCE, 1 dose, On Tue at 0645, Administer over 30 Minutes, Lodge Officer to OR Infuse over 30 minutes., Day of Surgery (Day of Procedure), Indication for (Active or Suspected): Prophylaxis heparin (porcine) (5,000 units/1 mL) sub cutaneous injection 5,000 Units (COMPLETED) 0707 (Given - Provid er: Madeline Rodriguez RN) 5,000 Units, Subcutaneous, ONCE, 1 dose, On Tue10/08/20 at 0645, Routine ketorolac (Toradol) (15 mg/mL) injection 15 mg (COMPLETED) 1245 (Given - Provider: Janae Mejia RN) 15 mg, Intravenous, ONCE, 1 dose, On Tue10/08/20 at 1200, PRN pain scale 4-6, Day of Surgery (Day of Procedure), STAT phenazopyridine (Pyridium) tablet 200 mg (COMPLETED) 0707 (Given - Provider: Madeline Rodriguez RN) 200 mg (rounded from 190 mg), Oral, ONCE , 1 dose, On Tue10/08/20 at 0645, Day of Surgery (Day of Procedure), Routine Continuous Medication Order 10/06/2020 10/07/2020 10/08/2020 lactated ringers infusion (CANCELED) 0710 (New Bag - Provider: Madeline Rodriguez RN)0751 (Paused - Provider: Yocasta Mckeon MD - Comment: Switch to gravity)0752 (Restarted - Provider: Yocasta Mckeon MD)0847 (Anesthesia Volume Adjustment - Provider: Yocasta Mckeon MD) 1,000 mL, at 100 mL/hr, Intravenous, CON TINUOUS, Starting on Tue10/08/20 at 0645, Until Tue10/08/20 at 1316, Day of Surgery (Day of Procedure) 1116 (Anesthesia Volume Adjustment - Provider: Yocasta Mckeon MD) PRN Medication Order 10/06/2020 10/07/2020 10/08/2020 lidocaine-EPINEPHrine (1% - 1:100,000) injection (CANCELED) 1027 (Given - Provider: Roni Lubin MD - Comment: injected into vagina)1054 (Given - Provider: Roni Lubin MD - Comment: injected into vagina)1115 (Given - Provider: Roni Lubin MD - Comment: infiltration) ONCE PRN, Starting on Tue10/08/20 at 102 7, Until Tue10/08/20 at 1528, Intra- Operative (Intra-Procedure), Routine documented in this encounter Care Teams Hydraulic Repairer Relationship Specialty Start Date End Date Veronica Chun MD PCP - General Family Medicine 01/20/[address] [place] [address] [address] [place] [address] documented as of this encounter
--- OUTSIDE RECORDS SUMMARY | 2021-10-23 02:23 | XMS_ITS | Encounter Summary ---
:1955 [place] [address] Care Team Providers Name Role Phone Veronica [...] Expiration Date Visits Requ ested Visits Authorized [id number] 1 1 Encounter Details Date Type Department Care Team Description 10/08/2020 Anesthesia Event Main Operating Room Ying Dickson MD [facility] DR [place] [address] [facility] Yocasta Mckeon MD [facility] [place] [address] [facility] [place] [address] Anesthesia Record Procedure Summary Procedure Name Responsible Anesthesia Start Anesthesia Stop Time Anesthesiologist Time VAGINECTOMY, Ying Farah MD 10/08/20 0752 10/08/20 1130 PARTIAL REMOVAL OF VAGINAL WALL (WRVU 7.5) (N/A Abdomen) Events Date Time Event Comment 10/08/2020 0730 0752 AN Verify 0752 Start 0752 An Start Data 0756 An Induction 0758 An Intubation 0800 Anesthesia Ready 1020 Break/Relief In I assumed care f or Break Relief before which we: 1. Identifie d the patient 2. Identified the responsible provider(s) 3. Reviewed the pertinent medica l history 4. Discussed the surgical plan an d course 5. Reviewed intra-op anesthesia manag ement and issues during anesthesia 6. Se t expectations for the relief (and/or post-pro cedure) period 7. Allowed opportunity for questions and acknowledgement of understanding Yocasta Mckeon MD 1056 Break/Relief Out 1116 Extubation/LMA Out 1121 an stop data 1130 Recovery or ICU Handoff Patient care was transferred to the destination unit staff after review of the patient's medica l history, current anesthetic/surgi izabela status and plan, according to the Provider Handoff Checklist. 1130 Stop Name Total fentaNYL 100 mcg IV Lidocaine 40 mg Propofol 230 mg Ondansetron 8 mg ceFAZolin (Ancef) 2 g in dextrose 5% 100 mL infusion 2 g Propofol INF 529.93 mg Dexmedetomidine 20 mcg ketorolac (Toradol) (30 mg/mL) injection 15 mg lactated ringers infusion 700 mL Agents Name O2 Air N2O Sevoflurane (et) Blood No blood administrations on file. Lines, Drains, and Airways Type Details Placement Removal Urethral Catheter 10/08/20; 0930; 10/08/20 0930 by Genitourinary surgery, Nikolai Lima RN Physician order; indwelling double lumen catheter; 100% silicone; 14; inserted at this facility; 1; 5; 10; other (see comments) (patient under general anesthesia); drainage bag to dependent drainage PIV 10/08/20; 0709; basilic 10/08/20 0709 by 1 1315 by vein (medial side of arm), Madeline Rodriguez, Janae Monterroso, right; [id number] RN catheter system; 22 gauge; intradermal injection; 10/08/20; 1315 Supraglottic Mask Ventilation: Not 10/08/20 0758 by 10/08/20 1116 by Attempted (0); LMA Type: Yocasta Mckeon MD Floy d, Megan S, MD iGel; LMA Size: 4; Inserted by: MD Mike Incision 10/08/20; 924; midline; 10/08/20 0925 by 1715 by urethral meatus; other Nikolai Lima, Shanna Carrasco (see comments); Cysto stitch removal from bladder, colporrhaphy post rectocele, w/w/o perineorrhaphy; 10/19/21 (LDA cleanup utility RA#[id number]); 1715 (LDA cleanup utility RA#[id number]) Incision 10/08/20; 09; midline; 10/08/20 09 by 1715 by vagina; other (see Nikolai Lima, Shanna Lopez comments); vaginectomy; 10/19/21 (LDA cleanup utility RA#[id number]); 1715 (LDA cleanup utility RA#[id number]) documented in this encounter Social History Tobacco Use Types Packs/Day Years [...] PM EDT documented as of this encounter OR Notes Anesthesia Postprocedure Evaluation - Ying Farah MD - 10/08/2020 11:37 AM EDT Department of Anesthesiology Post-procedure Note Patient: Corina N Hastie Procedure Summary Date: 10/08/20 Room / Location: [address] MAIN OR Anesthesia Start: 751 Anesthesia Stop: 1129 Procedures: VAGINECTOMY, PARTIAL REMOVAL OF VAGINAL WALL (WRVU 7.5) (N/A Abdomen) COLPORRHAPHY, POST RECTOCELE WITH OR W\O PERINEORRHAPHY (WRVU 11.5) (N/A ) CYSTO, CYSTOURETHROSCOPY, DIAGNOSTIC (WRVU 2.23) (N/A Bladder) CYSTO, REMOVAL OF STENT, FOREIGN BODY OR CALCULUS, SIMPLE (WRVU 2.81) (N/A Bladder) Diagnosis: (PELVIC ORGAN PROLAPSE) Surgeons: Roni Lubin MD; Yasemin Sparks MD Responsible Provider: Ying Farah MD Anesthesia Type: general ASA Status: 2 All Anesthesia Providers: Anesthesiologist: Ying Farah MD Outreach Team Member: Yocasta Mckeon MD Vitals Value Taken Time BP 145/75 10/08/20 1130 Temp Pulse Resp SpO2 96 % 10/08/20 1136 Pain Level Vitals shown include unvalidated device data. Patient Location: PACU/[facility] Level of Consciousness: Awake and Alert Pain Management: Satisfactory Analgesia PONV: None Cardiovascular Status: At Baseline and Hemodynamically Stable Respiratory Status: At Baseline and Room Air Postoperative Fluid Status: Intravascular EUvolemia Possible Anesthetic Complications: NONE apparent at time of evaluation Final Primary Anesthesia Type: General (The anesthetic type performed was the same as planned.) Comments: Ying Farah MD Anesthesia Preprocedure Evaluation - Yocasta Mckeon MD - 10/07/2020 6:01 PM EDT Pre-Anesthesia Evaluation for: Corina Brewster a 65 y.o. female. Procedure(s): VAGINECTOMY, PARTIAL REMOVAL OF VAGINAL WALL (WRVU 7.5) COLPORRHAPHY, POST RECTOCELE WITH OR W\O PERINEORRHAPHY (WRVU 11.5) CYSTO, CYSTOURETHROSCOPY, DIAGNOSTIC (WRVU 2.23) CYSTO, REMOVAL OF STENT, FOREIGN BODY OR CALCULUS, SIMPLE (WRVU 2.81) Patient Active Problem List Diagnosis ??? Foreign body of bladder, initial encounter ??? Malignant neoplasm of upper-outer quadrant of left breast in female, estrogen receptor positive ??? Thyroid nodule ??? Osteoarthrosis, unspecified whether generalized or localized, hand ??? Osteoarthrosis, unspecified whether generalized or localized, lower leg ??? Trigger middle finger of left hand ??? Trigger index finger of right hand ??? HAM (obstructive sleep apnea) ??? Restless leg syndrome Past Medical History: Diagnosis Date ??? Breast [...] Stereotactic Biopsy Left 06/27/[address] [facility] RAD MAMMOGRAPHY ??? MAMMO US BIOPSY LEFT Left 06/27/2018 Mammo Us Biopsy Left 06/27/[address] [facility] RAD MAMMOGRAPHY ??? PRO BX/REMV, LYMPH NODE, DEEP AXILL Left 2018 BIOPSY OR EXCISION OF LYMPH NODE(S), OPEN, DEEP AXILLARY NODE(S) (WRVU 6.43) performed by Charlie Larry MD at [facility] ??? PRO EXC SKIN BENIG 0.6-1CM FACE, FACIAL N/A 2018 EXC BENIGN LESION ,RAINER .6 TO 1.0CM, FACE (WRVU 1.53) performed by Charlie Larry MD at [facility] ??? PRO INTRAOP SENTINEL LYMPH ID W/DYE INJECTION Left 2018 INTRAOPERATIVE ID (MAPPING) SENTINEL LYMPH NODE,INCLUDES INJECTION (WRVU 2.5) performed by Charlie Larry MD at [facility] ??? PRO MASTECTOMY PARTIAL Left 2018 MASTECTOMY PARTIAL (WRVU 10.13) performed by Charlie Larry MD at [facility] Social History Tobacco Use ??? Smoking status: Never Smoker ??? Smokeless tobacco: Never Used Substance Use Topics ??? Alcohol use: Yes Comment: not even that much Social History Substance and Sexual Activity Drug Use Not Currently Allergies Allergen Reactions ??? Oxycodone Nausea And Vomiting Medications: MAR and/or home medications have been reviewed. Physical Exam: Preprocedure Vitals Current as of 10/07/20 1801 No BP, pulse, respiration, SpO2, or temperature recorded. Height: Weight: 101.2 kg (223 lb 3.2 oz) (09/15/20) BMI: IBW: Airway Assessment: Mallampati: III TM distance: <3 FB Neck ROM: full Cardiovascular Assessment: system normal Pulmonary Assessment: unlabored breathing Dental Assessment: (+) edentulous, upper dentures and lower dentures Misc Assessment: IV access: Peripheral line Last Filed Perioperative Cognitive Screening None Anesthesia Plan: ASA 2 general, with a(n) intravenous induction 65 y.o. 101kg female with a BMI of 40, PMH significant for DMT2, HAM, HTN (B blocked), GERD, CAD s/pstented (on ASA), hyperthyroidism, and breast cancer s/p mastectomy. Patient is presenting with pelvic organ prolapse scheduled for vaginectomy and cystourethroscopy and stent removal. Surgical History: mastectomy (2018) Anesthetic History: PONV Airway History: last GA igel 4 placed Allergies reviewed - oxycodone w nausea and vomiting reaction Exercise tolerance: Greater than 4 METS NPO Status: appropiate Anesthetic Plan: GA w/ ETT vs LMA Analgesia: tylenol, fentanyl, toradol Antiemetic: zofran Standard ASA monitoring PIV access Yocasta Mckeon MD 10/07/2020 Region - Other Informed Consent: Anesthetic plan and risks discussed with patient. Use of blood products discussed with patient who consented to blood products. Plan discussed with attending. Anesthesia Screening documented in this encounter Plan of Treatment Upcoming Encounters Date Type Specialty Care Team Description 10/23/2021 Office Visit Hematology and Oncology Navid Armendariz MD [facility] ONCOLOGY [place], [place] 0375 (Wo rk) 10/23/2021 Infusion Hematology and Oncology documented as of this encounter Visit Diagnoses Not on filedocumented in this encounter Administered Medications Inactive Administered Medications - up to 3 most recent administrations Medication Order MAR Action Action Date Dose Rate Site ceFAZolin (Ancef) 2 g in dextrose 5% Given 10/08/2020 8:00 AM ED T 2 g 100 mL infusion 2 g, Intravenous, ONCE, 1 dose, On Tue10/08/20 at 0645, Administer over 30 Minutes, Health And Safety Technician to OR Infuse over 30 minutes., Day of Surgery (Day of Procedure), Indication for (Active or Suspected): Prophylaxis dexmedetomidine (Precedex) (4 mcg/mL) bolus Given 10/08/2020 9:4 0 AM EDT 4 mcg injection (Anesthsia) Intravenous, PRN, Starting on Tue10/08/20 at 0915, Until Tue10/08/20 at 1130, Anesthesia Intra-op, Routine Given 10/08/2020 9:34 AM EDT 4 mcg Given 10/08/2020 9:28 AM EDT 4 mcg fentaNYL (pf) (50 mcg/mL) multi-dose Given 10/08/2020 7:52 AM ED T 100 mcg injection Intravenous, PRN, Starting on Tue10/08/20 at 0851, Until Tue10/08/20 at 1130, Anesthesia Intra-op, Routine ketorolac (Toradol) (30 mg/mL) injection Given 10/08/2020 10:14 AM EDT 15 mg Intravenous, PRN, Starting on Tue10/08/20 at 1014, Until Tue10/08/20 at 1130, Anesthesia Intra-op, Routine lactated ringers infusion Restarted 10/08/2020 7:52 AM EDT 1,000 mL, at 100 mL/hr, Intravenous, CONTINUOUS, Starting on Tue10/08/20 at 0645, Until Tue10/08/20 at 1316, Day of Surgery (Day of Procedure) New Bag 10/08/2020 7:10 AM EDT 1,000 mLs 100 mL/hr lidocaine (pf) (Xylocaine) (20 mg/mL) 2% Given 10/08/2020 7:56 A M EDT 40 mg injection syringe Intravenous, PRN, Starting on Tue10/08/20 at 0851, Until Tue10/08/20 at 1130, Anesthesia Intra-op, Routine ondansetron (pf) (Zofran) (2 mg/mL) inje ction Given 10/08/2020 10:14 AM EDT 8 mg Intravenous, PRN, Starting on Tue10/08/20 at 1014, Until Tue10/08/20 at 1130, Anesthesia Intra-op, Routine propofoL (Diprivan) 10 mg/mL bolus injection Given 10:49 AM EDT 50 mg (Anesthesia) Intravenous, PRN, Starting on Tue10/08/20 at 0851, Until Tue10/08/20 at 1130, Anesthesia Intra-op Given 10/08/2020 7:56 AM EDT 180 mg propofoL (Diprivan) infusion Restarted 10/08/2020 10:56 50 mcg/kg/min 30.75 mL/hr Intravenous, CONTINUOUS PRN, AM EDT Starting on Tue10/08/20 at 0853, Until Tue10/08/20 at 1130, Anesthesia Intra-op, Routine Rate/Dose Change 10/08/2020 10:19 AM EDT 50 mcg/kg/min 30.75 mL/hr Rate/Dose Change 10/08/2020 8:55 AM EDT 20 mcg/kg/min 12.3 mL/hr documented in this encounter Care Teams Modeling Director Relationship Specialty Start Date End Date Veronica Chun MD PCP - General Family Medicine 01/20/[address] [place] [address] documented as of this encounter
--- OUTSIDE RECORDS SUMMARY | 2021-10-23 02:23 | XMS_ITS | Encounter Summary ---
:1955 Author Organization [facility] Address [facility] [place] [address] Care Team Providers Name Role Phone Veronica Chun MD Primary Care Provider Reason for Visit Consultation (Urgent) - Closed Specialty Diagnoses / Procedures Referred By Contact Refer red To Contact Urology Diagnoses Recurrent UTI (urinary tract infection) Roni Lubin MD Gormley, Elizabeth Ann, [facility] [place] [address] [facility] UROLOGY DEPT. [place], [place] [address] Phone: Fax: Referral ID Status Reason Start Date Expiration Date Visits V isits Requested Authorized [id number] Closed Consult, 08/21/2020 08/21/2021 1 1 Test & Treat Encounter Details Date Type Department Care Team Description 09/15/2020 Office Visit Urology at [facility] Yasemin Sparks Recurrent UTI (urinary tract infection); [facility] MD [place] [address] UROLOGY DEPT. [phone] [place], [place] [address] (Wo rk) Social History Tobacco Use Types [...] Sign Reading Time Taken Comments Blood Pressure 143/67 09/15/2020 3:54 PM EDT Pulse 85 09/15/2020 3:54 PM EDT Temperature - - Respiratory Rate - - Oxygen Saturation - - Inhaled Oxygen Concentration - - Weight 101.2 kg (223 lb 3.2 oz) 09/15/2020 3:54 PM EDT Height - - Body Mass Index 39.55 07/30/2020 8:57 AM EDT documented in this encounter Progress Notes Yasemin Sparks MD - 09/15/2020 4:00 PM EDT Pt is seen at the request of Dr. Lubin for a concern about a foreign body in her bladder. Dr. Lopez has been working her up for prolapse and did a cystoscopy last week where he saw a presumed suture in her bladder from her prior bladder neck suspension. Dr. Lubin described this as pillar extending from the trigone 5mm medial to the left (patent) UO to the Space of Retzius - suspicious for a permanent suture covered by healthy urothelium (photo below); I reviewed the pictures and it looks to me like this is within the bladder wall. She is being seen today by me for evaluation of this to see if this should be removed during her upcoming surgery. I would recommend removal if it is either not within the bladder wall and/or if part of it is not covered by epithelium. She saw Dr. Lubin on July 29 and had a pessary put in. She has had pain with a pessary - 5/10 constantly She currently voids 6 -8 times per day NO dysuria No stress incontinence Some urge incontinence She has had recurrent UTI's for many weeks. She has been treated at [facility] by the [facility]. Last UTI that she was treated for was 1 week ago She isn't sure if she is infected today - she feels she is always infected with the pessary. Bowels: 1 soft BM daily Fluids Water 40 oz/day Coffee 1 per day no soda, no juice, no tea, no ETOH On exam: Well looking woman in no distress. Abdomen: Soft nontender with no masses no organomegaly Pelvic: There is a cube pessary in place which is supporting her prolapse well. Her meatus is in a normal location Cystoscopy: See other note. There is an epithelialized structure, probably a suture, extending from the trigone medial to the left (patent) UO to the anterior bladder wall. The remainder of the bladderis normal. Of note the patient did not have a PVR actually measured today but her residual urine was very low when the scope was inserted. Imp/Plan: Patient with 1) pelvic organ prolapse -currently managed with a pessary which she finds uncomfortable. I had a discussion with her today about taking out the pessary. She is somewhat ambivalent if she is better with the pessary in place or better without it. After some discussion she elected to have it left in place. I did tell her she can call at any time and have it removed. Alternatively her provider locally could also remove it for her. I did offer to show her how to remove it but she was not interested in doing this. 2) recurrent UTIs -I do not have access to all her cultures. She is symptomatic today and we will send a culture. I did instill 40 mg of gentamicin at the end of the cystoscopy. I explained to her thatI am not sure that removing the suture is going to have an impact on her infections but I do think the suture should be removed. 3) foreign body in the bladder -although this is completely epithelialized I think the suture shouldbe removed. As noted above this may not change her infections but it may change her sense of bladderdiscomfort. I explained her that this to be done at the time of her procedure with Dr. Lubin. I will do it either cystoscopically and or cystoscopically combined with a lap port through the bladder. I explained to her she may need to go home with a catheter in place for a few days following this. documented in this encounter Procedure Notes Yasemin Sparks MD - 09/15/2020 4:00 PM EDTAssociated Order(s): CYSTOSCOPY Pre-Procedure Diagnose(s): Recurrent UTI (urinary tract infection) Post-Procedure Diagnose(s): Recurrent UTI (urinary tract infection); Foreign body in bladder, initial encounter Procedure: Flexible cystoscopy. Surgeon: Bridger Complications: None. Procedure: Urinalysis revealed no evidence of an active urinary tract infection. After informed consent was obtained and the external genitalia appropriately had been cleaned and draped lidocaine was instilled into the urethra to achieve topical anesthesia. The flexible telescope was inserted into the urethra and advanced into the bladder under direct vision. The bladder was systematically inspected through 360 degrees with the flexible telescope including retroversion. Anterior urethroscopy was normal. The ureteral orifices were in normal position and effluxed clear urine. The bladder was normal. There were no bladder tumors or bladder stones. There is an epithelial covered band that goes from just medial to the left ureteral orifice to the anterior bladder wall. This is entirely epithelial covered. I was able to get the scope over this and look at it in all directions and I did not see any exposed suture. See picture in scanned documents. Prior to removing the scope I instilled 40 mg of gentamicin after having emptied her bladder. The cystoscope was removed. The patient tolerated the procedure without difficulty. There were no complications. The patient was given 1 cipro prior to the procedure. documented in this encounter Plan of Treatment Upcoming Encounters Date Type Specialty Care Team Description 10/23/2021 Office Visit Hematology and Oncology Navid Armendariz MD [facility] DR ONCOLOGY [place], [place] [address] (Wo rk) 10/23/2021 Infusion Hematology and Oncology documented as of this encounter Procedures Procedure Name Priority Date/Time Associated Diagnosis Comme nts HC URINE CULTURE Routine 09/15/2020 5:15 PM Recurrent UTI Resu lts for this EDT (urinary tract procedure are in infection) the results section. CYSTOSCOPY Routine 09/15/2020 4:00 PM Recurrent UTI Results for this EDT (urinary tract procedure are in infection) the results section. documented in this encounter Results (ABNORMAL) Urine culture Clean Catch Urine (09/15/2020 5:15 PM EDT) [facility] Method Time Signature Urine Culture 50,000-99,000 cfu/ml mixed mucosal daxa IKE 1,000-9,000 cfu/ml Gram Negative organisms [place] Note: Culture shows multiple bacterial species suggesting [facility] contamination. If symptoms c ontinue to indicate urinary tract infection, submit HOSPITAL a new specimen. LABORATORY (A) Specimen Anatomical Collection Method Collection Time Receive d Time (Source) Location / / Volume Laterality Clean Catch 09/15/2020 5:15 PM 5:38 Urine EDT PM EDT Resulting Agency Comment Spec In Lab Yasemin Sparks MD MICROBIOLOGY - GENERAL ORDER DANIEL Performing Organization Address City/State/[place] [address] documented in this encounter Visit Diagnoses Diagnosis Recurrent UTI (urinary tract infection) Urinary tract infection, site not specif ied Recurrent UTI Urinary tract infection, site not specif ied Breast cancer, stage 1, left documented in this encounter Care Teams Replanting Machine Crewman Relationship Specialty Start Date End Date Veronica Chun MD PCP - General Family Medicine 01/20/[address] [place] [address] documented as of this encounter
--- OUTSIDE RECORDS SUMMARY | 2021-10-23 02:23 | XMS_ITS | Encounter Summary ---
:1955 Author Organization [facility] [place] [address] Care Team Providers Name Role Phone Veronica Chun MD Primary Care Provider Reason for Visit Reason Onset Date Comments Post Procedure Call 10/09/2020 Encounter Details Date Type Department Care Team Description 10/09/2020 Telephone Obstetrics and Gynecology Celine Gonzalez, Post Procedure Call at [facility] [place] [address] Social History Tobacco Use Types Packs/Day [...] this encounter Miscellaneous Notes Telephone Encounter - Gloria Gonzalez RN - 10/09/2020 11:18 AM EDT POST-OP TELEPHONE UPDATE Date of Surgery: 10/08/20 and had VAGINECTOMY, PARTIAL REMOVAL OF VAGINAL WALL (WRVU 7.5) (N/A) COLPORRHAPHY, POST RECTOCELE WITH OR W\O PERINEORRHAPHY (WRVU 11.5) (N/A) CYSTO, CYSTOURETHROSCOPY, DIAGNOSTIC (WRVU 2.23) (N/A) CYSTO, REMOVAL OF STENT, FOREIGN BODY OR CALCULUS, SIMPLE (WRVU 2.81) (N/A) Overall well-being: I am doing okay Pain?: 03/02 Pain medication working(Y/N)?: Using Tylenol and Motrin with relief Location of pain: Perineum area slightly sore Bladder function: voiding without difficulty Bowel function: Passing flatus and no BM Ambulating: Yes Tolerating solids / liquids: Small meals Dressings: none Incisions: Internal stitches Vaginal bleeding: spotting Fever: none Post Op appointment booked? [facility] appt was made Instructions: We reviewed phone contacts. The patient will call triage at during daytime hours or during the evening or weekends and ask for the dragger environmental department manager if she is having problems. GLORIA GONZALEZ RN documented in this encounter Plan of Treatment Upcoming Encounters Date Type Specialty Care Team Description 10/23/2021 Office Visit Hematology and Oncology Navid Armendariz MD [facility] DR ONCOLOGY [place], [place] [address] (Wo rk) 10/23/2021 Infusion Hematology and Oncology documented as of this encounter Visit Diagnoses Not on filedocumented in this encounter Care Teams Cook Specialty Relationship Specialty Start Date End Date Veronica Chun MD PCP - General Family Medicine 01/20/[address] [place] [address] documented as of this encounter
--- OUTSIDE RECORDS SUMMARY | 2021-10-23 02:23 | XMS_ITS | Encounter Summary ---
:1955 Author Organization [facility] Address [facility] [place] [address] Care Team Providers Name Role Phone Veronica [...] Expiration Date Visits Requ ested Visits Authorized [id number] 1 1 Encounter Details Date Type Department Care Team Description 10/08/2020 Hospital Encounter Same Day Program at Roni Lubin Foreign body of Shaunna Blackwell MD bladder, [facility] One Medical encounter [facility] [place] [address] [place], [place] [phone] (Work) [phone] Social History Tobacco Use Types Packs/Day Years [...] Sign Reading Time Taken Comments Blood Pressure 140/68 10/08/2020 12:15 PM EDT Pulse 68 10/08/2020 6:28 AM EDT Temperature 36.5 ??C (97.7 ??F) 10/08/2020 11:26 AM EDT Respiratory Rate 18 10/08/2020 6:28 AM EDT Oxygen Saturation 98% 10/08/2020 12:15 PM EDT Inhaled Oxygen Concentration - - [...] Center 10/13/2020 1:00 PM Yasemin Sparks MD [facility] 10/13/2020 1:00 PM UROLOGY, NURSE [facility] 11/18/2020 1:30 PM Roni Lubin MD [facility] OBG 5L [facility] 12/29/2020 9:00 AM Yasemin Sparks MD [facility] URO [facility] Patient Discharge Instructions: Special Physician Instructions: If you are still needing a catheter to drain your bladder, please follow the instructions given to you separately for when to use the catheter and how to care for it. Inaddition, please call to check in with the urogynecology office nurse at [phone] to review how your bladder is working and when the catheter use can be discontinued. For problems or concerns related to this hospitalization call: [phone] weekdays, or [phone] weekends or nights. 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 Element [employer] ULTRA BLUE TEST TEST ONCE DAILY 0 [...] Ngo MD - 10/08/2020 7:25 AM EDT [facility] ADMIN Interval Pre-op H&P I have reviewed the [...] Ngo MD, PGY-1 Obstetrics and Gynecology 10/03/2020 in Javier MD - 10/08/2020 7:03 AM EDT Urology PreOp H&P Corina Brewster 65 y.o. female with recurrent pelvic organ prolapse, incomplete bladder emptying, recurrent UTIs, and prior urethropexy surgery who presents for colpocleisis with Porter Sample Case and excision of intra-vesical pillar/suture with with [...] Lubin MD - 10/08/2020 11:13 AM EDT [facility] Operative Note Patient Name: Corina Brewster : [id number] MR#: [id number] Case Date: 10/08/2020 Surgeon: Surgeon(s) and Role: [...] of cystoscopic resection of bladder pillar, a Nielesn catheter was reinserted using sterile technique. The [...] area was infiltrated with 0.25% Sensorcaine with [id number] Epinephrine solution. A similar trapezoid was mapped [...] forchette. The distal vagina was reapproximated with [id number] 0 Vicryl sutures. Cystoscopy was the repeated [...] Sparks MD - 10/08/2020 9:15 AM EDT [facility] Operative Note Patient Name: Corina Brewster : [id number] MR#: [id number] Case Date: 10/08/2020 Surgeon: Surgeon(s) and Role: [...] Time SPECIMEN TO PATHOLOGY Permanent OR [phone] [id number] PELVIC ORGAN PROLAPSE Bladder Synechia excision No 10/08/2020 8:31 AM Time specimen removed from patient: 8:30 AM Number of tissue samples (in container) 1 Biospecimen to store? No Drains: 14 Fr Nielsen in bladder Surgical Closure: None Disposition: Care Transferred to Porter Sample Case Service Condition: doing well without problems (Please see the Surgical Encounter Summary for any Implant and Specimen details pertinent to this patient.) HPI/Surgical Indications: Corina Brewster 65 y.o. female with recurrent pelvic organ prolapse, incomplete bladder emptying, recurrent UTIs, and prior urethropexy surgery who presents for colpocleisis with Porter Sample Case and excision of intra-vesical pillar/suture with with [...] procedure. Preoperative antibiotics were administered. The 22 Nauruan cystoscope was inserted the patient's bladder. The bladder was systematically examinedwith the 30 degree lens. The UOs were in orthotopic position. There was a bladder synechiae on the left lateral wall. It was unclear whether this was a urothelial structure versus a suture that had been covered with urothelium over time. We placed a 5 Nauruan Pollack catheter through the scope. The Pollack [...] Visit Hematology and Oncology Navid Armendariz MD [facility] ONCOLOGY [place], [place] [address] ([facility]) 10/23/2021 Infusion Hematology and Oncology documented as [...] Signature POC Glucose 121 65 - 199 [facility] mg/dL [facility] Comment: Supplemental ranges: <140 mg/dL before meals <180 mg/dL all other times of the day Specimen Anatomical Collection Method Collection Time Receive d Time (Source) Location / / Volume Laterality Blood 10/08/2020 11:46 10/08/2020 AM EDT 11:46 AM EDT Roni Lubin MD POINT OF CARE TEST ORDERABLE S Performing Organization Address City/State/ZIP Code Phon e Number [address] Specimen to Pathology (10/08/2020 8:31 AM EDT) Specimen Anatomical Collection Method Collection Time Receive d Time (Source) Location / / Volume Laterality AP Specimen 10/08/2020 8:31 AM 8:31 EDT AM EDT Narrative [facility] LAB[facility]Y - 10/08/2020 8:31 AM EDT Specimen requisition ordered. ??Separate Pathology report to follow Roni Lubin MD PATHOLOGY/CYTOLOGY ORDERABLE S Performing Organization Address City/[facility]/[place] [address] Surgical Pathology Report (10/08/2020 8:30 AM EDT) Component Value Ref Test Analysis Performed At [facility] Range Method Time Signature Surgical [id number] ? Location: [facility]; A [facility] Report The signing pathologist has (i) examined the relevant preparation(s) for the [facility] specimen(s) and (ii) rendered or confirmed the diagnosis(es) . HOSPITAL LABORATORY . ?Surgic al Pathology DIAGNOSIS Bladder synechia: ?? No evidence of dysplasia or malignancy. CR-0 Electronically signed by: ?Wilner OMER, Jerome Martinez Verified: ??10/13/2020 13:30 ??Pathologist Performed at: ??-[facility] Dept. of Pathology, [place], [place] SPECIMEN(S) SUBMITTED A - Bladder synechia, [...] MD PATHOLOGY/CYTOLOGY ORDERABLE S Performing Organization Address City/[facility]/[place] [address] POCT Glucose (10/08/2020 7:01 AM EDT) P athologist Signature POC Glucose 136 65 - 199 [facility] mg/dL [facility] Comment: Supplemental ranges: <140 mg/dL before meals <180 mg/dL all other times of the day Specimen Anatomical Collection Method Collection Time Receive d Time (Source) Location / / Volume Laterality Blood 10/08/2020 7:01 AM 7:01 EDT AM EDT Roni Lubin MD POINT OF CARE TEST ORDERABLE S Performing Organization Address City/State/[place] [address] (ABNORMAL) Differential, Automated (10/08/2020 6:12 AM EDT) Patholo gist Method Time Signature Neutrophils % 74.5 % [facility]OR[facility]ORY Neutr Abs (ANC) 4.88 1.70 - [facility] 6.10 [facility] x10(3)/[facility] LABORATORY Lymphocytes % 12.5 % [facility]OR[facility]ORY Lymphocytes Abs 0.8 (L) 0.9 - 3.2 [facility] x10(3)/[facility] LABORATORY Monocytes % 9.2 % [facility] LABORATORY Monocyte Abs 0.6 0.3 - 0.9 [facility] x10(3)/[facility] LABORATORY Eosinophils % 2.3 % [facility]OR[facility]ORY Eosinophils Abs 0.2 0.0 - 0.4 [facility] x10(3)/[facility] LABORATORY Basophils % 1.2 % [facility]ORY Basophils Abs 0.1 0.0 - 0.1 [facility] x10(3)/[facility] LABORATORY Immature Gran % 0.30 % [facility] Comment: Immature granulocytes(IG's)percentage an d absolute count will include metamyelocytes, myelocytes, and promyelo cytes. Blood smears from CBCs yielding IG's will be scanned manually for concor dance. If this scan disagrees with the automated IG or if promyelocytes are not ed, a manual differential will be performed. Willa Gran Abs 0.02 0.00 - 0.04 x10(3)/[facility] LABORATORY Specimen Anatomical Collection Method Collection Time Receive d Time (Source) Location / / Volume Laterality Blood 10/08/2020 6:12 AM 6:15 EDT AM EDT Resulting Agency Comment Spec In Lab Julissa Denton MD HEMATOLOGY ORDERABLES Performing Organization Address City/State/ZIP Code Phon e Number [place] [id number]OS[address] (ABNORMAL) Hemogram (10/08/2020 6:12 AM EDT) Analysis Performed At Patho logist Time Signature WBC 6.6 4.0 - 9.5 [facility] x10(3)/[facility] LABORATORY RBC 4.64 4.00 - SHAUNNA KIMANI 5.21 [facility] x10(6)/[facility] LABORATORY Hemoglobin 13.6 11.7 - [facility] 15.5 gm/dL [facility] Hematocrit 42.1 35.7 - SHAUNNA KIMANI 45.8 % [facility] MCV 90.7 82.6 - [facility] 94.4 [facility] LABORATORY MCH 29.3 27.1 - [facility]IMANI 32.0 pg [facility] MCHC 32.3 31.7 - [facility] 35.0 gm/dL [facility] Platelets 214 145 - 357 [facility] x10(3)/[facility] RDWSD 46.1 (H) 37.0 - SHAUNNA KIMANI 46.0 [facility] LABORATORY RDWCV 13.9 11.5 - [facility] KIMANI 14.1 % [facility] MPV 10.1 7.6 - 12.9 [facility] LABORATORY nRBC % Auto 0.0 % [facility] LABORATORY nRBC Abs Auto 0.000 0.000 - [facility] 0.000 [facility] x10(3)/[facility] LABORATORY Specimen Anatomical Collection Method Collection Time Receive d Time (Source) Location / / Volume Laterality Blood 10/08/2020 6:12 AM 6:15 EDT AM EDT Resulting Agency Comment Spec In Lab Julissa Denton MD HEMATOLOGY ORDERABLES Performing Organization Address City/State/[place] [address] (ABNORMAL) Creatinine (10/08/2020 6:12 AM EDT) Analysis Performed At Patho [facility] Time Signature Creatinine 0.68 (L) 0.70 - [facility] 1.20 mg/dL [facility] Estimated GFR 92 >=60 [facility] mL/min/1.7 [facility] 3 ?? [facility] LAB[facility]ORY Comment: This patient? s estimated [...] Lubin MD CHEMISTRY ORDERABLES Performing Organization Address City/[facility]/[place] [address] documented in this encounter Visit Diagnoses Diagnosis Foreign body of bladder, initial encount er Breast cancer, stage [...] 7:10 AM EDT 1,000 mLs 100 mL/hr phenazopyridine (Pyridium) tablet 200 mg Given 10/08/2020 [...] Tue at 0645, Administer over 30 Minutes, Gold Blower to OR Infuse over 30 minutes., Day [...] Routine documented in this encounter Care Teams Garment Mender Relationship Specialty Start Date End Date Veronica Chun MD PCP - General Family Medicine 01/20/[address] [place] [address] [address] [place] [address] documented as of this encounter
--- OUTSIDE RECORDS SUMMARY | 2021-10-23 02:23 | XMS_ITS | Encounter Summary ---
:1955 Author Organization [place] [address] Care Team Providers Name Role Phone Veronica Chun MD Primary Care Provider Encounter Details Date Type Department Care Team Description 07/23/2020 Telephone Obstetrics and Gynec ology at [facility] [place] [phone] Social History Tobacco Use Types Packs/Day [...] this encounter Miscellaneous Notes Telephone Encounter - Anitra Vyas - 07/23/2020 9:58 AM EDT ----- Message from Anitra Vyas sent at 07/22/2020 10:18 AM EDT ----- ----- Message ----- From: Roni Lubin MD Sent: 07/22/2020 10:17 AM EDT To: Anitra Vo May, Could you please schedule this patient for: 1. Cysto 2. In-person visit for telehealth f/u (same day) NIGHAT William Telephone Encounter - Anitra Vyas - 07/23/2020 9:58 AM EDT Message left for patient to return our call. Schedule: Cysto and follow up telehealth w exam same day with Dr. Lubin documented in this encounter Plan of Treatment Upcoming Encounters Date Type Specialty Care Team Description 10/23/2021 Office Visit Hematology and Oncology Navid Armendariz MD [facility] DR ONCOLOGY [place], [place] [address] (Wo rk) 10/23/2021 Infusion Hematology and Oncology documented as of this encounter Visit Diagnoses Not on filedocumented in this encounter Care Teams Blanket Cutting Machine Operator Relationship Specialty Start Date End Date Veronica Chun MD PCP - General Family Medicine 01/20/[address] [place] [address] documented as of this encounter
--- OUTSIDE RECORDS SUMMARY | 2021-10-23 02:23 | XMS_ITS | Encounter Summary ---
:1955 Author Organization [facility] Address [facility] [place] [address] Care Team Providers Name Role Phone Veronica Chun MD Primary Care Provider Encounter Details Date Type Department Care Team Description 09/18/2020 Orders Only Urology at [facility] Estelle Man MD Recurrent UTI ([facility] tra ct infection) [place] [address] UROLOGY DEPT [phone] [place], [place] [address] Social History Tobacco Use Types Packs/Day Years [...] Armendariz MD [facility] DR [place], [place] [address] (Wo rk) 10/23/2021 Infusion Hematology and Oncology Scheduled Orders Name Type Priority Associated Diagnoses Order S chedule Urine culture Clean Microbiology Routine Recurrent UTI (urinar y Expected: Catch Urine tract infection) 09/18/2020, Expires: 09/18/2021 documented as of this encounter Visit Diagnoses Diagnosis Recurrent UTI (urinary tract infection) Urinary tract infection, site not specif ied Breast cancer, stage 1, left documented in this encounter Care Teams Scouring Machine Operator Relationship Specialty Start Date End Date Veronica Chun MD PCP - General Family Medicine 01/20/[address] [place] [address] [address] [place] [address] documented as of this encounter
--- OUTSIDE RECORDS SUMMARY | 2021-10-23 02:23 | XMS_ITS | Encounter Summary ---
:1955 Author Organization [facility] [place] [address] Care Team Providers Name Role Phone Veronica Chun MD Primary Care Provider Encounter Details Date Type Department Care Team Description 04/16/2020 Telephone Endocrinology at [facility] [address] [place] [address] Social History Tobacco Use Types Packs/Day [...] this encounter Miscellaneous Notes Telephone Encounter - Loc Bo - 04/16/2020 9:40 AM EST Left message and sent letter to amanda gerber with Dr. Galindo. documented in this encounter Plan of Treatment Upcoming Encounters Date Type Specialty Care Team Description 10/23/2021 Office Visit Hematology and Oncology Navid Armendariz MD [facility] ONCOLOGY [place], [place] [address] (Wo rk) 10/23/2021 Infusion Hematology and Oncology documented as of this encounter Visit Diagnoses Not on filedocumented in this encounter Care Teams Director Of Operations For Therapy Relationship Specialty Start Date End Date Veronica Chun MD PCP - General Family Medicine 01/20/17 [facility] [address] [place] [address] documented as of this encounter
--- OUTSIDE RECORDS SUMMARY | 2021-10-23 02:23 | XMS_ITS | Encounter Summary ---
:1955 Author Organization [place] [address] Care Team Providers Name Role Phone Veronica Chun MD Primary Care Provider Encounter Details Date Type Department Care Team Description 09/04/2020 Orders Only Radiology at [facility] Fady Harper MD [facility] [place] [address] DIAGNOSTIC RADIOLOGY [phone] [place], [place] [address] (Wo rk) Social History Tobacco [...] Visit Hematology and Oncology Navid Armendariz MD [facility] [address] [place], [place] [address] (Wo rk) 10/23/2021 Infusion Hematology and Oncology documented as of this encounter Visit Diagnoses Not on filedocumented in this encounter Care Teams Head Trimmer Relationship Specialty Start Date End Date Veronica Chun MD PCP - General Family Medicine 01/20/17 [address] [place] [address] documented as of this encounter
--- OUTSIDE RECORDS SUMMARY | 2021-10-23 02:23 | XMS_ITS | Encounter Summary ---
:1955 Author Organization [facility] Address [facility] [place] [address] Care Team Providers Name Role Phone Veronica Chun MD Primary Care Provider Encounter Details Date Type Department Care Team Description 09/04/2020 Orders Only Urology at [facility] Yasemin Sparks Other symptoms and [facility] MD Lor signs involving the Drive [facility] [place] [address] UROLOGY DEPT. [phone] [place], [place] [address] (Wo rk) Social History Tobacco [...] MD [facility] ONCOLOGY [place], [place] [address] (Wo rk) 10/23/2021 Infusion Hematology and Oncology documented as of this encounter Visit Diagnoses Diagnosis Other symptoms and signs involving the g enitourinary system Breast cancer, stage 1, left documented in this encounter Care Teams Elementary Esl Teacher Relationship Specialty Start Date End Date Veronica Chun MD PCP - General Family Medicine 01/20/[address] [place] [address] documented as of this encounter
--- OUTSIDE RECORDS SUMMARY | 2021-10-23 02:23 | XMS_ITS | Encounter Summary ---
:1955 Author Organization [facility] [place] [address] Care Team Providers Name Role Phone Veronica Chun MD Primary Care Provider Encounter Details Date Type Department Care Team Description 05/27/2020 Orders Only Hematology Oncology at Liliana Cash, Malignant neoplasm of [facility] RN upper-outer quadrant [address] [place] [address] Drive of left breast in [place], [place] female, est ahsan [address] receptor positive [phone] Social History Tobacco Use Types Packs/Day Years [...] Armendariz MD [facility] DR ONCOLOGY [place], [place] [address] (Wo rk) 10/23/2021 Infusion Hematology and Oncology documented as of this encounter Visit Diagnoses Diagnosis Malignant neoplasm of upper-outer quadra nt of left breast in female, estrogen receptor positive Breast cancer, stage 1, left documented in this encounter Care Teams Precinct Police Lieutenant Relationship Specialty Start Date End Date Veronica Chun MD PCP - General Family Medicine 01/20/17 [address] [place] [address] documented as of this encounter
--- OUTSIDE RECORDS SUMMARY | 2021-10-23 02:23 | XMS_ITS | Encounter Summary ---
:1955 [place] [address] Care Team Providers Name Role Phone Veronica Chun MD Primary Care Provider Encounter Details Date Type Department Care Team Description 09/05/2020 Ancillary Procedure Radiology Library at Rita Chun [facility] [address] [id number] [phone] Social History Tobacco Use Types Packs/Day Years [...] Visit Hematology and Oncology Navid Armendariz MD [facility] DR ONCOLOGY [place], [place] [address] (Wo rk) 10/23/2021 Infusion Hematology and Oncology documented as of this encounter Procedures Procedure Name Priority Date/Time Associated Diagnosis Comme nts FILM LIBRARY Routine 09/05/2020 12:00 AM Results for this STORAGE ONLY CT EDT procedure ar e in ABDOMEN AND PELVIS the resul ts section. documented in this encounter Results Film Library- Storage Only CT Abdomen & Pelvis (09/05/2020 12:00 AM EDT) Specimen (Source) Anatomical Location Collection Method / Collectio n Time Received Time / Laterality Volume Narrative [place] - 09/12/2020 9:14 AM EDT This exam is auto-finalizing. It's purpo se is for storage only. Veronica Chun MD IMG FILM LIBRARY ORDERABLES Performing Organization Address City/State/ZIP Code Phon e Number [place], [place] documented in this encounter Visit Diagnoses Not on filedocumented in this encounter Care Teams Entry Level Truck Driver Relationship Specialty Start Date End Date Veronica Chun MD PCP - General Family Medicine 01/20/[address] [place] [address] documented as of this encounter
--- OUTSIDE RECORDS SUMMARY | 2021-10-23 02:23 | XMS_ITS | Encounter Summary ---
:1955 Author Organization [facility] [place] [address] Care Team Providers Name Role Phone Veronica Chun MD Primary Care Provider Reason for Visit Reason Comments Injections Prolia Treatment/Therapy Plan Authorization (Routine) - Closed Specialty Diagnoses / Procedures Referred By Contact Refer red To Contact Diagnoses Malignant neoplasm of upper-outer quadrant of left breast in female, estrogen receptor positive [facility] [place] [facility] Hem Onc Office Procedures TC DENOSUMAB, 1MG, INJECTION PROLIA [id number] UI ARCHITECT [address] [place] [address] DR [place], [place] HEMATOLOGY ONCOLOGY [address] [place], [place] [address] Referral ID Status Reason Start Date Expiration Date Visits Requ ested Visits Authorized [id number] Closed 05/23/2020 05/23/2021 99 99 Encounter Details Date Type Department Care Team Description 05/23/2020 Infusion Hematology Oncology at [facility] lignant neoplasm of [facility] upper-outer quadrant of left [address] breast in female, estrogen [place], [place] [address] receptor positive [phone] Social History Tobacco Use Types Packs/Day Years [...] documented as of this encounter Progress Notes Damon Harrison RN - 05/23/2020 3:00 PM EDT Infusion Note Diagnosis: Breast cancer Treatment: Prolia injection Pt seen by provider in clinic, agreed to initiate Prolia. CrCl 119 ml/min. Prolia given SQ in right arm. Patient given written information on medication and aware to call clinic with any questions or concerns. Plan: Return to clinic as scheduled. documented in this encounter Plan of Treatment Upcoming Encounters Date Type Specialty Care Team Description 10/23/2021 Office Visit Hematology and Oncology Navid Armendariz MD [facility] DR ONCOLOGY [place] [id number] (Wo rk) 10/23/2021 Infusion Hematology and Oncology [...] Rate Site denosumab (Prolia) (60 mg/mL) Given 05/23/2020 2:56 PM EDT 60 mg Right Arm subcutaneous injection 60 mg 60 mg, Subcutaneous, ONCE, 1 dose, On Tue05/23/20 at 1515, Bring to room temperature 15-30 mins before administration. Monitor patients with severe impairment (CRCL less than 30 mL/minute or on dialysis) due to increased risk of hypocalcemia., Restricted to outpatient use. Requires P&T approval for inpatient use. Use in outpatient setting documented in this encounter Care Teams Clerical Transcriber Relationship Specialty Start Date End Date Veronica Chun MD PCP - General Family Medicine 01/20/[address] [place] [address] [address] [place] [address] documented as of this encounter
--- OUTSIDE RECORDS SUMMARY | 2021-10-23 02:23 | XMS_ITS | Encounter Summary ---
:1955 Author Organization [facility] [place] [address] Care Team Providers Name Role Phone Veronica Chun MD Primary Care Provider Encounter Details Date Type Department Care Team Description 08/08/2019 Telephone Hematology/Oncology at [facility] FilibertoMary katz Pawel [address] [place] [phone] Social History Tobacco Use Types [...] this encounter Miscellaneous Notes Telephone Encounter - Mary Ocampo - 08/08/2019 1:42 PM EDT Called Corina to provide information on caregiver, mask and screening guidelines after using 2 uniqueidentifiers confirm their identity: -We are currently not allowing any visitors in the office. If you have a local owner operator truck driver for your appointment we ask that they wait outside. -If you would like someone to be a part of your appointment we ask that you arrive with the caregiver's phone number. If they have accompanied you and do not have a cell phone we will provide a room with a phone for them to use. The provider will call the individual during the appointment. -If it is determined that it is necessary for a caregiver to accompany you to your appointment theywill be screened with you at the door. SCREENING: ??? Please arrive at the main entrance and enter the cancer center through the library door (first door on the left). We will screen you, and anyone with you, for CoVid symptoms and take your temperature. All patients, caregivers, and staff are being screened each time they enter the facility. MASKS: ??? Please be aware that you will need to wear a mask while you are at the [facility] center. ??? You will be allowed to wear your own mask if you have one, and if you don't, we will give you one to wear. ??? If you are symptomatic you will need to wear a [facility]-issued mask. PHONE SCREENING: ??? In order for us to be able to make the best plan to provide your care safely, we need to ask yousome screening questions. o Are you currently experiencing any new (within the past 14 days) shortness of breath, cough, nasalcongestion or drainage, or fever? no o Have you recently been exposed to anyone with CoVID 19? no o Do you or anyone in your household have a CoVID19 test pending or been tested recently? Corina was informed to contact our office for further instructions if they develop symptoms (shortness of breath, cough, nasal congestion or drainage, or fever) prior to their appointment. Please do notcome in for your appointment until you have instructions from our office. Confirmed office phone # [phone]. documented in this encounter Plan of Treatment Upcoming Encounters Date Type Specialty Care Team Description 10/23/2021 Office Visit Hematology and Oncology Navid Armendariz MD [facility] ONCOLOGY [place], [place] [address] (Wo rk) 10/23/2021 Infusion Hematology and Oncology documented as of this encounter Visit Diagnoses Not on filedocumented in this encounter Care Teams Diesel Service Technician Relationship Specialty Start Date End Date Veronica Chun MD PCP - General Family Medicine 01/20/[address] [place] [address] documented as of this encounter
--- OUTSIDE RECORDS SUMMARY | 2021-10-23 02:23 | XMS_ITS | Encounter Summary ---
:1955 Author Organization [facility] [place] [address] Care Team Providers Name Role Phone Veronica Chun MD Primary Care Provider Reason for Visit Reason Comments Post Op Encounter Details Date Type Department Care Team Description 11/18/2020 Office Visit Obstetrics and Roni Lubin MD [facility] [place] [address] Post-operative state; Gynecology at [facility] Betty Fofana APRN [facility] [place] [address] Vaginal vault [place] [address] Social History Tobacco Use Types Packs/Day Years [...] Sign Reading Time Taken Comments Blood Pressure 140/56 11/18/2020 1:30 PM EDT Pulse 61 11/18/2020 1:30 PM EDT Temperature 36 ??C (96.8 ??F) 11/18/2020 1:30 PM EDT Respiratory Rate 16 11/18/2020 1:30 PM EDT Oxygen Saturation 100% 11/18/2020 1:30 PM EDT Inhaled Oxygen Concentration - - Weight 102.5 kg (226 lb) 11/18/2020 1:30 PM EDT Height 160 cm (5' 3) 11/18/2020 1:30 PM EDT Body Mass Index 40.03 11/18/2020 1:30 PM EDT documented in this encounter Progress Notes Betty Fofana, BRIM POUNCER MACHINE OPERATOR - 11/18/2020 1:30 PM EDT FEMALE PELVIC MEDICINE AND RECONSTRUCTIVE SURGERY POST OPERATIVE VISIT Patient Active Problem List Diagnosis Code ??? [...] female, estrogen receptor positive C50.412, Z17.0 ??? 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 Brewster is now 6 weeks s/p the above procedures. Please see our several exchanges of myDH messages since her surgery. She has been tolerating a regular diet. She denies nausea and vomiting, and she has been afebrile since surgery. Since surgery, she reports: None Continued vaginal bleeding x New pelvic related pain Abnormal vaginal discharge Burning with urination Blood in urine Enuresis New prolapse symptoms since surgery Bladder Function Number of daytime voids: About q 2-3 hrs Number of nocturia events: q 3 hrs (drinks a lot right up til bedtime) Urinary incontinence since surgery (y/n): Not really sure, sometimes feels moist If yes, [place] Incontinence Severity Index: How often do you experience urinary leakage? 0. Never 1. Less than once a month 2. A few times a month 3. A few times a week 4. Every day and/or night Value 0 How much urine do you lose each time? 0. None 1. Drops 2. Small Splashes 3. More Value 0 The Severity Index is the product of the two questions 0 - NONE 1-2 Slight 3-6 Moderate 8-9 Severe 12 Very severe SCORE: 0 If yes, leaks with: Event Presence Event Presence NONE 0 Abbott Walking Cold Weather Running Anticipation of going to the lavatory Cough/Sneeze First morning void Lifting Running water Laughing Other Number of pads / day: 1 Pad type: liner Voiding Dysfunction: Symptom Presence NONE Not really Straining to empty Incomplete emptying Weak stream Feeling the urge to void after voiding Dribbling Changes in position Difficulty initiating a stream ICIQ-UI Short Form How often do you leak urine? 0 Never 0 About once a week or less often 1 2-3 times a week 2 About once a day 3 Several times a day 4 All the time 5 How much urine do you usually leak? 0 None 0 A small amount 1 A moderate amount 2 A large amount 3 Overall, how much does leaking interfere with your everyday life? na (0 not at all, 10 a great deal) ICIQ Sum the scores: 0 When does urine leak? (Check all that apply) x Never - Urine does not leak Leaks before you can get to the toilet Leaks when you cough or sneeze Leaks when you are asleep Leaks when you are physically active/exercising Leaks when you have finished urinating or are dressed Leaks for no obvious reason Leaks all the time Bowel Function Fecal incontinence since surgery? (stool/gas) no How many fecal incontinence episodes / week? na How often do you have bowel movements? qd Any new defecatory problems since surgery?: no IF so which defecatory problem?: Symptom Presence Symptom Presence NONE x Require laxatives regularly Difficulty emptying Less than three bowel movements / week Need to strain Urgency Hard stools Other Loose stools Treatment Outcome Satisfaction How would you describe your level of satisfaction with your treatment outcome? 0. Strongly UNsatisfied 1. UNsatisfied 2. Neither satisfied nor unsatisfied 3. Satisfied 4. Strongly satisfied Value 4 Would you recommend this therapy to a friend?: yes How much has your treatment outcome met your before treatment expectation? 0. Strongly NOT met my before treatment expectations 1. Not met my before treatment expectations 2. Undecided 3. Met my before treatment expectations 4. Strongly met my before treatment expectations 4 A invoice classification clerk is present for the examination Keeley Amador. OBJECTIVE: BP 140/56 Pulse 61 Temp 36 ??C (96.8 ??F) Resp 16 Ht 160 cm (5' 3) Wt 102.5 kg (226 lb) SpO2 100% BMI 40.03 kg/m?? Bladder scan: 0 mL Urine Dip: negative for all components, positive for leukocytes General: normal appearing female, pleasant mood, normal speech Abdomen: Abdomen soft, non-tender, no masses. Surgical incision(s): well healed. Skin edges well applied. No evidence of erythema or induration. Back: Non-tender, without costovertebral angle or paraspinal tenderness Pelvic: Cough stress test (empty supine): negative External Genitalia: Vulva, Varnado's and Bartholin glands normal, urethra without tenderness or mass Vagina: channels healing well, depth of 3 cm POP Q Measurements: Aa Ba C GH rest, strain 2 PB rest, strain 6 TVL Ap Bp D Impression: Ms. Brewster is a 65 y.o. year old woman now 6 wks s/p vaginectomy/colpocliesis, posterior colporrhaphy, cystoscopy (and resection of permanent suture by ), healing well, with no incontinence. Plan: Activity: may gradually resume all normal activity Pelvic floor exercises 10 reps 2-3 times daily to maintain pelvic floor strength Return in 12 months / PRN to reassess Betty Fofana APRN Division of Female Pelvic Medicine/Reconstructive Surgery documented in this encounter Miscellaneous Notes Addendum Note - Humble Amador LNA - 11/18/2020 1:30 PM EDT Addended by: HUMBLE AMADOR on: 11/18/2020 02:05 PM Modules accepted: Orders documented in this encounter Plan of Treatment Upcoming Encounters Date Type Specialty Care Team Description 10/23/2021 Office Visit Hematology and Oncology Navid Armendariz MD [facility] DR ONCOLOGY [place] [address] (Wo rk) 10/23/2021 Infusion Hematology and Oncology Scheduled Orders Name Type Priority Associated Diagnoses Order S chedule Bladder Scanner PROCEDURE Routine Post-operative state Orde red: 11/18/2020 documented as of this encounter Procedures Procedure Name Priority Date/Time Associated Diagnosis Comme nts HC URINE CULTURE Routine 11/18/2020 1:30 PM Post-operati ve state Results for this EDT Vaginal vault procedure are in prolapse after the results hysterectomy section. POCT URINE DIPSTICK Routine 11/18/2020 Post-operative state Results for this procedure are i n the results section. documented in this encounter Results Urine culture Clean Catch Urine (11/18/2020 1:30 PM EDT) [facility] gist Method Time Signature Urine Culture No growth IKE HARMAN (Less than [facility] 1,000 [facility] cfu/ml). LABORATORY Specimen Anatomical Collection Method Collection Time Receive d Time (Source) Location / / Volume Laterality Clean Catch 11/18/2020 1:30 PM 6:43 Urine EDT PM EDT Resulting Agency Comment Spec In Lab Roni Lubin MD MICROBIOLOGY - GENERAL ORDER DANIEL Performing Organization Address City/State/ZIP Code Phon e Number [place] [address] POCT urine dipstick (11/18/2020) athologist Signature POC Sp [place] 1.005 1.002 - 1.030 POC pH, UA 8 5.0 - 8.5 POC Leuk, UA ++ Negative - Negative POC Nitrite, neg Negative - UA Negative POC Protein, + Negative - UA Negative mg/dL POC Glucose, Norm Normal - UA Normal mg/dL POC Ketone, UA neg Negative - Negative POC Urobil, UA norm 0.2 - 1.0 mg/dL POC Bili, UA neg Negative - Negative POC Blood, UA neg Negative - Negative [place]/uL Roni Lubin MD POINT OF CARE TEST ORDERABLE S documented in this encounter Visit Diagnoses Diagnosis Post-operative state Other postprocedural status 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
--- OUTSIDE RECORDS SUMMARY | 2021-10-23 02:23 | XMS_ITS | Encounter Summary ---
:1955 Author Organization [facility] [place] [address] Care Team Providers Name Role Phone Veronica Chun MD Primary Care Provider Encounter Details Date Type Department Care Team Description 08/10/2019 Office Visit Hematology/Oncology Rodger Armendariz MD [facility] [place] [address] Malignant neoplasm of at [facility] Gil, Laura L, GORE STITCHER [address] [place] [address] [place] [address] left breast in [facility] [address] female, estrogen [place], [place] receptor po sitive, [phone] unspecified site of [phone] breast Social History Tobacco Use Types Packs/Day Years [...] Sign Reading Time Taken Comments Blood Pressure 152/65 08/10/2019 2:25 PM EDT Pulse 68 08/10/2019 2:25 PM EDT Temperature 37.3 ??C (99.1 ??F) 08/10/2019 2:25 PM EDT Respiratory Rate 18 08/10/2019 2:25 PM EDT Oxygen Saturation 98% 08/10/2019 2:25 PM EDT Inhaled Oxygen Concentration - - Weight 110.6 kg (243 lb 14.4 oz) 08/10/2019 2:25 PM EDT Height 160 cm (5' 3) 08/10/2019 2:25 PM EDT Body Mass Index 43.2 08/10/2019 2:25 PM EDT documented in this encounter Progress Notes Laura Cordero, GORE STITCHER - 08/10/2019 2:30 PM EDT Subjective: Encounter Diagnosis Name Primary? Malignant neoplasm of left breast in female, estrogen receptor positive, unspecified site of breast Patient Active Problem List Diagnosis Code ??? [...] in female, estrogen receptor positive C50.412, Z17.0 Patient ID: Corina Brewster is a 64 y.o. female. HPI: 1. Cancer of the left breast, pT1cN0; ER/[place]+, Her-2/jocelin - A. Bilateral breast mammogram 05/2018, [facility] [place] second read - FINDINGS: Left breast: [...] cancer cells with immunostaining) Stain intensity: Strong IL immunoreactivity: Positive (>90% cancer cells with immunostaining) [...] type (ductal, not otherwise specified) ?Histologic Grade (Sudha Histologic Score) ? Glandular (Acinar) / Tubular [...] Nodes Examined: ?? 7 ? Number of [place] Nodes Examined: ?3 Pathologic Stage Classification (pTNM, [...] low risk E. Adjuvant radiation, completed 10/31/18 2. Hyperthyroidism S/p LEWIS 06/2018 3. DM [...] of L3 vertebral body of uncertain age. She completed a course of adjuvant radiation therapy to the left breast on 10/31/18. Ms. Brewster returns to the [facility] today for follow up of Stage 1A breast cancer. She iscurrently taking exemestane daily. She saw Dr. Larry on 08/01/19 for a complete breast exam and review of her mammogram. Everything went well. She had a telehealth visit with physical therapy for her lymphedema management. They taught her some exercises for improving lymph drainage and she feels this is really making a real difference. Edema in her left arm has really improved. She is tolerating the exemestane well. She occasionally has some hot flashes but denies any other side effects. She is feeling well and has no specific complaints today except that she would like her visits spaced out. 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 Musculoskeletal: Negative for joint pain. All other systems reviewed and are negative. Objective: Physical Exam Constitutional: She is oriented to person, place, and time. She appears well- developed and well-nourished. No distress. HENT: Head: Normocephalic and atraumatic. Mouth/Throat: Oropharynx is clear and moist. No oropharyngeal exudate. Eyes: No scleral icterus. Cardiovascular: Normal rate and regular rhythm. Pulmonary/Chest: Effort normal. No respiratory distress. She has no wheezes. She has no rales. Abdominal: Soft. She exhibits no distension and no mass. There is no tenderness. There is no guarding. Genitourinary: Genitourinary Comments: Breast exam - hyperpigmentation of the skin of the right breast. Some dimpling consistent with induration. No discrete masses in either breast. Edema in left arm and hand. 08/10/19- no exam today- done on 07/[address] Larry Musculoskeletal: Good ROM Lymphadenopathy: She has no cervical adenopathy. She has no axillary adenopathy. Right: No supraclavicular adenopathy present. Left: No supraclavicular adenopathy present. Neurological: She is alert and oriented to person, place, and time. Coordination normal. Skin: Skin is warm and dry. No rash noted. Vitals reviewed. BP 152/65 (Patient Position: Sitting) Pulse 68 Temp 37.3 ??C (99.1 ??F) (Temporal) Resp 18 Ht 160 cm (5' 3) Wt 110.6 kg (243 lb 14.4 oz) SpO2 98% BMI 43.20 kg/m?? Labs: 03/13/19- Glucose-240 Lytes and LFTs unremarkable Assessment and Plan: Ms. Brewster is a 63 yo female seen for evaluation and management of stage I cancer of the left breast(pT1c, N0, ER/IL +, Her-2/jocelin -). She had a screening bilateral mammogram done in 05/2018. The right breast was negative. On the left, a 1.5 cm mass was seen in the UOQ with microcalcifications anterior and medial to the mass. US guidedbiopsy was performed on 06/27/18. Path showed invasive ductal carcinoma, low grade with an SBR score of 5, and DCIS, low to intermediated grade. ER/IL was positive with strong staining and Her-2/jocelin was negative. On 07/31/18 she underwent a partial mastectomy and SLN excision. The path report is above - 1.7 cm invasive ductal carcinoma, low grade. 3 SLNs and 4 non-SLNs were removed, all negative - pT1c, pN0. Themargins of resection were negative. Grade 2 DCIS was also seen [...] adjuvant radiation therapy from 10/03/18 to 10/31/18. Ms. Brewster had difficulty tolerating AI therapy with Arimidex- discontinued 2 weeks ago and symptomshave resolved. Will switch her therapy to Aromasin and f/u in 1 month. She was taking Aleve 2 at HS for the knee discomfort. We discussed SE's of NSAIDS ie edema, gastritis. Discussed trying some topical agents on her knees and continuing WB exercise daily. She notes she feels better after she getsmoving. Discussed environmental measures for hot flashes. A dexa scan was done on 11/23/18. Findings are consistent with osteopenia. BMD may be worsened by AIs. She is taking calcium with vitaimin D andencouraged weight bearing activity- currently using a treadmill. She does not smoke and rarely drinks alcohol. Vitamin D level is 54.3 Given the question of anterior L3 compression fracture, I think itis reasonable to consider bisphosphonate therapy and it was discussed with her- starting reclast, 5 mg once a year. The latter is a rare problem that is dependent upon the dose and duration of bisphosphonate treatment. She would prefer not to start a bisphosphonate at this time. She is taking the caltrate with D. Currently on Aromasin 25mg daily. She is tolerating this well without side effects. She had an appt with Dr. Larry in 01/25 with a left mammogram. No evidence of malignancy. The next bilateral mammogramwill be due in 05/2019. She has Some edema of the left arm and hand. She has agreed to physical therapy for lymphedema management -would like to do this locally. Plan: 1. Continue breast cancer surveillance visits every 6 months with [facility]. Yearly mammograms. Alternate visits with other providers. 2. Continue exemestane 25mg po daily. 3. Referral to physical therapy at [facility] for lymphedema management. 4. Follow up in 6 months with labs. documented in this encounter Plan of Treatment Upcoming Encounters Date Type Specialty Care Team Description 10/23/2021 Office Visit Hematology and Oncology Navid Armendariz MD [facility] ONCOLOGY [place] [address] (Wo rk) 10/23/2021 Infusion Hematology and Oncology documented as of this encounter Visit Diagnoses Diagnosis Malignant neoplasm of left breast in fem radha, estrogen receptor positive, unspecified site of breast Breast cancer, stage 1, left documented in this encounter Care Teams Lock Master Relationship Specialty Start Date End Date Veronica Chun MD PCP - General Family Medicine 01/20/[address] [place] [address] documented as of this encounter
--- OUTSIDE RECORDS SUMMARY | 2021-10-23 02:24 | XMS_ITS | Encounter Summary ---
:1955 Author Organization [facility] [place] [address] Care Team Providers Name Role Phone Veronica Chun MD Primary Care Provider Encounter Details Date Type Department Care Team Description 07/25/2018 Notes Only Care Management [place] [phone] Social History Tobacco Use Types Packs/Day Years Used Date Never Smoker Smokeless Tobacco: Never Used Alcohol Habits Answer Date Recorded How often do you have a drink containing alcohol? Monthly or less 08/28/2018 How many drinks containing alcohol do you have on a 1 or 2 08/28/2018 typical day when you are drinking? How often do you have six or more drinks on one Not asked occasion? Comment: Not asked Sex Assigned at Date Recorded Female 05/16/2020 8:19 PM EDT documented as of this encounter Progress Notes Marcella Wang MSW - 07/25/2018 12:29 PM EDT Pt was approved for transportation assistance from [facility] in the amount $200.00. P- [facility] will provide support and resources to pt. documented in this encounter Plan of Treatment Upcoming Encounters Date Type Specialty Care Team Description 10/23/2021 Office Visit Hematology and Oncology Navid Armendariz MD [facility] DR ONCOLOGY [place], [place] [address] (Wo rk) 10/23/2021 Infusion Hematology and Oncology documented as of this encounter Visit Diagnoses Not on filedocumented in this encounter Care Teams Senior Project Controls Specialist Relationship Specialty Start Date End Date Veronica Chun MD PCP - General Family Medicine 01/20/[address] [place] [address] documented as of this encounter
--- OUTSIDE RECORDS SUMMARY | 2021-10-23 02:24 | XMS_ITS | Encounter Summary ---
:1955 Author Organization [facility] [place] [address] Care Team Providers Name Role Phone Veronica Chun MD Primary Care Provider Encounter Details Date Type Department Care Team Description 08/17/2018 Telephone Hematology and Oncol [place] at [facility] [place] [phone] Social History Tobacco Use Types Packs/Day [...] this encounter Miscellaneous Notes Telephone Encounter - Molly Juares - 08/28/2018 9:26 AM EDT Called [place] Medicaid and spoke to Shaheed. Per Corina Hummel is an ACO member and PA is waived. Called [employer] to let them know that no PA is needed. Test will be processed. Telephone Encounter - Molly Juares - 08/17/2018 11:09 AM EDT PA for oncotype testing sent to [place] Medicaid via fax documented in this encounter Plan of Treatment Upcoming Encounters Date Type Specialty Care Team Description 10/23/2021 Office Visit Hematology and Oncology Navid Armendariz MD [facility] [address] ONCOLOGY [place], [place] [address] (Wo rk) 10/23/2021 Infusion Hematology and Oncology documented as of this encounter Visit Diagnoses Not on filedocumented in this encounter Care Teams Peoplesoft Relationship Specialty Start Date End Date Veronica Chun MD PCP - General Family Medicine 01/20/[address] [place] [address] documented as of this encounter
--- OUTSIDE RECORDS SUMMARY | 2021-10-23 02:24 | XMS_ITS | Encounter Summary ---
:1955 Author Organization [facility] [place] [address] Care Team Providers Name Role Phone Veronica Chun MD Primary Care Provider Encounter Details Date Type Department Care Team Description 09/22/2018 Office Visit Hematology/Oncology Navid Armendariz Br east cancer, stage 1, left; at [facility] assisted current use of aromatase inhib itor [address] [place] [phone] ONCOLOGY [phone] [place] [id number] Social History Tobacco Use Types Packs/Day Years [...] Sign Reading Time Taken Comments Blood Pressure 155/67 09/22/2018 3:02 PM EDT Pulse 75 09/22/2018 3:02 PM EDT Temperature 37 ??C (98.6 ??F) 09/22/2018 3:02 PM EDT Respiratory Rate 18 09/22/2018 3:02 PM EDT Oxygen Saturation 99% 09/22/2018 3:02 PM EDT Inhaled Oxygen Concentration - - Weight 114.8 kg (253 lb) 09/22/2018 3:02 PM EDT Height 163 cm (5' 4.17) 09/22/2018 3:02 PM EDT Body Mass Index 43.19 09/22/2018 3:02 PM EDT documented in this encounter Progress Notes Navid Armendariz MD - 09/22/2018 3:00 PM EDT Subjective: Patient ID: Corina Brewster is a 63 y.o. female. Problem List: 1. Cancer of the left breast, pT1cN0; ER/[place]+, Her-2/jocelin - A. Bilateral breast mammogram 05/2018, [facility] [place] second read - [...] type (ductal, not otherwise specified) ?Histologic Grade (Malcom Histologic Score) ? Glandular (Acinar) / Tubular [...] Nodes Examined: ?? 7 ? Number of [place] Nodes Examined: ?3 Pathologic Stage Classification (pTNM, [...] Dx score - 13, in low risk 2. Hyperthyroidism S/p LEWIS 06/2018 3. DM 4. HTN 5. Hyperlipidemia 6. Osteoarthritis 7. Obstructive sleep apnea, presumed. She has not undergone formal testing 8. Restless leg syndrome 9. S/p hysterectomy and USO at age 27 HPI Ms. Brewster is referred for evaluation and continued management of stage I cancer of the left breast. The history is summarized above. On presentation today, she is accompanied by her daughter Genna. She is feeling generally well and healing well from the surgery. There is no redness or drainage. She notices that the sensation is coming back in the breast and axillary region. She has had some sharp pains in the left nipple region which has improved. No fevers or chills. She has had hot flashes for some time which have been better for the past couple of years. She is eating well. She has lost a couple of pounds but does fluctuate and overall this stays in the same range. No other particular areas of pain. 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 Genitourinary: Genitourinary Comments: Breast exam - deferred Musculoskeletal: She exhibits no edema. Lymphadenopathy: She has no cervical adenopathy. She has no axillary adenopathy. Right: No supraclavicular adenopathy present. Left: No supraclavicular adenopathy present. Neurological: She is alert and oriented to person, place, and time. Coordination normal. Skin: Skin is warm and dry. No rash noted. Vitals reviewed. Assessment and Plan: Ms. Brewster is a 63 yo female seen for evaluation and management of stage I cancer of the left breast(pT1c, N0, ER/[place] +, Her-2/jocelin -). She had a screening [...] recommended. She met with Dr. Pickard and is scheduled to start radiation therapy on 10/03/18 and is scheduled to complete therapy on 10/31/18. I told that I agree with the recommendation for adjuvant endocrine therapy and no chemotherapy. We talked further today about therapy with an AI such as anastrozole. This would not be started until after the completion of radiation therapy. We reviewed potential side effects and she was given an informational handout regarding this medication. I would like to get a baseline dexa scan prior to beginning treatment. I will see her toward the end of October with the dexa scan prior. documented in this encounter Plan of Treatment Upcoming Encounters Date Type Specialty Care Team Description 10/23/2021 Office Visit Hematology and Oncology Navid Armendariz MD [facility] ONCOLOGY [place], [place] [address] (Wo rk) 10/23/2021 Infusion Hematology and Oncology documented as of this encounter Visit Diagnoses Diagnosis Breast cancer, stage 1, left assisted current use of aromatase inhib itor Use of aromatase inhibitors Breast cancer, stage 1, left documented in this encounter Care Teams Website Admin Relationship Specialty Start Date End Date Veronica Chun MD PCP - General Family Medicine 01/20/[address] [place] [address] documented as of this encounter
--- OUTSIDE RECORDS SUMMARY | 2021-10-23 02:24 | XMS_ITS | Encounter Summary ---
:1955 Author Organization [facility] [place] [address] Care Team Providers Name Role Phone Veronica Chun MD Primary Care Provider Reason for Visit Consultation (Routine) - Specialty Diagnoses / Procedures Referred By Contact Refer red To Contact Hematology and Oncology Diagnoses Breast cancer NEW BR CA SURG 07/31 C/W Charlie Choudhary MD Arrick, Bradley A, Procedures [facility] MD [place] [facility] [place] [address] HEMATOLOGY/[place] [address] Phone: Fax: Referral ID Status Reason Start Date Expiration Date Visits V isits Requested Authorized [id number] 08/16/2018 08/16/2019 1 1 Encounter Details Date Type Department Care Team Description 08/16/2018 Office Visit Hematology and Jaswant Moya MD [facility] HEMATOLOGY/[place] [address] Malignant neoplasm of Oncology at [facility] Brianne Alvarez RN left breast in [facility] female, e [address] receptor positive, [place], [place] [phone] breast [phone] Social History Tobacco Use Types Packs/Day Years [...] documented as of this encounter Progress Notes Jaswant Moya MD - 08/16/2018 4:00 PM EDT Initial Medical Oncology Visit New Breast Cancer Ms. Brewster is a 63 year old female, here today in consultation at the request of Drs. Ochoa and Kendy to review her status, and to discuss her options for further therapy. HPI: Recent screening mammogram with new left breast mass and two foci of calcifications, prompting further work-up and bx. 06/27/2018 Needle biopsies??Left breast, lesion 1 of 2: Diagnosis: ??- Invasive ductal carcinoma ? Low grade, modified SBR score = 5 ? 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 necrosis Microcalcifications: ??N/A ER immunoreactivity: Positive (>90% cancer cells with immunostaining) Stain intensity: Strong WY immunoreactivity: Positive (>90% cancer cells with immunostaining) Stain intensity: Strong HER2 FISH: Negative for amplification Needle biopsies??Left breast, lesion 2 of 2: Diagnosis: ?Ductal carcinoma in-situ, low to intermediate nuclear grade, ??cribriform and solid patterns without necrosis, and involving a intraductal ??papilloma Microcalcifications: ??Associated with intraductal papilloma 07/10/18 Bilateral breast MRI: In the left breast there is extensive nonmass enhancement extending anteriorly from the malignant mass in the left upper outer quadrant directly to the base of the, spanning 10 cm anterior to posterior. The mass component measures 1.8 cm. nipple anteriorly. Nodes appear ok. Right breast ok. 07/31/18 Surgery A - Left breast new anterior margin: Benign fibroadipose tissue. B - Left breast partial mastectomy: - Invasive ductal carcinoma, 1.7 cm, low grade, associated with intermediate grade??DCIS - Ductal carcinoma in-situ, low and intermediate grade, involving a papillary lesion, C - Left non sentinel node: One lymph node, negative for malignancy. D - Left axillary sentinel node: Three lymph nodes, negative for malignancy. E - Left axillary non-sentinel node: Three lymph nodes, negative for malignancy. Specimen ?Procedure: Excision (less than total mastectomy) ?Specimen Laterality: Left Tumor ?Histologic Type: Invasive carcinoma of no special type ?Histologic Grade (Sudha Histologic Score) ? Glandular (Acinar)/Tubular Differentiation: Score 1 ? Nuclear Pleomorphism: Score 3 ? Mitotic Rate: Score 1 ? Overall Grade: Grade 1 ?Tumor Size: 17 Millimeters (mm) ?Tumor Focality: Single focus of invasive carcinoma ?Ductal Carcinoma In Situ (DCIS):??Present ? Architectural Patterns: ??Cribriform, Papillary ? Nuclear Grade: ??Grade II ? Necrosis: ??Present, focal (small foci or single cell necrosis) Margins ?Invasive Carcinoma Margins: ??Uninvolved by invasive carcinoma ? Distance from Other Specified Margin: ??From all RM > 10 mm ?DCIS Margins: ??Uninvolved by DCIS ? Distance of DCIS to Posterior Margin: ??0.5 Millimeters (mm) ? Distance from Other Specified Margin: ??From other RM > 10 mm Lymph Nodes ?Regional Lymph Nodes: ?? Uninvolved by tumor cells ? Number of Lymph Nodes Examined: ??7 ? Number of [place] Nodes Examined: ??3 Pathologic Stage Classification (pTNM, AJCC 8th Edition) ?pT1c pN0 She will be receiving radiation therapy in [facility] (lives [place] of [facility]). PMH: Patient Active Problem List Diagnosis Code ??? Thyroid nodule E04.1 ??? Osteoarthrosis, unspecified whether generalized or localized, hand M19.049 ??? Osteoarthrosis, unspecified whether generalized or localized, lower leg M17.10 ??? Trigger middle finger of left hand M65.332 ??? Trigger index finger of right hand M65.321 ??? HAM (obstructive sleep apnea) G47.33 ??? Restless leg syndrome G25.81 No h/o thromboembolic events S/P hysterectomy and USO at age 27 Soc Hx/Fam Hx: Retired. Here with daughter. Family History Problem Relation Age of Onset ??? Lymphoma Brother 54 age 54 of same in 2006 ??? Breast Cancer Neg Hx ??? Ovarian Cancer Neg Hx No AJ heritage. ROS: Hot flashes are only occasional. No new problems with MACE, diplopia, heartburn, cough, VYAS/SOB, pain,palpitations, fevers, bleeding of any kind, nausea/emesis, decreased appetite or energy, change in bowel or bladder function, imbalance, falls. ROS otherwise neg. Exam: Oncology Vitals 08/16/2018 Weight (kg) 111.131 kg Weight (lb) 245 lb Height 163 cm BSA (Calculated - sq m) 2.24 BMI (Calculated) 41.82 Temp 98.4 Temp src 101 Pulse 65 Heart Rate Source Monitor Resp 18 BP 147/56 BP Location Left arm Patient Position Sitting SpO2 100 Pain Level 2 PERRL, EOMi, sclera nonicteric Oropharynx benign No ANNA No spine tenderness Chest: clear to A and P CV: RRR, no murmurs Abd: NT, no HSM, +BS Ext: no c/c/e Neuro: grossly nonfocal. Neg Romberg. Labs: Ref. Range 07/19/2018 WBC Latest Ref Range: 4.0 - 9.5 x10(3)/mcL 6.4 RBC Latest Ref Range: 4.00 - 5.21 x10(6)/mcL 4.98 Hemoglobin Latest Ref Range: 11.7 - 15.5 gm/dL 14.2 Hematocrit Latest Ref Range: 35.7 - 45.8 % 45.0 MCV Latest Ref Range: 82.6 - 94.4 fL 90.4 MCH Latest Ref Range: 27.1 - 32.0 pg 28.5 MCHC Latest Ref Range: 31.7 - 35.0 gm/dL 31.6 (L) RDWSD Latest Ref Range: 37.0 - 46.0 fL 44.1 RDWCV Latest Ref Range: 11.5 - 14.1 % 13.3 Platelets Latest Ref Range: 145 - 357 x10(3)/mcL 203 MPV Latest Ref Range: 7.6 - 12.9 fL 10.7 nRBC % Auto Latest Units: % 0.0 nRBC Abs Auto Latest Ref Range: 0.000 - 0.000 x10(3)/mcL 0.000 Neutr Abs (ANC) Latest Ref Range: 1.70 - 6.10 x10(3)/mcL 4.16 Neutrophils % Latest Units: % 64.8 Immature Gran % Latest Units: % 0.30 Lymphocytes % Latest Units: % 21.3 Monocytes % Latest Units: % 10.9 Eosinophils % Latest Units: % 1.6 Basophils % Latest Units: % 1.1 Willa Gran Abs Latest Ref Range: 0.00 - 0.04 x10(3)/mcL 0.02 Lymphocytes Abs Latest Ref Range: 0.9 - 3.2 x10(3)/mcL 1.4 Monocyte Abs Latest Ref Range: 0.3 - 0.9 x10(3)/mcL 0.7 Eosinophils Abs Latest Ref Range: 0.0 - 0.4 x10(3)/mcL 0.1 Basophils Abs Latest Ref Range: 0.0 - 0.1 x10(3)/mcL 0.1 Sodium Latest Ref Range: 135 - 145 mmol/L 138 Potassium Latest Ref Range: 3.5 - 5.0 mmol/L 4.3 Chloride Latest Ref Range: 98 - 107 mmol/L 98 CO2 Latest Ref Range: 22 - 31 mmol/L 28 Anion Gap Latest Ref Range: 5 - 15 mmol/L 12 BUN Latest Ref Range: 8 - 18 mg/dL 17 Creatinine Latest Ref Range: 0.70 - 1.20 mg/dL 0.70 eGFR Latest Ref Range: >=60 mL/min/1.73 m?? 93 Glucose Lvl Latest Ref Range: 65 - 199 mg/dL 215 (H) Calcium Latest Ref Range: 8.5 - 10.5 mg/dL 10.0 Total Protein Latest Ref Range: 6.1 - 8.0 gm/dL 7.2 Albumin Latest Ref Range: 3.2 - 5.2 gm/dL 3.9 Total Bilirubin Latest Ref Range: 0.2 - 1.3 mg/dL 0.4 Alk Phos Latest Ref Range: 40 - 104 unit/L 75 AST Latest Ref Range: 0 - 30 unit/L 22 ALT Latest Ref Range: 0 - 30 unit/L 32 (H) I reviewed images from her June bilateral Breast MRI, which showed the extensive non-mass like enhancement and single mass in L breast. Assessment/Rec: 63 yo female with recent diagnosis of a node-negative, low-grade left breast invasive ductal carcinoma. The tumor was positive for ER and WY, and negative for HER2 amplification. She has recovered fromsurgery well. Margins clear. We focused our discussion on the role of systemic adjuvant therapy in the management of invasive breast cancer. I outlined first the role for endocrine therapy given her tumor's phenotype, and the timing for after XRT. Discussed the side effects of aromatase inhibitors in general terms, and that a baseline DEXA scan. We then discussed the potential role for chemo as well, and reviewed together her pathology. I indicated that given the low grade and lack of alek involvement, I typically would not recommend chemo. In this context, I described the OncotypeDx assay as helping finalize a decision regarding adjuvant chemo. She would like that done, and would consider chemo if high risk disease is evident by that test. I will order and call her (at home, ms ok) with the result. She will be getting XRT in [facility] and wishes to get her med onc care there. All questions answered. documented in this encounter Plan of Treatment Upcoming Encounters Date Type Specialty Care Team Description 10/23/2021 Office Visit Hematology and Oncology Navid Armendariz MD [facility] ONCOLOGY [place], [place] [address] (Wo rk) 10/23/2021 Infusion Hematology and Oncology documented as of this encounter Visit Diagnoses Diagnosis Malignant neoplasm of left breast in fem radha, estrogen receptor positive, unspecified site of breast Breast cancer, stage 1, left documented in this encounter Care Teams Chromium Plater Relationship Specialty Start Date End Date Veronica Chun MD PCP - General Family Medicine 01/20/[address] [place] [address] [address] [place] [address] documented as of this encounter
--- OUTSIDE RECORDS SUMMARY | 2021-10-23 02:24 | XMS_ITS | Encounter Summary ---
:1955 Author Organization [place] [address] Care Team Providers Name Role Phone Veronica Chun MD Primary Care Provider Encounter Details Date Type Department Care Team Description 09/06/2018 External Results Medical Records Provider, [place] [address] Social History Tobacco Use Types Packs/Day [...] Navid Armendariz MD [facility] ER [address] [place], [place] [address] (Wo rk) 10/23/2021 Infusion Hematology and Oncology documented as of this encounter Procedures Procedure Name Priority Date/Time Associated Diagnosis Comme nts SURGICAL PATHOLOGY Routine 09/06/2018 Results f or this SCAN procedure are i n the results section . documented in this encounter Results Scan Doc: Surgical Pathology (09/06/2018) Narrative This result has an attachment that is no t available. Historical Provider MD MEDIA MGR SCAN EXT ORDR/RSLT documented in this encounter Visit Diagnoses Not on filedocumented in this encounter Care Teams Core Blower Operator Relationship Specialty Start Date End Date Veronica Chun MD PCP - General Family Medicine 01/20/[address] [place] [address] documented as of this encounter
--- OUTSIDE RECORDS SUMMARY | 2021-10-23 02:24 | XMS_ITS | Encounter Summary ---
:1955 Author Organization [facility] [place] [address] Care Team Providers Name Role Phone Veronica Chun MD Primary Care Provider Reason for Visit Auth/Cert Specialty Diagnoses / Procedures Referred By Contact Refer red To Contact Diagnoses BREAST CANCER Procedures PRO MASTECTOMY, PARTIAL PRO BX/REMV, LYMPH NODE, DEEP AXILL PRO INTRAOP SENTINEL LYMPH ID W/DYE INJECTION PRO EXC SKIN BENIG 0.6-1CM FACE, FACIAL MASTECTOMY PARTIAL (WRVU 10.13) BIOPSY OR EXCISION OF LYMPH NODE(S), OPEN, DEEP AXILLARY NODE(S) (WRVU 6.43) INTRAOPERATIVE ID (MAPPING) SENTINEL LYMPH NODE,INCLUDES INJECTION (WRVU 2.5) EXC BENIGN LESION ,RAINER .6 TO 1.0CM, FACE (WRVU 1.53) MODIFIER WITH NEEDLE LOC., LESION #1 MODIFIER WITH NEEDLE LOC.,LE EDIE #2 MODIFIER SENTINEL NODE EXCISION Referral ID Status Reason Start Date Expiration Date Visits Requ ested Visits Authorized [id number] 1 1 Encounter Details Date Type Department Care Team Description 2018 Hospital Encounter Mammography at [facility] Charlie Larry Malignant neoplasm [facility] MD Geoffrey of left breast in Drive [facility] female, estrogen [facility] receptor positive, [phone] GENERAL SURGERY unspecified site of [phone] [place] breast [address] Social History Tobacco Use Types Packs/Day Years [...] Sig Dispensed Refills Start Date End Date atorvastatin (LIPITOR) 40 mg Take 40 mg by 0 Tablet mouth daily. atenolol (TENORMIN) 50 mg Take 50 mg by 0 Tablet mouth daily. metFORMIN (GLUCOPHAGE) 1,000 take 1 tablet by 0 1 03/27/2016 mg TabletIndications: mouth twice a Osteoarthritis, unspecified day osteoarthritis type, unspecified site, Osteoarthritis of left hand, unspecified osteoarthritis type, Fibromyalgia, Vitamin D deficiency aspirin 81 mg EC tablet 0 05/21/2008 acetaminophen (TYLENOL) 325 Take 2 tablets 30 tablet 1 07/2201/25/2019 mg Tablet by mouth every 4 hours as needed for Pain. ibuprofen (ADVIL;MOTRIN) 400 Take 1 tablet by 30 tablet 12 0 2018 10/19/2018 mg Tablet mouth every 6 hours as needed for Pain. methIMAzole (TAPAZOLE) 5 mg Take 0.5 tablets 15 tablet 11 09/18/2018 Tablet by mouth daily. ERGOCALCIFEROL, VITAMIN D2, Take 1,000 mg by 0 04/03/2021 (VITAMIN D ORAL) mouth daily. zolpidem (AMBIEN CR) 12.5 mg nightly. 0 017 04/16/2021 Tablet, Multiphasic ReleaseIndications: Osteoarthritis, unspecified osteoarthritis type, unspecified site, Osteoarthritis of left hand, unspecified osteoarthritis type, Fibromyalgia, Vitamin D deficiency hydrochlorothiazide 12.5MG = 1 0 05/21/200810/12 (MICROZIDE) 12.5 mg capsule Capsule(s), PO, Once daily nitroGLYcerin (NITROSTAT) 0.4 0 200804/03/2021 mg SL tablet documented as of this encounter Plan of Treatment Upcoming Encounters Date Type Specialty Care Team Description 10/23/2021 Office Visit Hematology and Oncology Navid Armendariz MD [facility] ONCOLOGY [place], [place] [address] (Wo rk) 10/23/2021 Infusion Hematology and Oncology Scheduled Orders Name Type Priority Associated Diagnoses Order S chedule Mammo [place] Node Imaging Routine Malignant neoplasm of 1 Occurrences starting Injection left breast in female, 07/31 until estrogen receptor 2018 , 1 completed positive, unspecified site of breast documented as of this encounter Procedures Procedure Name Priority Date/Time Associated Diagnosis Comme nts MAMMO SENTINEL NODE Routine 2018 9:33 AM Malignant neopl asm Results for this INJECTION EDT of left breast in procedure are in female, estrogen the results receptor positive, section. unspecified site of breast documented in this encounter Results Mammo [place] Node Injection (2018 9:33 AM EDT) Anatomical Region Laterality Modality Breast N/A Mammography Specimen (Source) Anatomical Location Collection Method / Collectio n Time Received Time / Laterality Volume Impressions 2018 9:56 AM EDT Impression: Status post successful preoperative mammographically guided wire localization x2 of the left breast with sentinel node injection. As discussed with the surgeon the MRI depicts more ex tensive disease than the mammogram and surgical dissection should follow MR mark howard. The radiotracer injection was administer ed under the supervision of authorized user Dr. Bryan Wasserman. Preliminary report signed by: Maryanne Banuelos at 2018 9:46 AM I have personally reviewed the image(s) and the residents interpretation and agree with the findings, Karin paulino at 2018 9:56 AM Thank you for letting us participate in the care of this patient. For questions regarding this report, please contact e number below. ? Narrative 2018 9:56 AM EDT NEEDLE LOCALIZATION OF ??left breast x2 CLINICAL HISTORY: Please needle localize left breast for cancer lesion #1 (mass and clip) and #2 (microcalcifications an d clip) Lesion 1: 2:00 5 cm from the nipple Lesion 2: 2:00 2 cm from the nipple Technique:Informed consent was confirmed and a timeout procedure was performed per protocol. Using sterile technique and local anesth etic ??(less than 5 cc's of 1% lidocaine) a needle localization of the lesion 1 cl ip and mass in the left breast was performed from the lateral approach with mammographic guidance. The wire was deployed. After confirming satisfactory positionin g in orthogonal views the wire was deployed and a final image was obtained. Using sterile technique and local anesth etic ??(less than 5 cc's of 1% lidocaine) a needle localization of the lesion 2 cl ip and microcalcification in the left breast was performed from the lateral ap proach with mammographic guidance. The wire was deployed. After confirming satisfactory positionin g in orthogonal views the wire was deployed and a final image was obtained. There were no complications. Images were annotated on PACS for the op erating surgeon. A sentinel node injection was performed using less than 1.7 milliCuries of Tc-99m sulfur colloid. ??Half the dose w as injected subcutaneously and ??half injected intradermally. No additional im aging was performed Procedural attestation: Fellow: Maryanne Banuelos D.O. I was present with the resident for the coles component(s) of the procedure and otherwise remained immediately available for the duration of the procedure. I attest to having personally viewed the i mages/test and approve the above interpretation. Charlie Larry MD IMG MAMMO ORDERABLES documented in this encounter Visit Diagnoses Diagnosis Malignant neoplasm of left breast in fem radha, estrogen receptor positive, unspecified site of breast Breast cancer, stage 1, left documented in this encounter Administered Medications Inactive Administered Medications - up to 3 most recent administrations Medication Order MAR Action Action Date Dose Rate Site technetium (Tc-99m) sulfur Given 2018 9:30 AM EDT 1.7 mCi colloid injection 1.7 mCi 1.7 mCi, Intradermal, ONCE PRN, 1 dose, Starting on Tue07/31/18 at 0930, Until Tue07/31/18 at 0930, Per Protocol, Routine documented in this encounter Care Teams Timber Cruiser Relationship Specialty Start Date End Date Veronica Chun MD PCP - General Family Medicine 01/20/[address] [place] [address] documented as of this encounter
--- OUTSIDE RECORDS SUMMARY | 2021-10-23 02:24 | XMS_ITS | Encounter Summary ---
:1955 Author Organization [facility] [place] [address] Care Team Providers Name Role Phone Veronica Chun MD Primary Care Provider Encounter Details Date Type Department Care Team Description 10/27/2018 Orders Only Endocrinology at [facility] C [address], [place] [address] ENDOCRINOLOGY [place], [place] [address] (Wo rk) Social History Tobacco [...] Visit Hematology and Oncology Navid Armendariz MD [facility] ER ONCOLOGY [place], [place] [address] (Wo rk) 10/23/2021 Infusion Hematology and Oncology documented as of this encounter Visit Diagnoses Diagnosis Hyperthyroidism Thyrotoxicosis without mention of goiter or other cause, without mention of thyrotoxic crisis or storm Breast cancer, stage 1, left documented in this encounter Care Teams Tunnel Drier Operator Relationship Specialty Start Date End Date Veronica Chun MD PCP - General Family Medicine 01/20/[address] [place] [address] documented as of this encounter
--- OUTSIDE RECORDS SUMMARY | 2021-10-23 02:24 | XMS_ITS | Encounter Summary ---
:1955 Author Organization [place] [address] Care Team Providers Name Role Phone Veronica Chun MD Primary Care Provider Encounter Details Date Type Department Care Team Description 08/01/2019 Hospital Encounter Mammography/DXA at Charlie Larry neoplasm [facility] [place] Geoffrey of left breast in [facility] [address] receptor positive, [place], [place] [phone] [place] [address] breast [phone] [facility] Social History Tobacco Use Types Packs/Day Years [...] Sig Dispensed Refills Start Date End Date ONETOUCH ULTRA BLUE TEST TEST ONCE DAILY [...] aspirin 81 mg EC tablet 0 05/21/2008 exemestane (Aromasin) 25 mg TAKE 1 TABLET BY 0 01/01/2020 Tablet MOUTH DAILY calcium citrate (CALCITRATE) Take 1 tablet by 0 04/03/2021 200 mg (950 mg) Tablet mouth daily. silver sulfADIAZINE Apply topically 2 50 g 0 9 02/01/2020 (SILVADENE) 1 % times daily. 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 0 02/01/2020 Jeans cream to area of radiation, twice a day, no less than 2 hours prior to radiation treatment ERGOCALCIFEROL, VITAMIN D2, Take 1,000 mg by [...] Visit Hematology and Oncology Navid Armendariz MD [facility] ONCOLOGY [place], [place] [address] (Wo rk) 10/23/2021 Infusion Hematology and Oncology documented as of this encounter Procedures Procedure Name Priority Date/Time Associated Diagnosis Comme nts MAMMO SCREENING CAD Routine 08/01/2019 11:06 AM Malignant neop lasm Results for this AND SADI BILATERAL EDT of left breast in proc edure are in female, estrogen the results receptor positive, section. unspecified site of breast documented in this encounter Results Mammo Screening Cad and Sadi Bilateral (08/01/2019 11:06 AM EDT) Anatomical Region Laterality Modality Breast Bilateral Mammography Specimen (Source) Anatomical Location Collection Method / Collectio n Time Received Time / Laterality Volume Narrative 08/01/2019 11:19 AM EDT REASON FOR EXAM: Screening. History of breast cancer. TECHNIQUE: CC and MLO views were obtaine d of the bilateral breast(s). Computer aided detection was used. 3D to mosynthesis images were obtained in addition to 2D images. Comparison:Compared with prior images. FINDINGS: Breast density:There are scattered areas of fibroglandular density There are no suspicious microcalcificati ons, masses, or areas of distortion. There are post surgical maldonado ges in the left breast. ??6cm seroma at excision site. CONCLUSION: No mammographic evidence of malignancy. RECOMMENDATION:Routine screening. A result letter has been sent to this sisi monroe by the [facility]. BIRADS CATEGORY 2: BENIGN FINDINGS [employer] [place] [employer] and Th e Society of Breast Imaging recommend annual screening beginning at age 40 for the general female population. Screening should continue as long as a w geneva is in good health and is expected to live 10 more years or longer . All women should be familiar with the kn own benefits, limitations, and potential harms linked to breast cancer screening. They also should know how their breasts normally look and feel and report any breast changes to a health care provider right away. Some women, because of their family hist ory, a genetic tendency, or certain other factors, should be screene d with MRIs along with mammograms. (The number of women who fall into this category is very small.) The patient and health care provider should discuss the patient history and decide if earlier screening and breast M RI are appropriate. Charlie Larry MD IMG MAMMO ORDERABLES documented in this encounter Visit Diagnoses Diagnosis Malignant neoplasm of left breast in fem radha, estrogen receptor positive, unspecified site of breast Breast cancer, stage 1, left documented in this encounter Care Teams Soil Tester Relationship Specialty Start Date End Date Veronica Chun MD PCP - General Family Medicine 01/20/17 [address] [facility] [place] [address] documented as of this encounter
--- OUTSIDE RECORDS SUMMARY | 2021-10-23 02:24 | XMS_ITS | Encounter Summary ---
:1955 Author Organization [facility] [place] [address] Care Team Providers Name Role Phone Veronica Chun MD Primary Care Provider Encounter Details Date Type Department Care Team Description 09/06/2018 Telephone Hematology and Oncology at Jaswant Kaplan MD [facility] HEMATOLOGY/[place] [address] [place] [address] [phone] (Wo rk) Social History Tobacco Use Types [...] this encounter Miscellaneous Notes Telephone Encounter - Jaswant Moya MD - 09/06/2018 4:47 PM EDT I called patient to tell her the results of her Oncotype test. This returned with Recurrence Score of 13, which is in the low risk range where chemo is not recommended. She will proceed with SRT, and see Dr. Armendariz in [facility] documented in this encounter Plan of Treatment Upcoming Encounters Date Type Specialty Care Team Description 10/23/2021 Office Visit Hematology and Oncology Navid Armendariz MD [facility] DR ONCOLOGY [place], [place] [address] (Wo rk) 10/23/2021 Infusion Hematology and Oncology documented as of this encounter Visit Diagnoses Not on filedocumented in this encounter Care Teams Procurement Assistant Relationship Specialty Start Date End Date Veronica Chun MD PCP - General Family Medicine 01/20/17 [facility] [address] [place] [address] documented as of this encounter
--- OUTSIDE RECORDS SUMMARY | 2021-10-23 02:24 | XMS_ITS | Encounter Summary ---
:1955 Author Organization [facility] [place] [address] Care Team Providers Name Role Phone Veronica Chun MD Primary Care Provider Encounter Details Date Type Department Care Team Description 10/26/2018 Office Visit Radiation Oncology at Ziyad Pickard M alignant neoplasm of [facility] upper-outer quadrant [address] of left female [place], [place] RADIATION ONCOL OGY breast, unspecified [id number] [place], [place] estrogen receptor [phone] [id number] status [phone] (Wo rk) Social History Tobacco Use Types [...] Sign Reading Time Taken Comments Blood Pressure 151/60 10/26/2018 12:00 PM EDT Pulse 66 10/26/2018 12:00 PM EDT Temperature 37 ??C (98.6 ??F) 10/26/2018 12:00 PM EDT Respiratory Rate 16 10/26/2018 12:00 PM EDT Oxygen Saturation 100% 10/26/2018 12:00 PM EDT Inhaled Oxygen Concentration - - Weight 114 kg (251 lb 4.8 oz) 10/26/2018 12:00 PM EDT Height - - Body Mass Index 43.14 10/09/2018 9:39 AM EDT documented in this encounter Progress Notes Ziyad Pickard MD - 10/26/2018 12:00 PM EDT Images from the original note were not included. RADIATION ONCOLOGY - Weekly On Treatment Visit Note 10/26/18 Ziyad Pickard MD, MS Radiation Oncology [facility] [phone] (paging gamewell operator) Pager #[phone] PATIENT IDENTIFICATION Name Corina Brewster Date of 1955 PCP Veronica Chun MD Referring MD (if different) Dr. Larry Diagnosis Cancer Staging Malignant neoplasm of upper-outer quadrant of left breast in female, estrogen receptor positive Staging form: Breast, AJCC 8th Edition - Clinical: Stage IA (cT1c, cN0(sn), cM0, G1, ER+, MI+, HER2-) - Signed by Ziyad Pickard MD on 09/15/2018 RADIOTHERAPY DETAILS Treatment Intent: Definitive (Adjuavant) Concurrent Therapy: None Initial Treatment Site Left breast Prescribed Dose 42.5 Gy in 16 fractions Boost Treatment Site Left lumpectomy cavity Prescribed Dose 52.5 Gy in 4 fractions Current Dose: 45 Gy in 17 fractions INTERVAL HISTORY Subjective: General - Overall feels well today. No concerns. Breast - No pain, swelling or peeling. Some graying of skin in her axilla - she scrubbed at it todaythinking it was dirt. Pain: Pain score today is 0/10. MEDS Medications 10/26/18 1213 Medication Sig Taking? hydroCHLOROthiazide (HYDRODIURIL) 25 mg Tablet Take 25 mg by mouth. CREAM BASE NO.103, BULK, TOP Apply topically. Jeans cream to area of radiation, twice a day, no lessthan 2 hours prior to radiation treatment naproxen sodium (ALEVE) 220 mg Capsule Take by mouth as needed. acetaminophen (TYLENOL) 325 mg Tablet Take 2 tablets by mouth every 4 hours as needed for Pain. atorvastatin (LIPITOR) 40 mg Tablet Take 40 mg by mouth daily. atenolol (TENORMIN) 50 mg Tablet Take 50 mg by mouth daily. ERGOCALCIFEROL, VITAMIN D2, (VITAMIN D ORAL) Take 1,000 mg by mouth daily. metFORMIN (GLUCOPHAGE) 1,000 mg Tablet take 1 tablet by mouth twice a day zolpidem (AMBIEN CR) 12.5 mg Tablet, Multiphasic Release nightly. aspirin 81 mg EC tablet nitroGLYcerin (NITROSTAT) 0.4 mg SL tablet IMAGING / LABS: I have personally reviewed this patient's interval portal imaging to confirm accurate positioning and alignment which matches the patient's original approved treatment planning images. EXAM: BP 151/60 Pulse 66 Temp 37 ??C (98.6 ??F) Resp 16 Wt 114 kg (251 lb 4.8 oz) SpO2 100% BMI 43.14 kg/m?? Constitutional: she appears well-developed and well-nourished. No distress. Skin: No desquamation. Performance Status: KPS Score ECOG Grade Definition X 90-100 0 Fully active, able to carry on all pre-disease performance without restriction 70-80 1 Restricted in physically strenuous activity but ambulatory and able to carry out work of a light or sedentary nature, e.g., light house work, office work 50-60 2 Ambulatory and capable of all selfcare but unable to carry out any work activities; up and about more than 50% of waking hours 30-40 3 Capable of only limited selfcare; confined to bed or chair more than 50% of waking hours 10-20 4 Completely disabled; cannot carry on any selfcare; totally confined to bed or chair ASSESSMENT / PLAN Tolerance to radiotherapy: Tolerating as anticipated. Continue as planned. Completes next week. RV 4-6 weeks or sooner prn. She also has follow-up scheduled with Dr Armendariz 11/10 to initiate adjuvant endocrine therapy. Breast / arm tightness: She will continue stretching exercises / home PT. documented in this encounter Plan of Treatment Upcoming Encounters Date Type Specialty Care Team Description 10/23/2021 Office Visit Hematology and Oncology Navid Armendariz MD [facility] DR ONCOLOGY [place], [place] [address] (Wo rk) 10/23/2021 Infusion Hematology and Oncology documented as of this encounter Visit Diagnoses Diagnosis Malignant neoplasm of upper-outer quadra nt of left female breast, unspecified estrogen receptor status Breast cancer, stage 1, left documented in this encounter Care Teams Potable Water Treatment Operator Relationship Specialty Start Date End Date Veronica Chun MD PCP - General Family Medicine 01/20/17 [facility] [address] [place] [address] documented as of this encounter
--- OUTSIDE RECORDS SUMMARY | 2021-10-23 02:24 | XMS_ITS | Encounter Summary ---
:1955 Author Organization [facility] Address [address] [place] [address] Care Team Providers Name Role Phone Veronica Chun MD Primary Care Provider Reason for Referral Physical Therapy (Routine) - Duplicate Referral Specialty Diagnoses / Procedures Referred By Contact Refer red To Contact Physical Therapy Diagnoses Malignant neoplasm of upper-outer quadrant of left breast in female, estrogen receptor positive Laura Cordero APRN [facility] [address] [place] [address] [address] Fax: Referral ID Status Reason Start Expiration Visits Visits Date Date Requested Authorized [id number] Duplicate Evaluate and 04/13/2019 10/10/2019 12 12 Referral Treat Encounter Details Date Type Department Care Team Description 04/13/2019 Office Visit Hematology/Oncology Rodger Armendariz MD [facility] [place] [address] Malignant neoplasm of at [facility] Laura Cordero APRN [address] [place] [address] DR MEDICAL ONCOLOGY [place], [place] [address] [phone] upper-outer quadrant [facility] [address] of left breast in [place], [place] female, est rogen [phone] receptor positive [phone] Social History Tobacco Use Types Packs/Day Years [...] Sign Reading Time Taken Comments Blood Pressure 149/71 04/13/2019 10:52 AM EST Pulse 56 04/13/2019 10:52 AM EST Temperature 36.9 ??C (98.4 ??F) 04/13/2019 10:52 AM EST Respiratory Rate 18 04/13/2019 10:52 AM EST Oxygen Saturation 100% 04/13/2019 10:52 AM EST Inhaled Oxygen Concentration - - Weight 109.8 kg (242 lb) 04/13/2019 10:52 AM EST Height 162.6 cm (5' 4) 04/13/2019 10:52 AM EST Body Mass Index 41.54 04/13/2019 10:52 AM EST documented in this encounter Progress Notes Laura Cordero APRN - 04/13/2019 11:00 AM EST Subjective: Patient ID: Corina Brewster is a 63 y.o. female. Problem List: 1. Cancer of the left breast, pT1cN0; ER/SC+, Her-2/jocelin - A. Bilateral breast mammogram 05/2018, [facility] [place] second read - FINDINGS: Left breast: Within [...] cancer cells with immunostaining) Stain intensity: Strong SC immunoreactivity: Positive (>90% cancer cells with immunostaining) [...] Nodes Examined: ?? 7 ? Number of [place] Nodes Examined: ?3 Pathologic Stage Classification (pTNM, [...] breast on 10/31/18. Ms. Brewster returns to clinic today by herself for follow up of Stage 1A breast cancer. She is currently taking Aromasin daily. She completed RT. She still has some areas of her left breast and axilla that are tender. She does have mild edema of the left arm. She is feeling generally well and healing well from the surgery. There is no redness or drainage. She notices that the sensation is coming back in the breast and axillary region. She has had some sharp pains in the left nipple region which has improved. No fevers or chills. She stopped the Arimidex a few weeks ago for arthritic pain in knees and a bloated feeling in her abdomen. She is tolerating the Aromasin well without any side effects. S ymptoms have resolved. She is eating well. No other particular areas of pain. No cough or SOB. Soc Hx: , lives in [place], [place] Tob - Never Etoh - Rare [...] breast. Edema in left arm and hand. Musculoskeletal: Good ROM Lymphadenopathy: She has no cervical adenopathy. She has no axillary adenopathy. Right: No supraclavicular adenopathy present. Left: No supraclavicular adenopathy present. Neurological: She is alert and oriented to person, place, and time. Coordination normal. Skin: Skin is warm and dry. No rash noted. Vitals reviewed. Labs: 03/13/19- Glucose-240 Lytes and LFTs unremarkable Assessment and Plan: Ms. Brewster is a 63 yo female seen for evaluation and management of stage I cancer of the left breast(pT1c, N0, ER/SC +, Her-2/jocelin -). She had a screening bilateral mammogram done in 05/2018. The right breast was negative. On the left, a 1.5 cm mass was seen in the UOQ with microcalcifications anterior and medial to the mass. US guidedbiopsy was performed on 06/27/18. Path showed invasive ductal carcinoma, low grade with an SBR score of 5, and DCIS, low to intermediated grade. ER/SC was positive with strong staining and Her-2/jocelin [...] 1. Continue breast cancer surveillance visits every 3 months with [facility]. Yearly mammograms. 2. Continue Aromasin 25mg po daily. 3. Referral to physical therapy at [facility] for lymphedema management. 4. Follow up in 3 months with labs. documented in this encounter Plan of Treatment Upcoming Encounters Date Type Specialty Care Team Description 10/23/2021 Office Visit Hematology and Oncology Navid Armendariz MD [facility] ONCOLOGY [place], [place] [address] (Wo rk) 10/23/2021 Infusion Hematology and Oncology Scheduled Referrals Name Type Priority Associated Diagnoses Order S chedule Referral to Outpatient Referral Routine Malignant neoplasm Or dered: Physical Therapy of upper-outer 0 quadrant of left breast in female, estrogen receptor positive documented as of this encounter Visit Diagnoses Diagnosis Malignant neoplasm of upper-outer quadra nt of left breast in female, estrogen receptor positive Breast cancer, stage 1, left documented in this encounter Care Teams Mental Health Social Worker Relationship Specialty Start Date End Date Veronica Chun MD PCP - General Family Medicine 01/20/[address] [place] [address] documented as of this encounter
--- OUTSIDE RECORDS SUMMARY | 2021-10-23 02:24 | XMS_ITS | Encounter Summary ---
:1955 Author Organization [facility] [place] [address] Care Team Providers Name Role Phone Veronica Chun MD Primary Care Provider Encounter Details Date Type Department Care Team Description 2018 Notes Only Radiology at [facility] Radha Cui MD [facility] [place] [address] DIAGNOSTIC RADIOLOGY [phone] [place], [place] [address] (Wo rk) Social History Tobacco [...] documented as of this encounter Progress Notes Radha Cui MD - 2018 8:12 AM EDT Pre-procedure note for needle breast biopsies performed in radiology. Procedure date: Today Procedure type: left breast NLOC and sentinel node injection Allergies: Oxycodone Medications: Current Outpatient Medications: ??? atorvastatin (LIPITOR) 40 mg Tablet, Take 40 mg by mouth daily., Disp: , Rfl: ??? atenolol (TENORMIN) 50 mg Tablet, Take 50 mg by mouth daily., Disp: , Rfl: ??? methIMAzole (TAPAZOLE) 5 mg Tablet, Take 0.5 tablets by mouth daily. (Patient not taking: Reported on 07/19/2018), Disp: 15 tablet, Rfl: 11 ??? ERGOCALCIFEROL, VITAMIN D2, (VITAMIN D ORAL), Take 1,000 mg by mouth daily., Disp: , Rfl: ??? metFORMIN (GLUCOPHAGE) 1,000 mg Tablet, take 1 tablet by mouth twice a day, Disp: , Rfl: 0 ??? zolpidem (AMBIEN CR) 12.5 mg Tablet, Multiphasic Release, nightly., Disp: , Rfl: 0 ??? hydrochlorothiazide (MICROZIDE) 12.5 mg capsule, 12.5MG = 1 Capsule(s), PO, Once daily, Disp: , Rfl: ??? aspirin 81 mg EC tablet, , Disp: , Rfl: ??? nitroGLYcerin (NITROSTAT) 0.4 mg SL tablet, , Disp: , Rfl: Anticoagulation status:low dose asa stopped on: N/A Imaging reviewed and procedural plan approved by Dr. RADHA CUI MD documented in this encounter Plan of Treatment Upcoming Encounters Date Type Specialty Care Team Description 10/23/2021 Office Visit Hematology and Oncology Navid Armendariz MD [facility] DR ONCOLOGY [place], [place] [address] (Wo rk) 10/23/2021 Infusion Hematology and Oncology documented as of this encounter Visit Diagnoses Not on filedocumented in this encounter Care Teams Catering Assistant Relationship Specialty Start Date End Date Veronica Chun MD PCP - General Family Medicine 01/20/17 [facility] [address] [place] [address] documented as of this encounter
--- OUTSIDE RECORDS SUMMARY | 2021-10-23 02:24 | XMS_ITS | Encounter Summary ---
:1955 Author Organization [facility] [place] [address] Care Team Providers Name Role Phone Veronica Chun MD Primary Care Provider Encounter Details Date Type Department Care Team Description 09/18/2018 Office Visit Radiation Oncology at Ziyad Pickard M alignant neoplasm of [facility] upper-outer quadrant [address] of left female [place], [place] RADIATION ONCOL OGY breast, unspecified [id number] [place] estrogen receptor [phone] [id number] status [phone] (Wo rk) Social History Tobacco Use Types [...] Sign Reading Time Taken Comments Blood Pressure 153/72 09/18/2018 1:00 PM EDT Pulse 68 09/18/2018 1:00 PM EDT Temperature 37.1 ??C (98.8 ??F) 09/18/2018 1:00 PM EDT Respiratory Rate 16 09/18/2018 1:00 PM EDT Oxygen Saturation 98% 09/18/2018 1:00 PM EDT Inhaled Oxygen Concentration - - Weight - - Height - - Body Mass Index - - documented in this encounter Patient Instructions Patient InstructionsZiyad Pickard MD - 09/18/2018 2:00 PM EDT Dear Ney, We discussed the following next steps as part of your cancer evaluation and/or treatment: ?? Radiation treatments for Stage 1 breast cancer: Radiation is given after partial breast surgery to decrease the chance of breast cancer returning of the parts of the breast. We also know that women who do not have cancer return in the breast are also less likely to of breast cancer in the future. In the next 10 years, your risk of cancer coming back in your breast is about 7-8%. This is decreased by half if you have radiation. After finishing radiation treatments, the recommendation is for hormonal therapy and this will be overseen by Dr. Armendariz. ?? Other treatment options include: no radiation treatment ?? Mapping scan to plan your radiation treatments: Your radiation therapy will involve using high energy radiation which kills cancer but also normal healthy tissues. In order to make sure the radiation goes to the cancerous tissues and to also avoid radiating the normal tissues, we design radiationbeams beams into special shapes which come from various different directions. Because no two people and no two cancers are completely identical, the radiation plan we create for you will be unique to you and your body. In order to figure out how many beams to use, how much radiation to give, which angles they should come from, and how they should be shaped, we have asked you to undergo a mapping scanhere in our department known as a CT simulation, or CT sim, for short. This is essentially a CAT-scan similar to scans which you may have received before, but slightly different in a few ways: First,it allows us to place you in the exact same position which you should expect to be placed during each of your radiation treatment sessions. Second, it lets us better understand where the radiation targets and the normal tissues that we want to avoid exist, in relation to each other and the radiation beams. Following this scan, we then perform additional calculations and measurements to create the absolute best plan possible for you. Depending on the complexity of the plan, these processes can take from just few hours to several days, and for that we ask for your patience. If you have any questions about the planning process or your custom radiation plan, I would be more than happy to review the plan with you during your first week of treatment. I anticipate you will receive 20 treatments total, daily Tuesday-Tuesday for 4 weeks. Your start date and time will be provided once the simulation scan is completed. During your radiation treatments, you can expect to see me once per week so that I can examine you to make sure you are tolerating radiation treatments and so that we can monitor your response to treatment. If you need to see me any other day, one of my colleagues or I would be happy to seeyou - just ask one of the radiation therapists or radiation nurses for assistance. ?? Side effects of treatment: We briefly discussed short term (temporary) side effects of treatment as well as possible termite treater helper (late, permanent) side effects of radiation treatment. If they occur, short term side effects may include fatigue, skin redness, breast swelling or discomfort. terminologist side effects may include asymmetry of your breast, thickening of the tissues of your breast, small riskof heart or lung damage. Any amount of radiation can also increase the risk of developing a cancer later in life caused by radiation. This is a low but real risk, and it grows over time. We estimate that your risk of a radiation caused cancer grows by 1% over the general population risk for each 10 years you are alive. Please do not hesitate to call me at [phone] with any other questions or concerns you have. If I am not here, one of our radiation oncology nurses can assist you or help you get in touch with me. A Radiation Oncology doctor is also corporation lawyer after our normal hours and on weekends for urgent questions or concerns related to radiation treatments that can not wait until normal business hours. To reach the on-call doctor after-hours, just call and have the trip motor operator page the Radiation Oncologist corporation lawyer. And, as always, if you experience any life-threatening emergencies which any include the following, you need to seek emergency care immediately by calling 911: 1. Sudden and unexpected breathing difficulty without any exertion 2. Sudden onset of chest pain 3. Sudden onset of severe pain or uncontrolled pain 4. Sudden onset of severe weakness and/or unable to walk 5. Sudden new onset of a seizure 6. Fall resulting in injury 7. Uncontrollable bleeding Ziyad Carlisle MD Recruitment Specialistcarburetor expert Radiation Oncology [facility] documented in this encounter Progress Notes Ziyad Pickard MD - 09/18/2018 2:00 PM EDT Images from the original note were not included. Radiation Oncology Established Patient Followup Note Ziyad Pickard MD, MS [facility] [phone] PATIENT IDENTIFICATION: PATIENT NAME: Corina Brewster DATE OF : 1955 REFERRING PROVIDER: [place] [address] REASON FOR CONSULTATION : Cancer Staging Malignant neoplasm of upper-outer quadrant of left breast in female, estrogen receptor positive Staging form: Breast, AJCC 8th Edition - Clinical: Stage IA (cT1c, cN0(sn), cM0, G1, ER+, WA+, HER2-) - Signed by Ziyad Pickard MD on 09/15/2018 HISTORY OF PRESENT ILLNESS: Chante is a 63-year-old woman diagnosed with a left breast cancer in the setting of a screening mammogram May 2018. Diagnostic mammogram June 2018 showed 2 masses, the first of which was at the 2:00 location 10 cm from the nipple and the second lesion also at the 2 o'clock position 5 cm from the nipple. The right breast mass was also noted at that time. Ultrasound guided biopsy of the left breast lesions showed invasive ductal carcinoma, ER+WA+, Her2 FISH neg with associated DCIS. The second lesion showed DCIS only. MRI of the bilateral breast 07/10/2018 showed a 10 cm extent of enhancement at the 2 o'clock positionextending from the base of the nipple with a dominant 1.8 cm mass at the posterior aspect. No abnormalities were noted in the right breast. No adenopathy was noted. She underwent needle localization left breast partial mastectomy that contained both lesions on 07/31/18. Summit and non-sentinel biopsies were also performed at that time. Final pathology showed a 1.7 cm invasive ductal carcinoma with associated DCIS. Margins were negative and no lymph nodes were positive. ER/WA/Her2 staining as above. Oncotype score was 17 and so no adjuvant chemotherapy has been recommended. She was cleared for postop RT by Dr Larry on 08/16/[address] Ortega. She met Dr. Tineo on 08/28/18 whose recommendation was for whole breast radiotherapy to reduce the risk of local recurrence and improve survival. Side effects of radiotherapy were discussed at that time although informed consent was not obtained. Corina is here today to establish care for radiation therapy. REVIEW OF SYSTEMS: On further questioning, she reports feeling well and her usual health. She denies any pain today. REVIEW OF SYSTEMS 09/11/2018 Constitutional None of the above Ear / nose / throat / mouth None of the above Eyes None of the above Respiratory None of the above Cardiovascular None of the above Gastrointestinal None of the above Skin, hair Dry skin Musculoskeletal Other symptoms with joints or muscles Neurological None of the above Hematologic / Lymphatic None of the above Genitourinary None of the above Other Symptoms - A comprehensive 14 point review of systems was conducted with this patient and is otherwise negativeexcept as documented above. This patient reported questionnaire is available for review in 'scanned documents.' PAST MEDICAL HISTORY Past Medical History: Diagnosis Date ??? Breast [...] Past Surgical History: Procedure Laterality Date ??? CORONARY ANGIOPLASTY WITH STENT PLACEMENT 2008 ??? HYSTERECTOMY age 27. for scar tissue. Still has 1 ovary ??? MAMMO STEREOTACTIC BIOPSY LEFT N/A 06/27/2018 Mammo Stereotactic Biopsy Left 06/27/2018 Liseth Henson MD [facility] RAD MAMMOGRAPHY ??? MAMMO US BIOPSY LEFT Left 06/27/2018 Mammo Us Biopsy Left 06/27/2018 Liseth Henson MD [facility] RAD MAMMOGRAPHY ??? PRO BX/REMV, LYMPH NODE, DEEP AXILL Left 2018 BIOPSY OR EXCISION OF LYMPH NODE(S), OPEN, DEEP AXILLARY NODE(S) (WRVU 6.43) performed by Charlie Larry MD at [facility] OSC ??? PRO EXC SKIN BENIG 0.6-1CM FACE, FACIAL N/A 2018 EXC BENIGN LESION ,RAINER .6 TO 1.0CM, FACE (WRVU 1.53) performed by Charlie Larry MD at [facility] ??? PRO INTRAOP SENTINEL LYMPH ID W/DYE INJECTION Left 2018 INTRAOPERATIVE ID (MAPPING) SENTINEL LYMPH NODE,INCLUDES INJECTION (WRVU 2.5) performed by Charlie Larry MD at [facility] ??? PRO MASTECTOMY, PARTIAL Left 2018 MASTECTOMY PARTIAL (WRVU 10.13) performed by Charlie Larry MD at [facility] CONTRAINDICATIONS TO RADIATION THERAPY: None ?? Prior radiation therapy: No ?? Active Lupus: No ?? Systemic Scleroderma: No ?? : No MEDICATIONS AND ALLERGIES: Medications 09/18/18 1403 Medication Sig Taking? naproxen sodium (ALEVE) 220 mg Capsule Take by mouth as needed. Yes ibuprofen (ADVIL;MOTRIN) 400 mg Tablet Take 1 tablet by mouth every 6 hours as needed for Pain. Yes atorvastatin (LIPITOR) 40 mg Tablet Take 40 mg by mouth daily. Yes atenolol (TENORMIN) 50 mg Tablet Take 50 mg by mouth daily. Yes ERGOCALCIFEROL, VITAMIN D2, (VITAMIN D ORAL) Take 1,000 mg by mouth daily. Yes metFORMIN (GLUCOPHAGE) 1,000 mg Tablet take 1 tablet by mouth twice a day Yes zolpidem (AMBIEN CR) 12.5 mg Tablet, Multiphasic Release nightly. Yes hydrochlorothiazide (MICROZIDE) 12.5 mg capsule 12.5MG = 1 Capsule(s), PO, Once daily Yes aspirin 81 mg EC tablet Yes acetaminophen (TYLENOL) 325 mg Tablet Take 2 tablets by mouth every 4 hours as needed for Pain. Patient not taking: Reported on 08/28/2018 nitroGLYcerin (NITROSTAT) 0.4 mg SL tablet Allergies Allergen Reactions ??? 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 Lymphoma Brother 54 age 54 of same in 2006 ??? Breast Cancer Neg Hx ??? Ovarian Cancer Neg Hx PHYSICAL EXAM BP 153/72 Pulse 68 Temp 37.1 ??C (98.8 ??F) Resp 16 SpO2 98% General: alert, appears stated age, and in no distress sitting in exam room with daughter at side TODAY'S PERFORMANCE STATUS: KPS Score ECOG Grade Definition X 90-100 [...] selfcare; totally confined to bed or chair IMAGING REVIEW: MRI breast 07/10/18 - 1.8cm mass posterior UOQ left breast Pit Hand Images are shown below: PATHOLOGY REVIEW: Source: Partial left mastectomy Provider / Location: Dr Larry / [facility] Date: 07/31/18 Histology / Grade Histologic Type: ?? Invasive carcinoma of no special type (ductal, not otherwise specified) Histologic Grade: ??Score 1 Nuclear Pleomorphism: ?? Score 3 Mitotic Rate: ?? Score 1 (<=3 mitoses per mm2) Overall Grade: ?? Grade 1 (scores of 3, 4 or 5) Tumor Size: ?? 17 Millimeters (mm) Tumor Focality: ?? Single focus ? Ductal Carcinoma In Situ (DCIS): ?Present ? Architectural Patterns: ?? Cribriform, Papillary ? Nuclear Grade: ?? Grade II (intermediate) ?? Necrosis: ??Present, focal (small foci or single cell necrosis) ?? Tumor Extent Skin: ??Skin is not present Skeletal Muscle: ?? No skeletal muscle is present Margins Invasive Carcinoma Margins: ?? Uninvolved by invasive carcinoma Distance from Other Specified Margin: ?From all RM > 10 Millimeters (mm) DCIS Margins: ?? Uninvolved by DCIS Distance of DCIS to Posterior Margin: ?0.5 Millimeters (mm) Distance from Other Specified Margin: ?From other RM > 10 Millimeters (mm) Lymph Nodes Regional Lymph Nodes: ?? Uninvolved by tumor cells Number of Lymph Nodes Examined: ?? 7 Number of Summit Nodes Examined: ??3 Other ASSESSMENT / PLAN: Corina is a 63-year-old woman with stage I invasive ductal carcinoma of the left breast (ER+/WA+/Her2-), s/p negative margin resection. She has previously met and discussed the role of adjuvant radiotherapy with Dr. Maggy Ortega, with whose recommendations I agree. [facility], and she understands the role of CT simulation prior to proceeding with radiation therapy. All of Corina's questions were answered to her fullest satisfaction, and we have provided her withour contact information should any further questions or concerns arise. SUMMARY OF PLAN / RECOMMENDATION: 1. Intent of therapy: Curative 2. Clinical Trial Availability: No 3. Informed consent obtained for radiotherapy to the left breast, anticipate 20 fractions to be delivered in [facility] TIME ATTESTATION: At least 30 minutes of this 40 minute visit was spent with the patient [id number] reviewing her interval medical history and answering questions related to her breast cancer. ZIYAD PICKARD MD, MS Liz Jacques RN - 09/18/2018 2:00 PM EDT RADIATION ONCOLOGY NURSING INITIAL NURSING ASSESSMENT IDENTIFICATION: Corina Brewster is a 63 y.o. year-old female with breast ca REVIEW OF SYSTEMS: Review of Systems - Oncology REVIEW OF SYSTEMS 09/11/2018 Constitutional None of the above Ear / nose / throat / mouth None of the above Eyes None of the above Respiratory None of the above Cardiovascular None of the above Gastrointestinal None of the above Skin, hair Dry skin Musculoskeletal Other symptoms with joints or muscles Neurological None of the above Hematologic / Lymphatic None of the above Genitourinary None of the above Other Symptoms - IN THE PAST 12 MONTHS HAVE YOU: Fallen more than one time? No Injured yourself as result of the fall? No Experienced difficulty with walking/problems with balance? No Do you use any assistive devices? No Any history of collagen vascular diseases:No Any Implanted Devices/Hardware: Yes cardiac stent If yes please put alert in ARIA patient summary Prior Radiotherapy: yes, radioiodine Prior Chemotherapy: No Prior Hormone Therapy: Yes had Premarin after hysterectomy at age 27 for a couple years Other: Patient denies history of sclera derma and Lupus LEARNING ASSESSMENT REVIEWED: Yes ADVANCED DIRECTIVE: Not discussed today. PAIN ASSESSMENT: [0] out of 10 *eD-H Adult PCS Flow Sheet if 4 or above SOCIAL ASSESSMENT: See EDH social assessment information entered. Support Systems:lives with male significant other. He had a stroke , but for the most part takes care of self. Speech difficulties Barriers to treatment: none Referrals/Interventions: homeworker on day per routine. RADIATION SPECIFIC TEACHING: [facility] Radiation Therapy and You Site specific teaching : breast Other: PLAN: Per Dr Pickard's note documented in this encounter Plan of Treatment Upcoming Encounters Date Type Specialty Care Team Description 10/23/2021 Office Visit Hematology and Oncology Navid Armendariz MD [facility] ON[facility] [place], [place] [address] (Wo rk) 10/23/2021 Infusion Hematology and Oncology documented as of this encounter Visit Diagnoses Diagnosis Malignant neoplasm of upper-outer quadra nt of left female breast, unspecified estrogen receptor status Breast cancer, stage 1, left documented in this encounter Care Teams Carbonation Equipment Tender Relationship Specialty Start Date End Date Veronica Chun MD PCP - General Family Medicine 01/20/17 [facility] [address] [place] [address] documented as of this encounter
--- OUTSIDE RECORDS SUMMARY | 2021-10-23 02:24 | XMS_ITS | Encounter Summary ---
:1955 Author Organization [facility] [place] [address] Care Team Providers Name Role Phone Veronica [...] Expiration Date Visits Requ ested Visits Authorized [id number] 1 1 Encounter Details Date Type Department Care Team Description 2018 Anesthesia Event Outpatient Surgery Jamel Marino, [facility] [place] [address] [place] Marcella Davison MD [facility] [place] [address] [facility] [place] [address] Anesthesia Record Procedure Summary Procedure Name Responsible Anesthesia Start Anesthesia Stop Anesthesiologist Time Time MASTECTOMY PARTIAL Jayashree Marino DO 07/31/18 1035 07/31/18 1316 (WRVU 10.13) (Left Breast) Events Date Time Event Comment 2018 1019 1035 AN Verify 1035 Start 1035 An Start Data 1035 An Induction 1038 An Intubation 1040 Anesthesia Ready 1156 Break/Relief In KIERA AMARO CRNA 1223 Break/Relief Out 1300 Extubation/LMA Out 1308 an stop data 1316 Recovery or ICU Handoff Patient care was transferred to the destination unit staff after review of the patient's medica l history, current anesthetic/surgi izabela status and plan, according to the Provider Handoff Checklist. 1316 Stop Name Total Midazolam 1 mg fentaNYL 275 mcg IV Lidocaine 50 mg Propofol 250 mg Propofol INF 708.48 mg Dexmedetomidine 12 mcg Dexamethasone 8 mg Ondansetron 8 mg Ketorolac 30 mg cefTRIAXone (ROCEPHIN) 2 g vial attach to sodium chlor rodney 0.9% 50 mL 2 g Mini-Bag Plus Labetalol 25 mg lactated ringers infusion 1,500 mL Agents Name O2 Air N2O Sevoflurane (et) Blood No blood administrations on file. Lines, Drains, and Airways Type Details Placement Removal PIV 07/31/18; 1007; median 07/31/18 1007 by 07/31/18 1515 by cubital vein (antecubital Akanksha Herzog RN McNamara, Mary L fossa), right; [id number] catheter system; 22 gauge; distraction, intradermal injection; 07/31/18; 1515 Supraglottic Mask Ventilation: Not 07/31/18 1041 by Prem, 0 07/31/18 1300 by Attempted (0); LMA Type: JORGE ALBERTO Perales, Kiera Arroyo CRNA iGel; LMA Size: 4; Inserted by: Michelle Amaro CRNA Incision 07/31/18; 1056; orbital 07/31/18 1056 by 1 [id number] by region; 10/08/20; 0707 Yuliet Cheek RN McM illan, Sara C, RN Incision 07/31/18; 1057; breast; 07/31/18 1057 by 1 [id number] by 10/08/20; 0707 Yuliet Cheek RN McMillan, Sara C, RN Incision 07/31/18; 1059; breast; 07/31/18 1059 by 1 [id number] by 10/08/20; 0707 Yuliet Cheek RN McMillan, Sara C, RN documented in this encounter Social History Tobacco [...] encounter OR Notes Anesthesia Postprocedure Evaluation - Jayashree Marino DO - 2018 5:02 PM EDT Department of Anesthesiology Post-procedure Note Patient: Corina Brewster Procedure Summary Date: 07/31/18 [place] / [place] [facility] [place] [address] [place] [address] OSC Anesthesia Start: 1035 Anesthesia Stop: 1316 Procedures: MASTECTOMY PARTIAL (WRVU 10.13) (Left Breast) BIOPSY OR EXCISION OF LYMPH NODE(S), OPEN, DEEP AXILLARY NODE(S) (WRVU 6.43) (Left Axilla) INTRAOPERATIVE ID (MAPPING) SENTINEL LYMPH NODE,INCLUDES INJECTION (WRVU 2.5) (Left ) EXC BENIGN LESION ,RAINER .6 TO 1.0CM, FACE (WRVU 1.53) (N/A Face) MODIFIER WITH NEEDLE LOC., LESION #1 (Left ) MODIFIER SENTINEL NODE EXCISION (N/A ) Diagnosis: (BREAST CANCER) Surgeon: Charlie Larry MD Responsible Provider: Jayashree Marino DO Anesthesia Type: general ASA Status: 2 All Anesthesia Providers: Anesthesiologist: Marcella Lake MD; Jayashree Marino DO INSPECTOR BALANCE BRIDGE: Kiera Amaro CRNA Vitals Value Taken Time BP 138/55 2018 2:45 PM Temp Pulse 99 2018 2:45 PM Resp 16 2018 3:00 PM SpO2 98 % 2018 3:00 PM Pain Level 3 2018 3:30 PM Patient Location: PACU/[facility] Level of Consciousness: Awake and Alert Pain Management: Satisfactory Analgesia PONV: None Cardiovascular Status: At Baseline and Hemodynamically Stable Respiratory Status: At Baseline and Room Air Postoperative Fluid Status: Intravascular EUvolemia Possible Anesthetic Complications: NONE apparent at time of evaluation Final Primary Anesthesia Type: General (The anesthetic type performed was the same as planned.) Comments: Jayashree Marino DO Anesthesia Preprocedure Evaluation - Marcella Lake MD - 2018 9:45 AM EDT Pre-Anesthesia Evaluation for: Corina Brewster a 63 y.o. female. Procedure(s): MASTECTOMY PARTIAL (WRVU 10.13) BIOPSY OR EXCISION OF LYMPH NODE(S), OPEN, DEEP AXILLARY NODE(S) (WRVU 6.43) INTRAOPERATIVE ID (MAPPING) SENTINEL LYMPH NODE,INCLUDES INJECTION (WRVU 2.5) EXC BENIGN LESION ,RAINER .6 TO 1.0CM, FACE (WRVU 1.53) MODIFIER WITH NEEDLE LOC., LESION #1 MODIFIER WITH NEEDLE LOC.,LESION #2 MODIFIER SENTINEL NODE EXCISION Patient Active Problem List Diagnosis ??? Thyroid nodule ??? Osteoarthrosis, unspecified whether generalized or localized, hand ??? Osteoarthrosis, unspecified whether generalized or localized, lower leg ??? Trigger middle finger of left hand ??? Trigger index finger of right hand ??? HAM (obstructive sleep apnea) ??? Restless leg syndrome No past medical history on file. Past Surgical History: Procedure Laterality Date ??? MAMMO STEREOTACTIC BIOPSY LEFT N/A 06/27/2018 Mammo Stereotactic Biopsy Left 06/27/2018 Liseth Henson MD [facility] RAD MAMMOGRAPHY ??? MAMMO US BIOPSY LEFT Left 06/27/2018 Mammo Us Biopsy Left 06/27/2018 Liseth Henson MD [facility] RAD MAMMOGRAPHY Social History Tobacco Use ??? Smoking status: Never Smoker ??? Smokeless tobacco: Never Used Substance Use Topics ??? Alcohol use: Not on file Social History Substance and Sexual Activity Drug Use Not on file Allergies Allergen Reactions ??? Oxycodone Nausea And Vomiting Medications: MAR and/or home medications have been reviewed. Physical Exam: There were no vitals filed for this visit. There is no height or weight on file to calculate BMI. Airway Assessment: Mallampati: III TM distance: >3 FB Neck ROM: full Cardiovascular Assessment: Pulmonary Assessment: Dental Assessment: (+) upper dentures and lower dentures Misc Assessment: IV access: Peripheral line Anesthesia Plan: ASA 2 general, with a(n) intravenous induction Ms. Brewster is a 63 year old female with PMHx of DMII (on metformin), HTN (on atenolol and HCTZ), HLD(on atorvastatin), breast cancer scheduled for left partial mastectomy and axillary node dissection. Pt has an ADR to oxycodone. Plan for preoperative Tylenol, gabapentin, GA/LMA. Risks were discussed at length, and all questionsand concerns were addressed. Consent was obtained, and the appropriate paperwork was placed in the patient's chart. Region - Other Informed Consent: Anesthetic plan and risks discussed with patient. Plan discussed with INSPECTOR BALANCE BRIDGE. PAT Clinic Note documented in this encounter Plan of Treatment Upcoming Encounters Date Type Specialty Care Team Description 10/23/2021 Office Visit Hematology and Oncology Navid Armendariz MD [facility] ONCOLOGY [place], [place] [address] (Wo rk) 10/23/2021 Infusion Hematology and Oncology documented as of this encounter Visit Diagnoses Not on filedocumented in this encounter Administered Medications Inactive Administered Medications - up to 3 most recent administrations Medication Order MAR Action Action Date Dose Rate Site cefTRIAXone (ROCEPHIN) 2 g vial New Bag 2018 10:40 AM EDT 2 g attach to sodium chloride 0.9% 50 mL Mini-Bag Plus 2 g, Intravenous, EVERY 24 HOURS, First dose on 07/31/18 at 1015, Until Discontinued, Administer over 30 Minutes, Attach to 50 mL sodium chloride 0.9% Mini-Bag Plus , Intra-Operative (Intra-Procedure), Indication for (Active or Suspected): Prophylaxis dexamethasone (DECADRON) injection Given 2018 10:39 AM EDT 8 mg PRN, Starting on Tue07/31/18 at 1039, Until Tue07/31/18 at 1316, Anesthesia Intra-op, Routine dexmedetomidine (PRECEDEX) injection Given 2018 10:52 AM EDT 4 mcg PRN, Starting on Tue07/31/18 at 1040, Until Tue07/31/18 at 1316, Anesthesia Intra-op, Routine Given 2018 10:45 AM EDT 4 mcg Given 2018 10:40 AM EDT 4 mcg fentaNYL 50 mcg/mL multi-dose injection Given 2018 12:59 PM EDT 25 mcg PRN, Starting on Tue07/31/18 at 1035, Until Tue07/31/18 at 1316, Anesthesia Intra-op, Routine Given 2018 12:33 PM EDT 50 mcg Given 2018 11:46 AM EDT 25 mcg ketorolac (TORADOL) injection Given 2018 11:46 AM EDT 30 mg PRN, Starting on Tue07/31/18 at 1146, Until Tue07/31/18 at 1316, Anesthesia Intra-op, Routine labetalol (NORMODYNE,TRANDATE) multi-dose Given 2018 12:43 PM EDT 5 mg injection PRN, Starting on Tue07/31/18 at 1055, Until Tue07/31/18 at 1316, Anesthesia Intra-op, Routine Given 2018 12:30 PM EDT 5 mg Given 2018 11:47 AM EDT 5 mg lactated ringers infusion New Bag 2018 11:17 AM EDT 1,000 mL, at 100 mL/hr, Intravenous, CONTINUOUS, Starting on Tue07/31/18 at 1015, Until Tue07/31/18 at 1533, Day of Surgery (Day of Procedure) New Bag 2018 10:08 AM EDT 1,000 mLs 100 mL/hr lidocaine (PF) (XYLOCAINE) 100 mg/5 mL (2 %) Given 11/2018 10:35 AM EDT 50 mg injection PRN, Starting on Tue07/31/18 at 1035, Until Tue07/31/18 at 1316, Anesthesia Intra-op, Routine midazolam (PF) (VERSED) multi-dose injec tion Given 2018 10:35 AM EDT 1 mg PRN, Starting on Tue07/31/18 at 1035, Until Tue07/31/18 at 1316, Anesthesia Intra-op, Routine ondansetron (ZOFRAN) injection Given 2018 11:46 AM EDT 4 mg PRN, Starting on Tue07/31/18 at 1039, Until Tue07/31/18 at 1316, Anesthesia Intra-op, Routine Given 2018 10:39 AM EDT 4 mg propofol (DIPRIVAN) 10 mg/mL bolus injection Given 11/2018 11:46 AM EDT 20 mg (Anesthesia) PRN, Starting on Tue07/31/18 at 1037, Until Tue07/31/18 at 1316, Anesthesia Intra-op Given 2018 10:45 AM EDT 30 mg Given 2018 10:37 AM EDT 200 mg propofol (DIPRIVAN) infusion New Bag 2018 10:37 AM 50 mcg/kg/min 33.2 mL/hr CONTINUOUS PRN, Starting on EDT Tue07/31/18 at 1037, Until Tue07/31/18 at 1316, Anesthesia Intra-op, Routine documented in this encounter Care Teams Liquefier Relationship Specialty Start Date End Date Veronica Chun MD PCP - General Family Medicine 01/20/[address] [place] [address] documented as of this encounter
--- OUTSIDE RECORDS SUMMARY | 2021-10-23 02:24 | XMS_ITS | Encounter Summary ---
:1955 Author Organization [facility] [place] [address] Care Team Providers Name Role Phone Veronica Chun MD Primary Care Provider Encounter Details Date Type Department Care Team Description 09/22/2018 Telephone General Surgery at [facility] Michelle [place], [place] [address] Social History Tobacco Use Types Packs/Day [...] this encounter Miscellaneous Notes Telephone Encounter - Michelle Moctezuma RN - 09/22/2018 8:52 AM EDT Corina called inquiring about how to update her file with some immunizations and history as follows: TD06-07-2018 TDaP- 04-22-2008 She is waiting until after treatment to get the Shingrix series per oncology Mammo and subsequent surgery, ect. She still declines a colonoscopy at this time and has not had one previously. Hysterectomy in 1981? And has not had a PAP since as far as she can remember documented in this encounter Plan of Treatment Upcoming Encounters Date Type Specialty Care Team Description 10/23/2021 Office Visit Hematology and Oncology Navid Armendariz MD [facility] ONCOLOGY [place], [place] [address] (Wo rk) 10/23/2021 Infusion Hematology and Oncology documented as of this encounter Visit Diagnoses Not on filedocumented in this encounter Care Teams Power Cutting Machine Operator Relationship Specialty Start Date End Date Veronica Chun MD PCP - General Family Medicine 01/20/[address] [place] [address] documented as of this encounter
--- OUTSIDE RECORDS SUMMARY | 2021-10-23 02:24 | XMS_ITS | Encounter Summary ---
:1955 Author Organization [facility] [place] [address] Care Team Providers Name Role Phone Veronica Chun MD Primary Care Provider Encounter Details Date Type Department Care Team Description 12/20/2018 Orders Only Hematology and Navid Armendariz, Stage I breast cancer, Oncology at [facility] [address] ONCOLOGY [phone] [place], [place] [address] Social History Tobacco Use Types [...] Visit Hematology and Oncology Navid Armendariz MD [facility] [address] [place], [place] [address] (Wo rk) 10/23/2021 Infusion Hematology and Oncology documented as of this encounter Visit Diagnoses Diagnosis Stage I breast cancer, left Breast cancer, stage 1, left documented in this encounter Care Teams Strip Mine Supervisor Relationship Specialty Start Date End Date Veronica Chun MD PCP - General Family Medicine 01/20/[address] [place] [address] [address] [place] [address] documented as of this encounter
--- OUTSIDE RECORDS SUMMARY | 2021-10-23 02:24 | XMS_ITS | Encounter Summary ---
:1955 Author Organization [facility] [place] [address] Care Team Providers Name Role Phone Veronica Chun MD Primary Care Provider Encounter Details Date Type Department Care Team Description 07/10/2019 Orders Only Hematology and Oncology at Roberto Navid dodge MD [facility] [place] [address] [place] [address] [phone] (Wo rk) Social History Tobacco Use Types [...] [facility] ONCOLOGY [place], [place] [address] (Wo rk) 10/23/2021 Infusion Hematology and Oncology documented as of this encounter Visit Diagnoses Not on filedocumented in this encounter Care Teams Ed Educational Aide Relationship Specialty Start Date End Date Veronica Chun MD PCP - General Family Medicine 01/20/[address] [place] [address] documented as of this encounter
--- OUTSIDE RECORDS SUMMARY | 2021-10-23 02:24 | XMS_ITS | Encounter Summary ---
:1955 Author Organization [facility] [place] [address] Care Team Providers Name Role Phone Veronica Chun MD Primary Care Provider Encounter Details Date Type Department Care Team Description 07/25/2018 Orders Only Hematology and Tamara Awad Research subject Oncology at [facility] G, SACK SEWER (Primary Dx) [facility] [place] [address] [place] [address] [phone] Social History Tobacco Use Types Packs/Day Years [...] Navid Armendariz MD [facility] [address] [place], [place] [address] (Wo rk) 10/23/2021 Infusion Hematology and Oncology documented as of this encounter Visit Diagnoses Diagnosis Research subject - Primary Reserved for inherently not codable conc epts WITHOUT codable children Breast cancer, stage 1, left documented in this encounter Care Teams Pharmacy Intake Technician Relationship Specialty Start Date End Date Veronica Chun MD PCP - General Family Medicine 01/20/[address] [place] [address] [address] [place] [address] documented as of this encounter
--- OUTSIDE RECORDS SUMMARY | 2021-10-23 02:24 | XMS_ITS | Encounter Summary ---
:1955 Author Organization [facility] [place] [address] Care Team Providers Name Role Phone Veronica [...] Expiration Date Visits Requ ested Visits Authorized [id number] 1 1 Encounter Details Date Type Department Care Team Description 2018 Hospital Encounter Mammography at [facility] Charlie Larry Malignant neoplasm [facility] MD Geoffrey of left breast in Drive [facility] female, estrogen [facility] receptor positive, [id number] GENERAL SURGERY unspecified site of [phone] [place] breast [address] Social History Tobacco Use Types Packs/Day Years [...] Armendariz MD [facility] ONCOLOG[facility] [place], [place] [address] (Wo rk) 10/23/2021 Infusion Hematology and Oncology documented as of this encounter Procedures Procedure Name Priority Date/Time Associated Diagnosis Comme nts MAMMO SPECIMEN LEFT Routine 2018 11:35 AM Malignant neop lasm Results for this EDT of left breast in procedure are in female, estrogen the results receptor positive, section. unspecified site of breast documented in this encounter Results Mammo Specimen Left (2018 11:35 AM EDT) Anatomical Region Laterality Modality Breast Left Mammography Specimen (Source) Anatomical Location Collection Method / Collectio n Time Received Time / Laterality Volume Impressions 2018 11:38 AM EDT Positive specimen x-ray as described. Results phoned to the operating surgeon intraoperatively. Thank you for letting us participate in the care of this patient. For questions regarding this report, please contact [facility] number below. ? Narrative 2018 11:38 AM EDT EXAMINATION: Specimen x-ray INDICATION: Intraoperative specimen imag e for adequacy of lesion and/or clip removal TECHNIQUE: A single projection specimen x-ray from the left breast is obtained superimposed on alphanumeric grid COMPARISON: This is correlated with preo perative imaging FINDINGS: Both intact wires and clips as well as the mammographically apparent lesional tissue is apparent. Charlie Larry MD IMG MAMMO ORDERABLES documented in this encounter Visit Diagnoses Diagnosis Malignant neoplasm of left breast in fem radha, estrogen receptor positive, unspecified site of breast Breast cancer, stage 1, left documented in this encounter Care Teams Mohs Surgeon Relationship Specialty Start Date End Date Veronica Chun MD PCP - General Family Medicine 01/20/[address] [place] [address] documented as of this encounter
--- OUTSIDE RECORDS SUMMARY | 2021-10-23 02:24 | XMS_ITS | Encounter Summary ---
:1955 Author Organization [facility] [place] [address] Care Team Providers Name Role Phone Veronica [...] Expiration Date Visits Requ ested Visits Authorized [id number] 1 1 Encounter Details Date Type Department Care Team Description 2018 Hospital Encounter [place] [facility] Charlie Larry Malignant neoplasm [facility] MD Geoffrey of left breast in Drive [facility] female, estrogen [facility] receptor positive, [phone] GENERAL SURGERY unspecified site of [phone] [place] breast [address] Social History Tobacco Use Types Packs/Day Years [...] Armendariz MD [facility] [place], [place] [address] (Wo rk) 10/23/2021 Infusion Hematology and Oncology documented as of this encounter Procedures Procedure Name Priority Date/Time Associated Diagnosis Comme nts MAMMO NEEDLE Routine 2018 9:31 AM Malignant neoplasm Res ults for this LOCALIZATION MULTIPLE EDT of left breast in p rocedure are in LEFT female, estrogen the results receptor positive, section. unspecified site of breast documented in this encounter Results Mammo Needle Localization Multiple Left (2018 9:31 AM EDT) Anatomical Region Laterality Modality Breast [...] MAR Action Action Date Dose Rate Site lidocaine (XYLOCAINE) 10 mg/mL (1 Given 2018 9:10 AM EDT 1 0 mg %) injection 10 mg 10 mg, Intradermal, ONCE, 1 dose, On 07/31/18 at 0930, Routine documented in this encounter Care Teams College Service Officer Relationship Specialty Start Date End Date Veronica Chun MD PCP - General Family Medicine 01/20/[address] [place] [address] [address] [place] [address] documented as of this encounter
--- OUTSIDE RECORDS SUMMARY | 2021-10-23 02:24 | XMS_ITS | Encounter Summary ---
:1955 Author Organization [facility] [place] [address] Care Team Providers Name Role Phone Veronica Chun MD Primary Care Provider Encounter Details Date Type Department Care Team Description 10/09/2018 Office Visit Endocrinology at [facility] C Madeline Smith, [place] [address] ENDOCRINOLOGY [place], [place] [address] (Wo rk) Social History Tobacco [...] Sign Reading Time Taken Comments Blood Pressure 135/60 10/09/2018 9:39 AM EDT Pulse 76 10/09/2018 9:39 AM EDT Temperature 37.4 ??C (99.3 ??F) 10/09/2018 9:39 AM EDT Respiratory Rate 20 10/09/2018 9:39 AM EDT Oxygen Saturation 98% 10/09/2018 9:39 AM EDT Inhaled Oxygen Concentration - - Weight 112.6 kg (248 lb 3.2 oz) 10/09/2018 9:39 AM EDT Height 162.6 cm (5' 4) 10/09/2018 9:39 AM EDT Body Mass Index 42.6 10/09/2018 9:39 AM EDT documented in this encounter Progress Notes Madeline Smith, - 10/09/2018 9:30 AM EDT ENDOCRINOLOGY FOLLOW UP OUTPATIENT NOTE [facility] Name: Corina Brewster History of Present Illness: Mrs. Brewster is a 63 year old female with a medical history of DM, OA, AHM, coronary artery disease status-post stenting, nephrolithiasis and umbilical hernia that presents for reevaluation of thyroid nodule and hyperthyroidism. She was last seen in our clinic on 05/31/2018. Mrs. Brewster has a thyroid nodule, followed by our clinic dating back to February [address] Stark's ultrasound revealed a right 2.5 x 2.3 x 2.5 cm and a left 1.9 x 1.7 cm underwent FNA biopsy. Bothof the nodules were reported as benign with some question surrounding a clot formation making the interpretation difficult. A repeat ultrasound in March 2017 revealed a right sided nodule measuring 4.6 x 2.5 x 3.2 cm. Her labs revealed a hyperthyroid pattern (TSH<0.01, elevated free T4 1.99, elevated total T3 217) and she underwent radioactive iodine uptake scan and diagnosed with a toxic multinodular goiter. She was started on Methimaozole. At her last visit a thyroid ultrasound showed a left heterogeneous, hypoechoic nodule measuring 1.9 x 2.4 x 1.8 cm with punctate calcifications and right 5.6 x 4.0 x 2.6 cm hypoechoic nodule with calcifications. Because of increasing size, it was recommended she undergo definitive therapy. She underwent nuclear medicine scanning which revealed an uptake of 43% after 24 hours. She has since undergone I131 treatment. She reports that she tolerated it okay and the worse part was staying away from people and my dog. Since her last visit, she was diagnosed with left breast cancer, pT1cN0; ER/SC+, Her-2/jocelin-. She is following with oncology here at the [facility]. She is now status post surgery in July 2018. She has also started radiation. Past Medical History: Diabetes, type 2, diagnosed within the last ten years, taking Metformin BID CAD s/p stenting Arthritis Sleep apnea Nephrolithiasis Umbilical hernia Fibromyalgia ?? Surgical history: Hysterectomy, for endometriosis Bladder repair Bladder sling repair Lithotripsy Umbilical hernia repair Hand surgery ?? Social history: Occupational: Retired Alcohol: Denies Tobacco: Denies ?? Family History of Diabetes/ Endocrinopathies: Maternal history- HI, diabetes Paternal history- HI Siblings- Brother with lymphoma at age 54 Children- two children are healthy Maternal aunt with goiter, she does not recall anyone else in her family with thyroid problems She denies family history of cancer besides her brother with Lymphoma Allergies Allergen Reactions ??? Oxycodone Nausea And Vomiting Physical Exam: Most Recent Vitals: 10/09/18 0939 BP: 135/60 Pulse: 76 Resp: 20 Temp: 37.4 ??C (99.3 ??F) SpO2: 98% PainSc: 0 - No pain Body mass index is 42.6 kg/m??. General appearance - alert, well appearing, and in no distress Eyes - no proptosis Neck - supple, no significant adenopathy Chest - clear to auscultation, no wheezes Heart - normal rate, regular rhythm, normal S1, S2 Neurological - alert, oriented, no tremor, reflexes normal Musculoskeletal - no edema or cyanosis Skin - normal with skin tags Assessment: Mrs. Brewster is a 63 year old female with a medical history of DM, OA, HAM, coronary artery disease status-post stenting, nephrolithiasis and umbilical hernia that presents for reevaluation of thyroid nodule and hyperthyroidism. She was last seen in our clinic on 05/31/2018. She follows in our clinic for known multinodular thyroid goiter. At her last visit a thyroid ultrasound showed a left heterogeneous, hypoechoic nodule measuring 1.9 x 2.4 x 1.8 cm with punctate calcifications and right 5.6 x 4.0 x2.6 cm hypoechoic nodule with calcifications. Because of increasing size, it was recommended she undergo definitive therapy. She underwent nuclear medicine scanning which revealed an uptake of 43% after 24 hours. She has since undergone I131 treatment which she tolerated well. Notably, she was also recently diagnosed with left breast cancer, pT1cN0; ER/SC+, Her-2/jocelin-. She is following with oncology here at the [facility]. Our thyroid ultrasound today reveals a marked decrease in size compared to her last examination. At this point, we would like to repeat thyroid studies. It would be prudent to ensure that she has not hypothyroid, given that she is about 3 months out after ablation therapy. We have decided that if TSH is greater than 3 we will then recommend Levothyroxine. Plan: - TSH today - Return visit in 6 months for ultrasound Thank you for allowing us to provide care for your patient. The above case was discussed and reviewed with attending physician, Dr. Galindo. Madeline Smith DO Endocrinology, Diabetes and Metabolism Fellow 10/09/18 9:54 AM Madeline Smith DO - 10/09/2018 9:30 AM EDT ENDOCRINOLOGY THYROID ULTRASOUND REPORT Patient:Corina Brewster, [id number] Date of exam: 10/09/2018 Indication: Thyroid nodule history Comparison:06/15/2018 Ceramics Artist: Sarah Real time images of the thyroid gland were obtained using a BK 15mHz US machine. All measurements are given as Longitudinal/Sagittal x AP x Transverse. Right Lobe: Right thyroid glandhas heterogeneous texture and measures 5.2 x 2.0 x 3.0 cm. Left Lobe: Left thyroid lobe measures 3.0 x 2.2 x 2.1 cm with heterogeneous texture. Isthmus: The isthmus measures 0.8 cm Lateral neck: No abnormal lymph nodes or structures in the lateral neck. Impression: Heterogeneous thyroid gland with markedly reduced size compared to previous exam. Distinct nodularity difficult to ascertain. Madeline Smith DO, PGY5 Endocrinology, Diabetes and Metabolism Fellow 10/09/2018 9:57 AM Pager #[phone] IELT Tamara Galindo MD - 10/09/2018 9:30 AM EDT I have seen the patient and reviewed Dr. Madeline Smith's above history and I agree with the details as written. The assessment and plan were formulated in discussion with me and I agree with them as documented. I also directly supervised thyroid US and agree with the findings as written. Tamara Galindo MD, PhD, FACP, FACE documented in this encounter Miscellaneous Notes Addendum Note - Alex Garduno - 10/09/2018 9:30 AM EDT Addended by: ALEX GARDUNO on: 10/09/2018 10:35 AM Modules accepted: Orders documented in this encounter Plan of Treatment Upcoming Encounters Date Type Specialty Care Team Description 10/23/2021 Office Visit Hematology and Oncology Navid Armendariz MD [facility] ER DR ONCOLOGY [place] [phone] (Wo rk) 10/23/2021 Infusion Hematology and Oncology documented as of this encounter Procedures Procedure Name Priority Date/Time Associated Diagnosis Comme nts HC VENIPUNCTURE Routine 10/09/2018 10:42 AM Hyperthyroidism Re sults for this EDT procedure are i n the results section. documented in this encounter Results TSH (10/09/2018 10:42 AM EDT) athologist Signature TSH 1.93 0.27 - 4.20 [facility] mcIU/mL [facility] Specimen Anatomical Collection Method Collection Time Receive d Time (Source) Location / / Volume Laterality Blood specimen 10/09/2018 10:42 9 (specimen) AM EDT 11:08 AM EDT Resulting Agency Comment Spec In Lab Tamara Galindo MD CHEMISTRY ORDERABLES Performing Organization Address City/State/[place] [address] documented in this encounter Visit Diagnoses Diagnosis Hyperthyroidism Thyrotoxicosis without mention of goiter or other cause, without mention of thyrotoxic crisis or storm Breast cancer, stage 1, left documented in this encounter Care Teams Instructional Developer Relationship Specialty Start Date End Date Veronica Chun MD PCP - General Family Medicine 01/20/17 [address] [place] [address] documented as of this encounter
--- OUTSIDE RECORDS SUMMARY | 2021-10-23 02:24 | XMS_ITS | Encounter Summary ---
:1955 Author Organization [facility] [address] Care Team Providers Name Role Phone Veronica Chun MD Primary Care Provider Encounter Details Date Type Department Care Team Description 02/09/2019 Orders Only Hematology/Oncology at Navid Armendariz, Malignant neoplasm of [facility] left breast in female, [address] [place] [address] estrogen receptor [place], [place] positive, unspecified [id number] ONCOLOGY site of breast [phone] [place], [place] [address] Social History Tobacco Use Types [...] and Oncology Navid Armendariz MD [facility] ONCOLOGY [place], [place] [address] (Wo rk) 10/23/2021 Infusion Hematology and Oncology documented as of this encounter Visit Diagnoses Diagnosis Malignant neoplasm of left breast in fem radha, estrogen receptor positive, unspecified site of breast Breast cancer, stage 1, left documented in this encounter Care Teams Worm Packer Relationship Specialty Start Date End Date Veronica Chun MD PCP - General Family Medicine 01/20/17 [address] [place] [address] documented as of this encounter
--- OUTSIDE RECORDS SUMMARY | 2021-10-23 02:24 | XMS_ITS | Encounter Summary ---
:1955 Author Organization [facility] [place] [address] Care Team Providers Name Role Phone Veronica Chun MD Primary Care Provider Reason for Visit Consultation (Routine) - Closed Specialty Diagnoses / Procedures Referred By Contact Refer red To Contact Radiation Oncology Diagnoses Malignant neoplasm of upper-outer quadrant of left female breast, unspecified estrogen receptor status Maggy Ortega MD [facility] Office Procedures Simulation for Radiation Therapy Planning PRG RADIATION THERAPY PLAN COMPLEX PRG SET RADIATION THERAPY FIELD COMPLEX PRG RADIATION TREATMENT AID(S) INTERM PRG SET RADIATION THERAPY FIELD 3D RECON [address] PRG RESPIRATORY MOTION MANAG EMENT PLANNING PRG BASIC RADIATION DOSIMETRY CALCULATION PRG RADIATION TREATMENT AID(S) COMPLX PRG SET RADIATION THERAPY FIELD SIMPLE PRG RADIATION TREATMENT AID(S) COMPLX PRG SET RADIATION THERAPY FIELD SIMPLE RADIATION ONCOLOGY [place], [place] CHG RADN RX DELIVERY COMPLX =<5 MEV RADIOLOGY PORT FILM(S) CHG RADN PHYSICS CONSULT CONTINUING PRG RADIATION MANAGEMENT, [address] [address] [place] [phone] Fax: Referral ID Status Reason Start Date Expiration Date Visits V isits Requested Authorized [id number] Closed Consult, 08/28/2018 08/28/2019 1 1 Test & Treat Encounter Details Date Type Department Care Team Description 09/20/2018 Ancillary Appointment Radiation Oncology at Nettie Pickard [facility] [place] MD [address] RADIATION ONCOL OGY [address] [place], [place] [phone] (Wo rk) Social History Tobacco Use Types [...] PM EDT documented as of this encounter Patient Instructions Patient InstructionsLiz Jacques RN - 09/20/2018 12:00 PM EDT Information for Patients receiving radiation therapy to the Breast Approximately two weeks after your first treatment, you may begin to experience side effects caused by the radiation. These effects may continue throughout the treatment period and not start improving until 1-2 weeks after treatment is completed. Your doctor will tell you which side effects you are most likely to experience, when you will notice them and how long they might last. It is important to follow the appropriate instructions to minimize your discomfort. Skin Care ??? Wash skin in the treatment field with lukewarm water and mild or moisturizing, unscented soap daily. Blot skin dry with a soft towel. ??? Do not apply any ointment, salve, deodorant, perfume, cologne, cosmetic or self-remedy to the treatment area while you are undergoing radiation and for 1-2 weeks following treatment. An all naturaldeodorant with no aluminum can be used if necessary. ??? Moisturizing cream will be provided for you. This may be used in the treatment area once daily beginning on your first treatment day. Do not apply 2 hours before your radiation treatments. As dryness/redness develop you can use this more often. ??? Do not rub or scratch the skin in the treatment field. This includes shaving unless you use an electric razor. If your skin becomes dry or itchy, tell your nurse or doctor. If necessary, your doctor may order a medication specifically for this problem. ??? Do not use hot water bottles, heating lights, electric heating pads, or hot packs to the treatment area. ??? Keep treated areas out of the sun throughout the treatment period. Be careful of sun exposure tothe treatment field for one year following treatment. Please use SPF> 30 to all exposed areas of skin and limit sun exposure. ??? Avoid tight fitting clothes. We would prefer that you wear a cotton t-shirt instead of a bra. Ifyou are unable to go without a bra please wear a soft cotton bra without underwire. ??? Examine your skin in the treatment area daily and watch for changes. If you cannot reach the whole treatment field ask a family member to look at it and apply cream as needed. Be careful to keep the area under your breast clean and dry as this area can get irritated first. ??? You will meet with your nurse and doctor weekly. They will check your skin and help you with anyside effects you are having. Please ask to see the nurse if you have concerns in between these days. ??? During the last weeks of treatment you may notice some peeling of skin and/or a moist reaction. Be sure to let us know if this happens so we can provide you with further skin care instructions.. ??? Continue to stay active, walk daily, eat healthy foods and drink several glasses of water each day. You will have a weekly visit with Dr Pickard every after your treatment. A nurse is available every day as needed. If you wish to see a nurse while you are here, let the radiation therapists know, and they will inform te nurse to see you after your treatment. Fatigue You may notice that you feel unusually tired towards the end of treatment. This is not unusual. We recommend that you pace your activities and plan for rest periods to avoid becoming over-tired. Feel free to direct any questions or concerns you may have related to your treatment to your nurse or doctor. [facility] Radiation Oncology Our normal business hours are: Tuesday - Tuesday 8 AM to 5 PM [place], [place], [place] For emergent situations after hours please call for either location and ask for the Radiation Oncologist lead person. documented in this encounter Progress Notes Ziyad Pickard MD - 09/20/2018 12:00 PM EDT Simulation Note for External Beam Radiation Treatment Planning [facility] Lucio Brewster is a 63 y.o. year old female with breast cancer who was simulated for adjuvant radiotherapy to her left breast today. No changes were made from the plan as documented in the original simulation order and instructions. Briefly, she was immobilized using a wing board and a 2.5mm slice thickness CT scan of the patient'schest was then obtained. This scan was performed to delineate both target volumes and organs/structures at risk. These images will be used to create a customized treatment plan employing multileaf collimators and beams-eye view to treat the target to prescription dose while maximally sparing organs atrisk, with the overall goal of maximizing the likelihood of a favorable disease response while minimizing the likelihood of any short term side effects or care home complications of therapy. I anticipate her prescription dose will be 52.5 Gy to the left breast, delivered in daily 2.66 Gy fractions over the course of 4 weeks. Anticipate therapy to begin within the next 5 days. Furthermore, I anticipate this patient will require 3D conformal treatment planning as multiple conformal portals will be contructed to adequately cover the critical structures of interest (in this case, the tumor bed) with close margins that protect immediately adjacent sensitive structures (including her heart and lungs). If dosimetric constraints for a safe and efficacious radiotherapy plan cannotbe met using 3D conformal therapy, a IMRT or VMAT approach will be considered. The patient tolerated this procedure well, and was provided instructions with regard to upcoming appointments. documented in this encounter Plan of Treatment Upcoming Encounters Date Type Specialty Care Team Description 10/23/2021 Office Visit Hematology and Oncology Navid Armendariz MD [facility] ONCOLOGY [place], [place] [address] (Wo rk) 10/23/2021 Infusion Hematology and Oncology documented as of this encounter Visit Diagnoses Not on filedocumented in this encounter Care Teams Application Tester Relationship Specialty Start Date End Date Veronica Chun MD PCP - General Family Medicine 01/20/17 [address] [place] [address] documented as of this encounter
--- OUTSIDE RECORDS SUMMARY | 2021-10-23 02:24 | XMS_ITS | Encounter Summary ---
:1955 Author Organization [facility] [place] [address] Care Team Providers Name Role Phone Veronica Chun MD Primary Care Provider Encounter Details Date Type Department Care Team Description 12/01/2018 Office Visit Hematology/Oncology Navid Armendariz Br east cancer, stage 1, left; at [facility] Osteopenia, unspecified location [address] [place] [phone] ONCOLOGY [phone] [place], [place] [address] Social History Tobacco Use Types [...] Sign Reading Time Taken Comments Blood Pressure 147/72 12/01/2018 2:47 PM EDT Pulse 76 12/01/2018 2:47 PM EDT Temperature 36.8 ??C (98.2 ??F) 12/01/2018 2:47 PM EDT Respiratory Rate 18 12/01/2018 2:47 PM EDT Oxygen Saturation 99% 12/01/2018 2:47 PM EDT Inhaled Oxygen Concentration - - Weight 113.9 kg (251 lb 3.2 oz) 12/01/2018 2:47 PM EDT Height - - Body Mass Index 43.12 10/09/2018 9:39 AM EDT documented in this encounter Progress Notes Navid Armendariz MD - 12/01/2018 3:00 PM EDT Subjective: Patient ID: Corina Brewster is a 63 y.o. female. Problem List: 1. Cancer of the left breast, pT1cN0; ER/RI+, Her-2/jocelin - A. [place] [facility] [place] - FINDINGS: Left breast: Within [...] cancer cells with immunostaining) Stain intensity: Strong RI immunoreactivity: Positive (>90% cancer cells with immunostaining) [...] Nodes Examined: ?? 7 ? Number of Murtaugh Nodes Examined: ?3 Pathologic Stage Classification (pTNM, [...] therapy to the left breast on 10/31/18. On presentation today, she is by herself. She did pretty well with the radiation. She had some erythema of the skin which is improving. She still has some areas such as on the undersurface of the arm She is feeling generally well and healing [...] or SOB Soc Hx: , lives in [place], [place] Tob - Never Etoh - Rare [...] guarding. Genitourinary: Genitourinary Comments: Breast exam - tanning of the skin of the right breast with peeling. No areasof desquamation or infection. Some dimpling consistent with induration. No discrete masses in eitherbreast. Musculoskeletal: She exhibits no edema. Lymphadenopathy: She [...] I cancer of the left breast(pT1c, N0, ER/RI +, Her-2/jocelin -). She had a screening bilateral mammogram done in 05/2018. The right breast was negative. On the left, a 1.5 cm mass was seen in the UOQ with microcalcifications anterior and medial to the mass. US guidedbiopsy was performed on 06/27/18. Path showed invasive ductal carcinoma, low grade with an SBR score of 5, and DCIS, low to intermediated grade. ER/RI was positive with strong staining and Her-2/jocelin [...] adjuvant radiation therapy from 10/03/18 to 10/31/18. Our plan is to start hormonal therapy with an aromatase inhibitor. A dexa scan was done on 11/23/18. Findings are consistent with osteopenia. BMD may be worsened by AIs. Therefore, asked that she start calcium with vitaimin D and encouraged weight bearing activity. She does not smoke and rarely drinks a lcohol. We will check her vitamin D level. Given the question of anterior L3 compression fracture, Ithink it is reasonable to consider bisphosphonate therapy and we talked today about starting reclast, 5 mg once a year. We reviewed potential side effects of bisphosphonate therapy, including transientflu-like symptoms, renal insufficiency, hypocalcemia, and osteonecrosis of the jaw (ONJ). The latteris a rare problem that is dependent upon the dose and duration of bisphosphonate treatment. It is most common in cancer patients with bone metastases who are treated with monthly doses of IV bisphosphonates for longer than two years. In patients with early-stage breast cancer, the incidence of IV ZA-related ONJ is about 0.25 percent. She would prefer not to start a bisphosphonate at this time. She isgoing to start the caltrate with D. I gave her a prescription today for anastrozole. I will see her in 6-8 weeks to see how she is doingwith the arimidex and will have her vit D level checked at that time. She is planning to schedule anappt with Dr. Larry in 02/08 with a left mammogram. The next bilateral mammogram will be due in 05/2019. documented in this encounter Plan of Treatment Upcoming Encounters Date Type Specialty Care Team Description 10/23/2021 Office Visit Hematology and Oncology Navid Armendariz MD [facility] DR ONCOLOGY [place] [address] (Wo rk) 10/23/2021 Infusion Hematology and Oncology documented as of this encounter Procedures Procedure Name Priority Date/Time Associated Diagnosis Comme nts LAB SCAN 01/19/2019 12:00 AM Results for this EST procedure are i n the results section . LAB SCAN 12/07/2018 12:00 AM Results for this EDT procedure are i n the results section . documented in this encounter Results SCAN DOC: LAB (01/19/2019 12:00 AM EST) Narrative 01/19/2019 12:00 AM EST This result has an attachment that is no t available. Ordered by an unspecified provider. Scanning Provider MEDIA MGR SCAN EXT ORDR/RSLT SCAN DOC: LAB (12/07/2018 12:00 AM EDT) Narrative 12/07/2018 12:00 AM EDT This result has an attachment that is no t available. Ordered by an unspecified provider. Scanning Provider MEDIA MGR SCAN EXT ORDR/RSLT documented in this encounter Visit Diagnoses Diagnosis Breast cancer, stage 1, left Osteopenia, unspecified location Breast cancer, stage 1, left documented in this encounter Care Teams Municipal Court Judge Relationship Specialty Start Date End Date Veronica Chun MD PCP - General Family Medicine 01/20/[address] [place] [address] [address] [place] [address] documented as of this encounter
--- OUTSIDE RECORDS SUMMARY | 2021-10-23 02:24 | XMS_ITS | Encounter Summary ---
:1955 Author Organization [place] [address] Care Team Providers Name Role Phone Veronica Chun MD Primary Care Provider Reason for Referral Consultation (Routine) - Closed Specialty Diagnoses / [...] PRG SET RADIATION THERAPY FIELD 3D RECON [place] [id number] PRG RESPIRATORY MOTION MANAG EMENT PLANNING PRG BASIC RADIATION DOSIMETRY CALCULATION PRG RADIATION TREATMENT AID(S) COMPLX PRG SET RADIATION THERAPY FIELD SIMPLE PRG RADIATION TREATMENT AID(S) COMPLX PRG SET RADIATION THERAPY FIELD SIMPLE RADIATION ONCOLOGY [place], [place] CHG RADN RX DELIVERY COMPLX =<5 MEV RADIOLOGY PORT FILM(S) CHG RADN PHYSICS CONSULT CONTINUING PRG RADIATION MANAGEMENT, 5 TREAT[address] [address] [place] [phone] Fax: Referral ID Status Reason Start Date Expiration Date Visits V isits Requested Authorized [id number] Closed Consult, 08/28/2018 08/28/2019 1 1 Test & Treat Reason for Visit Reason Comments Radiation Consult Consultation (Routine) - Closed Specialty Diagnoses / Procedures Referred By Contact Refer red To Contact Radiation Oncology Diagnoses Breast cancer SURG 07/31 Charlie Larry MD Stj Rad Onc Office [facility] D R [address] [place] [phone] Fax: Referral ID Status Reason Start Date Expiration Date Visits Requ ested Visits Authorized [id number] Closed 07/20/2018 07/20/2019 1 1 Encounter Details Date Type Department Care Team Description 08/28/2018 Office Visit Radiation Oncology at [facility], Shanon Espana MD Malignant neoplasm of [facility] upper-outer quadrant [address] [place] [address] DR of left female breast, [place], [place] RADIATION ONCOL OGY unspecified estrogen [id number] [place] [address] receptor status [phone] Social History Tobacco Use Types Packs/Day Years [...] Sign Reading Time Taken Comments Blood Pressure 147/77 08/28/2018 9:05 AM EDT Pulse 75 08/28/2018 9:05 AM EDT Temperature 37.1 ??C (98.8 ??F) 08/28/2018 9:05 AM EDT Respiratory Rate 18 08/28/2018 9:05 AM EDT Oxygen Saturation 98% 08/28/2018 9:05 AM EDT Inhaled Oxygen Concentration - - Weight 113.5 kg (250 lb 3.2 oz) 08/28/2018 9:05 AM EDT Height - - Body Mass Index 42.72 08/16/2018 11:32 AM EDT documented in this encounter Progress Notes Oliva Mansfield RN - 08/28/2018 9:00 AM EDT RADIATION ONCOLOGY NURSING INITIAL NURSING ASSESSMENT IDENTIFICATION: Corina Brewster is a 63 y.o. year-old female with newly diagnosed left breast cancer. PRESENTING SYMPTOMS/CHIEF COMPLAINT: abnormal screening mammogram led to further testing and diagnosis. REVIEW OF SYSTEMS: Review of Systems - Oncology IN THE PAST 12 MONTHS HAVE YOU: Fallen more than one time? No Injured yourself as result of the fall? N/A Experienced difficulty with walking/problems with balance? no Do you use any assistive devices? no Any history of collagen vascular diseases: No Any Implanted Devices/Hardware: heart stent placed at least 10 years ago. If yes please put alert in ARIA patient summary Prior Radiotherapy: Yes Prior Chemotherapy: No Prior Hormone Therapy: yes Hormone replacement Hysterectomy at 27. Thinks has 1 ovary LEARNING ASSESSMENT REVIEWED: Yes ADVANCED DIRECTIVE: Not addressed this encounter. PAIN ASSESSMENT: 2 out of 10 *eD-H Adult PCS Flow Sheet if 4 or above SOCIAL ASSESSMENT: See EDH social assessment information entered. Support Systems: Genna Barriers to treatment: None identified Referrals/Interventions: VISOR INSTALLER per routine RADIATION SPECIFIC TEACHING: [facility] Radiation Therapy and You Site specific teaching : To be done by nursing on day of simulation. Other: PLAN: Per Dr. Ortega. Maggy Ortega MD - 08/28/2018 9:00 AM EDT Images from the original note were not included. CC: Referred by Dr. Chun for eval for xrt for breast ca. HPI: 63 y/o f who presented w/L breast abnlty on screening mmg. DH interp 06/16/18 B screening mmg, 06/19/18 dx'ic L mmg & 06/19/18 L breast US: 1.5 cm mass @ 2:00, 9.5 cm from nipple, w/microcalcs anterior & medial to mass. R breast benign. 06/27/18 dx'ic L mmg: L breast lesion #1, 1.5 cm mass @ 2:00, 10 cm from nipple, w/microcalcs extending ant & post to mass spanning 4.7 cm. L breast lesion #2, 1.2 cm microcalcs @ 2:00, 5 cm from nipple. 06/27/18 US palpable R breast mass @ 12:00: Benign 2 cm lipoma. 06/27/18 US guided needle core bx L breast lesion #1 & stereotactic guided needle core bx L breastlesion #2. Path: A - L breast lesion #1: IDC, low gr, ER+AZ+, Her2 FISH neg; DCIS B - L breast lesion #2: DCIS 07/10/18 MRI B breast: Extensive nonmass enhancement @ 2:00, extending anteriorly to base of nipple, spanning 10 cm ant to post, w/dominant 1.8 cm mass as posterior component, 9 cm from nipple. R breastnl. No adenopathy. 07/19/[address] Larry showed no breast mass/adenopathy. 07/31/18 NLOC L breast lumpectomy lesion #1 @ 2:00, 5 cm from nipple & lesion #2 @ 2:00, 2 cm from nipple. Specimen mmg. SNB. Removal skin tag inferior to L eye. Path: IDC, 1.7 cm, gr 1; +DCIS; LVI cannot be determined (A small arteriole shows tumor w/in lumen w/intimal reactive change); RM neg; 7 lymph nodes (3 sentinel, all neg, 0/7), pT1c pN0. 08/16/[address] Moya; discussion about tx options of endocrine tx, chemo, Oncotype DX ordered. 08/16/18 postop check w/Dr. Larry; adjuvant hormonal tx & xrt rec'd; rtc 6 mos w/mmg. ROS: Healing well. Discomfort @ surg site managed w/ibuprofen 400 mg, 1-2 X/d. No hand/arm swelling.ROM arms around shoulders nl. Energy level good. Accompanied by daughter. Past Medical History: Diagnosis Date ??? Breast cancer ??? CAD (coronary artery disease) s/p circumflex angioplasty and stent ??? Diabetes ??? Essential hypertension ??? GERD (gastroesophageal reflux disease) ??? History of thyroid nodule ??? Hyperlipemia ??? HAM (obstructive sleep apnea) ??? Restless leg syndrome ??? Trigger finger, left middle finger ??? Trigger finger, right index finger S/p I-131 in June 2018 for hyperthyroidism. OA. Nephrolithiasis Past Surgical History: Procedure Laterality Date ??? CORONARY ANGIOPLASTY WITH STENT PLACEMENT 2008 ??? HYSTERECTOMY age 27 ??? MAMMO STEREOTACTIC BIOPSY LEFT N/A 06/27/2018 Mammo Stereotactic Biopsy Left 06/27/2018 Liseth Henson MD [facility] RAD MAMMOGRAPHY ??? MAMMO US BIOPSY LEFT Left 06/27/2018 Mammo Us Biopsy Left 06/27/2018 Liseth Henson MD [facility] RAD MAMMOGRAPHY ??? PRO BX/REMV, LYMPH NODE, DEEP AXILL Left 2018 BIOPSY OR EXCISION OF LYMPH NODE(S), OPEN, DEEP AXILLARY NODE(S) (WRVU 6.43) performed by Charlie Larry MD at [facility] OSC ??? PRO EXC SKIN BENIG 0.6-1CM FACE, FACIAL N/A 2018 EXC BENIGN LESION ,RAINER .6 TO 1.0CM, FACE (WRVU 1.53) performed by Charlie Larry MD at [facility] ??? PRO INTRAOP SENTINEL LYMPH ID W/DYE INJECTION Left 2018 INTRAOPERATIVE ID (MAPPING) SENTINEL LYMPH NODE,INCLUDES INJECTION (WRVU 2.5) performed by Charlie Larry MD at [facility] ??? PRO MASTECTOMY, PARTIAL Left 2018 MASTECTOMY PARTIAL (WRVU 10.13) performed by Charlie Larry MD at [facility] Unilat oophorectomy Umbilical herniorrhaphy Bladder repair x 2 Carpal tunnel surgery C-sxn Your Medications Accurate as of 08/28/18 9:27 AM. If you have any questions, ask your nurse or doctor. Continued medications with new dosing Dose Details aspirin 81 mg Tbec What changed: See the new instructions. Refills: 0 Continued medications, unchanged Dose Details acetaminophen 325 mg Tab Commonly known as: TYLENOL Take 2 tablets by mouth every 4 hours as needed for Pain. 650 mg Quantity: 30 tablet Refills: 1 atenolol 50 mg Tab Commonly known as: TENORMIN Take 50 mg by mouth daily. 50 mg Refills: 0 atorvastatin 40 mg Tab Commonly known as: LIPITOR Take 40 mg by mouth daily. 40 mg Refills: 0 hydroCHLOROthiazide 12.5 mg Cap Commonly known as: MICROZIDE 12.5MG = 1 Capsule(s), PO, Once daily Refills: 0 ibuprofen 400 mg Tab Commonly known as: ADVIL;MOTRIN Take 1 tablet by mouth every 6 hours as needed for Pain. 400 mg Quantity: 30 tablet Refills: 12 metFORMIN 1,000 mg Tab Commonly known as: GLUCOPHAGE take 1 tablet by mouth twice a day Refills: 0 methIMAzole 5 mg Tab Commonly known as: TAPAZOLE Take 0.5 tablets by mouth daily. 2.5 mg Quantity: 15 tablet Refills: 11 naproxen sodium 220 mg Cap Commonly known as: ALEVE Take by mouth as needed. Refills: 0 nitroGLYcerin 0.4 mg Subl Commonly known as: NITROSTAT Refills: 0 VITAMIN D ORAL Take 1,000 mg by mouth daily. 1000 mg Refills: 0 zolpidem 12.5 mg Tbmp Commonly known as: AMBIEN CR nightly. Refills: 0 Physical Exam Constitutional: She is oriented to person, place, and time. She appears well- developed and well-nourished. No distress. BP 147/77 (Patient Position: Sitting) Pulse 75 Temp 37.1 ??C (98.8 ??F) (Oral) Resp 18 Wt 113.5 kg (250 lb 3.2 oz) SpO2 98% BMI 42.72 kg/m?? HENT: Head: Normocephalic and atraumatic. Eyes: Conjunctivae and EOM are normal. Right eye exhibits no discharge. Left eye exhibits no discharge. No scleral icterus. Neck: Normal range of motion. Neck supple. No tracheal deviation present. Pulmonary/Chest: Effort normal. No stridor. No respiratory distress. Right breast exhibits no inverted nipple, no mass, no nipple discharge, no skin change and no tenderness. Left breast exhibits no inverted nipple, no mass, no nipple discharge, no skin change and no tenderness. Abdominal: Soft. She exhibits no distension and no mass. There is no tenderness. There is no reboundand no guarding. Musculoskeletal: Normal range of motion. She exhibits no edema, tenderness or deformity. Lymphadenopathy: Head (right side): No submental, no submandibular, no preauricular, no posterior auricular and no occipital adenopathy present. Head (left side): No submental, no submandibular, no preauricular, no posterior auricular and no occipital adenopathy present. She has no cervical adenopathy. She has no axillary adenopathy. Right: No supraclavicular adenopathy present. Left: No supraclavicular adenopathy present. Neurological: She is alert and oriented to person, place, and time. No cranial nerve deficit. She exhibits normal muscle tone. Coordination normal. Skin: Skin is warm and dry. She is not diaphoretic. Multiple skin tags on upper thorax & neck. Psychiatric: She has a normal mood and affect. Her behavior is normal. Judgment and thought content normal. A: Breast ca, L, gr 1, ER+AZ+, Her2 neg, +DCIS, s/p lumpectomy & SNB, pT1c pN0, LVI indeterminant. P: Xrt to L breast rec'd to increase likelihood of ca control. Xrt would be given in 20 fxs. If chemo given, usually chemo precedes xrt. Possible side effects of xrt to breast discussed, w/acute/immediate side effects including: Pinkening, soreness & peeling of skin in treated area; swelling of treated breast; soreness of treated breast; cough; shortness of breath; tiredness. Late/long wall mining machine tender side effects to breast discussed include: Treated breast may shrink, become firmer & sit higher on chest; achiness/stiffness of chest wall on treated side; slight increase in small risk of dying of heart disease (from 1.9% to 2.4%) in women irradiated to L breast/chest; rib fractureon treated side; CT after xrt may show scarring w/in small volume of lung on treated side; very small risk of radiotherapy associated 2nd malignancy. Need for CTsim prior to xrt discussed. At CTsim, she will be assessed for use of deep inspiration breath hold (DIBH) to decrease xrt dose to heart. She would like to proceed w/xrt & will return for CTsim in near future. 25 mins of 40 min face to face visit w/Corina spent discussing rationale for xrt; hoped for benefit of xrt; possible side effects/complications of xrt; prevention/management of side effects/complications of xrt; logistics of daily xrt; timing of xrt vis a vis chemo; CTsimulation w/eval for DIBH; arm position required for xrt; followup after completion of xrt. Radiation ndiaye:Campbell protocol and Whole breast w/ tangents Radiation boost:Yes Total dose of radiation: 52.56 Gy documented in this encounter Plan of Treatment Upcoming Encounters Date Type Specialty Care Team Description 10/23/2021 Office Visit Hematology and Oncology Navid Armendariz MD [facility] DR ONCOLOGY [place], [place] [address] (Wo rk) 10/23/2021 Infusion Hematology and Oncology Scheduled Orders Name Type Priority Associated Diagnoses Order S chedule Simulation for Procedures Routine Malignant neoplasm of Or[place] red: 08/28/2018 Radiation Therapy upper-outer quadrant of Planning left female breast, unspecified estrogen receptor status documented as of this encounter Visit Diagnoses Diagnosis Malignant neoplasm of upper-outer quadra nt of left female breast, unspecified estrogen receptor status Breast cancer, stage 1, left documented in this encounter Care Teams Stock Broker Relationship Specialty Start Date End Date Veronica Chun MD PCP - General Family Medicine 01/20/[address] [place] [address] [address] [place] [address] documented as of this encounter
--- OUTSIDE RECORDS SUMMARY | 2021-10-23 02:24 | XMS_ITS | Encounter Summary ---
:1955 Author Organization [facility] [place] [address] Care Team Providers Name Role Phone Veronica Chun MD Primary Care Provider Encounter Details Date Type Department Care Team Description 11/21/2018 Telephone Radiation Oncology at Liz Jacques RN [address] [phone] Social History Tobacco Use [...] this encounter Miscellaneous Notes Telephone Encounter - Liz Jacques RN - 11/21/2018 11:33 AM EDT Radiation Oncology Nurse Telephone Note [facility] [place], [place] Patient called clinic stating that her blood sugar peeked in the 300's a couple days ago. She inquires if the radiation to her breast would cause this. She is seeing her PCP is a couple weeks with lab prior. She states that she cancelled the appt with Dr Pickard for 11/23 because she is doing well with her skin reaction. The nipple area is still terribly sensitive but otherwise OK. She asked for clarification between the Jeans cream and silvadene and which is better to use. Intervention: She was informed that her blood sugar elevation is not an anticipated side effect of her radiation treatments. Recommended that she contact her PCP about this. Pt instructed that Jeans cream is helpful for mild skin reaction if the skin is not peeling, howeverthe silvadene is more effective for the skin that is peeling. Recommended that she apply silvadene to the area on her nipple which will also help prevent infection. Patient verbalized understanding of these instructions. documented in this encounter Plan of Treatment Upcoming Encounters Date Type Specialty Care Team Description 10/23/2021 Office Visit Hematology and Oncology Navid Armendariz MD [facility] DR ONCOLOGY [place], [place] [address] (Wo rk) 10/23/2021 Infusion Hematology and Oncology documented as of this encounter Visit Diagnoses Not on filedocumented in this encounter Care Teams Director Law Enforcement Relationship Specialty Start Date End Date Veronica Chun MD PCP - General Family Medicine 01/20/[address] [place] [address] [address] [place] [address] documented as of this encounter
--- OUTSIDE RECORDS SUMMARY | 2021-10-23 02:24 | XMS_ITS | Encounter Summary ---
:1955 Author Organization [facility] [place] [address] Care Team Providers Name Role Phone Veronica Chun MD Primary Care Provider Encounter Details Date Type Department Care Team Description 2019 Telephone Hematology and Oncology at BerriosRajeev castano, [facility] [place] [phone] Social History Tobacco Use Types Packs/Day [...] this encounter Miscellaneous Notes Telephone Encounter - Marcelina Berrios, RN - 2019 2:52 PM EDT Spoke with Ms. Brewster to provide information on caregiver, mask and screening guidelines. ??? One caregiver will be allowed to assist and wait with the patient in the waiting area. ??? When it is time for the appointment, a staff member will come to the waiting room and take the patient only into the exam room to obtain vital signs and complete other pre-appointment tasks. ??? Caregivers will be asked to remain in the waiting room as space is extremely limited in our examrooms. This helps us maintain physical distancing and meet safety recommendations during this CoVID 19 pandemic. ??? If the provider would like to speak with the caregiver during any portion of the visit, they will invite the caregiver into the exam room. ??? If the patient is coming to the appointment alone but would like a caregiver to be a part of their medical care and decision making, the patient should arrive to the appointment with the caregiver's phone number, and the provider will call the caregiver during the appointment. SCREENING: ??? Please arrive at least 15-30 minutes in advance of your appointment to allow for the screening process at the door. We will screen you, and anyone with you, for CoVid symptoms and take your temperature. All patients, caregivers, and staff are being screened each time they enter the facility. MASKS: ??? Please be aware that you will need to wear a mask while you are at the hospital. ??? You will be allowed to wear your own mask if you have one, and if you don't, we will give you one to wear. ??? If you are symptomatic you will need to wear a [facility] [place]issued mask. PHONE SCREENING: ??? In order for us to be able to make the best plan to provide your care safely, we need to ask yousome screening questions. o Are you currently experiencing any new (within the past 14 days) shortness of breath, cough, nasalcongestion or drainage, or fever? o Have you recently been exposed to anyone with CoVID 19? o Do you or anyone in your household have a CoVID19 test pending or been tested recently? If you develop any of these symptoms prior to your appointment, please contact the Cancer Centerfor further instructions before coming to the hospital. Pt denies any covid symptoms. documented in this encounter Plan of Treatment Upcoming Encounters Date Type Specialty Care Team Description 10/23/2021 Office Visit Hematology and Oncology Navid Armendariz MD [facility] ONCOLOGY [place], [place] [address] (Wo rk) 10/23/2021 Infusion Hematology and Oncology documented as of this encounter Visit Diagnoses Not on filedocumented in this encounter Care Teams Catering Truck Operator Relationship Specialty Start Date End Date Veronica Chun MD PCP - General Family Medicine 01/20/[address] [place] [address] [address] [place] [address] documented as of this encounter
--- OUTSIDE RECORDS SUMMARY | 2021-10-23 02:24 | XMS_ITS | Encounter Summary ---
:1955 Author Organization [facility] [place] [address] Care Team Providers Name Role Phone Veronica Chun MD Primary Care Provider Reason for Visit Reason Onset Date Comments Questions 03/16/2019 Question labs for ne xt appt. Encounter Details Date Type Department Care Team Description 03/16/2019 Telephone Hematology/Oncology at Liliana Cash, Questions (Question [facility] RN labs for next appt.) [address] [place] [phone] Social History Tobacco Use Types Packs/Day [...] Telephone Encounter - Liliana Cash RN - 03/16/2019 1:58 PM EST Patient misread date of appt. And had labs drawn 03/13. Appt. 04/13. Dr. Armendariz consulted and it is oknot to have labs redrawn. Confirmed that patient is taking hormone anneliese exemestane. Patient satisfied with encounter. documented in this encounter Plan of Treatment Upcoming Encounters Date Type Specialty Care Team Description 10/23/2021 Office Visit Hematology and Oncology Navid Armendariz MD [facility] DR ONCOLOGY [place], [place] [address] (Wo rk) 10/23/2021 Infusion Hematology and Oncology documented as of this encounter Visit Diagnoses Not on filedocumented in this encounter Care Teams Computer Networker Relationship Specialty Start Date End Date Veronica Chun MD PCP - General Family Medicine 01/20/[address] [place] [address] [address] [place] [address] documented as of this encounter
--- OUTSIDE RECORDS SUMMARY | 2021-10-23 02:24 | XMS_ITS | Encounter Summary ---
:1955 Author Organization [facility] [place] [address] Care Team Providers Name Role Phone Veronica Chun MD Primary Care Provider Encounter Details Date Type Department Care Team Description 10/05/2018 Office Visit Radiation Oncology at Ziyad Pickard M alignant neoplasm of [facility] upper-outer quadrant [address] of left female [place], [place] RADIATION ONCOL OGY breast, unspecified [id number] [place], [place] estrogen receptor [phone] status [phone] (Wo rk) Social History Tobacco Use Types [...] Sign Reading Time Taken Comments Blood Pressure 183/89 10/05/2018 2:00 PM EDT Pulse 70 10/05/2018 2:00 PM EDT Temperature 37 ??C (98.6 ??F) 10/05/2018 2:00 PM EDT Respiratory Rate 20 10/05/2018 2:00 PM EDT Oxygen Saturation 99% 10/05/2018 2:00 PM EDT Inhaled Oxygen Concentration - - Weight 115.2 kg (254 lb) 10/05/2018 2:00 PM EDT Height - - Body Mass Index 43.36 09/22/2018 3:02 PM EDT documented in this encounter Progress Notes Ziyad Pickard MD - 10/05/2018 2:30 PM EDT Images from the original note were not included. RADIATION ONCOLOGY - Weekly On Treatment Visit Note 10/05/18 Ziyad Pickard MD, MS Radiation Oncology [facility] [phone] (paging loading machine operator helper) Pager #[phone] PATIENT IDENTIFICATION Name Corina Brewster Date of 1955 PCP Veronica Chun MD Referring MD (if different) Dr. Larry Diagnosis Cancer Staging Malignant neoplasm of upper-outer quadrant of left breast in female, estrogen receptor positive Staging form: Breast, AJCC 8th Edition - Clinical: Stage IA (cT1c, cN0(sn), cM0, G1, ER+, [place]+, HER2-) - Signed by Ziyad Pickard MD on 09/15/2018 RADIOTHERAPY DETAILS Treatment Intent: Definitive (Adjuavant) Concurrent Therapy: None Initial Treatment Site Left breast Prescribed Dose 42.5 Gy in 16 fractions Boost Treatment Site Left lumpectomy cavity Prescribed Dose 52.5 Gy in 4 fractions Current Dose: 8 Gy in 3 fractions INTERVAL HISTORY Subjective: General - No changes since last seen. Started this week. Breast - No pain or swelling. She does have the 'twinges' of discomfort. Pain: Pain score today is 0/10. MEDS Medications 10/05/18 8787 Medication Sig Taking? CREAM BASE NO.103, BULK, TOP Apply topically. Jeans cream to area of radiation, twice a day, no lessthan 2 hours prior to radiation treatment Yes naproxen sodium (ALEVE) 220 mg Capsule Take by mouth as needed. Yes atorvastatin (LIPITOR) 40 mg Tablet Take [...] Pain. Patient not taking: Reported on 08/28/2018 ibuprofen (ADVIL;MOTRIN) 400 mg Tablet Take 1 tablet by mouth every 6 hours as needed for Pain. Patient not taking: Reported on 09/22/2018 nitroGLYcerin (NITROSTAT) 0.4 mg SL tablet IMAGING / LABS: I have personally reviewed this patient's interval portal imaging to confirm accurate positioning and alignment which matches the patient's original approved treatment planning images. EXAM: BP 183/89 Pulse 70 Temp 37 ??C (98.6 ??F) Resp 20 Wt 115.2 kg (254 lb) SpO2 99% BMI 43.36 kg/m?? Constitutional: she appears well-developed and well-nourished. No distress. Skin: No redness Performance Status: KPS Score ECOG Grade Definition [...] radiotherapy: Tolerating as anticipated. Continue as planned. documented in this encounter Plan of Treatment Upcoming Encounters Date Type Specialty Care Team Description 10/23/2021 Office Visit Hematology and Oncology Navid Armendariz MD [facility] [address] ONCOLOGY [place], [place] [address] (Wo rk) 10/23/2021 Infusion Hematology and Oncology documented as of this encounter Visit Diagnoses Diagnosis Malignant neoplasm of upper-outer quadra nt of left female breast, unspecified estrogen receptor status Breast cancer, stage 1, left documented in this encounter Care Teams Recreation Facility Manager Relationship Specialty Start Date End Date Veronica Chun MD PCP - General Family Medicine 01/20/[address] [place] [address] documented as of this encounter
--- OUTSIDE RECORDS SUMMARY | 2021-10-23 02:24 | XMS_ITS | Encounter Summary ---
:1955 Author Organization [facility] Address [place] [place] [address] Care Team Providers Name Role Phone Veronica Chun MD Primary Care Provider Encounter Details Date Type Department Care Team Description 01/25/2019 [facility] [place] breast in female, [facility] est [address] DR positive, unspecified [place], [place] GENERAL SURGERY site of breast [address] [place] [address] [phone] Social History Tobacco Use Types Packs/Day Years [...] Sign Reading Time Taken Comments Blood Pressure 148/67 01/25/2019 11:12 AM EST Pulse 66 01/25/2019 11:12 AM EST Temperature 36.9 ??C (98.5 ??F) 01/25/2019 11:12 AM EST Respiratory Rate 16 01/25/2019 11:12 AM EST Oxygen Saturation 96% 01/25/2019 11:12 AM EST Inhaled Oxygen Concentration - - Weight 112.1 kg (247 lb 3.2 oz) 01/25/2019 11:12 AM EST Height - - Body Mass Index 42.43 01/19/2019 11:28 AM EST documented in this encounter Progress Notes Charlie Larry MD - 01/25/2019 11:15 AM EST Chante Brewster is a 63-year-old woman who returns after left partial mastectomy [...] dx score 13, low. Received XRT in [facility]. Dr. Armendariz prescribed Arimidex, caused GI upset, she is now on exemestane She now returns for a check. Has Not felt any breast masses. On physical exam there are no right or left breast masses. She does have some left breast edema. No axillary adenopathy. Left mammo from today: new baseline, looks benign to my eye. Skin thickening is present. Impression: No evidence of breast cancer recurrence. Some skin edema. Plan: Will see if we can get her in to see a breast physical therapist for breast massage instruction. I will plan to see her back in 6 months with a bilateral mammogram. documented in this encounter Plan of Treatment Upcoming Encounters Date Type Specialty Care Team Description 10/23/2021 Office Visit Hematology and Oncology Navid Armendariz MD [facility] [address] ONCOLOGY [place], [place] [address] (Wo rk) 10/23/2021 Infusion Hematology and Oncology documented as of this encounter Results Mammo Screening Cad and Fernando Bilateral (08/01/2019 11:06 AM EDT) Anatomical Region [...] result letter has been sent to this pa tient by the [facility]. BIRADS CATEGORY 2: BENIGN FINDINGS [employer] and Th e Society [...] left documented in this encounter Care Teams Salesperson Men'S Hats Relationship Specialty Start Date End Date Veronica Chun MD PCP - General Family Medicine 01/20/17 [address] [place] [address] documented as of this encounter
--- OUTSIDE RECORDS SUMMARY | 2021-10-23 02:24 | XMS_ITS | Encounter Summary ---
:1955 Author Organization [facility] [place] [address] Care Team Providers Name Role Phone Veronica Chun MD Primary Care Provider Encounter Details Date Type Department Care Team Description 01/19/2019 Office Visit Hematology/Oncology Rodger Armendariz MD [facility] [place] [address] Breast cancer, stage at [facility], [facility], [address] [place] [address] 1, left [address] [place] [phone] Social History Tobacco Use Types Packs/Day [...] Sign Reading Time Taken Comments Blood Pressure 153/74 01/19/2019 11:28 AM EST Pulse 70 01/19/2019 11:28 AM EST Temperature 37 ??C (98.6 ??F) 01/19/2019 11:28 AM EST Respiratory Rate 18 01/19/2019 11:28 AM EST Oxygen Saturation 100% 01/19/2019 11:28 AM EST Inhaled Oxygen Concentration - - Weight 112.8 kg (248 lb 9.6 oz) 01/19/2019 11:28 AM EST Height 162.6 cm (5' 4) 01/19/2019 11:28 AM EST Body Mass Index 42.67 01/19/2019 11:28 AM EST documented in this encounter Progress Notes Navid Armendariz MD - 01/19/2019 11:30 AM EST Subjective: Patient ID: Corina Brewster is a 63 y.o. female. Problem List: 1. Cancer of the left breast, pT1cN0; ER/NJ+, Her-2/jocelin - A. [place] [facility] [place] - FINDINGS: Left breast: Within [...] cancer cells with immunostaining) Stain intensity: Strong [place] immunoreactivity: Positive (>90% cancer cells with immunostaining) [...] type (ductal, not otherwise specified) ?Histologic Grade (De Smet Histologic Score) ? Glandular (Acinar) / Tubular [...] Nodes Examined: ?? 7 ? Number of [place] Nodes Examined: ?3 Pathologic Stage Classification (pTNM, [...] F. 11/2018 - began therapy with anastrozole 2. Hyperthyroidism S/p LEWIS 06/2018 3. DM [...] due to stomach upset, myalgias and arthralgias. On presentation today, she is by herself. [...] or SOB Soc Hx: , lives in [place], [place] Tob - Never Etoh - Rare [...] I cancer of the left breast(pT1c, N0, ER/NJ +, Her-2/jocelin -). She had a screening bilateral mammogram done in 05/2018. The right breast was negative. On the left, a 1.5 cm mass was seen in the UOQ with microcalcifications anterior and medial to the mass. US guidedbiopsy was performed on 06/27/18. Path showed invasive ductal carcinoma, low grade with an SBR score of 5, and DCIS, low to intermediated grade. ER/NJ was positive with strong staining and Her-2/jocelin [...] arthralgias. A dexa scan was done on 11/23/18. Findings were consistent with osteopenia. BMD may be worsened by AIs. Therefore, asked that she start calcium with vitaimin D and encouraged weight bearing activity. She does not smoke and rarely drinks alcohol. We will check her vitamin D level. Given the question of anterior L3 compression fracture, I think it is reasonable to consider bisphosphonate therapy and we talked today about starting reclast, 5 mg once a year. We reviewed potential side effects of bisphosphonate therapy, including transient flu-like symptoms, renal insufficiency, hypocalcemia, and osteonecrosis of the jaw (ONJ). The latter is a rare problem that is dependent upon the dose and duration ofbisphosphonate treatment. It is most common in cancer patients with bone metastases who are treated with monthly doses of IV bisphosphonates for longer than two years. In patients with early-stage breast cancer, the incidence of IV ZA-related ONJ is about 0.25 percent. She would prefer not to start a b isphosphonate at this time. She is going to start the caltrate with D. I [...] bilateral mammogram will be due in 05/2019. GilLaura APRN - 01/19/2019 11:30 AM EST Subjective: Patient ID: Corina Brewster is a 63 y.o. female. Problem List: 1. Cancer of the left breast, pT1cN0; ER/NJ+, Her-2/jocelin - A. [place] [facility] - FINDINGS: Left breast: Within [...] cancer cells with immunostaining) Stain intensity: Strong [place] immunoreactivity: Positive (>90% cancer cells with immunostaining) [...] type (ductal, not otherwise specified) ?Histologic Grade (De Smet Histologic Score) ? Glandular (Acinar) / Tubular [...] Nodes Examined: ?? 7 ? Number of [place] Nodes Examined: ?3 Pathologic Stage Classification (pTNM, [...] on 10/31/18. On presentation today, she is with her daughter. She did pretty well with the radiation. She still has some areas such as on the undersurface of the arm that are tender. She is feeling generally well and healing well from the surgery. There is no redness or drainage. She notices that the sensation is coming back in the breast and axillary region. She has had some sharp pains in the left nipple regionwhich has improved. No fevers or chills. She stopped the Arimidex a couple of weeks ago for arthritic pain in knees and a bloated feeling in her abdomen. Symptoms have resolved. We discussed at length benefits/risks of continuing AI therapy. She has agreed to try a different agent. Discussed management of side effects. She is eating well. Weight basically the same. No other particular areas of pain. No cough or SOB Soc Hx: , lives in [place], [place] Tob - Never Etoh - Rare [...] I cancer of the left breast(pT1c, N0, ER/NJ +, Her-2/jocelin -). She had a screening bilateral mammogram done in 05/2018. The right breast was negative. On the left, a 1.5 cm mass was seen in the UOQ with microcalcifications anterior and medial to the mass. US guidedbiopsy was performed on 06/27/18. Path showed invasive ductal carcinoma, low grade with an SBR score of 5, and DCIS, low to intermediated grade. ER/NJ was positive with strong staining and Her-2/jocelin [...] She is taking the caltrate with D. I gave her a prescription today for Aromasin 25mg daily We will see her in 4-6 weeks to see how she is doing with the aromasin. She has an appt with Dr. Larry in 01/25 with a left mammogram. The next bilateral mammogram will be due in 05/2019. documented in this encounter Plan of Treatment Upcoming Encounters Date Type Specialty Care Team Description 10/23/2021 Office Visit Hematology and Oncology Navid Armendariz MD [facility] ONCOLOGY [place], [place] [address] (Wo rk) 10/23/2021 Infusion Hematology and Oncology documented as of this encounter Procedures Procedure Name Priority Date/Time Associated Diagnosis Comme nts LAB SCAN 03/13/2019 12:00 AM Results for this EST procedure are i n the results section . documented in this encounter Results SCAN DOC: LAB (03/13/2019 12:00 AM EST) Narrative 03/13/2019 12:00 AM EST This result has an attachment that is no t available. Ordered by an unspecified provider. Scanning Provider MEDIA MGR SCAN EXT ORDR/RSLT documented in this encounter Visit Diagnoses Diagnosis Breast cancer, stage 1, left Breast cancer, stage 1, left documented in this encounter Care Teams Mineral Mixer Relationship Specialty Start Date End Date Veronica Chun MD PCP - General Family Medicine 01/20/[address] [place] [address] documented as of this encounter
--- OUTSIDE RECORDS SUMMARY | 2021-10-23 02:24 | XMS_ITS | Encounter Summary ---
:1955 Author Organization [facility] [address] Care Team Providers Name Role Phone Veronica Chun MD Primary Care Provider Encounter Details Date Type Department Care Team Description 08/29/2018 Telephone Radiation Oncology a t [facility] Lai Palma [address] [place] [phone] Social History Tobacco Use Types [...] this encounter Miscellaneous Notes Telephone Encounter - Lai Palma - 08/29/2018 11:26 AM EDT Received a call from Corina requesting a transfer of care from Dr. Ortega. I gave her an appointment with Dr. Pickard on Monday 09/18 at 1:30. She was in agreement of this plan. documented in this encounter Plan of Treatment Upcoming Encounters Date Type Specialty Care Team Description 10/23/2021 Office Visit Hematology and Oncology Navid Armendariz MD [facility] DR ONCOLOGY [place], [place] [address] (Wo rk) 10/23/2021 Infusion Hematology and Oncology documented as of this encounter Visit Diagnoses Not on filedocumented in this encounter Care Teams Sql Server Consultant Relationship Specialty Start Date End Date Veronica Chun MD PCP - General Family Medicine 01/20/[address] [place] [address] documented as of this encounter
--- OUTSIDE RECORDS SUMMARY | 2021-10-23 02:24 | XMS_ITS | Encounter Summary ---
:1955 Author Organization [facility] [place] [address] Care Team Providers Name Role Phone Veronica Chun MD Primary Care Provider Encounter Details Date Type Department Care Team Description 10/12/2018 Office Visit Radiation Oncology at Ziyad Pickard M alignant neoplasm of [facility] upper-outer quadrant [address] of left female [place], [place] RADIATION ONCOL OGY breast, unspecified [address] [place], [place] estrogen receptor [phone] status [phone] (Wo rk) Social History Tobacco Use Types [...] Sign Reading Time Taken Comments Blood Pressure 142/79 10/12/2018 2:00 PM EDT Pulse 64 10/12/2018 2:00 PM EDT Temperature 37 ??C (98.6 ??F) 10/12/2018 2:00 PM EDT Respiratory Rate 16 10/12/2018 2:00 PM EDT Oxygen Saturation 98% 10/12/2018 2:00 PM EDT Inhaled Oxygen Concentration - - Weight 116.2 kg (256 lb 3.2 oz) 10/12/2018 2:00 PM EDT Height - - Body Mass Index 43.98 10/09/2018 9:39 AM EDT documented in this encounter Progress Notes Ziyad Pickard MD - 10/12/2018 1:45 PM EDT Images from the original note were not included. RADIATION ONCOLOGY - Weekly On Treatment Visit Note 10/12/18 Ziyad Pickard MD, MS Radiation Oncology [facility] [phone] (paging metal sheet roller operator) Pager #[phone] PATIENT IDENTIFICATION Name Corina Brewster Date of 1955 PCP Veronica Chun MD Referring MD (if different) Dr. Larry Diagnosis Cancer Staging Malignant neoplasm of upper-outer quadrant of left breast in female, estrogen receptor positive Staging form: Breast, AJCC 8th Edition - Clinical: Stage IA (cT1c, cN0(sn), cM0, G1, ER+, [place]+, HER2-) - Signed by Ziyad Pickard MD on 09/15/2018 RADIOTHERAPY DETAILS Treatment Intent: Definitive (Adjuavant) Concurrent Therapy: None Initial Treatment Site Left breast Prescribed Dose 42.5 Gy in 16 fractions Boost Treatment Site Left lumpectomy cavity Prescribed Dose 52.5 Gy in 4 fractions Current Dose: 21.3 Gy in 8 fractions INTERVAL HISTORY Subjective: General - No changes since last seen. Overall feels well. Breast - No pain or swelling. Ongoing 'twinges' of discomfort, helped by Tylenol. Pain: Pain score today is 0/10. MEDS Medications 10/12/18 1062 Medication Sig Taking? CREAM BASE NO.103, BULK, TOP Apply topically. Jeans cream to area of radiation, twice a day, no lessthan 2 hours prior to radiation treatment naproxen sodium (ALEVE) 220 mg Capsule Take by mouth as needed. acetaminophen (TYLENOL) 325 mg Tablet Take 2 tablets by mouth every 4 hours as needed for Pain. ibuprofen (ADVIL;MOTRIN) 400 mg Tablet Take 1 tablet by mouth every 6 hours as needed for Pain. Patient not taking: Reported on 09/22/2018 atorvastatin (LIPITOR) 40 mg Tablet Take 40 [...] original approved treatment planning images. EXAM: BP 142/79 Pulse 64 Temp 37 ??C (98.6 ??F) Resp 16 Wt 116.2 kg (256 lb 3.2 oz) SpO2 98% BMI 43.98 kg/m?? Constitutional: she appears well-developed and well-nourished. [...] Armendariz MD [facility] ONCOLOGY [place], [place] [address] (Wo rk) 10/23/2021 Infusion Hematology and Oncology documented as of this encounter Visit Diagnoses Diagnosis Malignant neoplasm of upper-outer quadra nt of left female breast, unspecified estrogen receptor status Breast cancer, stage 1, left documented in this encounter Care Teams State Game Protector Relationship Specialty Start Date End Date Veronica Chun MD PCP - General Family Medicine 01/20/[address] [place] [address] documented as of this encounter
--- OUTSIDE RECORDS SUMMARY | 2021-10-23 02:24 | XMS_ITS | Encounter Summary ---
:1955 Author Organization [facility] Address [address] [place] [address] Care Team Providers Name Role Phone Veronica Chun MD Primary Care Provider Encounter Details Date Type Department Care Team Description 12/14/2018 Orders [facility] [place] breast in female, [facility] est [facility] [address] [place], [place] [address] GENERAL SURGERY site of breast [phone] [place], [place] [address] (Primary Dx) Social History Tobacco Use Types Packs/Day Years [...] Hematology and Oncology Navid Armendariz MD [facility] ONCOLOGY [place], [place] [address] (Wo rk) 10/23/2021 Infusion Hematology and Oncology documented as of this encounter Results Mammo Diagnostic Cad and Fernando Left (01/25/2019 10:22 AM EST) Anatomical Region Laterality Modality Breast Left Mammography Specimen (Source) Anatomical Location Collection Method / Collectio n Time Received Time / Laterality Volume Narrative 01/25/2019 1:44 PM EST Left mammography Reason for exam: new baseline s/p left p artial mastectomy Technique: CC and MLO views were obtaine d of the left breast using standard 2-D mammography as well as 3-D tomosynthesis . Computer aided detection was used. Comparison: This is compared with prior images. Findings: The breasts are heterogeneousl y dense, which may obscure small masses. There are no suspicious microcalcificati ons, masses, or areas of distortion. SPECT postsurgical and postprocedural ch manuel. Conclusion: No mammographic evidence of malignancy. Recommendation: Routine screening. BI-RADS Category 2: Benign findings. * ??The [employer] an d The Society of Breast Imaging recommend annual screening beginning at age 40 for the general female population. * ??Screening should continue as long as a woman is in good health and is expected to live 10 more years or longer . * ??All women should be familiar with [facility] known benefits, limitations, and potential harms linked to breast cancer screening. They also should know how their breasts normally look and feel and report any breast changes to a health care provider right away. * ??Some women, because of their family history, a genetic tendency, or certain other factors, should be screened with M RIs along with mammograms. (The number of women who fall into this category is very small.) The patient and health care provider should discuss the patient hist ory and decide if earlier screening and breast MRI are appropriate. Thank you for letting us participate in the care of this patient. For questions regarding this report, please contact [facility] number below. ? Charlie Larry MD IMG MAMMO ORDERABLES documented in this encounter Visit Diagnoses Diagnosis Malignant neoplasm of left breast in fem radha, estrogen receptor positive, unspecified site of breast - Primary Malignant neoplasm of left breast in fem radha, estrogen receptor positive, unspecified site of breast Breast cancer, stage 1, left documented in this encounter Care Teams Pharmacist In Charge Owner Relationship Specialty Start Date End Date Veronica Chun MD PCP - General Family Medicine 01/20/17 [facility] [address] [place] [address] documented as of this encounter
--- OUTSIDE RECORDS SUMMARY | 2021-10-23 02:24 | XMS_ITS | Encounter Summary ---
:1955 Author Organization [facility] [place] [address] Care Team Providers Name Role Phone Veronica Chun MD Primary Care Provider Encounter Details Date Type Department Care Team Description 01/25/2019 Hospital Encounter Mammography/DXA at Charlie Larry neoplasm [facility] [place] Geoffrey of left breast in [facility], [facility] [address] receptor positive, [place], [place] [phone] [place], [place] breast [phone] [facility] Social History Tobacco Use Types Packs/Day [...] aspirin 81 mg EC tablet 0 05/21/2008 calcium citrate (CALCITRATE) Take 1 tablet by 0 04/03/2021 200 mg (950 mg) Tablet mouth daily. exemestane (AROMASIN) 25 mg Take 1 tablet by 30 tablet 0 02/09/2019 TabletIndications: Breast mouth daily for cancer, stage 1, left 30 days. silver sulfADIAZINE Apply topically 2 50 g [...] Hematology and Oncology Navid Armendariz MD [facility] ONCOLOGY [place], [place] [address] (Wo rk) 10/23/2021 Infusion Hematology and Oncology documented as of this encounter Procedures Procedure Name Priority Date/Time Associated Diagnosis Comme nts MAMMO DIAGNOSTIC CAD Routine 01/25/2019 10:22 Malignant neopla sm Results for this AND SADI LEFT AM EST of left breast in procedure are in female, estrogen the results receptor positive, section. unspecified site of breast documented in this encounter Results Mammo Diagnostic Cad and Sadi Left (01/25/2019 10:22 AM EST) Anatomical Region [...] BI-RADS Category 2: Benign findings. * ??The [employer] an d The Society of Breast Imaging recommend annual screening beginning at age 40 for the general female population. * ??Screening should continue as long as a woman is in good health and is expected to live 10 more years or longer . * ??All women should be familiar with [facility] known benefits, limitations, and potential harms linked [...] For questions regarding this report, please contact [facility] number below. ? Charlie Larry MD IMG MAMMO ORDERABLES documented in this encounter Visit Diagnoses Diagnosis Malignant neoplasm of left breast in fem radha, estrogen receptor positive, unspecified site of breast Breast cancer, stage 1, left documented in this encounter Care Teams Hamper Maker Relationship Specialty Start Date End Date Veronica Chun MD PCP - General Family Medicine 01/20/[address] [place] [address] [address] [place] [address] documented as of this encounter
--- OUTSIDE RECORDS SUMMARY | 2021-10-23 02:24 | XMS_ITS | Encounter Summary ---
:1955 Author Organization [facility] [place] [address] Care Team Providers Name Role Phone Veronica Chun MD Primary Care Provider Encounter Details Date Type Department Care Team Description 10/31/2018 Unscheduled Encounter Radiation Oncology [place], Malignant neoplasm of upper-outer quadrant of left female breast, unspecified estrogen receptor status; at [facility] Liz Armas RN Contact dermatitis due to ra diation [address] [place] [phone] Social History Tobacco Use Types Packs/Day [...] documented as of this encounter Progress Notes Liz Jacques RN - 10/31/2018 12:03 PM EDT Radiation Oncology Nursing Completion of Treatment Note Patient completed radiation treatments to left breast. Side effects/problems noted today: serrano skin at inframammary fold and left axilla. No desquamation. C/o occasional twinge of pain in her breast, other dillard no pain at this time. Breast other dillard free of redness. Teaching and discharge instructions reviewed: Provided and instructed use of mepilex pads. Dr Amor informed and ordered Silvadene cream in anticipation that inframammary fold will soon have desquamation. She was encouraged to call clinic if this regimen does not help financial services manager her side effects . Patient/family response to instructions: Patient verbalized understanding of these instructions. documented in this encounter Plan of Treatment Upcoming Encounters Date Type Specialty Care Team Description 10/23/2021 Office Visit Hematology and Oncology Navid Armendariz MD [facility] DR ONCOLOGY [place], [place] [address] (Wo rk) 10/23/2021 Infusion Hematology and Oncology documented as of this encounter Visit Diagnoses Diagnosis Malignant neoplasm of upper-outer quadra nt of left female breast, unspecified estrogen receptor status Contact dermatitis due to radiation Dermatitis due to other radiation Breast cancer, stage 1, left documented in this encounter Care Teams Test Engineer Nuclear Equipment Relationship Specialty Start Date End Date Veronica Chun MD PCP - General Family Medicine 01/20/[address] [place] [address] documented as of this encounter
--- OUTSIDE RECORDS SUMMARY | 2021-10-23 02:24 | XMS_ITS | Encounter Summary ---
:1955 Author Organization [facility] Address [facility] [place] [address] Care Team Providers Name Role Phone Veronica Chun MD Primary Care Provider Reason for Visit Reason Comments Medication Refill Encounter Details Date Type Department Care Team Description 01/26/2019 Refill Radiation Oncology at Cinthya Amor MD Malignant neoplasm of upper-outer quadra nt of left female breast, unspecified estrogen receptor status; [facility] Contact dermatitis due to ra diation [address] [place], [place] [phone] Social History Tobacco Use Types Packs/Day Years [...] Navid Armendariz MD [facility] [address] [place], [place] [address] ( rk) 10/23/2021 Infusion Hematology and Oncology documented as of this encounter Visit Diagnoses Diagnosis Malignant neoplasm of upper-outer quadra nt of left female breast, unspecified estrogen receptor status Contact dermatitis due to radiation Dermatitis due to other radiation Breast cancer, stage 1, left documented in this encounter Care Teams Air Shovel Operator Relationship Specialty Start Date End Date Veronica Chun MD PCP - General Family Medicine 01/20/[address] [place] [address] documented as of this encounter
--- OUTSIDE RECORDS SUMMARY | 2021-10-23 02:24 | XMS_ITS | Encounter Summary ---
:1955 Author Organization [facility] [place] [address] Care Team Providers Name Role Phone Veronica [...] Expiration Date Visits Requ ested Visits Authorized [id number] 1 1 Encounter Details Date Type Department Care Team Description 2018 Hospital Encounter Mammography at [facility] Charlie Larry Malignant neoplasm [facility] MD Geoffrey of left breast in Drive [facility] female, estrogen [facility] receptor positive, [phone] GENERAL SURGERY unspecified site of [phone] [place], [place] breast [address] Social History Tobacco Use Types Packs/Day Years [...] Armendariz MD [facility] ON[facility] [place], [place] [address] (Wo rk) 10/23/2021 Infusion Hematology and Oncology Scheduled Orders Name Type Priority Associated Diagnoses Order S chedule Mammo Specimen Left Imaging Routine Malignant neoplasm of 1 Occurrences starting left breast in female, 07/31 until estrogen receptor 2018 positive, unspecified site of breast documented as of this encounter Visit Diagnoses Diagnosis Malignant neoplasm of left breast in fem radha, estrogen receptor positive, unspecified site of breast Breast cancer, stage 1, left documented in this encounter Care Teams Quality Control Operator Relationship Specialty Start Date End Date Veronica Chun MD PCP - General Family Medicine 01/20/[address] [place] [address] [address] [place] [address] documented as of this encounter
--- OUTSIDE RECORDS SUMMARY | 2021-10-23 02:24 | XMS_ITS | Encounter Summary ---
:1955 Author Organization [facility] [place] [address] Care Team Providers Name Role Phone Veronica Chun MD Primary Care Provider Encounter Details Date Type Department Care Team Description 02/09/2019 Orders Only Hematology and Navid Armendariz, Breast cancer, stage Oncology at [facility] 1, left [facility] [id number] ONCOLOGY [phone] [place], [place] [address] Social History Tobacco Use Types [...] Visit Hematology and Oncology Navid Armendariz MD [facility] [address] [place], [place] [address] (Wo rk) 10/23/2021 Infusion Hematology and Oncology documented as of this encounter Visit Diagnoses Diagnosis Breast cancer, stage 1, left Breast cancer, stage 1, left documented in this encounter Care Teams Manager Council Relationship Specialty Start Date End Date Veronica hCun MD PCP - General Family Medicine 01/20/[address] [place] [address] [address] [place] [address] documented as of this encounter
--- OUTSIDE RECORDS SUMMARY | 2021-10-23 02:24 | XMS_ITS | Encounter Summary ---
:1955 Author Organization [place] [address] Care Team Providers Name Role Phone Veronica Chun MD Primary Care Provider Encounter Details Date Type Department Care Team Description 07/20/2018 Telephone Hematology [place] [phone] Social History Tobacco Use Types Packs/Day [...] this encounter Miscellaneous Notes Telephone Encounter - Ting Briceño - 07/20/2018 2:05 PM EDT Age at diagnosis: 62 Date of diagnosis: June 27, 2018 Place of diagnosis: Internal Date of initial appointment: 07.19.2018 Surgeon: Kendy Referral to Medical Oncology: Yes, Internal Medical Oncologist:Nita Referral to Radiation Oncology:Yes Internal Radiation Oncologist: [place] Referral to Plastic Surgery: No documented in this encounter Plan of Treatment Upcoming Encounters Date Type Specialty Care Team Description 10/23/2021 Office Visit Hematology and Oncology Navid Armendariz MD [facility] DR ONCOLOGY [place], [place] [address] (Wo rk) 10/23/2021 Infusion Hematology and Oncology documented as of this encounter Visit Diagnoses Not on filedocumented in this encounter Care Teams Master Rigger Relationship Specialty Start Date End Date Veronica Chun MD PCP - General Family Medicine 01/20/[address] [place] [address] documented as of this encounter
--- OUTSIDE RECORDS SUMMARY | 2021-10-23 02:24 | XMS_ITS | Encounter Summary ---
:1955 Author Organization [facility] [place] [address] Care Team Providers Name Role Phone Veronica Chun MD Primary Care Provider Reason for Visit Reason Comments Follow-up Encounter Details Date Type Department Care Team Description 04/16/2019 Office Visit Endocrinology at [facility] C Madeline Smith, [place] [address] ENDOCRINOLOGY [place], [place] [address] (Wo rk) Social History Tobacco [...] Sign Reading Time Taken Comments Blood Pressure 137/65 04/16/2019 10:03 AM EST Pulse 66 04/16/2019 10:03 AM EST Temperature - - Respiratory Rate 20 04/16/2019 10:03 AM EST Oxygen Saturation 99% 04/16/2019 10:03 AM EST Inhaled Oxygen Concentration - - Weight 112.1 kg (247 lb 3.2 oz) 04/16/2019 10:03 AM EST Height 162.6 cm (5' 4) 04/16/2019 10:03 AM EST Body Mass Index 42.43 04/16/2019 10:03 AM EST documented in this encounter Progress Notes Madeline Smith, DO - 04/16/2019 10:30 AM EST ENDOCRINOLOGY FOLLOW UP OUTPATIENT NOTE [facility] Name: Corina Brewster Date: 04/16/19 History of Present Illness: Mrs. Brewster is a 63 year old female with a medical history of T2DM, OA, HAM not using CPAP, coronaryartery disease status-post stenting, nephrolithiasis, breast cancer and umbilical hernia that presents for follow up. Mrs. Brewster has a history of a thyroid nodule dating back to February [address] Stark's ultrasound revealed a right 2.5 x 2.3 x 2.5 cm and a left 1.9 x 1.7 cm underwent FNA biopsy. Both of the nodules were reported as benign with some question surrounding a clot formation making the interpretation difficult. Repeat ultrasound in March 2017 revealed a right sided nodule measuring 4.6 x 2.5 x 3.2 cm with biochemical hyperthyroidism. Based on iodine uptake scan she was diagnosed with a toxic multinodular goiter and was started on Methimaozole. Ultrasound surveillance in May 2018 revealed increasing nodule size and definitive therapy was ultimately recommended, she underwent I131 treatment over the summer of 2018. She was seen in follow up in September 2018 at which time ultrasound revealed marked decrease in size of the gland. Her last TSH was 2.75 mcIU/mL and discussed in November via ED messaging. She denies fatigue and weakness. She reports fluctuations in her weight by several pounds but no major weight changes. She has limited exercise which she attributes to the harsh winter weather. She plans to restart walking on the treadmill. Her bowel movements are daily without issue, denies diarrhea and constipation. Her skin is slightly dry, but not out of proportion to what she would expect for winter climate. Her complaints today include memory loss, easily forgetting small tasks she begins at home. Past Medical History: Diabetes, type 2, diagnosed within the last ten years, taking Metformin BID CAD s/p stenting Arthritis Sleep apnea Nephrolithiasis Umbilical hernia Fibromyalgia ?? Surgical history: Hysterectomy, for endometriosis Bladder repair Bladder sling repair Lithotripsy Umbilical hernia repair Hand surgery Breast mass and lymph node removal ?? 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 Family History of Diabetes/ Endocrinopathies: Maternal history- [place], diabetes Paternal history- [place] Siblings- Brother with lymphoma at age 54 Children- two children are healthy Maternal aunt with goiter, she does not recall anyone else in her family with thyroid problems She denies family history of cancer besides her brother with Lymphoma Allergies Allergen Reactions ??? Oxycodone Nausea And Vomiting Physical Exam: Most Recent Vitals: 04/16/19 1003 BP: 137/65 Pulse: 66 Resp: 20 SpO2: 99% General appearance - alert, well appearing, and [...] disease status-post stenting, nephrolithiasis and umbilical hernia and left breast cancer, pT1cN0; ER/AK+, Her-2/jocelin-. She returns today for follow up of toxic multinodular goiter status-post I-131 treatment. Her last TSH was checked and normal (2.75 mcIU/mL) in November 2018. At today's visit, repeat thyroid ultrasound reveals a heterogeneous thyroid gland with ill-defined thyroid nodularity that is lesser in size. She is having no symptoms of over or under active thyroid activity. We will repeat thyroid labs today to ensure there is still no need for thyroid supplementation. Plan: - TSH, free T4 and total T4 - Return in one year for repeat thyroid ultrasound Thank you for allowing us to provide care for your patient. The above case was discussed and reviewed with attending physician, Dr. Jang. Madeline Smith, Endocrinology, Diabetes and Metabolism Fellow 04/16/19 10:44 AM Madeline Smith DO - 04/16/2019 10:30 AM EST ENDOCRINOLOGY THYROID ULTRASOUND REPORT Patient:Corina Brewster, [id number] Date of exam: 04/16/2019 Indication: Thyroid nodule history Comparison:10/09/2018 Fixed Assets Accountant: Sarah Real time images of the thyroid gland were obtained using a BK 15mHz US machine. All measurements are given as Longitudinal/Sagittal x AP x Transverse. Right Lobe: Right thyroid gland has heterogeneous texture and measures 3.06 x 2.6 x 1.59 cm. Left Lobe: Left thyroid lobe measures 2.41 x 1.87 x 1.63 cm with heterogeneous texture. Isthmus: The isthmus measures 0.279 cm Lateral neck: No abnormal lymph nodes or structures in the lateral neck. Impression: Heterogeneous thyroid gland with distinct nodularity that is difficult to ascertain. Madeline Smith DO, PGY5 Endocrinology, Diabetes and Metabolism Fellow 04/16/2019 10:21 AM Pager #[phone] Ward Jang DO - 04/16/2019 10:30 AM EST I have reviewed Dr Smith's history and I agree with the details as written. The assessment and plan were formulated in discussion with me and I agree with them as documented. Ward Jang DO, MS Licensed Retail Supervisoreditorial cartoonist Section of Endocrinology [facility] documented in this encounter Miscellaneous Notes Addendum Note - Radha Tran - 04/16/2019 10:30 AM EST Addended by: RADHA TRAN on: 04/16/2019 10:46 AM Modules accepted: Orders documented in this encounter Plan of Treatment Upcoming Encounters Date Type Specialty Care Team Description 10/23/2021 Office Visit Hematology and Oncology Navid Armendariz MD [facility] ONCOLOGY [place] [phone] (Wo rk) 10/23/2021 Infusion Hematology and Oncology documented as of this encounter Procedures Procedure Name Priority Date/Time Associated Diagnosis Comme nts HC TOTAL T3 Routine 04/16/2019 10:51 Hyperthyroidism Results for this AM EST procedure are i n the results section. TSH Routine 04/16/2019 10:51 Results for this AM EST procedure are i n the results section. HC FREE THYROXINE Routine 04/16/2019 10:51 Hyperthyroidism Res ults for this (T4) AM EST procedure are i n the results section. documented in this encounter Results TSH (04/16/2019 10:51 AM EST) athologist Signature TSH 3.20 0.27 - 4.20 IKE HARMAN mcIU/mL [facility] Specimen Anatomical Collection Method Collection Time Receive d Time (Source) Location / / Volume Laterality Blood specimen Venous Draw / 04/16/2019 10:51 04/16/19 20 (specimen) Unknown AM EST 11:08 AM EST Resulting Agency Comment Spec In Lab Madeline Smith DO CHEMISTRY ORDERABLES Performing Organization Address City/State/[place] [address] T3 Total (04/16/2019 10:51 AM EST) athologist Signature T3, Total 117 75 - 170 IKE KIMANI ng/dL [facility] Specimen Anatomical Collection Method Collection Time Receive d Time (Source) Location / / Volume Laterality Blood specimen 04/16/2019 10:51 0 (specimen) AM EST 11:08 AM EST Resulting Agency Comment Spec In Lab Ward Jang DO CHEMISTRY ORDERABLES Performing Organization Address City/State/[place] [address] T4, free (04/16/2019 10:51 AM EST) athologist Signature Free T4 1.09 0.93 - 1.70 IKE HARMAN ng/dL [facility] Specimen Anatomical Collection Method Collection Time Receive d Time (Source) Location / / Volume Laterality Blood specimen 04/16/2019 10:51 0 (specimen) AM EST 11:08 AM EST Resulting Agency Comment Spec In Lab Ward Jang DO CHEMISTRY ORDERABLES Performing Organization Address City/State/[place] [address] documented in this encounter Visit Diagnoses Diagnosis Hyperthyroidism Thyrotoxicosis without mention of goiter or other cause, without mention of thyrotoxic crisis or storm Breast cancer, stage 1, left documented in this encounter Care Teams Pharmaceutical Representative Relationship Specialty Start Date End Date Veronica Chun MD PCP - General Family Medicine 01/20/[address] [place] [address] documented as of this encounter
--- OUTSIDE RECORDS SUMMARY | 2021-10-23 02:24 | XMS_ITS | Encounter Summary ---
:1955 Author Organization [facility] [place] [address] Care Team Providers Name Role Phone Veronica Chun MD Primary Care Provider Encounter Details Date Type Department Care Team Description 08/01/2018 Telephone General Surgery at [facility] [place] [phone] Social History Tobacco Use Types Packs/Day [...] encounter Miscellaneous Notes Telephone Encounter - Michelle Mocteuzma RN - 08/01/2018 1:13 PM EDT Patient is S/P Case Date: 2018 ?? Surgeon: Surgeon(s) and Role: * Charlie Larry MD - Primary * Dangelo Herrera MD - Resident ?? Preoperative diagnosis: BREAST CANCER ?? Postoperative diagnosis: BREAST CANCER ?? Procedure(s) (LRB): MASTECTOMY PARTIAL (WRVU 10.13) (Left) BIOPSY OR EXCISION OF LYMPH NODE(S), OPEN, DEEP AXILLARY NODE(S) (WRVU 6.43) (Left) INTRAOPERATIVE ID (MAPPING) SENTINEL LYMPH NODE,INCLUDES INJECTION (WRVU 2.5) (Left) EXC BENIGN LESION ,RAINER .6 TO 1.0CM, FACE (WRVU 1.53) (N/A) MODIFIER WITH NEEDLE LOC., LESION #1 (Left) MODIFIER SENTINEL NODE EXCISION (N/A) Patient phoned today to report some minor bleeding since surgery yesterday. The original gauze was wet through. They have changed it and it is now draining light pink and is wet again. Instructed them to keep the dressing clean and dry and to notify us with any changes. Daughter Genna sent photos through [facility] and everything looked fine. Patient is afebrile and otherwise doing very well. documented in this encounter Plan of Treatment Upcoming Encounters Date Type Specialty Care Team Description 10/23/2021 Office Visit Hematology and Oncology Navid Armendariz MD [facility] DR ONCOLOGY [place] [address] (Wo rk) 10/23/2021 Infusion Hematology and Oncology documented as of this encounter Visit Diagnoses Not on filedocumented in this encounter Care Teams Social Staff Worker Relationship Specialty Start Date End Date Veronica Chun MD PCP - General Family Medicine 01/20/17 [address] [facility] [facility] [address] [place] [address] documented as of this encounter
--- OUTSIDE RECORDS SUMMARY | 2021-10-23 02:24 | XMS_ITS | Encounter Summary ---
:1955 Author Organization [facility] [place] [address] Care Team Providers Name Role Phone Veronica [...] Expiration Date Visits Requ ested Visits Authorized [id number] 1 1 Encounter Details Date Type Department Care Team Description 2018 Hospital Encounter Outpatient Surgery [place] [address] [place] [address] [phone] Social History Tobacco Use Types Packs/Day Years [...] Sign Reading Time Taken Comments Blood Pressure 138/55 2018 2:45 PM EDT Pulse 99 2018 2:45 PM EDT Temperature 36.9 ??C (98.4 ??F) 2018 1:09 PM EDT Respiratory Rate 16 2018 3:00 PM EDT Oxygen Saturation 98% 2018 3:00 PM EDT Inhaled Oxygen Concentration - - Weight 110.7 kg (244 lb) 2018 10:16 AM EDT Height 162.6 cm (5' 4) 2018 10:16 AM EDT Body Mass Index 41.88 2018 10:16 AM EDT documented in this encounter Discharge Instructions Discharge InstructionsOralia Miller RN - 2018 10:35 AM EDT At 10:00 a.m.you received 1000 mg of Tylenol (acetaminophen). Follow your doctor's instructions on use of this medication. You should not take more than a total of 3000 mg of acetaminophen in a 24 hour period. SCOPOLAMINE PATCH DISCHARGE INSTRUCTIONS You are wearing a scopolamine patch.This is a medication patch used to prevent and treat nausea and vomiting after surgery. The patch is located behind your left ear. Please follow these instructions while you are wearing the patch. Try not to touch the patch. ??? If you do touch the patch, wash your hands right away. Make sure to remove all traces of medication from your hands. ??? If the medication gets on your hands and then you touch your eyes, your vision may become blurryor your pupils may widen. These are both normal and temporary reactions; they will go away shortly. You may remove the patch as early as: tonight BUT must remove it no later than am/pm on There will still be some active ingredients on the patch, so fold it in half (with the sticky sides together) and throw it in the trash. This will help prevent others from coming into contact with it. After removing the patch, carefully wash your hands and behind your ear (or wherever the patch was placed) with soap and water. ?? If you have not urinated in 6-8 hours after your surgery, remove the patch and call your surgeon. Patient InstructionsKareen Taylor MD - 2018 1:10 PM EDT Call your doctor for: ?? fevers greater than 101.3 ?? severe nausea or vomiting ?? increasing pain not controlled by pain medications ?? increasing redness or drainage from incisions ?? decreased urine output ?? if you stop passing gas or stop having bowel movements ?? any other new or concerning symptoms The number for questions is [phone] before 5 PM weekdays and [phone] after 5 PM and on weekends (ask for the General Surgery resident acquisitions assistant). Activity level: No heavy lifting greater than 10 pounds (about equal to a full gallon jug) for the next 4 weeks or until cleared to do so at follow-up appointment. Otherwise activity as tolerated by comfort level. Diet: You may resume your regular diet. Driving: No driving if you are taking narcotic pain medications (wait at least 6-8 hours since last dose). Nodriving if you are still sore from surgery as it may limit your ability to react quickly. Shower/Bath & Wound Care: You may shower and get the incision(s) wet. Do not scrub the incisions vigorously for the next 2-3 weeks. Do not soak the incision(s) (i.e. soaking in bath or swimming) until told you may do so by a doctor, as this may promote a wound infection. After your shower, gently pat the incisions dry with a towel, and leave them open to the air. If your incisions rub against your clothing and this causes irritation you may cover the incisions with simple gauze dressings until they heal completely. Your stiches will dissolve and do not need to be removed. documented in this encounter Medications at Time [...] SL tablet documented as of this encounter Progress Notes Mary Coles - 2018 3:44 PM EDT Patient sitting at bedside, increased O2 sat - capped IV Mary Coles - 2018 3:25 PM EDT Discharge instructions and medications reviewed with patient and daughter. All questions answered and written copy sent home with patient. documented in this encounter H&P Notes Kareen Taylor MD - 2018 9:54 AM EDT Patient Name: Corina Brewster Patient Age: 63 y.o. Birthdate: 1955 Admit date: 2018 Attending Physician: Charlie Lan MD Ms. Brewster is a 62-year-old woman with multicentric left breast cancer. She has 1 main cancer and then 5 cm away she has a biopsy-proven site of DCIS. She presents today to undergo a partial mastectomywith SLN biopsy with preoperative wire localization. She denies any interval changes to her health. All questions and concerns have been addressed. Plan: - Proceed with planned procedure - Consent in the chart KAREEN TAYLOR MD documented in this encounter Miscellaneous Notes Op Note - Charlie Lan MD - 2018 1:09 PM EDT [facility] [place] Patient Name: Corina Brewster : [id number] MR#: [id number] Case Date: 2018 Surgeon: Surgeon(s) and Role: * Charlie Lan MD - Primary * Kareen Taylor MD - Resident Preoperative diagnosis: BREAST CANCER Postoperative diagnosis: BREAST CANCER Procedure(s) (LRB): MASTECTOMY PARTIAL (WRVU 10.13) (Left) BIOPSY OR EXCISION OF LYMPH NODE(S), OPEN, DEEP AXILLARY NODE(S) (WRVU 6.43) (Left) INTRAOPERATIVE ID (MAPPING) SENTINEL LYMPH NODE,INCLUDES INJECTION (WRVU 2.5) (Left) EXC BENIGN LESION ,RAINER .6 TO 1.0CM, FACE (WRVU 1.53) (N/A) MODIFIER WITH NEEDLE LOC., LESION #1 (Left) MODIFIER SENTINEL NODE EXCISION (N/A) Anesthesia: General Estimated Blood Loss: 20 ml Specimens removed during surgery: left partial mastectomy; new superficial margin; left axillary sentinel node; left axillary non-sentinel nodes Surgical Closure: Primary Closure - skin incision is completely closed without any wires, abdoul, drains or other devices Indications for surgery: Corina Brewster is a 62-year-old woman with left breast cancer. She had 2 sites that were biopsied positive for cancer in her left lateral breast in the 2:00 radian, so both of these wire localized. She also had technetium sulfur colloid injected for sentinel node injection. Her MRI suggested that her cancer went close to her nipple so we planned to remove all the tissue underneath the nipple as well. Details of the operation: We used the gamma probe and were able to detect the peak of radioactivity in the left axilla. She was prepped with ChloraPrep. She was given preoperative antibiotics. We first started by removing the skin tag from inferior to her left eye. I just grasped the skin tagwith an DeBakey and used a scissor to excise its base. We had prepped that area with ChloraPrep prior to that procedure. There was no bleeding from that procedure. She was then draped. We anesthetized the skin and made a curvilinear incision in the lateral left breast. We then excised a a 14 x 5 x 5cm piece of tissue in the 2:00 radian that went from the nipple out 14 cm toward her axilla. This specimen was inked with 6 different colors of ink and sent to radiology where a specimen mammogram showed that the 2 clips and the mass and concerning calcifications were all present in the specimen with what looked like widely negative margins. In the process of excising that tissue I did feel superficially on the cranial lateral side of my incision that there might be some tumor at the superficial edge. I therefore took a new superficial edge so that my resection was just underneath the dermis and sent that as a new superficial margin. We then anesthetized the skin and made an incision in the left axilla. We clearly excised a sentinelnode: it was radioactive with a count of the 1163. It was hard feeling and was suspicious for a metastasis. There was another node that was enlarged about 1.5 cm but did not feel hard and was not particularly radioactive that we also removed. These were sent as sentinel nodes. We had to do a lot of dissecting just to get down to the level of these nodes so some additional tissue was removed and this was sent to pathology as non-sentinel nodes. We did a remaining count; it was 460. This was located in level 3 of the axilla. We widened her incision and I retracted with a large retractor underneath the pectoralis major to try to identify and excise a possible sentinel node that was in level 3. This remaining count was over a diffuse area , not a localized site; and after about a half hour of effort we closed. We obtained perfect hemostasis. I left 3 mL's of lidocaine Marcaine solution in the left axilla and an 8 mL's in the lumpectomy cavity. We closed the deep dermis with interrupted 3-0 Vicryl and the skin with 4-0 Monocryl. Gauze and Tegaderm were placed. Infection Bundle used? N/A Attestation: Case Date: 2018 I was present and I participated during the entire procedure (does not need to include opening and closing). CHARLIE LAN MD 2018 documented in this encounter Plan of Treatment Upcoming Encounters Date Type Specialty Care Team Description 10/23/2021 Office Visit Hematology and Oncology Navid Armendariz MD [facility] [address] ONCOLOGY [place], [place] [address] (Wo rk) 10/23/2021 Infusion Hematology and Oncology documented as of this encounter Procedures Procedure Name Priority Date/Time Associated Comments Diagnosis SPECIMEN TO PATHOLOGY Routine 2018 12:43 Re sults for this PM EDT procedure are i n the results section. SPECIMEN TO PATHOLOGY Routine 2018 12:36 Re sults for this PM EDT procedure are i n the results section. SPECIMEN TO PATHOLOGY Routine 2018 12:35 Re sults for this PM EDT procedure are i n the results section. SPECIMEN TO PATHOLOGY Routine 2018 11:27 Re sults for this AM EDT procedure are i n the results section. SURGICAL PATHOLOGY Routine 2018 11:10 Resul ts for this REPORT AM EDT procedure are i n the results section. SPECIMEN TO PATHOLOGY Routine 2018 11:10 Re sults for this AM EDT procedure are i n the results section. MODIFIER SENTINEL NODE 2018 10:30 BREAST CANCER EXCISION AM EDT MODIFIER WITH NEEDLE 2018 10:30 BREAST CANCER LOC., LESION #1 AM EDT EXC BENIGN LESION ,RAINER 2018 10:30 BREAST CANCER .6 TO 1.0CM, FACE (WRVU AM EDT 1.53) INTRAOPERATIVE ID 2018 10:30 BREAST CANCER (MAPPING) SENTINEL AM EDT LYMPH NODE,INCLUDES INJECTION (WRVU 2.5) BIOPSY OR EXCISION OF 2018 10:30 BREAST CANCER LYMPH NODE(S), OPEN, AM EDT DEEP AXILLARY NODE(S) (WRVU 6.43) MASTECTOMY PARTIAL 2018 10:30 BREAST CANCER (WRVU 10.13) AM EDT documented in this encounter Results Specimen to Pathology (2018 12:43 PM EDT) Specimen Anatomical Collection Method Collection Time Receive d Time (Source) Location / / Volume Laterality AP Specimen 2018 12:43 2018 PM EDT 12:43 PM EDT Narrative [facility] [place] - 2018 12:43 PM EDT Specimen requisition ordered. ??Separate Pathology report to follow Charlie Lan MD PATHOLOGY/CYTOLOGY ORDERABLE S Performing Organization Address [facility] [place] [address] Specimen to Pathology (2018 12:36 PM EDT) Specimen Anatomical Collection Method Collection Time Receive d Time (Source) Location / / Volume Laterality AP Specimen 2018 12:36 2018 PM EDT 12:36 PM EDT Narrative [facility] [place] - 2018 12:36 PM EDT Specimen requisition ordered. ??Separate Pathology report to follow Charlie Lan MD PATHOLOGY/CYTOLOGY ORDERABLE S Performing Organization Address City/[facility] [place] [address] Specimen to Pathology (2018 12:35 PM EDT) Specimen Anatomical Collection Method Collection Time Receive d Time (Source) Location / / Volume Laterality AP Specimen 2018 12:35 2018 PM EDT 12:54 PM EDT Narrative [facility] [place] - 2018 12:54 PM EDT Specimen requisition ordered. ??Separate Pathology report to follow Resulting Agency Comment Spec In Lab Charlie Lan MD PATHOLOGY/CYTOLOGY ORDERABLE S Performing Organization Address City/[facility]/[place] [address] Specimen to Pathology (2018 11:27 AM EDT) Specimen Anatomical Collection Method Collection Time Receive d Time (Source) Location / / Volume Laterality AP Specimen 2018 11:27 2018 AM EDT 11:27 AM EDT Narrative [facility] [place] - 2018 11:27 AM EDT Specimen requisition ordered. ??Separate Pathology report to follow Charlie Lan MD PATHOLOGY/CYTOLOGY ORDERABLE S Performing Organization Address City/[facility] [place] [address] Surgical Pathology Report (2018 11:10 AM EDT) Component Value Ref Test Analysis Performed At Patholo gist Range Method Time Signature Surgical ? Location: [facility] Report The signing pathologist has (i) examined the relevant preparation(s) for the [facility] specimen(s) and (ii) rendered or confirmed the diagnosis(es) . [facility]ORY . ? Addendum ADDENDUM DISCUSSION SPECIAL TEST PERFORMED: Test: ??Oncotype [place] [facility] [place]: ??, block B10 Performing Lab: ??[facility] Performing Lab Case: ??[id number] Reported by: ??Viktor Tello MD Date reported: ??09/05/2018 For the [facility] please refer to Non- Documentation Pathology in the electronic health record (eDH). Electronically signed by: ??Sofia Leary DO Verified: ??09/06/2018 ?Pathologist Performed at: ??-[facility] [place]. [place], [place], [place] ?Surgic al Pathology DIAGNOSIS A - Left breast new anterior [...] lymph nodes, negative for malignancy, (0/3). Specimen ? Procedure: ??Excision (less than total mastecto my) ? Specimen Laterality: ?? Left Tumor ? Histologic Type : ?? Invasive carcinoma of no special type (ductal, not ?otherwise specified) ? Histologic Grade ([place] Histologic Score) ?Glandular (Acinar) / Tubular Differe ntiation: ?Score 1 ?Nuclear Pleomorphism: ?? Score 3 ?Diameter o f Microscope Field in Millimeters (mm): ?0.55 mm ?Mitotic Rate: ?? Score 1 (<=3 mitoses per mm2) ?Overall Grade: ?? Grade 1 (scores of 3, 4 or 5) ? Tumor Size: ?? 17 Millimeters (mm) . DIAGNOSIS ? Tumor Focality: ?? Single focus of invasive car cinoma ? Ductal Carcinoma In Situ (DCIS): ?Present ?Architectural Patterns: ?? Cribriform, Pap illary ?Nuclear Grade: ?? Grade II (intermediate) ?Necrosis: ??Present, focal (small foci or single cell necrosis) ? Tumor Extent ?Skin: ??Skin is not present ?Skeletal Muscle: ?? No skeletal muscle is present ? Accessory Findings ?Lymphovasc ular Invasion: ?? Cannot be determined - See Comment ?Dermal Lymphovascular Invasion: ?? No skin present ?Treatment Effect: ?? No known presurgical therapy Margins ? Invasive Carcinoma Margins: ?? Uninvolved by invasive carcinoma ?Distance f rom Other Specified Margin: ?From all RM > 10 Millimeters (mm) ? DCIS Margins: ?? Uninvolved by DCIS ?Distance o f DCIS to Posterior Margin: ?0.5 Millimeters (mm) ?Distance f rom Other Specified Margin: ?From other RM > 10 Millimeters (mm) Lymph Nodes ? Regional Lymph Nodes: ?? Uninvolved by tumor ce lls ?Number of Lymph Nodes Examined: ?? 7 ?Number of [address] Nodes Examined: ?3 Pathologic Stage Classification (pTNM, AJCC 8th Edition) ? Primary Tumor (Invasive Carcinoma) (pT): ?p T1c ? Regional Lymph Nodes (pN) ?Category (pN): ?? pN0 Additional Findings ? Additional Path ologic Findings: ?? Atypical ductal hyperplasia (ADH). ? Columnar cell change and hyperplasia with adeno sis. ? Papillary lesion associated with DCIS in biopsy site #2. Tumor Block(s): ?? B10 Comments ? In B11, a small arteriole shows tumor within the lumen with intimal reactive ?change. CAP eCC March 2017 Agile Release Electronically signed by: ??Sofia Leary DO Verified: ??08/04/2018 ?Pathologist Performed at: ??-[facility] [place], [place], [place] DISCUSSION In slides B15 and B12, the D CIS is close to the deep RM. ??In D15, cauterized portions of papillary lesion, indefinite for carcinoma, extend to th e inked RM. CLINICAL INFORMATION Specimen Submitted: A - Left breast new anterior margin B - Left breast partial mastectomy C - Left breast non sentinel node D - Left axillary sentinel node E - Left axillary non sentinel node Clinical History and Diagnosis: Breast cancer SPECIMEN PROCESSING A - Labeled/Fixative: Left breast new anterior margin, fresh . Quantity/Size: Single, 2.3 x 2.2 x 0.3 cm, 0.84 g. Tissue Description: Flat maile pose tissue received with one side inked in blue and on the side inked in lack. Ischemic time: 62 minutes Sections/Processing: . SPECIMEN PROCESSING Serially sectioned and entirely submitted in 2 cassettes lab eled A1-A2. B - Labeled/Fixative: Left breast partial mastectomy, fresh. Quantity/Size/Weight: ??Sing le, ??12.5 cm orange-cranial to green-caudal; 7.5 cm yellow-lateral to red-medial; 3.0 cm blue-superficial to black-deep, 175 g. SPECIMEN DESCRIPTION Resection Specimen: Intact, partial mastectomy. Specimen radiograph: Both in tact wires and clips as well as the mammographically apparent lesional tisue is apparent. Specimen Description: Accord ing to the established protocol the ink designations are red (medial), yellow (later al), orange (cranial), green (caudal), black (deep) and blue (superficial). Tissue Sections: The specimen is serially sectio jayson perpendicular to the long axis from cranial-orange to caudal-green into IX slices, each averaging 0.8 cm in thickness. LESION (1) ??Description: 2.3 x 1.5 x 1.3 cm, white, firm, mass, with ill-defined borders. ??Location: Slices III and IV. ??Nearest Margin(s): 1.2 cm, slice III, deep-black. ??Other Margin(s): 1.4 cm, slice III, cranial-orange. ??Other Margin(s): 2.7 cm, slice IV, lateral-yellow. ??Other Margin(s): 2.3 cm, slice IV, superficial-blue. ??Other Margin(s): 1.5 cm, slice IV, medial-red. ??Other Margin(s): 4.0 cm, slice IX, caudal-green. ??Wire/clip: Kinza marker c lip present on slice IV. Wire was present on slice IV LESION (2) ??Description: 1.6 x 1.1 x 0.6 cm, pink-red, biopsy site, with ill-defined borders. ??Location: Slices VII and VIII. ??Nearest Margin(s): 0.1 cm, abutting, slice VIII, deep-adalberto ck. ??Other Margin(s): 1.0 cm, slice IX, caudal-green. ??Other Margin(s): 4.3 cm, slice VII, superficial-blue. ??Other Margin(s): 3.2 cm, slice VII, lateral-yellow. ??Other Margin(s): 3.8 cm, slice VII, medial-red. ??Other Margin(s): 4.0 cm, slice II, cranial-orange. ??Wire/clip: Bowtie marker clip was present on slice VIII. Wire was present on slice VIII Parenchyma: Fibrofatty tissue Sections/Processing: Blue Split Trimmer sections in 22 cassettes as follows: ?B1: ??Slice I, cranial orange margin risk control field representative ?B2: ??Slice II, repres entative of fibrous tissue surrounding lesion #1 area ?B3: ??Slice III, closest black-deep margin to lesion # 1 ?B4: ??Slice III, closest orange-cranial margin to lesi on #1 ?B5-B6: ??Slice III, risk control field representative of lesion #1, same section bisected ?B7: ??Slice IV, closest lateral-yellow margin to lesio n #1 ?B8: ??Slice IV, closest superficial-blue margin to les ion #1 ?B9: ??Slice IV, closest red-medial margin to lesion #1 ?B10: ??Slice IV, repre sentative of lesion #1, largest solid dimension, biopsy clip ? present ?B11: ??Slice IV, repre sentative of lesion to black-deep margin, clip site ?B12: ??Slice V, repres entative hemorrhagic area around lesion #1 and black-deep ? margin ?B13: ??Slice V, repres entative of fibrous tissue surrounding lesion #1 and yellow- ?lateral margin ?B14: ??Slice , repre sentative of fibrous tissue and blue-superficial margin ?B15: ??Slice VII, risk control field representative of lesion #2 and sami k-deep margin ?B16: ??Slice VII, closest superficial blue margin to l esion #2 ?B17: ??Slice VII, closest lateral-yellow margin to les ion #2 ?B18: ??Slice VII, closest medial red margin to lesion #2 ?B19: ??Slice slice VIII, closest black-deep margin to lesion #2 ?B20-B21: ??Slice VIII, additional risk control field representative of lesion #2, clip site on B21 ?B22: ??Slice IX, repre sentative section of fibrous tissue to green-caudal margin, ? closest margin to lesion #2 . SPECIMEN PROCESSING Ischemic Time: 0.9 hours C - Labeled/Fixative: Left breast non-sentinel node, fresh. Quantity/Size: Two, 4.5 x 2.5 x 1.5 cm. Tissue Description: Adipose tissue with three lymph nodes, u p to 0.9 cm. Sections/Processing: Entirely submitted in 10 cassettes as follows: ?C1: ??One possible lymph node serially sec tioned and entirely submitted ?C2-C3: ??One possible lymph node serially sectioned and entirely submitted ?C4-C5: ??One possible lymph node serially sectioned and entirely submitted ?C6-C10: ??Remaining tissue serially sectioned and enti rely submitted D - Labeled/Fixative: Left axillary sentinel node, fresh. Quantity/Size: Single, 6 x 3.8 x 1.4 cm. Tissue Description: Adipose tissue with three lymph nodes, up to 3.5 cm. The largest lymph node also presents bl ue pigment on the cortex measuring 3.5 x 1 x 0.1 cm Sections/Processing: Entirely submitted in 12 cassettes as follows: ?D1: ??One bisected lymph node ?D2-D4: ??One lymph node serially sectioned and entirel y submitted ?D5-D12: ??Largest lymph node serially sect ioned and entirely submitted. E - Labeled/Fixative: Left axillary non-sentinel node, fresh . Quantity/Size: Two, 3.2 x 2.8 x 0.8 cm. Tissue Description: Adipose tissue with three lymph nodes, u p to 0.9 cm. Sections/Processing: Blue Split Trimmer sections in 3 cassettes as follows: ?E1: ??One possible lymph node bisected ?E2: ??One intact lymph node ?E3: ??One lymph node serially sectioned and entirely s ubmitted ??aemr Specimen (Source) Anatomical Collection Method Collection Time Re ceived Time Location / / Volume Laterality 2018 11:10 AM EDT Charlie Lan MD PATHOLOGY/CYTOLOGY ORDERABLE S Performing Organization Address City/State/ZIP Code Phon e Number [place] [id number] Specimen to Pathology (2018 11:10 AM EDT) Specimen Anatomical Collection Method Collection Time Receive d Time (Source) Location / / Volume Laterality AP Specimen 2018 11:10 2018 AM EDT 11:50 AM EDT Narrative [facility] - 2018 11:50 AM EDT Specimen requisition ordered. ??Separate Pathology report to follow Resulting Agency Comment Spec In Lab Charlie Lan MD PATHOLOGY/CYTOLOGY ORDERABLE S Performing Organization Address City/State/[place] [address] documented in this encounter Visit Diagnoses Not on filedocumented in this encounter Administered Medications Inactive Administered Medications - up to 3 most recent administrations Medication Order MAR Action Action Date Dose Rate Site acetaminophen (TYLENOL) tablet Given 2018 10:04 AM EDT 1,0 00 mg 1,000 mg 1,000 mg, Oral, ONCE, 1 dose, On Tue07/31/18 at 0830, Maximum dose of acetaminophen is 4000 mg from all sources in 24 hours., Routine gabapentin (NEURONTIN) capsule 300 mg Given 2018 10:04 AM EDT 300 mg 300 mg, Oral, ONCE, 1 dose, On Tue07/31/18 at 0830, Routine gadoterate meglumine (DOTAREM) 0.5 mmol/ mL (376.9 mg/mL) injection 0-100 mL 0-100 mL, Intravenous, ONCE PRN, 1 dose, Starting on Tue07/31/18 at 1307, Until Tue07/31/18 at 1748, Per Protocol, Radiology Contrast, Rou edy gadoterate meglumine (DOTAREM) 0.5 mmol/ mL (376.9 mg/mL) injection 0-100 mL 0-100 mL, Intravenous, ONCE PRN, 1 dose, Starting on Tue07/31/18 at 1307, Until Tue07/31/18 at 1748, Per Protocol, Radiology Contrast, Rou edy lactated ringers infusion New Bag 2018 11:17 AM EDT 1,000 mL, at 100 mL/hr, Intravenous, CONTINUOUS, Starting on Tue07/31/18 at 1015, Until Tue07/31/18 at 1533, Day of Surgery (Day of Procedure) New Bag 2018 10:08 AM EDT 1,000 mLs 100 mL/hr scopolamine Patch Applied 2018 10:30 AM 1 patch 0 1- Ear Behind (TRANSDERM-SCOP) 1 mg over EDT (Left) 3 days patch 1 dose, Starting on Tue07/31/18 at 1024, Until Tue07/31/18 at 1030, ORALIA MILLER.: cabinet override scopolamine (TRANSDERM-SCOP) 1 mg patch Patch Removal Transdermal, EVERY 24 HOURS, 1 dose, First dose on Tue08/01/18 at 1030, Remove scopolamine 1.5 mg patch, Recovery (Recovery-Hospital Unit) scopolamine (TRANSDERM-SCOP) 1 mg patch Patch Verification Transdermal, 2 TIMES DAILY, First dose o n Tue07/31/18 at 2230, Until Discontinued, Verify scopolamine 1.5 mg patch., Recovery (Recovery-H ospital Unit) documented in this encounter Active and Recently Administered Medications Times are shown in EDT. Scheduled Medication Order 07/29/2018 07/30/2018 2018 acetaminophen (TYLENOL) tablet 1,000 mg (COMPLETED) 1004 (Given - Provider: Oralia Miller, ADELFO) 1,000 mg, Oral, ONCE, 1 dose, Tue 9 at 0830, Maximum dose of acetaminophen is 4000 mg from all sources in 24 hours., Routine acetaminophen (TYLENOL) tablet 650 mg 1015 (Due) 650 mg, Oral, 30 MIN PRE-OP, 1 dose, Tue07/31/18 at 1015, Maximum dose of acetaminophen is 4000 mg from all sources in 24 hours., Day of Surgery (Day of Procedure), Routine cefTRIAXone (ROCEPHIN) 2 g vial attach t o sodium chloride 0.9% 50 mL Mini-Bag Plus (CANCELED) 1015 (Due)1040 (New Bag - Provider: Kiera Amaro CRNA) 2 g, Intravenous, EVERY 24 HOURS, First dose on Tue07/31/18 at 1015, Until Discontinued, Administer over 30 Minutes, Attach to 50 mL sodium chloride 0.9% Mini-Bag Plus , Intra-Operative (Intra-Procedure ), Indication for (Active or Suspected): Prophylaxis gabapentin (NEURONTIN) capsule 300 mg (COMPLETED) 1004 (Given - Provider: Oralia Miller, ADELFO) 300 mg, Oral, ONCE, 1 dose, Tue07/31/18 at 0830, Routine scopolamine (TRANSDERM-SCOP) 1 mg patch Patch Removal Transdermal, EVERY 24 HOURS, 1 dose, Fir st dose on Tue08/01/18 at 1030, Remove scopolamine 1.5 mg patch, Recovery (Recovery-Hospital Unit) scopolamine (TRANSDERM-SCOP) 1 mg patch Patch Verification Transdermal, 2 TIMES DAILY, First dose o n Tue07/31/18 at 2230, Until Discontinued, Verify scopolamine 1.5 mg patch., Recovery (Recovery-Hospital Unit) Continuous Medication Order 07/29/2018 07/30/2018 2018 lactated ringers infusion (CANCELED) 1008 (New Bag - Provider: Oralia Miller RN)1035 (Canceled Entry - Provider: Kiera Amaro CRNA)1100 (Anesthesia Volume Adjustment - Provider: Kiera Amaro CRNA)1117 (New Bag - Provider: Kiera Amaro CRNA) 1,000 mL, at 100 mL/hr, Intravenous, CON TINUOUS, Starting Tue07/31/18 at 1015, Until Tue07/31/18 at 1533, Day of Surgery (Day of Procedure) 1147 (Anesthesia Volume Adjustment - Provider: Kiera Amaro CRNA)1226 (Anesthesia Volume Adjustment - Provider: Kiera Amaro CRNA) PRN Medication Order 07/29/2018 07/30/2018 2018 BUpivacaine (PF) (MARCAINE) 0.5 % (5 mg/mL) injection (CANCELED) 1055 (Given - Provider: Charlie Lan MD - Comment: bupivacaine 0.5% mixed 1:1 with lidocaine 1%)1142 (Given - Provider: Charlie Lan MD - Comment: bupivacaine 0.5% mixed 1:1 with lidocaine 1%) ONCE PRN, Starting Tue07/31/18 at 1055, Until Tue07/31/18 at 1748, Intra- Operative (Intra-Procedure), Routine 124 7 (Given - Provider: Charlie Lan MD - Comment: bupivacaine 0.5 % mixed 1:1 with lidocaine 1%) gadoterate meglumine (DOTAREM) 0.5 mmol/mL (376.9 mg/mL) injecti on 0-100 mL 0-100 mL, Intravenous, ONCE PRN, 1 dose, Starting Tue07/31/18 at 1307, Until Tue07/31/18 at 1748, Per Protocol, Radiology Contrast, Routine gadoterate meglumine (DOTAREM) 0.5 mmol/mL (376.9 mg/mL) injecti on 0-100 mL 0-100 mL, Intravenous, ONCE PRN, 1 dose, Starting Tue07/31/18 at 1307, Until Tue07/31/18 at 1748, Per Protocol, Radiology Contrast, Routine lidocaine (PF) (XYLOCAINE) 10 mg/mL (1 %) injection (CANCELED) 1143 (Given - Provider: Charlie Lan MD - Comment: bupivacaine 0.5% mixed 1:1 with lidocaine 1%)1249 (Given - Provider: Charlie Lan MD - Comment: bupivacaine 0.5 % mixed 1:1 with lidocaine 1%) ONCE PRN, Starting Tue07/31/18 at 1143, Until Tue07/31/18 at 1748, Intra- Operative (Intra-Procedure), Routine lidocaine (XYLOCAINE) 10 mg/mL (1 %) injection 3 mg (COMPLETED) 1055 (Given - Provider: Charlie Lan MD - Comment: bupivacaine 0.5% mixed 1:1 with lidocaine 1%) 3 mg (0.3 mL), Subcutaneous, ONCE PRN, 1 dose, Starting Tue07/31/18 at 0947, Until Discontinued, for discomfort with PIV insertion, Day of Surgery (Day of Procedure), Routine No Frequency Medication Order 07/29/2018 07/30/2018 2018 scopolamine (TRANSDERM-SCOP) 1 mg over 3 days patch (COMPLETED) 1030 (Patch Applied - Provider: Oralia Miller, RN) 1 dose, Starting Tue07/31/18 at 1024, Un til Tue07/31/18 at 2229, ORALIA MILLER.: cabinet override documented in this encounter Care Teams Payroll Bookkeeper Relationship Specialty Start Date End Date Veronica Chun MD PCP - General Family Medicine 01/20/[address] [place] [address] documented as of this encounter
--- OUTSIDE RECORDS SUMMARY | 2021-10-23 02:24 | XMS_ITS | Encounter Summary ---
:1955 Author Organization [facility] [place] [address] Care Team Providers Name Role Phone Veronica Chun MD Primary Care Provider Encounter Details Date Type Department Care Team Description 09/20/2018 Notes Only Radiation Oncology at Dior Faust [employer] OFFICE OF CARE [address] [place] [address] [phone] Social History Tobacco Use Types Packs/Day Years [...] documented as of this encounter Progress Notes Dior Faust MSW - 09/20/2018 12:54 PM EDT Reason for Referral: Brief assessment of social and emotional needs. Met with pt and her daughter after her sim today. Social Supports: Pt identified her daughter Genna as her primary support. Genna lives nearby. Pt's son lives in [place] and they have regular phone contact. Pt also identified her s/o as a primary support. Pt indicated she has a lot of very good friends. Living Situation/Daily Activities/Transportation: Pt reports she manages her daily chores and activities. She does not expect any issues with transportation. 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 She has Medicaid for insurance. Advance Directives: Pt is unsure if she completed her advance directive. She is going to look for it. Gave her a Vt booklet/form to review and offered assistance if she needed to update her old directive or complete a new one. Utilization of Community Resources: None at this tie. Adjustment to Illness/Mental Health Issues: Pt shared she initially was taken aback with her diagnosis. She is glad she is past her surgery and moving onto RT. She feels she has a positive attitude anduses humor to help. She reports she has good support from her family and friends. Identified Needs: Pt did not identify any specific needs at this time. Referrals: None at this time. Plan: Informed pt of [employer] availability and will follow for support and resources. documented in this encounter Plan of Treatment Upcoming Encounters Date Type Specialty Care Team Description 10/23/2021 Office Visit Hematology and Oncology Navid Armendariz MD [facility] DR ONCOLOGY [place], [place] [address] (Wo rk) 10/23/2021 Infusion Hematology and Oncology documented as of this encounter Visit Diagnoses Not on filedocumented in this encounter Care Teams Branch Controller Relationship Specialty Start Date End Date Veronica Chun MD PCP - General Family Medicine 01/20/[address] [place] [address] documented as of this encounter
--- OUTSIDE RECORDS SUMMARY | 2021-10-23 02:24 | XMS_ITS | Encounter Summary ---
:1955 [place] [address] Care Team Providers Name Role Phone Veronica [...] Expiration Date Visits Requ ested Visits Authorized [id number] 1 1 Encounter Details Date Type Department Care Team Description 2018 Surgery Outpatient Surgery Bonilla Lan MD MASTECTOMY PARTIAL Center [facility] ([facility] [address]) [place] [address] [place] [address] [phone] Social History Tobacco Use Types Packs/Day Years [...] Sign Reading Time Taken Comments Blood Pressure 174/76 2018 10:16 AM EDT Pulse 94 2018 10:16 AM EDT Temperature 36.9 ??C (98.4 ??F) 2018 10:16 AM EDT Respiratory Rate 18 2018 10:16 AM EDT Oxygen Saturation 96% 2018 10:16 AM EDT Inhaled Oxygen Concentration - - [...] concerning symptoms The number for questions is [phone] before 5 PM weekdays and [phone] after 5 PM and on weekends (ask for the General Surgery resident document control associate). Activity level: No heavy lifting greater than [...] Lan MD - 2018 1:09 PM EDT [facility] Operative Note Patient Name: Corina Brewster : [id number] MR#: [id number] Case Date: 2018 Surgeon: Surgeon(s) and Role: [...] MD [facility] DR ONCOLOGY [place], [place] [address] (Wo rk) 10/23/2021 Infusion Hematology [...] 2018 PM EDT 12:43 PM EDT Narrative [facility] - 2018 12:43 PM EDT Specimen requisition ordered. ??Separate Pathology report to follow Charlie Lan MD PATHOLOGY/CYTOLOGY ORDERABLE S Performing Organization Address City/[facility] [place] [address] Specimen to Pathology (2018 12:36 PM EDT) Specimen Anatomical Collection Method Collection Time Receive d Time (Source) Location / / Volume Laterality AP Specimen 2018 12:36 2018 PM EDT 12:36 PM EDT Narrative [facility] - 2018 12:36 PM EDT Specimen requisition ordered. ??Separate Pathology report to follow Charlie Lan MD PATHOLOGY/CYTOLOGY ORDERABLE S Performing Organization Address City/[facility] [place] [address] Specimen to Pathology (2018 12:35 PM EDT) Specimen Anatomical Collection Method Collection Time Receive d Time (Source) Location / / Volume Laterality AP Specimen 2018 12:35 2018 PM EDT 12:54 PM EDT Narrative [facility] - 2018 12:54 PM EDT Specimen requisition ordered. ??Separate Pathology report to follow Resulting Agency Comment Spec In Lab Charlie Lan MD PATHOLOGY/CYTOLOGY ORDERABLE S Performing Organization Address [facility] [place] [address] Specimen to Pathology (2018 11:27 AM EDT) Specimen Anatomical Collection Method Collection Time Receive d Time (Source) Location / / Volume Laterality AP Specimen 2018 11:27 2018 AM EDT 11:27 AM EDT Narrative [facility] - 2018 11:27 AM EDT Specimen requisition ordered. ??Separate Pathology report to follow Charlie Lan MD PATHOLOGY/CYTOLOGY ORDERABLE S Performing Organization Address [facility] [place] [address] Surgical Pathology Report (2018 11:10 AM EDT) Component Value Ref Test Analysis Performed At [facility] gist Range Method Time Signature Surgical ? Location: [facility] Report The signing pathologist has (i) examined the relevant preparation(s) for the [facility] specimen(s) and (ii) rendered or confirmed the diagnosis(es) . HOSPITAL LABORATORY . ? Addendum ADDENDUM DISCUSSION SPECIAL TEST PERFORMED: Test: ??Oncotype DX [facility] Case: ??[id number], block B10 Performing Lab: ??[facility] Performing Lab Case: ??[id number] Reported by: ??Viktor Tello MD Date reported: ??09/05/2018 For the full text of the [facility] Q Chip report please refer to Non- Documentation Pathology in the electronic health record (eDH). Electronically signed by: ??Sofia Leary DO Verified: ??09/06/2018 ?Pathologist Performed at: ??-[facility] Dept. of Pathology, [place], [place] ?Surgic al Pathology DIAGNOSIS A - [...] (ductal, not ?otherwise specified) ? Histologic Grade (Sudha Histologic Score) ?Glandular (Acinar) / Tubular Differe [...] Lymph Nodes Examined: ?? 7 ?Number of [place]achine Nodes Examined: ?3 Pathologic Stage Classification (pTNM, [...] Leary DO Verified: ??08/04/2018 ?Pathologist Performed at: ??-[facility] Dept. of Pathology, [place], [place] DISCUSSION In slides B15 and B12, [...] on slice VIII Parenchyma: Fibrofatty tissue Sections/Processing: Floor Coverings Salesperson sections in 22 cassettes as follows: ?B1: ??Slice I, cranial orange margin representative phlebotomy services ?B2: ??Slice II, repres entative of fibrous tissue surrounding lesion #1 area ?B3: ??Slice III, closest black-deep margin to lesion # 1 ?B4: ??Slice III, closest orange-cranial margin to lesi on #1 ?B5-B6: ??Slice III, representative phlebotomy services of lesion #1, same section bisected ?B7: [...] tissue and blue-superficial margin ?B15: ??Slice VII, representative phlebotomy services of lesion #2 and sami k-deep margin ?B16: ??Slice VII, closest superficial blue margin to l esion #2 ?B17: ??Slice VII, closest lateral-yellow margin to les ion #2 ?B18: ??Slice VII, closest medial red margin to lesion #2 ?B19: ??Slice slice VIII, closest black-deep margin to lesion #2 ?B20-B21: ??Slice VIII, additional representative phlebotomy services of lesion #2, clip site on B21 [...] nodes, u p to 0.9 cm. Sections/Processing: Floor Coverings Salesperson sections in 3 cassettes as follows: ?E1: ??One possible lymph node bisected ?E2: ??One intact lymph node ?E3: ??One lymph node serially sectioned and entirely s ubmitted ??aemr Specimen (Source) Anatomical Collection Method Collection Time Re ceived Time Location / / Volume Laterality 2018 11:10 AM EDT Charlie Lan MD PATHOLOGY/CYTOLOGY ORDERABLE S Performing Organization Address City/State/ZIP [place] [address] Specimen to Pathology (2018 11:10 AM EDT) Specimen Anatomical Collection Method Collection Time Receive d Time (Source) Location / / Volume Laterality AP Specimen 2018 11:10 2018 AM EDT 11:50 AM EDT Narrative [facility] - 2018 11:50 AM EDT Specimen requisition ordered. ??Separate Pathology report to follow Resulting Agency Comment Spec In Lab Charlie Lan MD PATHOLOGY/CYTOLOGY ORDERABLE S Performing Organization Address City/State/ZIP [place] [address] documented in this encounter [...] from all sources in 24 hours., Routine BUpivacaine (PF) (MARCAINE) 0.5 Given 2018 12:47 PM 5 mLs 19- Surgical Site % (5 mg/mL) injection EDT ONCE PRN, Starting on Tue07/31/18 at 1055, Until Tue07/31/18 at 1748, Intra-Operative (Intra-Procedure), Routine Given 2018 11:42 AM EDT 2.75 mLs 19- Surgical Site Given 2018 10:55 AM EDT 3 mLs 19- Surgical Site gabapentin (NEURONTIN) capsule 300 mg Given 2018 [...] 1,000 mLs 100 mL/hr lidocaine (PF) (XYLOCAINE) 10 Given 2018 12:49 PM 5 mLs 19- Surgical Site mg/mL (1 %) injection EDT ONCE PRN, Starting on Tue07/31/18 at 1143, Until Tue07/31/18 at 1748, Intra-Operative (Intra-Procedure), Routine Given 2018 11:43 AM EDT 2.75 mLs 19- Surgical Site lidocaine (XYLOCAINE) 10 Given 2018 10:55 AM EDT 3 mLs 19- Surgical Site mg/mL (1 %) injection 3 mg 3 mg (0.3 mL), Subcutaneous, ONCE PRN, 1 dose, Starting on Tue07/31/18 at 0947, Until Tue07/31/18 at 1055, for discomfort with PIV insertion, Day of Surgery (Day of Procedure), Routine scopolamine Patch Applied 2018 10:30 AM 1 patch 0 1- Ear Behind (TRANSDERM-SCOP) 1 mg over EDT (Left) 3 days patch 1 dose, Starting on Tue07/31/18 at 1024, Until Tue07/31/18 at 1030, ORALIA MILLER M.: cabinet override scopolamine (TRANSDERM-SCOP) 1 mg patch [...] mg (COMPLETED) 1004 (Given - Provider: Oralia Miller RN) 1,000 mg, Oral, ONCE, 1 dose, Tue [...] mg (COMPLETED) 1004 (Given - Provider: Oralia Miller RN) 300 mg, Oral, ONCE, 1 dose, Tue07/31/18 [...] at 100 mL/hr, Intravenous, CON TINUOUS, Starting 07/31/19 at 1015, Until Tue07/31/18 at 1533, Day [...] 1:1 with lidocaine 1%) ONCE PRN, Starting 07/31/18 at 1055, Until Tue07/31/18 at 1748, Intra- [...] override documented in this encounter Care Teams Success Coach Relationship Specialty Start Date End Date Veronica Chun MD PCP - General Family Medicine 01/20/17 [facility] [address] [place] [address] documented as of this encounter
--- OUTSIDE RECORDS SUMMARY | 2021-10-23 02:24 | XMS_ITS | Encounter Summary ---
:1955 Author Organization [facility] Address [facility] [place] [address] Care Team Providers Name Role Phone Veronica Chun MD Primary Care Provider Encounter Details Date Type Department Care Team Description 08/16/2018 Office Visit Hematology and Kendy, Charlie Hale, Zeeshan t neoplasm of Oncology at [facility] left breast in female, [facility] est [address] receptor [address] positive, unspecified [place], [place] GENERAL SURGERY site of breast [id number] [place] [address] [phone] Social History Tobacco Use Types Packs/Day Years [...] Sign Reading Time Taken Comments Blood Pressure 147/56 08/16/2018 11:32 AM EDT Pulse 65 08/16/2018 11:32 AM EDT Temperature 36.9 ??C (98.4 ??F) 08/16/2018 11:32 AM EDT Respiratory Rate 18 08/16/2018 11:32 AM EDT Oxygen Saturation 100% 08/16/2018 11:32 AM EDT Inhaled Oxygen Concentration - - Weight 111.1 kg (245 lb) 08/16/2018 11:32 AM EDT Height 163 cm (5' 4.17) 08/16/2018 11:32 AM EDT Body Mass Index 41.83 08/16/2018 11:32 AM EDT documented in this encounter Progress Notes Charlie Larry MD - 08/16/2018 11:30 AM EDT Chante Brewster is a 63-year-old woman who returns after left partial mastectomy and sentinel node excision for breast cancer on 2018. She had a 1.7 cm low-grade infiltrating ductal carcinoma, ER positive, HER-2 negative excised with negative margins. 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 She had 3 negative sentinel nodes and 4 negative non-sentinel nodes. She now returns for a check. She has some left upper inner arm numbness. On physical exam her incisions are both healed very nicely. There is no sign of infection or hematoma. Impression: Corina is recovering well from surgery. She has appointments for adjuvant radiation therapy and to discuss adjuvant systemic therapy. I recommended both adjuvant hormonal therapy and radiation therapy. I discussed with her that the medical oncologist might suggest Oncotype DX testing, although with a low-grade tumor the likelihood that she will have a high Oncotype score is probably very low. I will plan to see her back in 6 months with a left mammogram to serve as a new baseline. Copy to Veronica Chun documented in this encounter Plan of Treatment Upcoming Encounters Date Type Specialty Care Team Description 10/23/2021 Office Visit Hematology and Oncology Navid Armendariz MD [facility] ONCOLOGY [place], [place] [address] (Wo rk) 10/23/2021 Infusion Hematology and Oncology documented as of this encounter Visit Diagnoses Diagnosis Malignant neoplasm of left breast in fem radha, estrogen receptor positive, unspecified site of breast Breast cancer, stage 1, left documented in this encounter Care Teams Venture Capital Analyst Relationship Specialty Start Date End Date Veronica Chun MD PCP - General Family Medicine 01/20/[address] [place] [address] [address] [place] [address] documented as of this encounter
--- OUTSIDE RECORDS SUMMARY | 2021-10-23 02:24 | XMS_ITS | Encounter Summary ---
:1955 Author Organization [facility] [address] Care Team Providers Name Role Phone Veronica Chun MD Primary Care Provider Encounter Details Date Type Department Care Team Description 11/16/2018 Notes Only Radiation Oncology at Ziyad Pickard MD [address] RADIATION ONCOLOGY [place], [place] [phone] [place] [address] (Wo rk) Social History Tobacco Use Types [...] documented as of this encounter Progress Notes Ziyad Pickard MD - 11/16/2018 2:16 PM EDT Images from the original note were not included. RADIATION ONCOLOGY - Treatment Completion Summary Ziyad Pickard MD, MS Radiation Oncology [facility] [phone] (paging acid wash operator) Pager #[phone] PATIENT IDENTIFICATION ?? Name Corina Brewster Date of 1955 ? PCP Veronica Chun MD Referring MD (if different) Dr. Larry ? Diagnosis Cancer Staging Malignant neoplasm of upper-outer quadrant of left breast in female, estrogen receptor positive Staging form: Breast, AJCC 8th Edition - Clinical: Stage IA (cT1c, cN0(sn), cM0, G1, ER+, WI+, HER2-) - Signed by Ziyad Pickard MD on 09/15/2018 ? RADIOTHERAPY DETAILS ?? Treatment Intent: Definitive (Adjuavant) Concurrent Therapy: None ? Initial Treatment Site Left breast Prescribed Dose 42.5 Gy in 16 fractions ? Boost Treatment Site Left lumpectomy cavity Prescribed Dose 52.5 Gy in 20 fractions (total) ? Start Date 10/03/18 End Date 10/31/18 SPECIAL TECHNICAL CONSIDERATIONS: The patient was simulated on a CT simulator. Customized ndiaye were designed to encompass the targetvolume and identify organs at risk and with the intent of minimizing normal tissue toxicity. TREATMENT TOLERANCE: With regard to side effects noted during radiotherapy, the patient tolerated treatment extremely well with no significant acute (Grade 3 or above) toxicity. TREATMENT RESPONSE: The patient's response to treatment was undetermined, as she was largely asymptomatic at the time ofpresentation. FOLLOWUP: Follow-up visit with Radiation Oncology in [facility] is scheduled for 11/23/18 for clinical symptom check; she has received instructions to call this office or seek the help of the local emergency room if any further problems should arise prior to followup. documented in this encounter Plan of Treatment Upcoming Encounters Date Type Specialty Care Team Description 10/23/2021 Office Visit Hematology and Oncology Navid Armendariz MD [facility] [place], [place] [address] (Wo rk) 10/23/2021 Infusion Hematology and Oncology documented as of this encounter Visit Diagnoses Not on filedocumented in this encounter Care Teams Gambling Box Person Relationship Specialty Start Date End Date Veronica Chun MD PCP - General Family Medicine 01/20/[address] [place] [address] documented as of this encounter
--- OUTSIDE RECORDS SUMMARY | 2021-10-23 02:24 | XMS_ITS | Encounter Summary ---
:1955 Author Organization [facility] [place] [address] Care Team Providers Name Role Phone Veronica Chun MD Primary Care Provider Encounter Details Date Type Department Care Team Description 10/19/2018 Office Visit Radiation Oncology at Ziyad Pickard M alignant neoplasm of [facility] upper-outer quadrant [address] of left female [place], [place] RADIATION ONCOL OGY breast, unspecified [id number] [place], [place] estrogen receptor [phone] [id number] status [phone] (Wo rk) Social History Tobacco Use Types [...] Sign Reading Time Taken Comments Blood Pressure 146/67 10/19/2018 11:00 AM EDT Pulse 66 10/19/2018 11:00 AM EDT Temperature 36 ??C (96.8 ??F) 10/19/2018 11:00 AM EDT Respiratory Rate 18 10/19/2018 11:00 AM EDT Oxygen Saturation 100% 10/19/2018 11:00 AM EDT Inhaled Oxygen Concentration - - Weight 114.1 kg (251 lb 9.6 oz) 10/19/2018 11:00 AM EDT Height - - Body Mass Index 43.19 10/09/2018 9:39 AM EDT documented in this encounter Progress Notes Ziyad Pickard MD - 10/19/2018 12:00 PM EDT Images from the original note were not included. 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 Larry Diagnosis Cancer Staging Malignant neoplasm of upper-outer quadrant of left breast in female, estrogen receptor positive Staging form: Breast, AJCC 8th Edition - Clinical: Stage IA (cT1c, cN0(sn), cM0, G1, ER+, FL+, HER2-) - Signed by Ziyad Pickard MD on 09/15/2018 RADIOTHERAPY DETAILS Treatment Intent: Definitive (Adjuavant) Concurrent Therapy: None Initial Treatment Site Left breast Prescribed Dose 42.5 Gy in 16 fractions Boost Treatment Site Left lumpectomy cavity Prescribed Dose 52.5 Gy in 4 fractions Current Dose: 34.6 Gy in 13 fractions INTERVAL HISTORY Subjective: General - Overall feels well today. Breast - No pain or swelling. Main concern is tightness that radiates into her left upper arm. Pain: Pain score today is 0/10. MEDS Medications 10/19/18 1217 Medication Sig Taking? hydroCHLOROthiazide (HYDRODIURIL) 25 mg Tablet Take 25 mg by mouth. Yes CREAM BASE NO.103, BULK, TOP Apply topically. Jeans cream to area of radiation, twice a day, no lessthan 2 hours prior to radiation treatment Yes naproxen sodium (ALEVE) 220 mg Capsule Take by mouth as needed. Yes acetaminophen (TYLENOL) 325 mg Tablet Take 2 tablets by mouth every 4 hours as needed for Pain. Yes atorvastatin [...] 12.5 mg Tablet, Multiphasic Release nightly. Yes aspirin 81 mg EC tablet Yes nitroGLYcerin (NITROSTAT) 0.4 mg SL tablet IMAGING / LABS: I have personally reviewed this patient's interval portal imaging to confirm accurate positioning and alignment which matches the patient's original approved treatment planning images. EXAM: BP 146/67 Pulse 66 Temp 36 ??C (96.8 ??F) Resp 18 Wt 114.1 kg (251 lb 9.6 oz) SpO2 100% BMI 43.19 kg/m?? Constitutional: she appears well-developed and well-nourished. [...] radiotherapy: Tolerating as anticipated. Continue as planned. Breast: Regarding tightness reviewed stretching exercises which she already has. We discussed increasing frequency to 3x/day. documented in this encounter Plan of Treatment Upcoming Encounters Date Type Specialty Care Team Description 10/23/2021 Office Visit Hematology and Oncology Navid Armendariz MD [facility]OG[facility] [place] [address] (Wo rk) 10/23/2021 Infusion Hematology and Oncology documented as of this encounter Visit Diagnoses Diagnosis Malignant neoplasm of upper-outer quadra nt of left female breast, unspecified estrogen receptor status Breast cancer, stage 1, left documented in this encounter Care Teams Boarding Machine Operator Relationship Specialty Start Date End Date Veronica Chun MD PCP - General Family Medicine 01/20/[address] [place] [address] documented as of this encounter
--- OUTSIDE RECORDS SUMMARY | 2021-10-23 02:25 | XMS_ITS | Encounter Summary ---
:1955 Author Organization [facility] [place] [address] Care Team Providers Name Role Phone Veronica Chun MD Primary Care Provider Encounter Details Date Type Department Care Team Description 06/27/2018 Orders Only Mammography at [facility] Fiordaliza Henson MD [facility] [place] [address] NUCLEAR MEDICINE [phone] [place], [place] [address] (Wo rk) Social History Tobacco [...] documented as of this encounter Progress Notes Fiordaliza Henson MD - 06/27/2018 2:49 PM EDT Pre-procedure note for needle breast biopsies performed in radiology. Procedure date: Today Procedure type: left breast stereotactic biopsy and ultrasound guided biopsy Allergies: Oxycodone Medications: Current Outpatient Medications: ??? methIMAzole (TAPAZOLE) 5 mg Tablet, Take 0.5 tablets by mouth daily., Disp: 15 tablet, Rfl: 11 ??? ERGOCALCIFEROL, VITAMIN D2, (VITAMIN D ORAL), Take 1,000 mg by mouth daily., Disp: , Rfl: ??? lovastatin (MEVACOR) 40 mg Tablet, daily., Disp: , Rfl: 0 ??? metFORMIN (GLUCOPHAGE) 1,000 mg Tablet, take [...] SL tablet, , Disp: , Rfl: Anticoagulation status: low dose aspirin stopped on: N/A Imaging reviewed and procedural plan approved by Dr. FIORDALIZA HENSON MD documented in this encounter Plan of Treatment Upcoming Encounters Date Type Specialty Care Team Description 10/23/2021 Office Visit Hematology and Oncology Navid Armendariz MD [facility] DR ONCOLOGY [place], [place] [address] (Wo rk) 10/23/2021 Infusion Hematology and Oncology documented as of this encounter Visit Diagnoses Not on filedocumented in this encounter Care Teams Club Manager Relationship Specialty Start Date End Date Veronica Chun MD PCP - General Family Medicine 01/20/[address] [place] [address] [address] [place] [address] documented as of this encounter
--- OUTSIDE RECORDS SUMMARY | 2021-10-23 02:25 | XMS_ITS | Encounter Summary ---
:1955 Author Organization [facility] [place] [address] Care Team Providers Name Role Phone Veronica Cuhn MD Primary Care Provider Reason for Referral Diagnostic Test (Routine) - Closed Specialty Diagnoses / Procedures Referred By Contact Refer red To Contact Radiology Diagnoses Malignant neoplasm of left female breast, unspecified estrogen receptor status, unspecified site of breast Charlie Larry MD [facility] Rad Mri Procedures MRI Breast WWO Contrast Bilat [facility] [address] [place] [address] [place] [address] Referral ID Status Reason Start Date Expiration Date Visits V isits Requested Authorized [id number] Closed Specialty 07/07/2018 10/05/2018 1 1 Service Requested Encounter Details Date Type Department Care Team Description 06/28/2018 Orders Only General Surgery at Charlie Larry Mali gnant neoplasm of [facility] left female breast, [facility] uns pecified estrogen Drive DR receptor status, [place] [address] GENERAL SURGERY unspecified site of [phone] [place], [place] [address] breast Social History Tobacco Use Types Packs/Day [...] Visit Hematology and Oncology Navid Armendariz MD [facility] ONCOLOG[facility] [place], [place] [address] (Wo rk) 10/23/2021 Infusion Hematology and Oncology documented as of this encounter Results (ABNORMAL) Comprehensive metabolic panel (non-fasting) (07/19/2018 8:23 AM EDT) P athologist Signature Glucose Lvl 215 (H) 65 - 199 [facility] mg/dL [facility] Comment: Diabetes: >=200 mg/dL plus symp toms BUN 17 8 - 18 mg/dL [facility] Creatinine 0.70 0.70 - 1.20 mg/dL [facility] Sodium 138 135 - 145 mmol/L [facility] Potassium 4.3 3.5 - 5.0 mmol/L [facility] Comment: Please note: ??Patients with WBC >100,00 0 may have falsely elevated Potassium levels. ??For accurate Potassium quantif ication in these patients send serum separator tube (gold top) for subsequent determinations. ??Contact the Clinical Chemistry Laboratory if there are any qu estions. Chloride 98 98 - 107 mmol/L [facility] CO2 28 22 - 31 mmol/L [facility] Anion Gap 12 5 - 15 mmol/L [facility] Calcium 10.0 8.5 - 10.5 mg/dL [facility] Total Protein 7.2 6.1 - 8.0 gm/dL [facility] Albumin 3.9 3.2 - 5.2 gm/dL [facility] AST 22 0 - 30 unit/L [facility] ALT 32 (H) 0 - 30 unit/L [facility] Alk Phos 75 40 - 104 unit/L [facility] Total Bilirubin 0.4 0.2 - 1.3 mg/dL [facility] Estimated GFR 93 >=60 mL/min/1.73 m?? [facility] Comment: The eGFR was calculated using the CKD-EP I equation. As with all creatinine based estimates of kidney function, eGFR values calculated with the CKD-EPI equation are not accurate in patients wi th acute kidney failure, extremes of body mass or the acutely ill. [email or web address] eGFR 108 >=60 mL/min/1.73 m?? [facility] Comment: The eGFR was calculated using the CKD-EP I equation. As with all creatinine based estimates of kidney function, eGFR values calculated with the CKD-EPI equation are not accurate in patients wi th acute kidney failure, extremes of body mass or the acutely ill. [email or web address] Specimen Anatomical Collection Method Collection Time Receive d Time (Source) Location / / Volume Laterality Blood specimen 07/19/2018 8:23 AM 019 8:37 (specimen) EDT AM EDT Resulting Agency Comment Spec In Lab Charlie Larry MD CHEMISTRY ORDERABLES Performing Organization Address City/State/ZIP Code Phon e Number [place] [phone] MRI Breast WWO Contrast Bilat (07/10/2018 7:44 PM EDT) Anatomical Region Laterality Modality Breast N/A Magnetic Resonance Specimen (Source) Anatomical Location Collection Method / Collectio n Time Received Time / Laterality Volume Impressions 07/11/2018 9:47 AM EDT Extensive segmental disease in the left upper outer quadrant 2:00 radian spanning 10 cm anterior to video producer ior with a dominant 1.8 cm mass as the posterior component. RECOMMENDATION:Definitive surgical manag ement. LEFT BREAST 6. Known malignancy RIGHT BREAST ??1. Normal Thank you for letting us participate in the care of this patient. For questions regarding this report, please contact e number below. ? Narrative 07/11/2018 9:47 AM EDT BILATERAL BREAST MRI CLINICAL INDICATION: ??Staging MRI, 2 bi opsies showing disease in the left breast 2:00 radian at 4 and 9 cm from the nippl e. TECHNIQUE: Multiplanar sequences were obtained pre- and post- gadolinium enhancement, to include SPGR weighted dynamic run-off an d subtraction sequences obtained after the intravenous administration of 20 ccs of Dotarem. Computer algorithm analysis for lesion detection and kinetic contras t enhancement curve analysis was performed, using [employer] software. COMPARISON STUDIES: Compared and/or correlated with prior st udies including 06/19/2018, 06/27/2018. FINDINGS: Background Enhancement Pattern (first po st gadolinium image): Minimal Amount of Fibroglandular Tissue: Fat LEFT Breast: There is extensive nonmass enhancement e xtending anteriorly from the malignant mass in the left upper outer quadrant di rectly to the base of the, spanning 10 cm anterior to posterior. The mass compo nent measures 1.8 cm. nipple anteriorly. Specific features of the left breast les ion(s) is/are as follows: LEFT BREAST LESION 1: ??1.8 cm Mass Upper outer quadrant ??2 O'Clock 9 cm fr om the nipple by MRI Mass: Shape: Round Margins: Not circumsc ribed - Spiculated Enhancement: Heterogeneous Delayed phase: Washout Non mass enhancement: Distribution: Segm ental Enhancement: Initial upslope: Fast Delayed phase: Washout RIGHT Breast:There are no morphologic ab normalities or areas of abnormal enhancement in the right breast. Lymph Node Basins/Other: There is no felipa dence of internal mammary or axillary adenopathy.. No significant abnormalitie s are seen in the chest wall or skin.. Charlie Larry MD IMG MRI ORDERABLES documented in this encounter Visit Diagnoses Diagnosis Malignant neoplasm of left female breast , unspecified estrogen receptor status, unspecified site of breast Malignant neoplasm of left female breast , unspecified estrogen receptor status, unspecified site of breast Research study patient Reserved for inherently not codable conc epts WITHOUT codable children Breast cancer, stage 1, left documented in this encounter Care Teams Airport Operations Crew Member Relationship Specialty Start Date End Date Veronica Chun MD PCP - General Family Medicine 01/20/[address] [place] [address] [address] [place] [address] documented as of this encounter
--- OUTSIDE RECORDS SUMMARY | 2021-10-23 02:25 | XMS_ITS | Encounter Summary ---
:1955 Author Organization [facility] [place] [address] Care Team Providers Name Role Phone Betty Tipton MD Primary Care Provider Encounter Details Date Type Department Care Team Description 08/11/2015 Hospital Encounter Radiology Library at [facility] [place] [address] OTOLARYNGOLOGY DEPT. [phone] [place], [place] [address] (Wo rk) Social History Tobacco Use Types Packs/Day Years Used Date Never Smoker Alcohol Habits Answer Date Recorded How often [...] Sig Dispensed Refills Start Date End Date aspirin 81 mg EC tablet 0 05/21/2008 pravastatin (PRAVACHOL) 80 mg Take 80 mg by 0 02/01/2017 tablet mouth daily. meloxicam (MOBIC) 7.5 mg Take 1 tablet by 30 tablet 12 02/2202/01/2017 tabletIndications: mouth daily. Osteoarthrosis, unspecified whether generalized or localized, hand, Osteoarthrosis, unspecified whether generalized or localized, lower leg, Trigger middle finger of left hand, Trigger index finger of right hand atenolol (TENORMIN) 50 mg 50mg, PO, Once 0 200804/15/2017 tablet daily hydrochlorothiazide 12.5MG = 1 0 05/21/200810/12 (MICROZIDE) 12.5 mg capsule Capsule(s), PO, Once daily metFORMIN (GLUCOPHAGE) 500 mg 0 200802/01/2017 tablet nitroGLYcerin (NITROSTAT) 0.4 0 200804/03/2021 mg SL tablet documented as of this encounter Plan of Treatment Upcoming Encounters Date Type Specialty Care Team Description 10/23/2021 Office Visit Hematology and Oncology Navid Armendariz MD [facility] ONCOL[facility]Y [place], [place] [address] (Wo rk) 10/23/2021 Infusion Hematology and Oncology documented as of this encounter Procedures Procedure Name Priority Date/Time Associated Comments Diagnosis FILM LIBRARY STORAGE Routine 08/11/2015 12:00 AM Pain Results for this ONLY ULTRASOUND EDT procedure ar e in STUDY the results section. documented in this encounter Results Film Library- Storage Only Ultrasound Study (08/11/2015 12:00 AM EDT) Specimen (Source) Anatomical Location Collection Method / Collectio n Time Received Time / Laterality Volume Narrative [facility] - 01/18/2017 10:52 AM EST This exam is for storage only and is aut o-finalizing. Isac Perez MD IMG FILM LIBRARY ORDERABLES Performing Organization Address City/State/ZIP Code Phon e Number [place], [place] documented in this encounter Visit Diagnoses Diagnosis Pain Generalized pain Breast cancer, stage 1, left documented in this encounter Care Teams Protective Officer Relationship Specialty Start Date End Date Betty Tipton MD PCP - General 02/18/12 01/19/17 [address] [place] [address] documented as of this encounter
--- OUTSIDE RECORDS SUMMARY | 2021-10-23 02:25 | XMS_ITS | Encounter Summary ---
:1955 Author Organization [facility] [place] [address] Care Team Providers Name Role Phone Veronica Chun MD Primary Care Provider Encounter Details Date Type Department Care Team Description 06/15/2018 Office Visit Endocrinology at [facility] C Madeline Smith, DO Thyroid nodule [facility] [place] [address] [address] [phone] ENDOCRINOLOGY [place], [place] [address] (Wo rk) Social History Tobacco [...] Sign Reading Time Taken Comments Blood Pressure 161/84 06/15/2018 2:27 PM EDT Pulse 61 06/15/2018 2:27 PM EDT Temperature - - Respiratory Rate - - Oxygen Saturation - - Inhaled Oxygen Concentration - - Weight 113.5 kg (250 lb 4.8 oz) 06/15/2018 2:27 PM EDT Height 162.6 cm (5' 4) 06/15/2018 2:27 PM EDT Body Mass Index 42.96 06/15/2018 2:27 PM EDT documented in this encounter Progress Notes Madeline Smith, - 06/15/2018 2:30 PM EDT Images from the original note were not included. ENDOCRINOLOGY FOLLOW UP OUTPATIENT NOTE [facility] Name: Corina Brewster History of Present Illness: Mrs. Brewster is a 62 year old female with a medical history of DM, OA, HAM, coronary artery disease status-post stenting, nephrolithiasis and umbilical hernia that presents for reevaluation of thyroid nodule. ?? Mrs. Brewster was first seen in our office with Dr. Stark on 02/23/2012. At that time she underwent thyroid ultrasound which revealed a right sided nodule measuring 2.5 x 2.3 x 2.5 cm and a left sided nodule measuring 1.9 x 1.7 cm. FNA biopsy of the right and left nodules were benign, one of the noduleswas noted to be within blood clot therefore determination was difficult. She was first seen in follow up at our office 03/25/2017 with me. A repeat ultrasound revealed a rightsided nodule measuring 4.6 x 2.5 x 3.2 cm. Because her labs revealed a hyperthyroid pattern (TSH<0.01, elevated free T4 1.99, elevated total T3 217). She was sent for a radioactive iodine uptake scan and diagnosed with a toxic multinodular goiter. She was started on Methimazole 10 mg daily. Corina was last seen in the endocrine clinic in November 2017. At that time her TSH was elevated at 6.07 with a free T4 of 0.79. Her Methimazole dose was reduced to 2.5 mg daily. Her thyroid studies wererepeated in January 2018, TSH was 2.85 (normal range 0.358-3.74), free T4 was 0.89 (normal) and total T3 was 148 (normal) and she was continued on Methimazole 2.5 mg daily. Since her last visit, she reports no symptoms of hyperthyroidism aside from ongoing hot flashes. Herhot flashes are daily, and unchanged compared to our previous visits. Her most recent set of thyroidstudies were reviewed and are outlined below. She also reports new of cough, hoarseness and increased need to clear her throat. She also reports compressive like symptoms. Past Medical History: Diabetes, type 2, diagnosed within the last ten years, taking Metformin BID CAD s/p stenting Arthritis Sleep apnea Nephrolithiasis Umbilical hernia Fibromyalgia ?? Surgical history: Hysterectomy, for endometriosis Bladder repair Bladder sling repair Lithotripsy Umbilical hernia repair Hand surgery ?? Social history: Occupational: Retired Alcohol: Denies Tobacco: Denies ?? Family History of Diabetes/ Endocrinopathies: Maternal history- NM, diabetes Paternal history- NM Siblings- Brother with lymphoma at age 54 Children- two children are healthy Maternal aunt with goiter, she does not recall anyone else in her family with thyroid problems She denies family history of cancer besides her brother with Lymphoma Allergies Allergen Reactions ??? Oxycodone Nausea And Vomiting Physical Exam: Most Recent Vitals: 06/15/18 1427 BP: 161/84 Pulse: 61 Body mass index is 42.96 kg/m??. General appearance - alert, well appearing, and in no distress Eyes - no proptosis Neck - supple, no significant adenopathy Chest - clear to auscultation, no wheezes Heart - normal rate, regular rhythm, normal S1, S2 Neurological - alert, oriented, no tremor, reflexes normal Musculoskeletal - no edema or cyanosis Skin - normal with skin tags Assessment: Mrs. Brewster is a 62 year old female with a medical history of DM, OA, HAM, coronary artery disease status-post stenting, nephrolithiasis and umbilical hernia that presents for reevaluation of thyroid nodule and hyperthyroid. Her thyroid nodule was evaluated in our office first by Dr. Stark in February 2012. At that time a right sided nodule measuring 2.5 x 2.3 x 2.5 cm and a left sided nodule measuring 1.9 x 1.7 cm underwent FNA biopsy. Both of the nodules were reported as benign with some question surrounding a clot formation making the interpretation difficult. A repeat ultrasound in March 2017 revealed a right sided nodule measuring 4.6 x 2.5 x 3.2 cm. Because her labs revealed a hyperthyroid pattern (TSH<0.01, elevated free T4 1.99, elevated total T3 217). She was sent for a radioactive iodine uptake scan and diagnosed with a toxic multinodular goiter. She was started on Methimazole 10 mg daily. Her dose has gradually been reduced to 2.5 mg daily since. Since her last visit, she reports feeling generally well and that she is now retired. She has unfortunately developed compressive symptoms with associated cough and new hoarseness. Thyroid ultrasound today reveals a left heterogeneous, hypoechoic nodule measuring 1.9 x 2.4 x 1.8 cm with punctate calcifications and right 5.6 x 4.0 x 2.6 cm hypoechoic nodule with calcifications. There is no increased vascularity within either nodule. Because of increasing nodule size with associated compressive symptoms we have recommended definitive therapy. I have recommend she stop Methimazole now, and undergo repeat 123 iodine uptake scan in 7 days. If there is still increased iodine uptake, we will then recommend iodine ablative therapy. If there is not increased uptake, surgical assessment may need to ensue. Plan: - Stop Methimazole now - I 123 uptake scan 7 days after stopping Methimazole - If uptake is still elevated, will recommend iodine ablation with nuclear medicine Thank you for allowing us to provide care for your patient. The above case was discussed and reviewed with attending physician, Dr. Gagnon. Madeline Smith DO Endocrinology, Diabetes and Metabolism Fellow 06/15/18 06/15/18 Madeline Smith DO - 06/15/2018 2:30 PM EDT ENDOCRINOLOGY THYROID ULTRASOUND REPORT Patient:Corina Brewster, [id number] Date of exam: 06/15/2018 Indication: Thyroid nodule history Comparison: 03/25/2017 Performed by: Sarah Real time images of the thyroid gland were obtained using a BK 15mHz US machine. All measurements are given as Longitudinal/Sagittal x AP x Transverse. Right Lobe: Right thyroid glandhas heterogeneous texture and measures 7.1 x 2.3 x 3.0 cm. 5.6 x 4.0 x 2.6 cm nodule in the right thyroid nodule, encompassing the most of the right lobe. Thisnodule is hypoechoic, with calcifications. Left Lobe: Left thyroid lobe measures 5.2 x 2.8 x 2.8 cm with heterogeneous texture. Heterogeneous, hypoechoic nodule in the left lateral lobe measuring 1.9 x 2.4 x 1.8 cm with punctatecalcifications. Isthmus: The isthmus measures 1.6 cm. Lateral neck: No abnormal lymph nodes or structures in the lateral neck. Impression: Two nodules as outlined: Left heterogeneous, hypoechoic nodule measuring 1.9 x 2.4 x 1.8 cm with punctate calcifications and right 5.6 x 4.0 x 2.6 cm hypoechoic nodule with calcifications. There is no increased vascularity within either nodule. Madeline Smith DO, PGY5 Endocrinology, Diabetes and Metabolism Fellow 06/15/2018 3:05 PM Pager #[phone] Tamara Galindo MD - 06/15/2018 2:30 PM EDT I have seen the patient and reviewed Dr. Madeline Smith's above history and I agree with the details as written. The assessment and plan were formulated in discussion with me and I agree with them as documented. I also directly supervised thyroid US and agree with the findings as written. Since she has enlarging Rt thyroid nodule of 5 cm (stable left nodule of 1.9 cm) and euthyroid with methimazole treatment, we can hold methimzole for 7 days for I-123 scan and uptake locally next week in preparation for I-131 therapy to help reduce the nodule size to help her hoarseness of voice. Surgery could be an alternative therapy for her compression symptoms but she has cardiac issue so we would prefer I-131 therapy as her curative choice if her Rt nodule still takes up radioactive iodine. Dr. Smith will follow her nuclear scan results closely and arrange for I-131 therapy as indicated soon and then help monitor TFTs at 6 weeks and 3 mo post I- 131 Rx before seeing her again in 3 mo when I-131 Rx should complete the effect. If she has worsening hyperthyroid symptoms after I-131 therapythen ok to resume methimazole low dose for 2-4 weeks since it'll take 2-4 weeks for I-131 to start taking effect and complete the effect in 3 mo. Pt will stay on very low iodine diet prior to thyroid nuclear scan until she has I-131 Rx as planned. Addendum: 07/09/18 She has high I-123 uptake at 43% at 24h (normal <35%) and nuclear scan showed hot nodule in the right lobe on 07/06/18, so we will schedule I-131 therapy at [facility] [place] [place] for her soon and s will stay on low iodine diet until she has I-131 Rx (to avoid any iodine contrast until she has I-131Rx soon). Since the Rt hot nodule is large, she may need ~ half dose of LT4 supplement at 3 mo post I-131 Rx. We will monitor TSH in 6 wks and 3 mo with goal to keep TSH at Target of 1.0-3.0 for nodulesuppression. Tamara Galindo MD, PhD, FACP, FACE documented in this encounter Plan of Treatment Upcoming Encounters Date Type Specialty Care Team Description 10/23/2021 Office Visit Hematology and Oncology Navid Armendariz MD [facility] DR ONCOLOGY [place] [address] (Wo rk) 10/23/2021 Infusion Hematology and Oncology documented as of this encounter Visit Diagnoses Diagnosis Thyroid nodule Nontoxic uninodular goiter Breast cancer, stage 1, left documented in this encounter Care Teams Answering Service Telephone Operator Relationship Specialty Start Date End Date Veronica Chun MD PCP - General Family Medicine 01/20/[address] [place] [address] documented as of this encounter
--- OUTSIDE RECORDS SUMMARY | 2021-10-23 02:25 | XMS_ITS | Encounter Summary ---
:1955 Author Organization [facility] [place] [address] Care Team Providers Name Role Phone Veronica Chun MD Primary Care Provider Encounter Details Date Type Department Care Team Description 05/04/2017 Telephone Endocrinology at [facility] [place] [address] Social History Tobacco Use Types Packs/Day [...] this encounter Miscellaneous Notes Telephone Encounter - Elise Rivero LPN - 05/04/2017 4:27 PM EDT Images from the original note were not included. Corina Brewster?? Female, 61 y.o., 1955 Weight: 106 kg (233 lb 9.6 oz) Home: Work: PCP: Veronica Chun MD myD-H: Active Next Appt: None ?? Message Received: Today ? Madeline Smith, DO Elise Rivero LPN; Rahul Bermeo Endocrinology Joint Creaser ? Can you ladies please mail this patient her thyroid studies which are due two weeks form now. Orders placed as external labs. DONE Telephone Encounter - Elise Rivero LPN - 05/04/2017 9:38 AM EDT Report received and was forward to Dr Smith. Telephone Encounter - Elise Rivero LPN - 05/04/2017 8:58 AM EDT Images from the original note were not included. Corina Brewster?? Female, 61 y.o., 1955 Weight: 106 kg (233 lb 9.6 oz) Home: Work: PCP: Veronica Chun MD myD-H: Active Next Appt: None ?? Message Received: Today ? Madeline Smith, DO Elise Rivero LPN ? [place], can you please help me locate her thyroid scan done at [facility] yesterday and the day before. ? Called radiology at [facility]. Spoke with Paty. Images to be sent electronically and report to be faxed to [phone] documented in this encounter Plan of Treatment Upcoming Encounters Date Type Specialty Care Team Description 10/23/2021 Office Visit Hematology and Oncology Navid Armendariz MD [facility] DR ONCOLOGY [place], [place] [address] (Wo rk) 10/23/2021 Infusion Hematology and Oncology documented as of this encounter Visit Diagnoses Not on filedocumented in this encounter Care Teams Environmental Remediation Consultant Relationship Specialty Start Date End Date Veronica Chun MD PCP - General Family Medicine 01/20/[address] [place] [address] [address] [place] [address] documented as of this encounter
--- OUTSIDE RECORDS SUMMARY | 2021-10-23 02:25 | XMS_ITS | Encounter Summary ---
:1955 Author Organization [facility] [place] [address] Care Team Providers Name Role Phone Veronica Chun MD Primary Care Provider Encounter Details Date Type Department Care Team Description 02/17/2017 Orders Only Rheumatology at [facility] Angie Martin Chronic bilateral low [facility] D, DO back pain without Drive [facility] [address] RHEUMATOLOGY [place], [place] [address] (Wo rk) Social History Tobacco [...] Navid Armendariz MD [facility] ER [address], [place] [address] (Wo rk) 10/23/2021 Infusion Hematology and Oncology documented as of this encounter Visit Diagnoses Diagnosis Chronic bilateral low back pain without sciatica Breast cancer, stage 1, left documented in this encounter Care Teams Casting Supervisor Relationship Specialty Start Date End Date Veronica Chun MD PCP - General Family Medicine 01/20/[address] [place] [address] documented as of this encounter
--- OUTSIDE RECORDS SUMMARY | 2021-10-23 02:25 | XMS_ITS | Encounter Summary ---
:1955 Author Organization [facility] [place] [address] Care Team Providers Name Role Phone Veronica Chun MD Primary Care Provider Encounter Details Date Type Department Care Team Description 09/14/2017 Telephone Endocrinology at [facility] [place] [address] Social History Tobacco Use Types Packs/Day [...] Telephone Encounter - Elise Rivero LPN - 09/14/2017 2:57 PM EDT Lab results received and were forward to Dr Smith. Telephone Encounter - Elise Rivero LPN - 09/14/2017 1:29 PM EDT Images from the original note were not included. Corina Brewster N?? Female, 62 y.o., 1955 Weight: 106 kg (233 lb 9.6 oz) Home: Work: PCP: Veronica Chun MD myD-H: Active Next Appt: 12/08/2017 ?? Message Received: 2 days ago ? Madeline Smith, DO Elise Rivero LPN ? I have most of this patients lab except her thyroid studies. Can you please request the TSH, free T4 and total T3 done at [facility] 09/08. Called lab. Spoke with Tracy. Results to be faxed. documented in this encounter Plan of Treatment Upcoming Encounters Date Type Specialty Care Team Description 10/23/2021 Office Visit Hematology and Oncology Navid Armendariz MD [facility] DR ONCOLOGY [place] [address] (Wo rk) 10/23/2021 Infusion Hematology and Oncology documented as of this encounter Visit Diagnoses Not on filedocumented in this encounter Care Teams Control Systems Technician Relationship Specialty Start Date End Date Veronica Chun MD PCP - General Family Medicine 01/20/[address] [place] [address] documented as of this encounter
--- OUTSIDE RECORDS SUMMARY | 2021-10-23 02:25 | XMS_ITS | Encounter Summary ---
:1955 Author Organization [place] [address] Care Team Providers Name Role Phone Veronica Chun MD Primary Care Provider Encounter Details Date Type Department Care Team Description 03/25/2017 Laboratory Appointment Lab [address] [facility] [place] [address] Social History Tobacco Use Types Packs/Day [...] Navid Armendariz MD [facility] DR ONCOLOGY [place], [place] [address] (Wo rk) 10/23/2021 Infusion Hematology and Oncology documented as of this encounter Procedures Procedure Name Priority Date/Time Associated Diagnosis Comme nts T3 TOTAL Routine 03/25/2017 1:21 PM Results f or this EST procedure are i n the results section . TSH Routine 03/25/2017 1:21 PM Thyroid nodule Results for this EST procedure are i n the results section . T4, FREE Routine 03/25/2017 1:21 PM Results f or this EST procedure are i n the results section . documented in this encounter Results (ABNORMAL) T3 Total (03/25/2017 1:21 PM EST) athologist Signature T3, Total 217 (H) 75 - 170 [facility] KIMANI ng/dL [facility] Specimen Anatomical Collection Method Collection Time Receive d Time (Source) Location / / Volume Laterality Blood specimen Venous Draw / 03/25/2017 1:21 PM 2017 1:32 (specimen) Unknown EST PM EST Resulting Agency Comment Spec In Lab Madeline Smith DO CHEMISTRY ORDERABLES Performing Organization Address City/[facility]/ZIP Code Phon e Number [address] (ABNORMAL) T4, free (03/25/2017 1:21 PM EST) athologist Signature Free T4 1.99 (H) 0.93 - 1.70 [facility] KIMANI ng/dL [facility] Specimen Anatomical Collection Method Collection Time Receive d Time (Source) Location / / Volume Laterality Blood specimen Venous Draw / 03/25/2017 1:21 PM 2017 1:32 (specimen) Unknown EST PM EST Resulting Agency Comment Spec In Lab Madeline Smith DO CHEMISTRY ORDERABLES Performing Organization Address City/[facility]/[place] [address] (ABNORMAL) TSH (03/25/2017 1:21 PM EST) athologist Signature TSH <0.01 (L) 0.27 - [facility] 4.20 [facility] mlU/ML [facility] Specimen Anatomical Collection Method Collection Time Receive d Time (Source) Location / / Volume Laterality Blood specimen 03/25/2017 1:21 PM 018 1:28 (specimen) EST PM EST Resulting Agency Comment Spec In Lab Betty Torres MD CHEMISTRY ORDERABLES Performing Organization Address City/[facility]/ZIP Code Phon e Number [address] documented in this encounter Visit Diagnoses Diagnosis Thyroid nodule Nontoxic uninodular goiter Breast cancer, stage 1, left documented in this encounter Care Teams Tip Bander Relationship Specialty Start Date End Date Veronica Chun MD PCP - General Family Medicine 01/20/[address] [place] [address] [address] [place] [address] documented as of this encounter
--- OUTSIDE RECORDS SUMMARY | 2021-10-23 02:25 | XMS_ITS | Encounter Summary ---
:1955 Author Organization [facility] Address [facility] [address] [place] [address] Care Team Providers Name Role Phone Veronica Chun MD Primary Care Provider Reason for Visit Consultation (Routine) - Closed Specialty Diagnoses / Procedures Referred By Contact Refer red To Contact Endocrinology Diagnoses thyroid nodule Veronica Chun MD [facility] Endocrinology [address] [facility] [address] [place] [phone] [place], [place] [address] Referral ID Status Reason Start Date Expiration Date Visits V isits Requested Authorized [id number] Closed Consult, 01/20/2017 01/20/2018 1 1 [facility] Encounter Details Date Type Department Care Team Description 03/25/2017 Office Visit Endocrinology at [facility] Betty Cordero MD [facility] [place] [address] Low TSH level [facility] Madeline Boland, DO [facility] [place] [address] [place] [address] Social History Tobacco Use Types Packs/Day [...] Sign Reading Time Taken Comments Blood Pressure 167/75 03/25/2017 2:19 PM EST Pulse 91 03/25/2017 2:19 PM EST Temperature - - Respiratory Rate - - Oxygen Saturation - - Inhaled Oxygen Concentration - - Weight 106 kg (233 lb 9.6 oz) 03/25/2017 2:19 PM EST pt stated Height 162.6 cm (5' 4) 03/25/2017 2:19 PM EST Body Mass Index 40.1 03/25/2017 2:19 PM EST documented in this encounter Progress Notes Madeline Smith, DO - 03/25/2017 2:00 PM EST ENDOCRINOLOGY CONSULT OUTPATIENT NOTE [facility] Name: Corina Brewster Date of Consultation: 03/25/2017 History of Present Illness: Mrs. Brewster is a 61 year old female with a medical history of DM, OA, HAM, coronary artery disease status-post stenting, nephrolithiasis and umbilical hernia that presents for reevaluation of thyroid nodule. Mrs. Brewster previously had thyroid ultrasound done by Dr. Stark on 02/23/2012. At that time he noteda right sided nodule measuring 2.5 x 2.3 x 2.5 cm and a left sided nodule measuring 1.9 x 1.7 cm. Atthat time her TSH was mildly suppressed at 0.26 with a normal free T4, she was clinically euthyroid.It was decided to move forward with FNA biopsy of both the left and right thyroid lobe nodules. Bothof these nodules were reported as benign. One of the nodules was noted to be within blood clot therefore determination was difficult. She has since been seen by her primary care. She tells me her TSH levels have been somewhat towards low. She does have some symptoms of hyperthyroidism currently, including new tremor present, anxiousness, palpitations. Thyroid Review of Systems: Palpitations- occasional Diaphoresis- present, frequent hot flashes, had two in the waiting room waiting for her appointment,flushing present, had a hysterectomy at age 27 she has one ovary Tremor- patient has noticed tremor, unrelated to blood sugar Mood changes- A lot of stress at work, but otherwise happy go ras Depression- None Anxiety- None Diarrhea- None Weight loss or gain- None, patient feels she eats very healthy with calorie restriction Compression symptoms- None Neck growth/goiter- None Vision changes- occasionally gets raspy sound to her voice Globus sensation- patient feels things are getting stuck in her throat, this has been going on for over a year Dysphagia- occasionally Dysphonia- No Dyspnea- No History of H+N XRT exposure- None Family history of thyroid cancer- none Family history of cancer syndrome- none Goiter: Not present Past Medical History: Diabetes, type 2, diagnosed within the last ten years, HbA1c unknown, taking Metformin BID CAD s/p stenting Arthritis Sleep apnea Nephrolithiasis Umbilical hernia Fibromyalgia Surgical history: Hysterectomy, for endometriosis Bladder repair Bladder sling repair Lithotripsy Umbilical hernia repair Hand surgery Social history: 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 Oxycodone Nausea And Vomiting Physical Exam: BP 167/75 HR 91 Weight 106 kg BMI 40.09 General appearance - alert, well appearing, and in no distress Eyes - pupils equal and reactive, extraocular eye movements intact Neck - supple, no significant adenopathy Chest - clear to auscultation, no wheezes Heart - normal rate, regular rhythm, normal S1, S2 Neurological - alert, oriented, no tremor, reflexes normal Musculoskeletal - no edema or cyanosis Skin - normal with skin tags Assessment: Mrs. Brewster is a 61 year old female with a medical history of DM, OA, HAM, nephrolithiasis and umbilical hernia that presents for reevaluation of thyroid nodule. This patient was asked to undergo TSH testing prior to todays ultrasound plans. Her TSH returned <0.01 today which is not surprising based on symptoms of hyperthyroidism. We went forward with thyroid ultrasound today which revealed an enlarged thyroid gland with a nodule on the right side, this nodule has increased in size compared to previous ultrasound in 2013. The etiology of her current condition could be related to underlying Graves disease vs. Multinodular goiter. We feel a radioactive iodine uptake scan to determine the etiologyof her hyperthyroidism. Plan: --- Add on free T4 and total T3, pending now --- Add radioactive iodine uptake scan now Thank you for allowing us to provide care for your patient. The above case was discussed and reviewed with attending physician, Dr. Torres. Madeline Smith DO Endocrinology, Diabetes and Metabolism Fellow 03/25/2017 1:48 PM ENDOCRINOLOGY THYROID ULTRASOUND REPORT Patient:Corina Brewster, [id number] Date of exam: 03/25/2017 Indication: History of thyroid nodules Comparison: 2012 Performed by: Sarah/Brian Real time images of the thyroid gland were obtained using a BK 15mHz US machine. All measurements are given as Longitudinal/Sagittal x AP x Transverse. Right Lobe: The right lobe measures 3.4 x 2.9 cm There is a nodule measuring 4.6 x 2.5 x 3.2 cm, sonographic pattern: Hypoechoic echogenicity unclear margins no intra-nodular calcifications Without increased blood flow on color doppler Left Lobe: The left lobe measures 2.2 x 2.7 cm Impression: Slightly enlarged thyroid gland. Plan: Madeline Smith DO 03/25/17 3:26 PM Betty Torres MD - 03/25/2017 2:00 PM EST I saw this patient with Dr. Smith. I reviewed the coles portions of the history and physical exam, and reviewed pertinent lab data. I answered all patient questions. I was involved in all medical decision making and agree with this plan. BETTY TORRES MD [employer] Section of Endocrinology [facility] documented in this encounter Plan of Treatment Upcoming Encounters Date Type Specialty Care Team Description 10/23/2021 Office Visit Hematology and Oncology Navid Armendariz MD [facility] ONCOLOGY [place], [place] [address] (Wo rk) 10/23/2021 Infusion Hematology and Oncology documented as of this encounter Visit Diagnoses Diagnosis Low TSH level Nonspecific abnormal results of thyroid function study Breast cancer, stage 1, left documented in this encounter Care Teams Utility Appraiser Relationship Specialty Start Date End Date Veronica Chun MD PCP - General Family Medicine 01/20/17 [facility] [address] [place] [address] documented as of this encounter
--- OUTSIDE RECORDS SUMMARY | 2021-10-23 02:25 | XMS_ITS | Encounter Summary ---
:1955 Author Organization [facility] [place] [address] Care Team Providers Name Role Phone Veronica Chun MD Primary Care Provider Encounter Details Date Type Department Care Team Description 07/19/2018 Laboratory Appointment Lab 3L [facility] Malignant neoplasm of [facility] left female breast, [facility] unspecifi ed estrogen Drive receptor status, [place] [phone] breast [phone] Social History Tobacco Use Types Packs/Day Years [...] Oncology Navid Armendariz MD [facility] ER DR ONCOLOGY [place], [place] [address] (Wo rk) 10/23/2021 Infusion Hematology and Oncology documented as of this encounter Procedures Procedure Name Priority Date/Time Associated Comments Diagnosis HEMOGRAM Routine 07/19/2018 8:23 AM Malignant neoplasm Res ults for this EDT of left female procedure are in breast, unspecified the resu lts estrogen receptor section. status, unspecified site of breast DIFFERENTIAL, Routine 07/19/2018 8:23 AM Malignant neoplasm Re sults for this AUTOMATED EDT of left female procedure are in breast, unspecified the resu lts estrogen receptor section. status, unspecified site of breast CBC (WITH DIFF) Routine 07/19/2018 8:23 AM Malignant neoplasm EDT of left female breast, unspecified estrogen receptor status, unspecified site of breast COMPREHENSIVE Routine 07/19/2018 8:23 AM Malignant neoplasm Re sults for this METABOLIC PANEL EDT of left female procedure are in (NON-FASTING) breast, unspecified the res ults estrogen receptor section. status, unspecified site of breast documented in this encounter Results Differential, Automated (07/19/2018 8:23 AM EDT) athologist Signature Neutrophils % 64.8 % [facility] Neutr Abs (ANC) 4.16 1.70 - [facility] 6.10 [facility] x10(3)[facility] LABORATORY Lymphocytes % 21.3 % [facility] Lymphocytes Abs 1.4 0.9 - 3.2 [facility] x10(3)/[facility]OR[facility] Monocytes % 10.9 % [facility] Monocyte Abs 0.7 0.3 - 0.9 [facility] x10(3)/[facility] LABORATORY Eosinophils % 1.6 % [facility] Eosinophils Abs 0.1 0.0 - 0.4 [facility] x10(3)/[facility] Basophils % 1.1 % [facility] Basophils Abs 0.1 0.0 - 0.1 [facility] x10(3)/[facility] Immature Gran % 0.30 % [facility] Comment: Immature granulocytes(IG's)percentage an d absolute count will include metamyelocytes, myelocytes, and promyelo cytes. Blood smears from CBCs yielding IG's will be scanned manually for concor dance. If this scan disagrees with the automated IG or if promyelocytes are not ed, a manual differential will be performed. Willa Gran Abs 0.02 0.00 - 0.04 x10(3)/[facility] Specimen Anatomical Collection Method Collection Time Receive d Time (Source) Location / / Volume Laterality Blood specimen 07/19/2018 8:23 AM 019 8:38 (specimen) EDT AM EDT Resulting Agency Comment Spec In Lab Charlie Larry MD HEMATOLOGY ORDERABLES Performing Organization Address City/State/[place] [address] (ABNORMAL) Hemogram (07/19/2018 8:23 AM EDT) Analysis Performed At Patho logist Time Signature WBC 6.4 4.0 - 9.5 [facility] x10(3)/[facility] RBC 4.98 4.00 - IKE KIMANI 5.21 [facility] x10(6)/[facility] LABORATORY Hemoglobin 14.2 11.7 [facility] 15.5 gm/dL [facility] Hematocrit 45.0 35.7 - [facility] 45.8 % [facility] MCV 90.4 82[address] [facility] 94.4 [facility] LABORATORY MCH 28.5 27.[address] - [facility] 32.0 pg [facility] MCHC 31.6 (L) 31.7 - [facility] 35.0 gm/dL [facility] Platelets 203 145 - 357 [facility] x10(3)/[facility] LABORATORY RDWSD 44.1 37.0 - [facility] 46.0 [facility] LABORATORY RDWCV 13.3 11.5 - [facility] 14.1 % [facility] MPV 10.7 7.6 - 12.9 [facility] nRBC % Auto 0.0 % [facility] nRBC Abs Auto 0.000 0.000 - [facility] 0.000 [facility] x10(3)/[facility] LABORATORY Specimen Anatomical Collection Method Collection Time Receive d Time (Source) Location / / Volume Laterality Blood specimen 07/19/2018 8:23 AM 019 8:38 (specimen) EDT AM EDT Resulting Agency Comment Spec In Lab Charlie Larry MD HEMATOLOGY ORDERABLES Performing Organization Address City/State/[place] [address] (ABNORMAL) Comprehensive metabolic panel (non-fasting) (07/19/2018 8:23 AM EDT) athologist Signature Glucose Lvl 215 (H) 65 - 199 [facility] mg/dL [facility] Comment: Diabetes: >=200 mg/dL plus symp toms BUN 17 8 - 18 mg/dL [facility] Creatinine 0.70 0.70 - 1.20 mg/dL [facility] Sodium 138 135 - 145 mmol/L [facility] Potassium 4.3 3.5 - 5.0 mmol/L [facility] Comment: Please note: ??Patients with WBC >100,00 0 may have falsely elevated Potassium levels. ??For accurate Potassium quantif ication in these patients send serum separator tube (gold top) for subsequent determinations. ??Contact the Clinical Chemistry Laboratory if there are any qu estions. Chloride 98 98 - 107 mmol/L [facility] CO2 28 22 - 31 mmol/L [facility] Anion Gap 12 5 - 15 mmol/L [facility] Calcium 10.0 8.5 - 10.5 mg/dL [facility] Total Protein 7.2 6.1 - 8.0 gm/dL [facility] Albumin 3.9 3.2 - 5.2 gm/dL [facility] AST 22 0 - 30 unit/L [facility] ALT 32 (H) 0 - 30 unit/L [facility] Alk Phos 75 40 - 104 unit/L [facility] Total Bilirubin 0.4 0.2 - 1.3 mg/dL [facility] Estimated GFR 93 >=60 mL/min/1.73 m?? [facility] Comment: The eGFR was calculated using the CKD-EP I equation. As with all creatinine based estimates of kidney function, eGFR values calculated with the CKD-EPI equation are not accurate in patients wi th acute kidney failure, extremes of body mass or the acutely ill. http://[employer]/DHnkf eGFR 108 >=60 mL/min/1.73 m?? [facility] Comment: The eGFR was calculated using the CKD-EP I equation. As with all creatinine based estimates of kidney function, eGFR values calculated with the CKD-EPI equation are not accurate in patients wi th acute kidney failure, extremes of body mass or the acutely ill. http://[employer]/[facility] – TULSAnkf Specimen Anatomical Collection Method Collection Time Receive d Time (Source) Location / / Volume Laterality Blood specimen 07/19/2018 8:23 AM 019 8:37 (specimen) EDT AM EDT Resulting Agency Comment Spec In Lab Charlie Larry MD CHEMISTRY ORDERABLES Performing Organization Address City/State/[place] [address] documented in this encounter Visit Diagnoses Diagnosis Malignant neoplasm of left female breast , unspecified estrogen receptor status, unspecified site of breast Breast cancer, stage 1, left documented in this encounter Care Teams Wool Sacker Relationship Specialty Start Date End Date Veronica Chun MD PCP - General Family Medicine 01/20/[address] [place] [address] documented as of this encounter
--- OUTSIDE RECORDS SUMMARY | 2021-10-23 02:25 | XMS_ITS | Encounter Summary ---
:1955 Author Organization [facility] [place] [address] Care Team Providers Name Role Phone Veronica Chun MD Primary Care Provider Encounter Details Date Type Department Care Team Description 04/02/2017 Telephone Endocrinology at [facility] [place] [address] Social History Tobacco Use Types Packs/Day [...] this encounter Miscellaneous Notes Telephone Encounter - Mirta Bass - 04/02/2017 12:54 PM EST Faxed Nuc Med order to [facility] documented in this encounter Plan of Treatment Upcoming Encounters Date Type Specialty Care Team Description 10/23/2021 Office Visit Hematology and Oncology Navid Armendariz MD [facility] ONCOLOGY [place], [place] [address] (Wo rk) 10/23/2021 Infusion Hematology and Oncology documented as of this encounter Visit Diagnoses Not on filedocumented in this encounter Care Teams Coating Machine Feeder Relationship Specialty Start Date End Date Veronica Chun MD PCP - General Family Medicine 01/20/17 [address] [place] [address] documented as of this encounter
--- OUTSIDE RECORDS SUMMARY | 2021-10-23 02:25 | XMS_ITS | Encounter Summary ---
:1955 Author Organization [facility] [place] [address] Care Team Providers Name Role Phone Veronica Chun MD Primary Care Provider Encounter Details Date Type Department Care Team Description 06/27/2018 Hospital Encounter Mammography at [facility] [place] Abnormal finding on [facility] MD Luis breast imaging [facility] [phone] DIAGNOSIC [phone] [place] [address] Social History Tobacco Use Types Packs/Day Years [...] Sig Dispensed Refills Start Date End Date metFORMIN (GLUCOPHAGE) 1,000 take 1 tablet by 0 1 03/27/2016 mg TabletIndications: mouth twice a Osteoarthritis, unspecified day osteoarthritis type, unspecified site, Osteoarthritis of left hand, unspecified osteoarthritis type, Fibromyalgia, Vitamin D deficiency aspirin 81 mg EC tablet 0 05/21/2008 methIMAzole (TAPAZOLE) 5 mg Take 0.5 tablets [...] and Oncology Navid Armendariz MD [facility] DR ONCOLOGY [place], [place] [address] (Wo rk) 10/23/2021 Infusion Hematology and Oncology documented as of this encounter Procedures Procedure Name Priority Date/Time Associated Comments Diagnosis MAMMO DIAGNOSTIC CAD Routine 06/27/2018 2:32 PM Abnormal findi ng on Results for this LEFT EDT breast imaging procedure are in the results section. documented in this encounter Results Mammo Diagnostic Cad Left (06/27/2018 2:32 PM EDT) Anatomical Region Laterality Modality Breast Left Mammography Specimen (Source) Anatomical Location Collection Method / Collectio n Time Received Time / Laterality Volume Narrative 06/27/2018 2:47 PM EDT DIAGNOSTIC MAMMOGRAPHY OF THE LEFT BREAST CLINICAL HISTORY: abnormal mammo. ??LEFT breast mass but additional microcalcifications TECHNIQUE AND VIEWS OBTAINED: Images acquired with direct digital capt ure LEFT mL, LEFT mag ML, LEFT mag CC.. COMPARISONS: 2014 BREAST DENSITY: The breasts are almost entirely fatty FINDINGS: Anterior and posterior to the 1.5 cm spi culated mass in the upper outer quadrant of the LEFT breast are 3 groups of micro calcifications.. There are a few fine pleomorphic new microcalcifications exte nding up to 1.7 cm posterior to the mass and a 1.1 cm group of multiple pleomorph ic microcalcifications 2 cm anterior to the mass. Both of these could be resecte d with the patient's primary tumor with appropriate needle localization bracketi ng. More anterior is a 1.2 cm group of similar appearing fine pleomorphic micro calcifications, which is 5 cm from the patient's primary tumor. As these would not be included in a larger local excision and will affect operative appro ach, decision was made to stereotactic biopsy these calcifications along with t he patient's primary mass DIAGNOSTIC SUMMARY: LEFT BREAST LESION #1 1.5 cm cm Mass ??Upper Outer Quadrant 2 OClock 10 cm from the nipple mammographically with microcalcification s that extend anterior and posterior to the mass spanning a total of 4.7 cm. The se are of high probability for DCIS LEFT BREAST LESION #2 1.2 cm Microcalcifications ??Upper Outer Quadrant 2 OClock 5 cm from the nipple INTERPRETATION: BIRADS 5. Highly suspicious for malignan cy RECOMMENDATION: Ultrasound-guided biopsy of lesion 1 and stereotactic biopsy of lesion 2 for treatment planning Thank you for letting us participate in the care of this patient. For questions regarding this report, please contact e number below. ? Rocky Mohr MD IMG MAMMO ORDERABLES documented in this encounter Visit Diagnoses Diagnosis Abnormal finding on breast imaging Other (abnormal) findings on radiologica l examination of breast Breast cancer, stage 1, left documented in this encounter Care Teams Bpm Analyst Relationship Specialty Start Date End Date Veronica Chun MD PCP - General Family Medicine 01/20/17 [address] [place] [address] documented as of this encounter
--- OUTSIDE RECORDS SUMMARY | 2021-10-23 02:25 | XMS_ITS | Encounter Summary ---
:1955 Author Organization [facility] [place] [address] Care Team Providers Name Role Phone Veronica Chun MD Primary Care Provider Encounter Details Date Type Department Care Team Description 06/27/2018 Hospital Encounter Mammography at [facility] [place] Abnormal finding on [facility] MD Luis breast imaging [facility] [address] DIAGNOSIC [phone] [place] [address] Social History Tobacco Use Types Packs/Day Years [...] Navid Armendariz MD [facility] [address] ONCOLOGY [place], [place] [address] (Wo rk) 10/23/2021 Infusion Hematology and Oncology documented as of this encounter Procedures Procedure Name Priority Date/Time Associated Diagnosis Comme nts MAMMO BREAST US Routine 06/27/2018 3:47 PM Abnormal finding on Results for this LIMITED RIGHT EDT breast imaging procedure ar dar in the results section. documented in this encounter Results US Breast Limited Right (06/27/2018 3:47 PM EDT) Anatomical Region Laterality Modality Breast Right Mammography Specimen (Source) Anatomical Location Collection Method / Collectio n Time Received Time / Laterality Volume Narrative 06/27/2018 4:28 PM EDT EXAMINATION: US BREAST LIMITED RIGHT DIAGNOSTIC ULTRASOUND OF THE RIGHT BREAS T CLINICAL HISTORY: The patient has a calc ified mammogram on the LEFT was complaining of a palpable mass in the up per aspect of the RIGHT breast which is been stable as per her examination for a -year-old to at least. Review of her mammogram of from 06/16/2018 shows only n ormal adipose tissue in this area.. COMPARISONS: None AREA SCANNED: Palpable mass at 12:00. FINDINGS: Ultrasound of the palpable mass showed i t to be a 2 cm lipoma of no clinical significance INTERPRETATION: BIRADS 2. Benign finding MANAGEMENT: Routine screening mammography of the RIG HT breast in one year Thank you for letting us participate in the care of this patient. For questions regarding this report, please contact e number below. ? Rocky Mohr MD IMG MAMMO ORDERABLES documented in this encounter Visit Diagnoses Diagnosis Abnormal finding on breast imaging Other (abnormal) findings on radiologica l examination of breast Breast cancer, stage 1, left documented in this encounter Care Teams Software Administrator Relationship Specialty Start Date End Date Veronica Chun MD PCP - General Family Medicine 01/20/[address] [place] [address] documented as of this encounter
--- OUTSIDE RECORDS SUMMARY | 2021-10-23 02:25 | XMS_ITS | Encounter Summary ---
:1955 Author Organization [facility] [place] [address] Care Team Providers Name Role Phone Veronica Chun MD Primary Care Provider Reason for Referral Diagnostic Test (Routine) - Closed Specialty Diagnoses / Procedures Referred By Contact Refer red To Contact Radiology Diagnoses Thyroid nodule Madeline Smith, DO [facility] Rad Nuclear Med Procedures NM I-131 Initial Therapy [facility] [place] [address] [place] [address] Referral ID Status Reason Start Date Expiration Date Visits V isits Requested Authorized [id number] Closed Specialty 07/10/2018 07/10/2019 1 1 Service Requested Reason for Visit Diagnostic Test (Routine) - Closed Specialty Diagnoses / Procedures Referred By Contact Refer red To Contact Radiology Diagnoses Thyroid nodule Madeline Smith, DO [facility] Rad Nuclear Med Procedures NM I-131 Initial Therapy [facility] [place] [address] [place] [address] Referral ID Status Reason Start Date Expiration Date Visits V isits Requested Authorized [id number] Closed Specialty 07/10/2018 07/10/2019 1 1 Service Requested Encounter Details Date Type Department Care Team Description 07/19/2018 Hospital Encounter Nuclear Medicine at [place], Alondra villegas Thyroid nodule Shaunna Luis MD [facility] [place] [address] ENDOCRINOLOGY [phone] DEPT. OLENA [place] 0375 Social History Tobacco Use Types Packs/Day [...] and Oncology Navid Armendariz MD [facility] ER DR ONCOLOGY [place], [place] [address] (Wo rk) 10/23/2021 Infusion Hematology and Oncology documented as of this encounter Procedures Procedure Name Priority Date/Time Associated Diagnosis Comme nts NM I 131 INITIAL Routine 07/19/2018 11:45 AM Thyroid nodule Re sults for this THERAPY EDT procedure are i n the results section. documented in this encounter Results NM I-131 Initial Therapy (07/19/2018 11:45 AM EDT) Anatomical Region Laterality Modality Nuclear Medicine Specimen (Source) Anatomical Location Collection Method / Collectio n Time Received Time / Laterality Volume Impressions 07/19/2018 1:09 PM EDT FINDINGS/IMPRESSION: Radioiodine administered for treatment o f hyperthyroidism without complication. Thank you for letting us participate in the care of this patient. For questions regarding this report, please contact e number below. ? 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 TECHNIQUE: The treatment of hyperthyroid ism using radioactive iodine, as well as alternative forms of therapy were discus sed with the patient. The patient was told about the possible side effects and necessary precautions. Possible outcomes, including the potential of per manent hypothyroidism were mentioned. Informed consent was signed. The patient received 32.0 mCi of I-131 administered orally and left the department in good c ondition. COMPARISON: None Procedure Note Bryan Wasserman MD - 07/19/2018Formatti ng of this note might be different from the original. 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 TECHNIQUE: The treatment of hyperthyroid ism using radioactive iodine, as well as alternative forms of therapy were discus sed with the patient. The patient was told about the possible side effects and necessary precautions. Possible outcomes, including the potential of per manent hypothyroidism were mentioned. Informed consent was signed. The patient received 32.0 mCi of I-131 administered orally and left the department in good c ondition. COMPARISON: None IMPRESSION FINDINGS/IMPRESSION: Radioiodine administered for treatment o f hyperthyroidism without complication. Thank you for letting us participate in the care of this patient. For questions regarding this report, please contact e number below. Tamara Galindo MD [facility] [place] ORDERABLES documented in this encounter Visit Diagnoses Diagnosis Thyroid nodule Nontoxic uninodular goiter Breast cancer, stage 1, left documented in this encounter Administered Medications Inactive Administered Medications - up to 3 most recent administrations Medication Order MAR Action Action Date Dose Rate Site iodine I-131 therapeutic capsule Given 07/19/2018 11:35 AM EDT 3 2 mCi 32 mCi 32 mCi, Oral, ONCE PRN, 1 dose, Starting on Tue07/19/18 at 1130, Until Tue07/19/18 at 1135, Per Protocol, Routine documented in this encounter Care Teams Clinical Quality Assurance Associate Relationship Specialty Start Date End Date Veronica Chun MD PCP - General Family Medicine 01/20/[address] [place] [address] documented as of this encounter
--- OUTSIDE RECORDS SUMMARY | 2021-10-23 02:25 | XMS_ITS | Encounter Summary ---
:1955 Author Organization [facility] [place] [address] Care Team Providers Name Role Phone Veronica Chun MD Primary Care Provider Encounter Details Date Type Department Care Team Description 07/19/2018 Notes Only Care Management [place] [address] Social History Tobacco Use Types Packs/Day [...] encounter Progress Notes Marcella Wang MSW - 07/19/2018 10:54 AM EDT OFFICE OF CARE MANAGEMENT/CONTINUING CITY EDITOR Reason for referral: Corina Brewster is a 62 year old, female who was seen in the multidisciplinary breast care clinic for a surgical consult as she was recently diagnosed with ER/SC+, left breast, IDC/DCIS. Pt met with Dr. Larry and has decided to have a lumpectomy/SLNB followed by IDC/DCIS followed by radiation therapy which she will receive at [facility]. CCM met with pt to complete a psychosocial assessment and to explain my role in the breast program. Pt was encouraged to contact me if she has any questions or concerns. Living arrangements/social supports: Pt lives alone in [place], [place]. She has two children, Genna and Jose Alfredo. Pt's son lives in [place]. Her daughter lives 10 minutes from pt and accompanied herto today's appt. Employment/Insurance/Finances: Pt is retired and receives Social Security benefits. Pt has medical coverage through [place] Medicaid. She was told she could receive mileage reimbursement to her medical appts from Medicaid. Tobacco/drug/alcohol history: Pt does not smoke and states she rarely drinks. Advance Directives: Advance directives were not discussed at this meeting because pt had to leave togo to an appt at [facility]. Adjustment to illness/Mental Health Concerns: Pt states she feels less anxious about her breast cancer diagnosis since she met with Dr. Larry. Pt has support from her family and friends. I reviewed some of the support and services available to pt in the cancer center. I reviewed some of the support and services available to pt in the cancer center. Plan: CCM will continue to follow pt to assess and assist with their psychosocial needs. CARLOS [facility]/[place] [address] Pager #[phone] documented in this encounter Plan of Treatment Upcoming Encounters Date Type Specialty Care Team Description 10/23/2021 Office Visit Hematology and Oncology Navid Armendariz MD [facility] ONCOLOGY [place] [phone] (Wo rk) 10/23/2021 Infusion Hematology and Oncology documented as of this encounter Visit Diagnoses Not on filedocumented in this encounter Care Teams Parachute Packer Relationship Specialty Start Date End Date Veronica Chun MD PCP - General Family Medicine 01/20/[address] [place] [address] documented as of this encounter
--- OUTSIDE RECORDS SUMMARY | 2021-10-23 02:25 | XMS_ITS | Encounter Summary ---
:1955 Author Organization [facility] [place] [address] Care Team Providers Name Role Phone Veronica Chun MD Primary Care Provider Encounter Details Date Type Department Care Team Description 06/21/2018 External Results [facility] [place] [address] [place] [address] [phone] (Wo rk) Social History Tobacco Use Types [...] Visit Hematology and Oncology Navid Armendariz MD [facility] ONCOLOGY [place], [place] [address] (Wo rk) 10/23/2021 Infusion Hematology and Oncology documented as of this encounter Procedures Procedure Name Priority Date/Time Associated Diagnosis Comme nts MAMMOGRAM SCAN Routine 06/19/2018 documented in this encounter Results Scan Doc: Mammogram (06/19/2018) Anatomical Region Laterality Modality Other Narrative This result has an attachment that is no t available. Karin Bah MD MEDIA MGR SCAN EXT ORDR/RSLT documented in this encounter Visit Diagnoses Not on filedocumented in this encounter Care Teams Farm Mortgage Agent Relationship Specialty Start Date End Date Veronica Chun MD PCP - General Family Medicine 01/20/[address] [place] [address] [address] [place] [address] documented as of this encounter
--- OUTSIDE RECORDS SUMMARY | 2021-10-23 02:25 | XMS_ITS | Encounter Summary ---
:1955 Author Organization [facility] [place] [address] Care Team Providers Name Role Phone Veronica Chun MD Primary Care Provider Encounter Details Date Type Department Care Team Description 07/10/2018 Notes Only General Surgery at [facility] [place] [address] Social History Tobacco Use Types Packs/Day [...] documented as of this encounter Progress Notes Irina Toney - 07/10/2018 8:36 PM EDT Documentation of Informed Consent to Participate in Clinical Trial Prone to Supine Breast MRI Trial Corina Brewster, a 62yo female with newly diagnosed left breast cancer, was seen in Radiology(MRI) on07/10/18. Patient was offered the opportunity to participate in study [id number], Prone to Supine Breast MRI Trial. Study protocol reviewed with patient, including description of study purpose, potential risks and benefits, voluntary nature or participation, and requirements of participation. Discussed confidentiality of patient???s private health information as specified in consent form. Patient informed that she may discontinue study involvement at any time; informed that declining to participate or discontinuing study treatment will not compromise her access to treatment options or care at this institution. Corina Brewster was given written informed consent form to read and review. She was given adequate time to review all information, and to ask questions and review concerns, all of which were answered toher satisfaction. Patient verbalized understanding of this protocol and consented for treatment on study [id number]. Consent form was signed and dated by patient and Irina Toney. Written informed consent was obtained prior toany study procedures being conducted. A copy of the signed consent form was given to patient. Original signed IC form given to RAMON Hernández. after completing the prone breast MRI, the patient decided she did not want to continue with the research portion of the study. No supine breast images were obtained. documented in this encounter Plan of Treatment Upcoming Encounters Date Type Specialty Care Team Description 10/23/2021 Office Visit Hematology and Oncology Navid Armendariz MD [facility] DR ONCOLOGY [place], [place] [address] (Wo rk) 10/23/2021 Infusion Hematology and Oncology documented as of this encounter Visit Diagnoses Not on filedocumented in this encounter Care Teams Set Up Inspector Relationship Specialty Start Date End Date Veronica Chun MD PCP - General Family Medicine 01/20/[address] [place] [address] documented as of this encounter
--- OUTSIDE RECORDS SUMMARY | 2021-10-23 02:25 | XMS_ITS | Encounter Summary ---
:1955 Author Organization [facility] [place] [address] Care Team Providers Name Role Phone Veronica Chun MD Primary Care Provider Reason for Visit Consultation (Routine) - Specialty Diagnoses / Procedures Referred By Contact Refer red To Contact Surgical Oncology / Diagnoses Breast cancer NEW L IDC, DCIS Morenita Ochoa MD Barth, Richard J, Hematology and Procedures [facility] [address] On[address] [place], [place] [address] GENERAL SURGERY [place], [place] [address] Phone: Fax: Referral ID Status Reason Start Date Expiration Date Visits V isits Requested Authorized [id number] 07/19/2018 07/19/2019 1 1 Encounter Details Date Type Department Care Team Description 07/19/2018 Office Visit Hematology and Charlie Larry MD [facility] [place] [address] Malignant neoplasm of Oncology at [facility] Brianne Alvarez, RN left breast in [facility] female, e [address] receptor positive, [place], [place] [phone] breast [phone] Social History Tobacco Use Types Packs/Day Years [...] Sign Reading Time Taken Comments Blood Pressure 133/66 07/19/2018 9:23 AM EDT Pulse 65 07/19/2018 9:23 AM EDT Temperature 37 ??C (98.6 ??F) 07/19/2018 9:23 AM EDT Respiratory Rate 18 07/19/2018 9:23 AM EDT Oxygen Saturation 95% 07/19/2018 9:23 AM EDT Inhaled Oxygen Concentration - - Weight 112.5 kg (248 lb) 07/19/2018 9:23 AM EDT Height 163 cm (5' 4.17) 07/19/2018 9:23 AM EDT Body Mass Index 42.34 07/19/2018 9:23 AM EDT documented in this encounter Progress Notes Charlie Larry MD - 07/19/2018 9:30 AM EDT Corina Brewster is a 62-year-old woman sent for consultation by Veronica Chun for left breast cancer. Corina had a screening mammogram that showed a 1.8 cm mass in her left breast located at 2:00 5 cm from her nipple. There was a cluster of calcifications that was about 1.5 cm in diameter, about 2 cm medial to that mass. There was another 5 mm cluster of calcifications that was about 5 cm away from theprimary cancer; it was near the skin and lateral in the left breast. Core biopsy of the mass at 2:00 5 cm from the nipple which on US was 1.4 cm in diameter showed infiltrating ductal carcinoma, low-grade, ER positive, HER-2 negative. Core biopsy of the 5 mm cluster of calcifications in the lateral left breast close to the skin showed ductal carcinoma in situ, low to intermediate grade. She had an MRI that showed the 2 cm mass, that showed the calcifications medial to it were enhancing, and then there was the site of the biopsy in the lateral breast which also enhanced. Her left axillary nodes were negative on MRI. Her right mammogram and MRI were both negative. She has not felt any masses in either breast. She has no family history of breast or ovarian cancer. She is G2, P2 and is postmenopausal. Current medications include Lipitor atenolol hydrochlorothiazide Metformin aspirin and Tapazole. She has allergies to oxycodone which causes nausea and vomiting. Past surgical history significant for , hysterectomy and unilateral oophorectomy, umbilicalhernia repair, bladder repair x2 and carpal tunnel surgery. Review of systems is positive for osteoarthritis. She had a stent placed in 1 of her coronary vessels 8 years ago. She has not had any problems with angina or dyspnea since then. She has had kidney stones treated 2 years ago. The rest review of systems is negative. 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 Her daughter Genna is here with her and I filled out [employer] paperwork for her. On physical exam Corina is alert and oriented. In general she appears well. She is obese. Pupils are equal. She is nonjaundiced. Lungs are clear. Heart has a regular rhythm. On examination of her left breast, her nipple is normal. There are no palpable left breast masses. There is no left axillary adenopathy. She has full range of motion of her left arm and no left arm edema. No right nipple abnormalities or breast masses. There is no right axillary adenopathy. She does have multiple skin tags on herskin especially around her neck. She has one skin tag just inferior lateral to her left eye that particularly bothers her and she would like me to remove it. I personally reviewed her mammogram, ultrasound and MRI images. Impression: 62-year-old woman with multicentric left breast cancer. She has 1 main cancer and then 5cm away she has a biopsy-proven site of DCIS. There is also a 1.5cm cluster of calcifications; this has not yet been biopsied but which is concerning and we will include in the excision. It would be technically possible to wire localize with 2 wires: one would come in from lateral and go through the primary mass and then go into the 1.5 cm cluster of calcifications. A second wire will localize a 5 mm cluster of calcifications that was lateral to the main mass, close to the skin which was biopsy-proven to be DCIS. I would then remove the tissue around the wires. I used my decision making guide and we discussed the advantages and disadvantages of lumpectomy plusradiation therapy versus mastectomy plus or minus immediate reconstruction. She would like to proceed with a left breast wire localized lumpectomy. I recommend we do a sentinel node excision. She understands what that entails and request that we proceed. We will schedule the surgery in the near future. Copy to Veronica Chun Brianne Alvarez RN - 07/19/2018 9:30 AM EDT Comprehensive Breast Program Note Corina Brewster is a 62 y.o. female with left breast cancer. I met with the patient, and her daughter, Genna, in clinic. Her daughter lives nearby and will plan to come with her for her surgery and assist her as needed after surgery. SPECIFIC TEACHIN. Breast Cancer Treatment Handbook (Meghna Ruiz, 2012) was sent via mail. 2. Information from our Shared Decision-Marking Program on Early-Stage Breast Cancer previously provided. 3. She understands she will meet with a medical oncologist ([facility]) and radiation oncologist (prefers [facility]) after surgery. 4. Contact phone number for questions or concerns in the immediate post- operative period. 5. Comprehensive Breast Program Binder provided. 6. Post Breast Surgery Exercises handout created by physical therapists at [facility] to begin after partial mastectomy and continue until she is back to her baseline. 7. Breast Cancer Treatment Process care map provided and reviewed. 8. Things to Consider...What I Wish I Knew advice from breast cancer patients handout provided. 9. Contact information for the General Surgery Clinic Nurses was given and the Doctor instrument and controls technician systemexplained. 10. We discussed the recommended 150 minutes of aerobic exercise and two strength training sessions per week after a breast cancer diagnosis. Distress Scale Distress Score: 5 When Screening Completed: Before treatment Screening Location: [facility] Problem List Practical Problems: Treatment decisions Emotional Problems: Fears, Nervousness, Sadness, Worry, Depression Spiritual/Mormonism Concerns: No Physical Problems: Memory/concentration, Skin dry/itchy Other Problems: Rated distress at 5 pre surgical consult and 2 post. Referrals Made Today: Social work She verbalized understanding of the plan of care and states all her questions were answered. Fifteenminutes was spent in education and providing support. Corina has our contact information. She will schedule surgery on way out (in 4L) today. Pre-op MRI: Yes Abnormalities detected No (other than index lesions) Referral to familial counseling: No documented in this encounter Plan of Treatment Upcoming Encounters Date Type Specialty Care Team Description 10/23/2021 Office Visit Hematology and Oncology Navid Armendariz MD [facility] DR ONCOLOGY [place], [place] [address] (Wo rk) 10/23/2021 Infusion Hematology and Oncology documented as of this encounter Visit Diagnoses Diagnosis Malignant neoplasm of left breast in fem radha, estrogen receptor positive, unspecified site of breast Breast cancer, stage 1, left documented in this encounter Care Teams Outdoor Adventure Leader Relationship Specialty Start Date End Date Veronica Chun MD PCP - General Family Medicine 01/20/[address] [place] [address] [address] [place] [address] documented as of this encounter
--- OUTSIDE RECORDS SUMMARY | 2021-10-23 02:25 | XMS_ITS | Encounter Summary ---
:1955 Author Organization [facility] [place] [address] Care Team Providers Name Role Phone Veronica Chun MD Primary Care Provider Reason for Visit Reason Onset Date Comments Medication Refill 09/01/2017 Encounter Details Date Type Department Care Team Description 09/02/2017 Refill Endocrinology at [facility] C Madeline Smith, [facility] [place] [address] ENDOCRINOLOGY DEPT [phone] [place] [id number] (Wo rk) Social History Tobacco Use Types [...] Telephone Encounter - Elise Rivero LPN - 09/02/2017 12:38 PM EDT Images from the original note were not included. Corina Brewster N?? Female, 62 y.o., 1955 Weight: 106 kg (233 lb 9.6 oz) Home: Work: PCP: Veronica Chun MD myD-H: Active Next Appt: None ?? Message Received: Today ? Madeline Smith DO Isham, Gail, LPN ? Elise, This patient was started on Methimazole 10 mg daily on 05/04/2017. She needs repeat labs. Can refill Methimazole for now, but please let her know she needs labs as soon as she can. I will place and external order now. Thanks! Called patient who asked that lab ordered go to PCP office. DONE Patient advised that Rx will be done for 30 days and of need to schedule f/u appointment. Patient agrees with plan of care. Scheduled 12/08/17 Telephone Encounter - Elise Rivero LPN - 09/02/2017 12:37 PM EDT From: Corina Brewster To: Madeline Smith DO Sent: 09/01/2017 5:32 PM EDT Subject: Medication Renewal Request Original authorizing provider: DO Corina Manning would like a refill of the following medications: methIMAzole (TAPAZOLE) 10 mg Tablet [Madeline Smith DO] Preferred pharmacy: [address] Comment: Just wanted to let you know that I have three tablets left...enough to go through this Monday 09/04...but I will need a renewal prescription sent to [facility] in [place] to get this refilled. I seem to be doing just fine since starting this.....but if you have any questions, please contact me. Thank you Corina Brewster 1955 [place], [place] documented in this encounter Plan of Treatment Upcoming Encounters Date Type Specialty Care Team Description 10/23/2021 Office Visit Hematology and Oncology Navid Armendariz MD [facility] DR ONCOLOGY [place], [place] [address] (Wo rk) 10/23/2021 Infusion Hematology and Oncology documented as of this encounter Visit Diagnoses Diagnosis Hyperthyroidism Thyrotoxicosis without mention of goiter or other cause, without mention of thyrotoxic crisis or storm Breast cancer, stage 1, left documented in this encounter Care Teams Dock Pumper Relationship Specialty Start Date End Date Veronica Chun MD PCP - General Family Medicine 01/20/17 [facility] [address] [place] [address] documented as of this encounter
--- OUTSIDE RECORDS SUMMARY | 2021-10-23 02:25 | XMS_ITS | Encounter Summary ---
:1955 Author Organization [place] [address] Care Team Providers Name Role Phone Betty Tipton MD Primary Care Provider Encounter Details Date Type Department Care Team Description 01/17/2017 [facility] [place] [address] [place] [address] [phone] (Wo rk) Social History Tobacco Use Types [...] aspirin 81 mg EC tablet 0 05/21/2008 zolpidem (AMBIEN CR) 12.5 mg nightly. 0 017 04/16/2021 Tablet, Multiphasic ReleaseIndications: Osteoarthritis, unspecified osteoarthritis type, unspecified site, Osteoarthritis of left hand, unspecified osteoarthritis type, Fibromyalgia, Vitamin D deficiency pravastatin (PRAVACHOL) 80 mg Take 80 mg [...] and Oncology Navid Armendariz MD [facility] ONCOLOGY [place], [place] [address] (Wo rk) 10/23/2021 Infusion Hematology and Oncology documented as of this encounter Procedures Procedure Name Priority Date/Time Associated Diagnosis Comme nts FILM LIBRARY Routine 01/17/2017 12:05 AM Results for this STORAGE ONLY DX EST procedure ar e in SPINE the results section. documented in this encounter Results Film Library- Storage Only DX Spine (01/17/2017 12:05 AM EST) Specimen (Source) Anatomical Location Collection Method / Collectio n Time Received Time / Laterality Volume Narrative [facility] - 02/17/2017 3:19 PM EST This exam is for storage only and is aut o-finalizing. Angie Martin DO IMG FILM LIBRARY ORDERABLES Performing Organization Address City/State/ZIP Code Phon e Number [place], [place] documented in this encounter Visit Diagnoses Not on filedocumented in this encounter Care Teams [employer] Specialist Relationship Specialty Start Date End Date Betty Tipton MD PCP - General 02/18/12 01/19/17 [address] [place] [address] documented as of this encounter
--- OUTSIDE RECORDS SUMMARY | 2021-10-23 02:25 | XMS_ITS | Encounter Summary ---
:1955 [place] [address] Care Team Providers Name Role Phone Veronica Chun MD Primary Care Provider Reason for Referral Occupational Therapy (Routine) - Closed Specialty Diagnoses / Procedures Referred By Contact Refer red To Contact Occupational Therapy Diagnoses Osteoarthritis, unspecified osteoarthritis type, unspecified site Osteoarthritis of left hand, unspecified osteoarthritis type Fibromyalgia Vitamin D deficiency Angie Martin [facility] DO [place], [place] [address] Referral ID Status Reason Start Date Expiration Date Visits V isits Requested Authorized [id number] Closed Evaluate and 02/01/2017 2017 12 12 Treat Reason for Visit Consultation (Routine) - Closed Specialty Diagnoses / Procedures Referred By Contact Refer red To Contact Rheumatology Diagnoses polyarthralgia Veronica Chun MD [facility] Rheumatology [address] [facility] [address] [place] [phone] [place], [place] [address] Referral ID Status Reason Start Date Expiration Date Visits V isits Requested Authorized [id number] Closed Consult, 01/20/2017 01/20/2018 1 1 [facility] Encounter Details Date Type Department Care Team Description 02/01/2017 Office Visit Rheumatology at [facility] Angie Martin Osteoarthritis, unspecified osteoarthritis type, unspecified site; [facility] [place] Osteoarthritis of left hand, unspecified osteoarthritis type; [facility] Fibromyalgia; [place], [place] Vitamin D deficiency [phone] RHEUMATOLOGY DEPT [phone] [place], [place] [address] Social History Tobacco Use Types [...] Sign Reading Time Taken Comments Blood Pressure 155/64 02/01/2017 9:45 AM EST Pulse 71 02/01/2017 9:45 AM EST Temperature - - Respiratory Rate 18 02/01/2017 9:45 AM EST Oxygen Saturation 98% 02/01/2017 9:45 AM EST Inhaled Oxygen Concentration - - Weight 108.1 kg (238 lb 6.4 oz) 02/01/2017 9:45 AM EST Height 161 cm (5' 3.39) 02/01/2017 9:45 AM EST Body Mass Index 41.71 02/01/2017 9:45 AM EST documented in this encounter Progress Notes Angie Martin DO - 02/01/2017 10:00 AM EST Rheumatology Outpatient Consultation Note Reason for Consult: The patient is seen at the request of Dr. Veronica Chun MD for evaluation and treatment of osteoarthritis/fibromyalgia History of Present Illness: Corina Brewster is a 61 y.o. female who presents today for evaluation of osteoarthritis/fm. She was previously seen by Dr Mcintyre, last seen in 2013. Reports she has had long standing pain from her head to her toes. Notes some sens to touch, with thebedding or clothing causing her pain. She additionally has pip joint pain, knee pain and mid back pain. Her pain keeps her up at night, she is also snoring (is felt to have HAM with DR Chun, but pt hs not made appt for sleep study). She is currently working 5 hours daily at [employer], is indoors most of the time but standing on concrete. Has diffuse stiffness of her body lasting 2-3 hours and is weather dependent. Reports back pain keeps her up and wakes her at night. Has skin sens and mm spasm ont eh r side. No rash is present, has been ongoing x 3 weeks. She overall feels her symptoms are worse in the morning and then again at the end of the day. She reports 2-3 hours of whole body stiffness. She thinks she may have some swelling of the PIPs intermittently. She denies any rashes outside have some dry skin along the top of her scalp, nail changes, family history of personal history of psoriasis Her prior therapies have included meloxicam, she is unclear why she stopped this celecoxib, she is also unclear why she stopped this but thinks it was not efficacious Aleve which she was taking significant amounts of developed a GI bleed, now she is down to 3 times a day which seemed to take the edge off for her. She is also been on which she thinks is gabapentin and developed suicidal ideation resulting from this. Her primary care provider does believe she has obstructive sleep apnea, she sleeps 3-4 hours per night is waking either with pain or snoring. She has not scheduled a sleep study she feels she would notbe able to tolerate the mask she has not looked into other treatments for her obstructive sleep apnea. She is currently exercising 3 times per week about 15 minutes each time does not feel like exercise improves her symptoms at all in fact she reports feeling somewhat worse afterward. Rheumatic history (x) means positive Iritis Dactylitis Pleuritis Pericarditis Oral / Nasal Ulcers PE/DVT Spontaneous Discoid SLE STD Raynaud???s Psoriasis Seizures Anemia Leucopenia Thrombocytopenia Psychosis from a medical condition Health Care Maintenance Date Next Due Influenza vaccine Pneumonia vaccine TB Screen (PPD/QGA) DXA HCQ Eye Exam Viral Hepatitis Screen Review of Systems: X = positive response. Comments are only made for responses that are changed fromprevious, not discussed in HPI, or otherwise require clarification. Systemic Comments 1. Generalized pain x 2. Fatigue/tiredness x 3. Fevers 4. Chills 5. Night sweats 6. Recent weight loss 7. Recent Weight gain Head and neck 8. Headaches x 9. Neck pain/stiffness 10. Lymphadenopathy 11. Ocular erythema 12. Xerophthalmia 13. Gritty eyes 14. Eye pain 15. Photophobia 16. Oral sores 17. Xerostomia X w hctz 18. Jaw claudication Cardiopulmonary 19. Chest discomfort 20. Dyspnea 21. Cough 22. Hemoptysis Gastrointestinal 23. Dysphagia 24. Heartburn 25. Nausea X Before and after eating 26. Emesis 27. Abdominal pain 28. Hematochezia 29. Diarrhea 30. Constipation Genitourinary 31. Hematuria 32. Dysuria Musculoskeletal 33. Muscle weakness 34. Myalgia x 35. Shoulder pain 36. Raynaud's Neuropsychiatric 37. Paresthesia x 38. Dysesthesia x 39. Dizziness/vertigo 40. Anxiety 41. Depression x 42. Cognitive problems X mild 43. Initial insomnia x 44. Night awakenings x 45. Nonrestorative sleep x Dermatologic 46. Xerosis cutis 47. Photosensitivity 48. Rash PMHX Dm OA ham Nephrolithiasis Umbilical hernia SurgHX Hysterectomy Bladder repair Bladder sling repair Carpal tunnel/trigger finger Lithotripsy Umbilical hernia repair Family Hx: M: mi at age 65 F: mi at age 65 siblings: Brother with cancer Mother with diabetes Aunt with goiter Parents with hypertension Children healthy (-)RA, (-)lupus, (-)scleroderma, (-)sjogren's, (-)gout Social Hx: Social History Social History ??? Marital status: Spouse name: N/A ??? Number of children: N/A ??? Years of education: N/A Social History Main Topics ??? Smoking status: Never Smoker ??? Smokeless tobacco: Never Used ??? Alcohol use None ??? Drug use: None ??? Sexual activity: Not Asked Other Topics Concern ??? None Social History Narrative Physical Examination: BP 155/64 Pulse 71 Resp 18 Ht 161 cm (5' 3.39) Wt (!) 108.1 kg (238 lb 6.4 oz) SpO2 98% BMI 41.71 kg/m2 General: Alert and oriented. Well developed and nourished. The patient did not appear distressed or uncomfortable. The patient ambulated without difficulty or assistance. Head: Scalp: Appeared normal. Eyes: PERRL. Extraocular muscles were intact. External Eye: No hyperemia of the conjunctiva noted Sclera: Not red. Lungs: Respiration rhythm and depth was normal. . Work of breathing was not increased. Cardiovascular system: Lower Extremity Edema: Trace bilaterally with mild pitting t Musculoskeletal system: (???NML?? means normal; No swelling, warmth, tenderness, loss of range of motion, or deformity as applicable) Hands: MCP???s: Some tenderness to palpation but no swelling PIP???s: Tenderness palpation, no swelling DIP???s: NML, full fist and claw, felt hooker strength normal on the right decreased on the left. Wrists: NML Elbows: Tenderness palpation bilateral medial and lateral epicondyles Thoracic Spine: Tenderness to palpation to light touch around to the 11 T12 dermatome no rash present no erythema present Hips: No tenderness to palpation over the greater trochanters bilaterally Knees: Tenderness to palpation bilateral pedis anserine bursa with crepitus bilaterally no effusionsnoted no warmth noted Nails: No nail pitting, onycholysis or periungual erythema noted. Neurologic: Free range of motion all extremities, gait normal Skin: Mild hyperpigmentation and scarring over the left lower extremity anterior [place] Laboratory Data: Rheumatoid factor negative CLEEV negative ESR 10 CRP 0.6 CCP negative CBC normal Studies: Impression/Recommendations : Corina Brewster is a 61 y.o. female who presents today with osteoarthritis as well as fibromyalgia. Patient with OA of the knees and hands. Offered her corticosteroid injection of the right knee todayhowever she declined and will be seeing orthopedics per her primary care provider soon. Referral to Occupational Therapy for her hand pain and felt hooker strength weakness. Discussed with her trial of fish oil as well as tumeric. She can maintain on Aleve at this time though would recommend renal function evaluation did not see them with her last set of labs or one year. She can also add Tylenol up to 2000mg daily. May consider topical options as well to include: Biofreeze, Wynona balm, CBD oil, salon Pas, capsaicin. Potential future option could be Cymbalta which will work both for both her osteoarthritis in her fibromyalgia. She is already failed gabapentin and and usually will need to fail one other agent and will try Pamelor today. She also could consider physical therapy or pool therapy for her knees would defer to her PCM and she thinks this is worthwhile. Fibromyalgia: Patient historically only tried on gabapentin which caused suicidal ideation. Will trial Pamelor 10 mg nightly today. Reviewed side effect profile with her. Reading provided on fibromyalgia. Discussed with her the importance of regular daily exercise in a graded fashion, sleep hygiene, co nsideration for primary care to refer her for CBT. Lumbago: Differential includes facet arthropathy, nerve impingement, less likely shingles, nephrolithiasis. Will order urinary testing today advised her to monitor for rash. Patient can trial topical lidocaine [id number] for the area, as well as stretching and heating pad. Obstructive sleep apnea: Encouraged patient to make appointment to be assessed for sleep apnea. Patient has been previously evaluated for inflammatory arthritis with negative evaluation. Her symptoms at this time seem most consistent with fibromyalgia and osteoarthritis. If she fails the Pamelor initial dose and tolerates it can increase as tolerated otherwise could consider a trial of duloxetine. I am happy to reevaluate in the future, patient is reluctant to drive. Given the distance especially in the winter. Vitamin D deficiency: Patient reports a history of vitamin D deficiency we will repeat labs. CC: Veronica Chun MD documented in this encounter Plan of Treatment Upcoming Encounters Date Type Specialty Care Team Description 10/23/2021 Office Visit Hematology and Oncology Navid Armendariz MD [facility] ONCOLOGY [place] [id number] (Wo rk) 10/23/2021 Infusion Hematology and Oncology Scheduled Referrals Name Type Priority Associated Diagnoses Order S chedule Referral to Outpatient Routine Osteoarthritis, Ordered: Occupational Therapy Referral unspecified 017 osteoarthritis type, unspecified site Osteoarthritis of left hand, unspecified osteoarthritis t ype Fibromyalgia Vitamin D deficiency documented as of this encounter Visit Diagnoses Diagnosis Osteoarthritis, unspecified osteoarthrit is type, unspecified site Osteoarthritis of left hand, unspecified osteoarthritis type Fibromyalgia Mylagia and myositis, unspecified Vitamin D deficiency Unspecified vitamin D deficiency Breast cancer, stage 1, left documented in this encounter Care Teams Voice And Data Technician Relationship Specialty Start Date End Date Veronica Chun MD PCP - General Family Medicine 01/20/[address] [place] [address] documented as of this encounter
--- OUTSIDE RECORDS SUMMARY | 2021-10-23 02:25 | XMS_ITS | Encounter Summary ---
:1955 Author Organization [facility] [place] [address] Care Team Providers Name Role Phone Veronica Chun MD Primary Care Provider Encounter Details Date Type Department Care Team Description 06/27/2018 Hospital Encounter [facility]ography [place] [facility] [place] Abnormal finding on [facility] MD Luis breast imaging [facility] [address] DIAGNOSIC [phone] [place] [address] Social History Tobacco Use Types Packs/Day Years [...] and Oncology Navid Armendariz MD [facility] DR ONCOLOGY [place], [place] [address] (Wo rk) 10/23/2021 Infusion Hematology and Oncology documented as of this encounter Procedures Procedure Name Priority Date/Time Associated Comments Diagnosis MAMMO STEREOTACTIC Routine 06/27/2018 3:15 PM Abnormal finding on Results for this BIOPSY LEFT EDT breast imaging procedure are in the results section. SPECIMEN TO PATHOLOGY Routine 06/27/2018 3:04 PM Results for this EDT procedure are i n the results section. documented in this encounter Results Mammo Stereotactic Biopsy Left (06/27/2018 3:15 PM EDT) Anatomical Region Laterality Modality Breast N/A Mammography Specimen (Source) Anatomical Location Collection Method / Collectio n Time Received Time / Laterality Volume Impressions 06/28/2018 2:27 PM EDT Concordant result RECOMMENDATION: Surgical referral. I feel this patient w ould likely benefit from staging breast MRI for assessment of disease extent. Ba sed on the extent of the calcifications plus mass, the likely disease extent is approximately 8 cm mammographically. As discussed with patient and [facility] to [facility] REVIEW PATH CONFERENCE?: No Thank you for letting us participate in the care of this patient. For questions regarding this report, please contact e number below. ? Narrative 06/28/2018 2:27 PM EDT STEREOTACTIC GUIDED VACUUM ASSISTED BIOPSY OF THE LEFT BREAST CLINICAL HISTORY: Calcifications and pre sence of highly suspicious mass LEFT breast lesion 2 1. 2cm Microcalcifications the LEFT 2 Ra juanjose 5 cm from the nipple Procedural details: Informed consent was obtained and a carl e out procedure was performed per protocol. The patient gave permission to proceed. Using sterile technique and local anesthetic (less than 20cc's of 1% lidocaine) a biopsy was performed using tomographic guidance. Multiple core biop sy specimens were obtained using a 9g vacuum assist device. 6 core biopsy specimens were obtained us ing a Pollfish 9g device. Biopsy specimens were radiographed. ??Th e abnormality was present on the specimen digital radiograph. A bowtie marker clip was placed. Cranio- caudal and lateral digital mammography was performed to determine biopsy marker placement. ??The marker was shown to be at the biopsy site. COMPLICATIONS: None. PROCEDURAL ATTESTATION: Resident: None IMAGING DIFFERENTIAL DIAGNOSIS: DCIS, FCD, fibroadenomatous change PATHOLOGIC DIAGNOSIS: DCIS [place] Mohr MD IMG MAMMO ORDERABLES Specimen to Pathology (06/27/2018 3:04 PM EDT) Specimen Anatomical Collection Method Collection Time Receive d Time (Source) Location / / Volume Laterality AP Specimen 06/27/2018 3:04 PM 9 3:04 EDT PM EDT Narrative [facility] - 06/27/2018 3:04 PM EDT Specimen requisition ordered. ??Separate Pathology report to follow Liseth Henson MD PATHOLOGY/CYTOLOGY ORDERABLE S Performing Organization Address City/State/ZIP [place] [address] documented in this encounter Visit Diagnoses Diagnosis Abnormal finding on breast imaging Other (abnormal) findings on radiologica l examination of breast Breast cancer, stage 1, left documented in this encounter Administered Medications Inactive Administered Medications - up to 3 most recent administrations Medication Order MAR Action Action Date Dose Rate Site lidocaine (XYLOCAINE) 10 mg/mL (1 Given 06/27/2018 3:30 PM EDT 2 0 mg %) injection 10 mg 10 mg, Intradermal, ONCE, 1 dose, On Tue06/27/18 at 1530, Routine documented in this encounter Care Teams Customer Assistance Representative Relationship Specialty Start Date End Date Veronica Chun MD PCP - General Family Medicine 01/20/[address] [place] [address] documented as of this encounter
--- OUTSIDE RECORDS SUMMARY | 2021-10-23 02:25 | XMS_ITS | Encounter Summary ---
:1955 Author Organization [place] [address] Care Team Providers Name Role Phone Veronica Chun MD Primary Care Provider Encounter Details Date Type Department Care Team Description 06/19/2018 Orders Only Endocrinology at [facility] C Madeline Smith, DO Hyperthy[facility] [place] [address] ENDOCRINOLOGY [place], [place] [address] (Wo rk) Social History Tobacco [...] Armendariz MD [facility] ER ONCOLOGY [place], [place] [address] (Wo rk) 10/23/2021 Infusion Hematology and Oncology documented as of this encounter Visit Diagnoses Diagnosis Hyperthyroidism Thyrotoxicosis without mention of goiter or other cause, without mention of thyrotoxic crisis or storm Breast cancer, stage 1, left documented in this encounter Care Teams Show Host Relationship Specialty Start Date End Date Veronica Chun MD PCP - General Family Medicine 01/20/[address] [place] [address] [address] [facility] [address] [place] [address] documented as of this encounter
--- OUTSIDE RECORDS SUMMARY | 2021-10-23 02:25 | XMS_ITS | Encounter Summary ---
:1955 Author Organization [facility] [place] [address] Care Team Providers Name Role Phone Veronica Chun MD Primary Care Provider Encounter Details Date Type Department Care Team Description 07/20/2018 Orders [facility] left breast in female, [facility] est [facility] receptor [address] [place], [place] [address] GENERAL SURGERY site of breast [phone] [place], [place] [address] Social History Tobacco Use Types [...] Oncology Navid Armendariz MD [facility] ER [address] [place], [place] [address] (Wo rk) 10/23/2021 Infusion Hematology and Oncology Scheduled Orders Name Type Priority Associated Diagnoses Order S chedule Mammo [place] Node Imaging Routine Malignant neoplasm of Expected: 2018, Injection left breast in female, Expir es: 01/30/2019 estrogen receptor positive, unspecified site of breast documented as of this encounter Results Mammo Specimen Left (2018 [...] contact e number below. ? Narrative 2018 11:38 AM [...] apparent. Charlie Larry MD IMG MAMMO ORDERABLES Mammo [place] Node Injection (2018 9:33 AM EDT) Anatomical [...] left documented in this encounter Care Teams Medical Typist Relationship Specialty Start Date End Date Veronica Chun MD PCP - General Family Medicine 01/20/17 [facility] [address] [place] [address] documented as of this encounter
--- OUTSIDE RECORDS SUMMARY | 2021-10-23 02:25 | XMS_ITS | Encounter Summary ---
:1955 Author Organization [facility] [place] [address] Care Team Providers Name Role Phone Veronica Chun MD Primary Care Provider Encounter Details Date Type Department Care Team Description 07/06/2018 [facility]illary [facility] [place] [facility] [place] [address] GENERAL SURGERY [phone] [place], [place] [address] (Wo rk) Social History Tobacco [...] Navid Armendariz MD [facility] [address] [place], [place] [address] (Wo rk) 10/23/2021 Infusion Hematology and Oncology documented as of this encounter Procedures Procedure Name Priority Date/Time Associated Diagnosis Comme nts FILM LIBRARY Routine 07/06/2018 12:00 AM Results for this STORAGE ONLY EDT procedure are i n NUCLEAR MEDICINE the results section. documented in this encounter Results Film Library- Storage Only nuclear medicine (07/06/2018 12:00 AM EDT) Specimen (Source) Anatomical Location Collection Method / Collectio n Time Received Time / Laterality Volume Narrative [facility] - 07/07/2018 8:16 PM EDT This exam is auto-finalizing. It's purpo se is for storage only. Charlie Larry MD IMG FILM LIBRARY ORDERABLES Performing Organization Address City/State/ZIP Code Phon e Number [place], [place] documented in this encounter Visit Diagnoses Not on filedocumented in this encounter Care Teams Substation Operator Transforming Relationship Specialty Start Date End Date Veronica Chun MD PCP - General Family Medicine 01/20/[address] [place] [address] documented as of this encounter
--- OUTSIDE RECORDS SUMMARY | 2021-10-23 02:25 | XMS_ITS | Encounter Summary ---
:1955 Author Organization [facility] [place] [address] Care Team Providers Name Role Phone Veronica Chun MD Primary Care Provider Encounter Details Date Type Department Care Team Description 03/24/2017 Orders Only Endocrinology at [facility] C Madeline Smith, DO Thyroid nodule [facility] [place] [address] ENDOCRINOLOGY [place], [place] [address] (Wo rk) Social History Tobacco [...] Visit Hematology and Oncology Navid Armendariz MD [facility] ER ONCOLOGY [place], [place] [address] (Wo rk) 10/23/2021 Infusion Hematology and Oncology documented as of this encounter Results (ABNORMAL) TSH (03/25/2017 1:21 PM EST) P athologist Signature TSH <0.01 (L) 0.27 - [facility] 4.20 [facility] mlU/ML HOSPITAL LABORATORY Specimen Anatomical Collection Method Collection Time Receive d Time (Source) Location / / Volume Laterality Blood specimen 03/25/2017 1:21 PM 018 1:28 (specimen) EST PM EST Resulting Agency Comment Spec In Lab Betty Torres MD CHEMISTRY ORDERABLES Performing Organization Address City/State/[place] [address] documented in this encounter Visit Diagnoses Diagnosis Thyroid nodule Nontoxic uninodular goiter Breast cancer, stage 1, left documented in this encounter Care Teams Chyron Operator Relationship Specialty Start Date End Date Veronica Chun MD PCP - General Family Medicine 01/20/[address] [place] [address] documented as of this encounter
--- OUTSIDE RECORDS SUMMARY | 2021-10-23 02:25 | XMS_ITS | Encounter Summary ---
:1955 Author Organization [facility] [place] [address] Care Team Providers Name Role Phone Veronica Chun MD Primary Care Provider Encounter Details Date Type Department Care Team Description 09/15/2017 Orders Only Endocrinology at [facility] C Madeline Smith, DO Hyperthyroidism [facility] [place] [address] ENDOCRINOLOGY [place], [place] [address] (Wo rk) Social History [...] Navid Armendariz MD [facility] ER ONCOLOGY [place], [place] [address] (Wo rk) 10/23/2021 Infusion Hematology and Oncology documented as of this encounter Visit Diagnoses Diagnosis Hyperthyroidism Thyrotoxicosis without mention of goiter or other cause, without mention of thyrotoxic crisis or storm Breast cancer, stage 1, left documented in this encounter Care Teams Drop Wire Hanger Relationship Specialty Start Date End Date Veronica Chun MD PCP - General Family Medicine 01/20/[address] [place] [address] [address] [place] [address] documented as of this encounter
--- OUTSIDE RECORDS SUMMARY | 2021-10-23 02:25 | XMS_ITS | Encounter Summary ---
:1955 Author Organization [facility] [place] [address] Care Team Providers Name Role Phone Veronica Chun MD Primary Care Provider Encounter Details Date Type Department Care Team Description 06/29/2018 Telephone General Surgery at [facility] [place] [address] Social History Tobacco Use Types Packs/Day [...] this encounter Miscellaneous Notes Telephone Encounter - Irina Toney - 06/29/2018 10:18 AM EDT Contacted pt. to see if she is interested in participating in the Prone [employer] [id number] breast imaging study.? Pt. is eligible for study, and agrees to participate. Eligibility form complete. I will meet pt. In Slice Plug Cutter Operator Area 3Z to sign consent form when she arrives for her scheduled clinical MRI. documented in this encounter Plan of Treatment Upcoming Encounters Date Type Specialty Care Team Description 10/23/2021 Office Visit Hematology and Oncology Navid Armendariz MD [facility] ONCOLOGY [place], [place] [address] (Wo rk) 10/23/2021 Infusion Hematology and Oncology documented as of this encounter Visit Diagnoses Not on filedocumented in this encounter Care Teams Dental Surgeon Relationship Specialty Start Date End Date Veronica Chun MD PCP - General Family Medicine 01/20/17 [facility] [address] [place] [address] documented as of this encounter
--- OUTSIDE RECORDS SUMMARY | 2021-10-23 02:25 | XMS_ITS | Encounter Summary ---
:1955 Author Organization [facility] [place] [address] Care Team Providers Name Role Phone Veronica Chun MD Primary Care Provider Reason for Referral Diagnostic Test (Routine) - Closed Specialty Diagnoses / Procedures Referred By Contact Refer red To Contact Radiology Diagnoses Thyroid nodule Madeline Smith DO [facility] Rad Nuclear Med Procedures NM I-131 Initial Therapy [facility] [place] [address] [place] [address] Referral ID Status Reason Start Date Expiration Date Visits V isits Requested Authorized [id number] Closed Specialty 07/10/2018 07/10/2019 1 1 Service Requested Encounter Details Date Type Department Care Team Description 07/10/2018 Orders Only Endocrinology at [facility] Madeline Park DO Thyroid nodule [facility] [place] [address] ENDOCRINOLOGY DE [place], [place] [address] (Wo rk) Social History Tobacco [...] [facility] ONCOLOGY [place], [place] [address] (Wo rk) 10/23/2021 Infusion Hematology and Oncology documented as of this encounter Results NM I-131 Initial Therapy [...] report, please contact e number below. ? Electronically signed by: Bryan Wasserman [facility] ([phone]), at 07/19/2018 1:09 PM Narrative 07/19/2018 1:09 PM EDT EXAMINATION: NM [...] For questions regarding this report, please contact [facility] number below. Electronically signed by: Bryan Wasserman [facility] ([phone]), at 07/19/2018 1:09 PM Tamara Galindo MD [facility] ORDERABLES documented in this encounter Visit Diagnoses Diagnosis Thyroid nodule Nontoxic uninodular goiter Thyroid nodule Nontoxic uninodular goiter Breast cancer, stage 1, left documented in this encounter Care Teams Petroleum Production Engineer Relationship Specialty Start Date End Date Veronica Chun MD PCP - General Family Medicine 01/20/[address] [place] [address] documented as of this encounter
--- OUTSIDE RECORDS SUMMARY | 2021-10-23 02:25 | XMS_ITS | Encounter Summary ---
:1955 Author Organization [facility] [place] [address] Care Team Providers Name Role Phone Veronica Chun MD Primary Care Provider Encounter Details Date Type Department Care Team Description 06/27/2018 Hospital Encounter [facility] [place] [facility] [place] Abnormal finding on [facility] MD Luis breast imaging [facility] [address] DIAGNOSIC [phone] [address] Social History Tobacco Use Types Packs/Day Years [...] Visit Hematology and Oncology Navid Armendariz MD [facility] MED[facility] DR ONCOLOGY [place], [place] [address] (Wo rk) 10/23/2021 Infusion Hematology and Oncology documented as of this encounter Procedures Procedure Name Priority Date/Time Associated Diagnosis Comme nts MAMMO US BIOPSY Routine 06/27/2018 3:46 PM Abnormal finding on Results for this LEFT EDT breast imaging procedure are in the results section. SPECIMEN TO Routine 06/27/2018 3:41 PM Results f or this PATHOLOGY EDT procedure are i n the results section. SURGICAL PATHOLOGY Routine 06/27/2018 3:03 PM Res ults for this REPORT EDT procedure are i n the results section. documented in this encounter Results Mammo Us Biopsy Left (06/27/2018 3:46 PM EDT) Anatomical Region Laterality Modality Breast Left Mammography Specimen (Source) Anatomical Location Collection Method / Collectio n Time Received Time / Laterality Volume Impressions 06/28/2018 2:26 PM EDT Concordant result RECOMMENDATION: Surgical referral. I feel this patient w ould likely benefit from staging breast MRI for assessment of disease extent. Ba sed on the extent of the calcifications plus mass, the likely disease extent is approximately 8 cm mammographically REVIEW PATH CONFERENCE?: No Thank you for letting us participate in the care of this patient. For questions regarding this report, please contact e number below. ? Narrative 06/28/2018 2:26 PM EDT LEFT BREAST ULTRASOUND GUIDED AUTOMATED CORE BIOPSY CLINICAL HISTORY: abnormal ultrasound. PROCEDURAL DETAILS: LEFT BREAST LESION #1 1.5 cm Mass ??Upper Outer Quadrant 2 OCl ock 5 cm from the nipple by ultrasound, 10 cm mammographically Informed consent was obtained and a time out procedure was performed per protocol. Using local anesthetic (less t simmons 5 cc of 1% lidocaine), sterile technique, and ultrasound guidance the l esion in the LEFT breast was localized and sampled. Multiple satisfactory core biopsy specim ens were obtained using a 14-gauge automated device. A NUVETA 14G marker clip was dwain paulette. The clip was in satisfactory position both sonographically and at fol low-up cranio-caudal and true lateral digital mammography. COMPLICATIONS: None. PROCEDURAL ATTESTATION: Resident: None IMAGING DIFFERENTIAL DIAGNOSIS: Cancer PATHOLOGIC DIAGNOSIS: Invasive ductal carcinoma [place] MD IMG MAMMO ORDERABLES Specimen to Pathology (06/27/2018 3:41 PM EDT) Specimen Anatomical Collection Method Collection Time Receive d Time (Source) Location / / Volume Laterality AP Specimen 06/27/2018 3:41 PM 9 3:41 EDT PM EDT Narrative [facility] - 06/27/2018 3:41 PM EDT Specimen requisition ordered. ??Separate Pathology report to follow Liseth Henson MD PATHOLOGY/CYTOLOGY ORDERABLE S Performing Organization Address City/State/Z[place] [address] Surgical Pathology Report (06/27/2018 3:03 PM EDT) Component Value Ref Test Analysis Performed At [facility] Range Method Time Signature Surgical [id number] ? Location: [address] [place] [address] Report The signing pathologist has (i) examined the relevant preparation(s) for the [facility] specimen(s) and (ii) rendered or confirmed the diagnosis(es) . HOSPITAL LABORATORY . ?[facility] RESULTS TEST: HER2 (ERBB2) FISH, Breast METHOD: Fluorescence in situ hybridization (FISH) with chromosome 17 centromere (17p11.1-q11.1) probe and a locus specific probe for the HER2 gene locus (17q11.2- q12). SAMPLE ANALYZED: A1-6 RESULT: ?NEGATIVE FOR HER2/DEMETRA AMPLIFICATION ? TOTAL # SIGNALS/TOTAL # NUCLEI COUNTED FOR HER2 PROBE = 146 ? TOTAL # SIGNALS/TOTAL # NUCLEI COUNTED FOR CEP-17 PROBE = 97 ? HER2 TO CEP- 17 RATIO = 1.5 ?(NORMAL RANGE <2.0) ? TOTAL # NUCLEI COUNTED = 40 ? AVERAGE # HER2 signals/cell = 3.6 NOTE: HER2 IHC was also performed which shows 2+ (equivocal) immunoreactivity. Interpretation: ??Paraffin-embedded tissue sections were s ubmitted for HER2 (ERBB2) gene amplification analysis by FISH. ??Direct analysis was performed using the [employer] Kit. ??Slide adequacy and signal enumeration were evaluated and satisfactory for both contr ol and patient slides. ??A signal ratio derived from the HER2 probe and the CEP-17 c entromere probe of ?2.0 is considered positive for HER2 gene amplification. The 2013 ASCO/CAP guideline recommendation for HER2 testing in breast cancer states that samples with a HER2 to CEP-17 ratio of les s than 2.0 are non-amplified. Specimens with a HER2 to CE P-17 range of ?2.0 are considered amplified. This test is approved by the U.S. FDA for clinical diagnosti c use. Reference: Estefani HANSEN et al. Recommendations for human epidermal growth factor receptor 2 testing in breas t cancer: [place] [employer] of Clinical Oncology/[employer] of [place] [employer] cl inical practice guideline update. J Clin Oncol. 2013 Dec 22. Estefani HANSEN et al. Human Epide rmal Growth Factor Receptor 2 Testing in Breast Cancer: [place] [employer] Society of Clinica l Oncology/[employer] of [place] [employer] Clinical Practice Guideline Focused Update. Arch Pathol Lab Med. 2018 July 20/J Clin Oncol. 2017July 20. Electronically signed by: ??Marilee Bahena MD Verified: ??07/03/2018 ?Pathologist Performed at: ??[facility] [place]. [place], [place], [place] . ? Addendum ADDENDUM DISCUSSION Immunohistochemistry Studies Specimen: Left breast, core needle biopsy (A1) ER immunoreactivity: Positive (>90% cancer cells with immuno staining) Stain intensity: Strong IL immunoreactivity: Positive (>90% cancer cells with immuno staining) Stain intensity: Strong HER2 FISH: separate report to follow ? *Diagnostic coles for hormone receptors (ASCO/CAP GUIDELINES, 2010): ?Negative immunoreactivity: <1% tumor cells with immuno staining ?Positive immunoreactivity: >=1% tumor cells with immun ostaining Immunohistochemical assays w ere performed on paraffin-embedded tissue sections fixed in 10% neutral buffered for jaquan for 6-72 hours using the polymer system technique with appropriate controls. The assays were performed according to the non destructive tester ? 's instructions using Anti-ER (SP1) and Anti-IL (16) antibodie s. Electronically signed by: ??Roni Acharya MD Verified: ??06/30/2018 ?Pathologist Performed at: ??-[facility] [place]. [place], [place], [place] ?Surgic al Pathology DIAGNOSIS A - ??Needle biopsies: ??Left breast, lesion 1 of 2. 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 Diagnosis: ? Ductal carcinoma in-situ, low to intermediate nuclear grade, cribriform and solid patterns without necrosis, and i nvolving a intraductal papilloma Microcalcifications: ??Associated with intraductal papilloma Electronically signed by: ??Marck OMER, Roni Louise Verified: ??06/28/2018 ?Pathologist Performed at: ??-[facility] [place]. of [place]ology, [place], [place] DISCUSSION Studies for ER, IL, and HER2 have been ordered; result s will be issued in an addendum. CLINICAL INFORMATION Specimen Submitted: A - Left breast lesion 1 of 2 ultrasound biopsy B - Left breast lesion 2 of 2 stereo biopsy with and without calcs Clinical History and Diagnosis: Mass. IDC, DCIS SPECIMEN PROCESSING A - Labeled/Fixative: Left b reast lesion #1 of two ultrasound biopsy, formalin. . SPECIMEN PROCESSING Quantity/Size: Two, averaging 1.2 x 0.1 cm. Tissue Description: [place]-white needle core biopsies. Sections/Processing: Entirely submitted in 1 cassette labele d A1. Ischemic Time: Five minutes B - Received in two containers: 1 - Labeled/Fixative: Left breast lesion 2 of 2 stereo biopsy, calcs, formalin Quantity/Size: Three, ranging 1-3 cm in length by 0.3-0.5 cm . Tissue Description: [place] yellow fibrofatty needle core biops ies. Submitted in: B1 2 - Labeled/Fixative: Left b reast lesion 2 of 2 stereo biopsy, no calcs, formalin. Quantity/Size: Four, ranging from 2.5-3.5 cm in length by 0.4 centimeters in diameter. Tissue Description: Yellow-t an fibrofatty needle core biopsies and 2 x 1 x 0.3 cm aggregate of irregular fibrofatty soft tissue fragments. Submitted in: B2-B4 Sections/Processing: Entirely submitted in 4 cassettes as fo llows: ? B1: ??Calcs, cores ? B2-B3: ??No calcs, cores ? B4: ??No calcs, fragments Ischemic Time: Five minutes ??jmb Specimen (Source) Anatomical Collection Method Collection Time Re ceived Time Location / / Volume Laterality 06/27/2018 3:03 PM EDT Liseth Henson MD PATHOLOGY/CYTOLOGY ORDERABLE S Performing Organization Address City/State/[place] [address] documented in this encounter Visit Diagnoses Diagnosis Abnormal finding on breast imaging Other (abnormal) findings on radiologica l examination of breast Breast cancer, stage 1, left documented in this encounter Administered Medications Inactive Administered Medications - up to 3 most recent administrations Medication Order MAR Action Action Date Dose Rate Site lidocaine (XYLOCAINE) 10 mg/mL (1 Given 06/27/2018 3:45 PM EDT 1 0 mg %) injection 10 mg 10 mg, Intradermal, ONCE, 1 dose, On Tue06/27/18 at 1600, Routine documented in this encounter Care Teams Chief Service Dispatcher Relationship Specialty Start Date End Date Veronica Chun MD PCP - General Family Medicine 01/20/[address] [place] [address] [address] [place] [address] documented as of this encounter
--- OUTSIDE RECORDS SUMMARY | 2021-10-23 02:25 | XMS_ITS | Encounter Summary ---
:1955 Author Organization [facility] [place] [address] Care Team Providers Name Role Phone Veronica Chun MD Primary Care Provider Encounter Details Date Type Department Care Team Description 04/15/2017 Orders Only Endocrinology at [facility] C Madeline Smith, [facility] [place] [address] ENDOCRINOLOGY DEPT [phone] [place], [place] [address] (Wo rk) Social History Tobacco [...] Armendariz MD [facility] [address] [place], [place] [address] (Wo rk) 10/23/2021 Infusion Hematology and Oncology documented as of this encounter Visit Diagnoses Not on filedocumented in this encounter Care Teams Medication Administration Professional Relationship Specialty Start Date End Date Veronica Chun MD PCP - General Family Medicine 01/20/[address] [place] [address] documented as of this encounter
--- OUTSIDE RECORDS SUMMARY | 2021-10-23 02:25 | XMS_ITS | Encounter Summary ---
:1955 [place] [address] Care Team Providers Name Role Phone Veronica Chun MD Primary Care Provider Encounter Details Date Type Department Care Team Description 06/20/2018 Ancillary Procedure Radiology Library at [facility] inMorenita MD [facility] [id number] [place] [address] (Wo rk) [phone] Social History Tobacco Use Types Packs/Day Years [...] Visit Hematology and Oncology Navid Armendariz MD [facility] ONCOLOGY [place], [place] [address] (Wo rk) 10/23/2021 Infusion Hematology and Oncology documented as of this encounter Procedures Procedure Name Priority Date/Time Associated Diagnosis Comme nts REQUEST FOR 2ND Routine 06/20/2018 1:57 PM Pain Result s for this READ MAMMO EDT procedure are i n the results section. documented in this encounter Results Request for 2nd read Mammo (06/20/2018 1:57 PM EDT) Anatomical Region Laterality Modality SO Specimen (Source) Anatomical Location Collection Method / Collectio n Time Received Time / Laterality Volume Impressions 06/20/2018 3:08 PM EDT Left breast: Highly suspicious mass on outside static ultrasound images/mammography with microcalcificati ons extension anterior/medial to the mass in a segmental distribution. Right breast: Negative mammography. RECOMMENDATION: Left breast: Ultrasound-guided biopsy. P rior to ultrasound biopsy, spot magnification views of abnormal microcal cifications are recommended, left breast. Right breast: Annual screening. We will coordinate this appointment. Left breast: BI-RADS 5, highly suspiciou s. Right breast: BI-RADS 1, negative. Please note: The interpretation of the [facility] Breast Imaging Radiologist subspecialist may differ fro m the original radiologists interpretation. This is usually not due to a deficiency of the original interpreting radiologist, rather due to the greater skill level afforded by sub-specialization in the field and/or r easonable variations in interpretations. If you have a concern regarding the D- interpretation you may contact the [facility] Breast Financial Reporting Director Office at . Thank you for letting us participate in the care of this patient. For questions regarding this report, please contact e number below. ? Narrative 06/20/2018 3:08 PM EDT INTERPRETATION OF OUTSIDE BREAST IMAGING I have been asked to consult on this pat ient by Dr. Ochoa because she believes a review of this study may maldonado ge or alter the care of this patient. STUDIES FROM: [facility]. DATES: 06/16/2018, 06/19/2018. TYPE OF EXAM: Bilateral 2-D/3-D screenin g mammography of 06/16/2018, outside ultrasound of 06/19/2018, diagnostic mamm ography of 06/19/2018. CLINICAL HISTORY: L br mass 2 o'clock;CA T 5, [place] [facility] ?more imaging;? biopsy; What Modality is the e xam? Mammography; Body Part (please add comments as necessary): Breast; I believ e a reinterpretation of this exam may alter care of Patient. Yes. ?? COMPARISONS: 12/03/2014. TECHNIQUE: Screening mammography, left b reast diagnostic mammography, outside static images of ultrasound. FINDINGS: Left breast: Within the upper and outer left breast, at approximately 2:00, 9.5 cm from the nipple, there is an irregular/spiculated mass which measures approximately 1.5 cm with subtle internal microcalcificati ons. Segmental and indeterminant microcalcifications are noted immediatel y anterior and medial to the mass. Additional diagnostic views of the left breast, confirm this irregular mass, and segmental extension of abnormal micr ocalcifications, as above. Static images from outside ultrasound, f or review, not for primary interpretation. Within those limitations , static images labeled 2:00, 5 cm from the nipple, left breast reveal an antipa rallel hypoechoic mass with irregular echogenic margin, which measures approxi mately 1.4 x 1.2 x 1.1 cm with peripheral vascular flow. No additional findings. Right breast: No suspicious calcificatio ns, mass, distortion. Procedure Note Rocky Mohr MD - 06/20/2018Format ting of this note might be different from the original. INTERPRETATION OF OUTSIDE BREAST IMAGING I have been asked to consult on this pat ient by Dr. Ochoa because she believes a review of this study may maldonado ge or alter the care of this patient. STUDIES FROM: [facility]. DATES: 06/16/2018, 06/19/2018. TYPE OF EXAM: Bilateral 2-D/3-D screenin g mammography of 06/16/2018, outside ultrasound of 06/19/2018, diagnostic mamm ography of 06/19/2018. CLINICAL HISTORY: L br mass 2 o'clock;CA T 5, Pt [place] [facility]; ?more imaging;? biopsy; What Modality is the e xam? Mammography; Body Part (please add comments as necessary): Breast; I believ e a reinterpretation of this exam may alter care of Patient. Yes. COMPARISONS: 12/03/2014. TECHNIQUE: Screening mammography, left b reast diagnostic mammography, outside static images of ultrasound. FINDINGS: Left breast: Within the upper and outer left breast, at approximately 2:00, 9.5 cm from the nipple, there is an irregular/spiculated mass which measures approximately 1.5 cm with subtle internal microcalcificati ons. Segmental and indeterminant microcalcifications are noted immediatel y anterior and medial to the mass. Additional diagnostic views of the left breast, confirm this irregular mass, and segmental extension of abnormal micr ocalcifications, as above. Static images from outside ultrasound, f or review, not for primary interpretation. Within those limitations , static images labeled 2:00, 5 cm from the nipple, left breast reveal an antipa rallel hypoechoic mass with irregular echogenic margin, which measures approxi mately 1.4 x 1.2 x 1.1 cm with peripheral vascular flow. No additional findings. Right breast: No suspicious calcificatio ns, mass, distortion. IMPRESSION Left breast: Highly suspicious mass on o utside static ultrasound images/mammography with microcalcificati ons extension anterior/medial to the mass in a segmental distribution. Right breast: Negative mammography. RECOMMENDATION: Left breast: Ultrasound-guided biopsy. P rior to ultrasound biopsy, spot magnification views of abnormal microcal cifications are recommended, left breast. Right breast: Annual screening. We will coordinate this appointment. Left breast: BI-RADS 5, highly suspiciou s. Right breast: BI-RADS 1, negative. Please note: The interpretation of the [facility] Breast Imaging Radiologist subspecialist may differ fro m the original radiologists interpretation. This is usually not due to a deficiency of the original interpreting radiologist, rather due to the greater skill level afforded by sub-specialization in the field and/or r easonable variations in interpretations. If you have a concern regarding the [facility] interpretation you may contact the [facility] Breast Financial Reporting Director Office at . Thank you for letting us participate in the care of this patient. For questions regarding this report, please contact e number below. Morenita Ochoa MD IMG OUTSIDE INTERPRETATION O RDERABLES documented in this encounter Visit Diagnoses Diagnosis Pain Generalized pain Breast cancer, stage 1, left documented in this encounter Care Teams Valve Inserter Relationship Specialty Start Date End Date Veronica Chun MD PCP - General Family Medicine 01/20/[address] [place] [address] documented as of this encounter
--- OUTSIDE RECORDS SUMMARY | 2021-10-23 02:25 | XMS_ITS | Encounter Summary ---
:1955 Author Organization [place] [address] Care Team Providers Name Role Phone Veronica Chun MD Primary Care Provider Encounter Details Date Type Department Care Team Description 12/16/2017 Office Visit Endocrinology at [facility] C Madeline Smith, [place] [address] ENDOCRINOLOGY [place] [id number] (Wo rk) Social History Tobacco Use Types [...] Sign Reading Time Taken Comments Blood Pressure 152/76 12/16/2017 11:41 AM EDT Pulse 70 12/16/2017 11:41 AM EDT Temperature - - Respiratory Rate - - Oxygen Saturation - - Inhaled Oxygen Concentration - - Weight 109.9 kg (242 lb 3.2 oz) 12/16/2017 11:41 AM EDT Height 162.6 cm (5' 4) 12/16/2017 11:41 AM EDT Body Mass Index 41.57 12/16/2017 11:41 AM EDT documented in this encounter Progress Notes Madeline Smith, - 12/16/2017 11:30 AM EDT ENDOCRINOLOGY FOLLOW UP OUTPATIENT NOTE [facility] Name: Corina Brewster Date of Consultation: 12/16/2017 History of Present Illness: Mrs. Brewster is [...] sided nodule measuring 1.9 x 1.7 cm. It was decided to move forward with FNA biopsy of both the left and right thyroid lobe nodules. Both of these nodules were reported as benign. One of the nodules was noted to be within blood clot therefore determination was difficult.She was seen in follow up at our office 03/25/2017. At that time repeat ultrasound showed a right sided nodule measuring 4.6 x 2.5 x 3.2 cm. Her TSH at that visit was suppressed at <0.01 with elevated free T4 of 1.99 and elevated total T3 of217. She was sent for a radioactive iodine uptake scan and diagnosed with a toxic multinodular goiter. She was started on Methimazole 10 mg daily. In August 2017 her dose was reduced to 5 mg daily for a slightly elevated TSH. Since her last visit she tells me she has felt very well. She is now retired so the stress of her old job is now gone. She has spent a lot of time with family and friends and has felt better than ever.Hyperthyroid related symptoms and nodule related symptoms reviewed below. Thyroid Review of Systems: Palpitations- denies Diaphoresis- present, unchanged Tremor- denies Mood changes- happy go ras Depression- None Anxiety- None Diarrhea- None Weight loss or gain- weight gain, self inflicted from over the summer eating BBQ and cook outs Compression symptoms- pressure present Neck growth/goiter- None Vision changes- occasionally gets raspy sound to her voice Globus sensation-occasionally feeling of sticking? Dysphagia-??occasionally? Dysphonia-??No? Dyspnea-??No?? History of H+N XRT exposure- None Family history of thyroid cancer- none Family history of cancer syndrome- none Goiter:?Not present ?? Past Medical History: Diabetes, type 2, diagnosed within the last ten years, taking Metformin BID CAD s/p stenting Arthritis Sleep apnea Nephrolithiasis Umbilical hernia Fibromyalgia ?? Surgical history: Hysterectomy, for endometriosis Bladder repair Bladder sling repair Lithotripsy Umbilical hernia repair Hand surgery ?? Social history: Occupational: Retired Alcohol: Denies Tobacco: Denies ?? Family History of Diabetes/ Endocrinopathies: Maternal history- MA, diabetes Paternal history- MA Siblings- Brother with lymphoma at age 54 Children- two children are healthy Maternal aunt with goiter, she does not recall anyone else in her family with thyroid problems She denies family history of cancer besides her brother with Lymphoma Allergies Allergen Reactions ??? Oxycodone Nausea And Vomiting Physical Exam: BP 152/76 Pulse 70 Ht 162.6 cm (5' 4) Wt 109.9 kg (242 lb 3.2 oz) BMI 41.57 kg/m?? General appearance - alert, well appearing, and [...] that presents for reevaluation of thyroid nodule. She now follows in our clinic for toxic multinodular goiter diagnosed with thyroid studies showing hyperthyroidism and a iodine uptake scan. She has been on Methimazole 10 mg which was reduced to 5 mg daily in August 2017. Her most recent thyroid studies from November 17, 2017 with a TSH elevated at 6.07 and free T4 of 0.79. Total t3 is pending. She feels well generally and has no symptoms of hyperthyroidism or hypothyroidism to that respect. Today it appears her hyperthyroidism is being over treated with Methimazole 5 mg daily. I am going to reduce the dose to 2.5 mg daily and repeat thyroid studies in 6 weeks. She was agreeable to this plan. Plan: Reduce Methimazole to 2.5 mg daily TSH, T4 and T3 in six weeks Return in six months Thank you for allowing us to provide care for your patient. The above case was discussed and reviewed with attending physician, Dr. Gagnon. Madeline Smith DO Endocrinology, Diabetes and Metabolism Fellow 12/16/2017 11:56 AM Tamara Galindo MD - 12/16/2017 11:30 AM EDT I have seen the patient and reviewed Dr. Madeline Smith's above history and I agree with the details as written. The assessment and plan were formulated in discussion with me and I agree with them as documented. Tamara Galindo MD, PhD, FACP, FACE documented in this encounter Plan of Treatment Upcoming Encounters Date Type Specialty Care Team Description 10/23/2021 Office Visit Hematology and Oncology Navid Armendariz MD [facility] ONCOLOGY [place] [address] (Wo rk) 10/23/2021 Infusion Hematology and Oncology documented as of this encounter Visit Diagnoses Diagnosis Hyperthyroidism Thyrotoxicosis without mention of goiter or other cause, without mention of thyrotoxic crisis or storm Breast cancer, stage 1, left documented in this encounter Care Teams Sailor Relationship Specialty Start Date End Date Veronica Chun MD PCP - General Family Medicine 01/20/[address] [place] [address] documented as of this encounter
--- OUTSIDE RECORDS SUMMARY | 2021-10-23 02:25 | XMS_ITS | Encounter Summary ---
:1955 Author Organization [facility] [place] [address] Care Team Providers Name Role Phone Betty Tipton MD Primary Care Provider Reason for Visit Reason Onset Date Comments Results 02/28/2012 Encounter Details Date Type Department Care Team Description 02/28/2012 Telephone Rheumatology at [facility] [place] [address] Social History Tobacco Use Types Packs/Day [...] this encounter Miscellaneous Notes Telephone Encounter - Joanna Orozco RN - 02/28/2012 3:31 PM EST Reached pt at home. She was given results information as below. She stopped her diclofenac when she started meloxicam. She will f/u with Dr Tipton for anemia and sleep study. Telephone Encounter - Joanna Orozco RN - 02/28/2012 3:31 PM EST Message copied by JOANNA OROZCO on TueFeb 28, 2012 3:31 PM ------ Message from: TAMARA VILLAVICENCIO Created: Lillian Feb 27, 2012 11:36 AM Please call. Labs look okay, except perhaps some mild iron deficiency. She can discuss that with Dr. Tipton. X-rays of the hands just show wear and tear arthritis, as we suspected. Nothing like rheumatoid arthritis apparent. I was able to get a look at her left knee x-ray from [facility] and that looked okay, perhaps some very minimal wear and tear. I also noticed that she had diclofenac on her med list. If she is still taking that, she should stop it while on the meloxicam that I prescribed for her. Otherwise, the plan is as we discussed. She should talk with Dr. Tipton about the sleep study. Thanks! CB documented in this encounter Plan of Treatment Upcoming Encounters Date Type Specialty Care Team Description 10/23/2021 Office Visit Hematology and Oncology Navid Armendariz MD [facility] ONCOLOGY [place], [place] [address] (Wo rk) 10/23/2021 Infusion Hematology and Oncology documented as of this encounter Visit Diagnoses Not on filedocumented in this encounter Care Teams Owner Operator Tanker Truck Driver Relationship Specialty Start Date End Date Betty Tipton MD PCP - General 02/18/12 01/19/17 [address] [place] [address] documented as of this encounter
--- OUTSIDE RECORDS SUMMARY | 2021-10-23 02:25 | XMS_ITS | Encounter Summary ---
:1955 [place] [address] Care Team Providers Name Role Phone Veronica Chun MD Primary Care Provider Encounter Details Date Type Department Care Team Description 06/16/2018 Ancillary Procedure Radiology Library at Rita [facility] [address] [phone] Social History Tobacco Use Types Packs/Day Years [...] Oncology Navid Armendariz MD [facility] ONCOLOGY [place], [place] [address] (Wo rk) 10/23/2021 Infusion Hematology and Oncology documented as of this encounter Procedures Procedure Name Priority Date/Time Associated Diagnosis Comme nts FILM LIBRARY Routine 06/16/2018 12:00 AM Results for this STORAGE ONLY MAMMO EDT procedure are in the results section. documented in this encounter Results Film Library- Storage Only Mammo (06/16/2018 12:00 AM EDT) Specimen (Source) Anatomical Location Collection Method / Collectio n Time Received Time / Laterality Volume Narrative RAD - 06/20/2018 5:40 AM EDT This exam is auto-finalizing. It's purpo se is for storage only. Veronica Chun MD IMG FILM LIBRARY ORDERABLES Performing Organization Address City/State/ZIP Code Phon e Number [place], [place] documented in this encounter Visit Diagnoses Not on filedocumented in this encounter Care Teams Cardiac Specialist Relationship Specialty Start Date End Date Veronica Chun MD PCP - General Family Medicine 01/20/[address] [place] [address] documented as of this encounter
--- OUTSIDE RECORDS SUMMARY | 2021-10-23 02:25 | XMS_ITS | Encounter Summary ---
:1955 Author Organization [facility] [place] [address] Care Team Providers Name Role Phone Veronica Chun MD Primary Care Provider Encounter Details Date Type Department Care Team Description 05/04/2017 Orders Only Endocrinology at [facility] C Madeline Smith, DO Hyperthyroidism [place] [address] ENDOCRINOLOGY [place], [place] [address] (Wo rk) Social History Tobacco [...] Oncology Navid Armendariz MD [facility] ER ONCOLOGY [place], [place] [address] (Wo rk) 10/23/2021 Infusion Hematology and Oncology documented as of this encounter Visit Diagnoses Diagnosis Hyperthyroidism Thyrotoxicosis without mention of goiter or other cause, without mention of thyrotoxic crisis or storm Breast cancer, stage 1, left documented in this encounter Care Teams Supervisor Coke Handling Relationship Specialty Start Date End Date Veronica Chun MD PCP - General Family Medicine 01/20/[address] [place] [address] [address] [facility] [place] [address] documented as of this encounter
--- OUTSIDE RECORDS SUMMARY | 2021-10-23 02:25 | XMS_ITS | Encounter Summary ---
:1955 Author Organization [facility] [place] [address] Care Team Providers Name Role Phone Veronica Chun MD Primary Care Provider Encounter Details Date Type Department Care Team Description 07/19/2018 Notes Only Hematology and Oncology at Fredy Awad, [facility] [place] [address] [place], [place] [id number] [phone] (Wo rk) Social History Tobacco Use Types [...] documented as of this encounter Progress Notes Tamara Awad RN - 07/19/2018 10:52 AM EDT [id number]: Preclinical study of the aryl hydrocarbon receptor and other biomarkers in human adipose tissue and their potential links among obesity and breast cancer Date: 07/19/2018 Objective of visit: Meet with patient in 3K clinic to provide information regarding protocol [id number],answer questions or concerns about study plan and evaluate interest in study participation. Information Provided: Protocol was reviewed with patient including, a description of the proposed blood, tissue and questionnaires and follow-up including duration of subject???s participation in study. Potential discomforts and risks were reviewed. The patient was informed regarding the uncertainties, both in terms of benefit as well as risks that are part of participation in this clinical trial. Discussed confidentiality of patient???s health information as specified in the protocol. Pt was advised that she may discontinue treatment at any time and that refusing to participate or discontinuing treatment will not compromise the patient???s access to treatment options or care. The patient was given written information regarding the protocol and was offered adequate time to review the information. The patient was given adequate time to ask questions and review concerns, all of which were answeredto the patient???s satisfaction. She felt Dr. Larry explained the study well and she had no questions. I reviewed risks and responsibilities of participation. Oncology Vitals 07/19/2018 Weight (kg) 112.492 kg Weight (lb) 248 lb Height 163 cm BSA (Calculated - sq m) 2.26 BMI (Calculated) 42.34 Temp 98.6 Temp src 101 Pulse 65 Heart Rate Source Monitor Resp 18 BP 133/66 BP Location Right arm Patient Position Sitting SpO2 95 6.1 Inclusion Criteria A. Male or female patients Female B. Age of 18 years to 75 years old 62 C. A clinical indication for breast or abdominal surgery Breast CA D. A body mass index (BMI) equal to or greater than 19 42.3 E. Medical condition and performance status appropriate for surgery.Yes 6.2 Exclusion Criteria A. Current diagnosis of unresected GI malignancy No B. Inability or unwillingness to have surgery No C. Unable to consent No D. or lactating female patients No E. Ongoing or active systemic infection No F. Subjects who have had a >10% weight loss in the previous 3 months or have received chemotherapy in the previous month so as to minimize perturbed metabolic states. No G. Men who are having surgery for breast cancer. N/A Assessment/Outcome: Consent to participate language: Patient verbalized understanding of protocol and consents for treatment. Patient signed and dated consent, copy given to patient. She consents to have a tissue sample from affected Left side only. After signing consent she completed study questionnaire. Waist measurement was 49 inches. Original, signed informed consent document scanned into patient???s electronic medical record and original hard copy given to RAMON Castro. Written informed consent was obtained prior to any study procedures being done. Plan: 1. Eligibility will be reviewed and patient will be enrolled on study [id number] per her consent. 2. Orders will be placed for study lab and tissue sample to be taken day of procedure; which will conclude her participation in the study. Dr. Ellison's lab notified. documented in this encounter Plan of Treatment Upcoming Encounters Date Type Specialty Care Team Description 10/23/2021 Office Visit Hematology and Oncology Navid Armendariz MD [facility] ER DR ONCOLOGY [place], [place] [address] (Wo rk) 10/23/2021 Infusion Hematology and Oncology documented as of this encounter Visit Diagnoses Not on filedocumented in this encounter Care Teams Tool Designer Relationship Specialty Start Date End Date Veronica Chun MD PCP - General Family Medicine 01/20/[address] [place] [address] documented as of this encounter
--- OUTSIDE RECORDS SUMMARY | 2021-10-23 02:25 | XMS_ITS | Encounter Summary ---
:1955 Author Organization [facility] [place] [address] Care Team Providers Name Role Phone Veronica Chun MD Primary Care Provider Encounter Details Date Type Department Care Team Description 01/27/2018 Orders Only Endocrinology at [facility] C Madeline Smith, DO [facility] [place] [address] ENDOCRINOLOGY [place], [place] [address] (Wo rk) Social History Tobacco [...] Armendariz MD [facility] ER ONCOLOGY [place], [place] [address] (Wo rk) 10/23/2021 Infusion Hematology and Oncology documented as of this encounter Visit Diagnoses Diagnosis Hyperthyroidism Thyrotoxicosis without mention of goiter or other cause, without mention of thyrotoxic crisis or storm Breast cancer, stage 1, left documented in this encounter Care Teams Pot Reliner Relationship Specialty Start Date End Date Veronica Chun MD PCP - General Family Medicine 01/20/[address] [place] [address] [address] [facility] [place] [address] documented as of this encounter
--- OUTSIDE RECORDS SUMMARY | 2021-10-23 02:25 | XMS_ITS | Encounter Summary ---
:1955 [place] [address] Care Team Providers Name Role Phone Veronica Chun MD Primary Care Provider Encounter Details Date Type Department Care Team Description 06/19/2018 Ancillary Procedure Radiology Library at Rita Chun [facility] [address] [address] [phone] Social History Tobacco Use Types Packs/Day Years [...] Hematology and Oncology Navid Armendariz MD [facility] ONCOLOGY [place], [place] [address] (Wo rk) 10/23/2021 Infusion Hematology and Oncology documented as of this encounter Procedures Procedure Name Priority Date/Time Associated Diagnosis Comme nts FILM Routine 06/19/2018 12:05 AM Results for this LIBRARY-STORAGE EDT procedure ar e in ONLY US BREAST the results section. documented in this encounter Results Film Library Storage Only US Breast (06/19/2018 12:05 AM EDT) Specimen (Source) Anatomical Location Collection Method / Collectio n Time Received Time / Laterality Volume Narrative RAD - 06/20/2018 5:43 AM EDT This exam is auto-finalizing. It's purpo se is for storage only. Veronica Chun MD IMG FILM LIBRARY ORDERABLES Performing Organization Address City/State/ZIP Code Phon e Number [place], [place] documented in this encounter Visit Diagnoses Not on filedocumented in this encounter Care Teams Botany Professor Relationship Specialty Start Date End Date Veronica Chun MD PCP - General Family Medicine 01/20/[address] [place] [address] documented as of this encounter
--- OUTSIDE RECORDS SUMMARY | 2021-10-23 02:25 | XMS_ITS | Encounter Summary ---
:1955 Author Organization [facility] [place] [address] Care Team Providers Name Role Phone Veronica Chun MD Primary Care Provider Reason for Visit Reason Onset Date Comments Appointment 06/16/2018 Orders for [facility] Rad iology Encounter Details Date Type Department Care Team Description 06/16/2018 Telephone Endocrinology at [facility] [place] Appointment (Orders [facility] janel for [facility] Radiology) [place] [address] Social History Tobacco Use Types Packs/Day [...] this encounter Miscellaneous Notes Telephone Encounter - Ritesh Belle Pawel - 06/21/2018 12:41 PM EDT Caller and relationship to patient (if other than patient): Elizabeth Best time to reach caller: any; talk to anyone who answers this phone Message or Reason for Call: Pt wants to schedule her test for next week but if they don't get the order today, their schedule will be full for next week. Please send the order for Tyroid Uptake and scan Fax order to [phone]. Appt Needed and Reason: Provider: Madeline Smith DO Telephone Encounter - Ting Sarmiento - 06/16/2018 2:47 PM EDT Caller and relationship to patient (if other than patient): Elizabeth from [facility] Radiology Best time to reach caller: anytime Message or Reason for Call: Patient stopped in for thyroid testing. [facility] doesn't have an order for the test. Phone number above is main # Fax number is [phone] Appt Needed and Reason: Yes, order to be sent Elizabeth at [facility] Provider: Sarah Galindo documented in this encounter Plan of Treatment Upcoming Encounters Date Type Specialty Care Team Description 10/23/2021 Office Visit Hematology and Oncology Navid Armendariz MD [facility] DR ONCOLOGY [place], [place] [address] (Wo rk) 10/23/2021 Infusion Hematology and Oncology documented as of this encounter Visit Diagnoses Not on filedocumented in this encounter Care Teams Pig Casting Machine Operator Relationship Specialty Start Date End Date Veronica Chun MD PCP - General Family Medicine 01/20/[address] [place] [address] [address] [place] [address] documented as of this encounter
--- OUTSIDE RECORDS SUMMARY | 2021-10-23 02:25 | XMS_ITS | Encounter Summary ---
:1955 Author Organization [facility] [place] [address] Care Team Providers Name Role Phone Betty Tipton MD Primary Care Provider Encounter Details Date Type Department Care Team Description 12/03/2014 [facility]illary [facility] [address] [phone] Social History Tobacco Use Types Packs/Day Years [...] MD [facility] [address] ONCOLOGY [place], [place] [address] (Wo rk) 10/23/2021 Infusion Hematology and Oncology documented as of this encounter Procedures Procedure Name Priority Date/Time Associated Diagnosis Comme nts FILM LIBRARY Routine 12/03/2014 12:00 AM Results for this STORAGE ONLY MAMMO EDT procedure are in the results section. documented in this encounter Results Film Library- Storage Only Mammo (12/03/2014 12:00 AM EDT) Specimen (Source) Anatomical Location Collection Method / Collectio n Time Received Time / Laterality Volume Narrative [facility] - 06/20/2018 5:37 AM EDT This exam is auto-finalizing. It's purpo se is for storage only. Veronica Chun MD IMG FILM LIBRARY ORDERABLES Performing Organization Address City/State/ZIP Code Phon e Number [place], [place] documented in this encounter Visit Diagnoses Not on filedocumented in this encounter Care Teams Brand Analyst Relationship Specialty Start Date End Date Betty Tipton MD PCP - General 02/18/12 01/19/17 [address] [place] [address] documented as of this encounter
--- OUTSIDE RECORDS SUMMARY | 2021-10-23 02:25 | XMS_ITS | Encounter Summary ---
:1955 Author Organization [facility] [place] [address] Care Team Providers Name Role Phone Veronica Chun MD Primary Care Provider Encounter Details Date Type Department Care Team Description 12/23/2017 Orders Only Endocrinology at [facility] C Madeline Smith, DO [facility] [place] [phone] ENDOCRINOLOGY [place], [place] [address] (Wo rk) Social History Tobacco [...] Visit Hematology and Oncology Navid Armendariz MD [facility] ONCOLOGY [place], [place] [address] (Wo rk) 10/23/2021 Infusion Hematology and Oncology documented as of this encounter Visit Diagnoses Diagnosis Hyperthyroidism Thyrotoxicosis without mention of goiter or other cause, without mention of thyrotoxic crisis or storm Breast cancer, stage 1, left documented in this encounter Care Teams Assistant Food Service Manager Relationship Specialty Start Date End Date Veronica Chun MD PCP - General Family Medicine 01/20/[address] [place] [address] [address] [facility] [address] [place] [address] documented as of this encounter
--- OUTSIDE RECORDS SUMMARY | 2021-10-23 02:25 | XMS_ITS | Encounter Summary ---
:1955 Author Organization [facility] [place] [address] Care Team Providers Name Role Phone Betty Tipton MD Primary Care Provider Encounter Details Date Type Department Care Team Description 01/17/2017 Hospital [facility] [place] [address] [place] [address] [phone] (Wo rk) Social History Tobacco Use Types [...] Navid Armendariz MD [facility] [address] ONCOLOGY [place], [place] [address] (Wo rk) 10/23/2021 Infusion Hematology and Oncology documented as of this encounter Procedures Procedure Name Priority Date/Time Associated Diagnosis Comme [facility] FILM LIBRARY Routine 01/17/2017 12:00 AM Results for this STORAGE ONLY DX EST procedure ar e in KNEE the results section. documented in this encounter Results Film Library- Storage Only DX Knee (01/17/2017 12:00 AM EST) Specimen (Source) Anatomical Location Collection Method / Collectio n Time Received Time / Laterality Volume Narrative [facility] - 02/17/2017 3:19 PM EST This exam is for storage only and is aut o-finalizing. Angie Martin DO IMG FILM LIBRARY ORDERABLES Performing Organization Address City/State/ZIP Code Phon e Number [place], [place] documented in this encounter Visit Diagnoses Not on filedocumented in this encounter Care Teams Corporate Training Manager Relationship Specialty Start Date End Date Betty Tipton MD PCP - General 02/18/12 01/19/17 [address] [place] [address] documented as of this encounter
--- OUTSIDE RECORDS SUMMARY | 2021-10-23 02:25 | XMS_ITS | Encounter Summary ---
:1955 Author Organization [facility] [place] [address] Care Team Providers Name Role Phone Veronica Chun MD Primary Care Provider Encounter Details Date Type Department Care Team Description 06/22/2018 Notes Only Endocrinology at [facility] Marilee Hein, [facility] [place] [address] Social History Tobacco Use Types Packs/Day Years [...] documented as of this encounter Progress Notes Marilee Hein LPN - 06/22/2018 7:26 AM EDT External orders for NM I-123 Thyroid Imaging w Uptake Radiopharm Admin & NM I- 123 Thyroid Imaging w Uptake faxed to [facility] Radiology @ [phone]. Confirmation received @ 0309 & 0036. documented in this encounter Plan of Treatment Upcoming Encounters Date Type Specialty Care Team Description 10/23/2021 Office Visit Hematology and Oncology Navid Armendariz MD [facility] DR ONCOLOGY [place], [place] [address] (Wo rk) 10/23/2021 Infusion Hematology and Oncology documented as of this encounter Visit Diagnoses Not on filedocumented in this encounter Care Teams Patient Support Representative Relationship Specialty Start Date End Date Veronica Chun MD PCP - General Family Medicine 01/20/17 [facility] [address] [place] [address] documented as of this encounter
--- OUTSIDE RECORDS SUMMARY | 2021-10-23 02:25 | XMS_ITS | Encounter Summary ---
:1955 Author Organization [facility] [place] [address] Care Team Providers Name Role Phone Veronica Chun MD Primary Care Provider Reason for Referral Diagnostic Test (Routine) - Closed Specialty Diagnoses / Procedures Referred By Contact Refer red To Contact Radiology Diagnoses Malignant neoplasm of left female breast, unspecified estrogen receptor status, unspecified site of breast Charlie Larry MD [facility] Rad Mri Procedures MRI Breast WWO Contrast [facility] [address] [place] [address] Referral ID Status Reason Start Date Expiration Date Visits V isits Requested Authorized [id number] Closed Specialty 07/07/2018 10/05/2018 1 1 Service Requested Reason for Visit Diagnostic Test (Routine) - Closed Specialty Diagnoses / Procedures Referred By Contact Refer red To Contact Radiology Diagnoses Malignant neoplasm of left female breast, unspecified estrogen receptor status, unspecified site of breast Charlie Larry MD [facility] Rad Mri Procedures MRI [place] [address] [place] [address] Referral ID Status Reason Start Date Expiration Date Visits V isits Requested Authorized [id number] Closed Specialty 07/07/2018 10/05/2018 1 1 Service Requested Encounter Details Date Type Department Care Team Description 07/10/2018 Hospital Encounter MRI at [facility] Charlie Larry Malignant neoplasm of left f emale breast, unspecified estrogen receptor status, unspecified site of breast; [facility] MD Geoffrey [address] [place], [place] CENTER [address] GENERAL SURGERY [phone] [place] [address] Social History Tobacco Use Types Packs/Day Years [...] Oncology Navid Armendariz MD [facility] ONCOLOGY [place], [place] [address] (Wo rk) 10/23/2021 Infusion Hematology and Oncology Scheduled Orders Name Type Priority Associated Diagnoses Order S chedule MRI Breast WWO Imaging Routine Research study patient 1 O ccurrences starting Contrast Bilat 07/10/2018 un til (Supine A) 07/10/2018 MRI Breast WWO Imaging Routine Research study patient 1 O ccurrences starting Contrast Bilat 07/10/2018 un til (Supine B) 07/10/2018 documented as of this encounter Procedures Procedure Name Priority Date/Time Associated Diagnosis Comme nts MRI BREAST WWO Routine 07/10/2018 7:44 PM Malignant neoplasm R esults for this CONTRAST BILAT EDT of left female procedure a re in breast, unspecified the resu lts estrogen receptor section. status, unspecified site of breast documented in this encounter Results MRI Breast WWO Contrast Bilat (07/10/2018 7:44 PM EDT) Anatomical Region Laterality Modality Breast N/A Magnetic Resonance Specimen (Source) Anatomical Location Collection Method / Collectio n Time Received Time / Laterality Volume Impressions 07/11/2018 9:47 AM EDT Extensive segmental disease in the left upper outer quadrant 2:00 radian spanning 10 cm anterior to care team assistant ior with a dominant 1.8 cm mass [...] t enhancement curve analysis was performed, using [employer] software. COMPARISON STUDIES: Compared and/or correlated with [...] MAR Action Action Date Dose Rate Site gadoterate meglumine (DOTAREM) 0.5 Given 07/10/2018 7:28 PM EDT 20 mLs mmol/mL (376.9 mg/mL) injection 0-100 mL 0-100 mL, Intravenous, ONCE PRN, 1 dose, Starting on Tue07/10/18 at 1922, Until Tue07/10/18 at 192, Per Protocol, Radiology Contrast, Routine documented in this encounter Care Teams Mold Making Plastics Sheets Supervisor Relationship Specialty Start Date End Date Veronica Chun MD PCP - General Family Medicine 01/20/[address] [place] [address] documented as of this encounter
--- OUTSIDE RECORDS SUMMARY | 2021-10-23 02:25 | XMS_ITS | Encounter Summary ---
:1955 [place] [address] Care Team Providers Name Role Phone Veronica Chun MD Primary Care Provider Encounter Details Date Type Department Care Team Description 06/19/2018 Ancillary Procedure Radiology Library at Rita Chun [facility] [address] [phone] Social History Tobacco Use Types Packs/Day Years [...] Navid Armendariz MD [facility] ONCOLOGY [place], [place] [address] (Wo rk) 10/23/2021 Infusion Hematology and Oncology documented as of this encounter Procedures Procedure Name Priority Date/Time Associated Diagnosis Comme nts FILM LIBRARY Routine 06/19/2018 12:00 AM Results for this STORAGE ONLY MAMMO EDT procedure are in the results section. documented in this encounter Results Film Library- Storage Only Mammo (06/19/2018 12:00 AM EDT) Specimen (Source) Anatomical Location Collection Method / Collectio n Time Received Time / Laterality Volume Narrative RAD - 06/20/2018 5:42 AM EDT This exam is auto-finalizing. It's purpo se is for storage only. Veronica Chun MD IM FILM LIBRARY ORDERABLES Performing Organization Address City/State/ZIP Code Phon e Number [place], [place] documented in this encounter Visit Diagnoses Not on filedocumented in this encounter Care Teams Boat Rental Clerk Relationship Specialty Start Date End Date Veronica Chun MD PCP - General Family Medicine 01/20/[address] [place] [address] documented as of this encounter
--- OUTSIDE RECORDS SUMMARY | 2021-10-23 02:25 | XMS_ITS | Encounter Summary ---
:1955 Author Organization [facility] [address] Care Team Providers Name Role Phone Veronica Chun MD Primary Care Provider Encounter Details Date Type Department Care Team Description 02/25/2017 Orders Only Rheumatology at [facility] Angie Martin, Other chronic pain [facility] [place] [address] RHEUMATOLOGY [place], [place] [address] (Wo rk) Social History Tobacco [...] Navid Armendariz MD [facility] ONCOLOGY [place], [place] [address] (Wo rk) 10/23/2021 Infusion Hematology and Oncology documented as of this encounter Visit Diagnoses Diagnosis Other chronic pain Breast cancer, stage 1, left documented in this encounter Care Teams Window Dresser Relationship Specialty Start Date End Date Veronica Chun MD PCP - General Family Medicine 01/20/[address] [place] [address] documented as of this encounter
--- OUTSIDE RECORDS SUMMARY | 2021-10-23 02:25 | XMS_ITS | Encounter Summary ---
:1955 Author Organization [facility] [place] [address] Care Team Providers Name Role Phone Betty Tipton MD Primary Care Provider Encounter Details Date Type Department Care Team Description 12/03/2014 Ancillary [facility] [address] [phone] Social History Tobacco Use Types Packs/Day Years [...] Armendariz MD [facility] DR ONCOLOGY [place], [place] [address] (Wo rk) 10/23/2021 Infusion Hematology and Oncology documented as of this encounter Procedures Procedure Name Priority Date/Time Associated Diagnosis Comme nts FILM Routine 12/03/2014 12:05 AM Results for this LIBRARY-STORAGE EDT procedure ar e in ONLY US BREAST the results section. documented in this encounter Results Film Library Storage Only US Breast (12/03/2014 12:05 AM EDT) Specimen (Source) Anatomical Location Collection Method / Collectio n Time Received Time / Laterality Volume Narrative RAD - 06/20/2018 5:39 AM EDT This exam is auto-finalizing. It's purpo se is for storage only. Veronica Chun MD IMG FILM LIBRARY ORDERABLES Performing Organization Address City/State/ZIP Code Phon e Number [place], [place] documented in this encounter Visit Diagnoses Not on filedocumented in this encounter Care Teams Piecer Up Relationship Specialty Start Date End Date Betty Tipton MD PCP - General 02/18/12 01/19/17 [address] [place] [address] documented as of this encounter
--- OUTSIDE RECORDS SUMMARY | 2021-10-23 02:26 | XMS_ITS | Encounter Summary ---
:1955 Author Organization [facility] [address] Care Team Providers Name Role Phone Talia Kathleen Primary Care Provider Encounter Details Date Type Department Care Team Description 05/24/2011 Ancillary Procedure Radiology Library at [facility] Morenita welch MD [facility] [id number] [place] [address] (Wo rk) [phone] Social History Tobacco Use Types Packs/Day Years Used Date Never Assessed Alcohol Habits Answer Date Recorded How often [...] MD [facility] DR ONCOLOGY [place], [place] [address] (Wo rk) 10/23/2021 Infusion Hematology and Oncology documented as of this encounter Procedures Procedure Name Priority Date/Time Associated Diagnosis Comme nts FILM LIBRARY Routine 05/24/2011 12:00 AM Results for this STORAGE ONLY MAMMO EDT procedure are in the results section. documented in this encounter Results Film Library- Storage Only Mammo (05/24/2011 12:00 AM EDT) Specimen (Source) Anatomical Location Collection Method / Collectio n Time Received Time / Laterality Volume Narrative [facility] - 06/20/2018 11:44 AM EDT This exam is auto-finalizing. It's purpo se is for storage only. Morenita Ochoa MD IMG FILM LIBRARY ORDERABLES Performing Organization Address City/State/[facility] Code Phon e Number [place], [place] documented in this encounter Visit Diagnoses Not on filedocumented in this encounter Care Teams Ventilating Equipment Installer Relationship Specialty Start Date End Date Talia Kathleen PA PCP - General 01/13/10 02/17/12 documented as of this encounter
--- OUTSIDE RECORDS SUMMARY | 2021-10-23 02:26 | XMS_ITS | Encounter Summary ---
:1955 Author Organization [facility] [place] [address] Care Team Providers Name Role Phone Betty Tipton MD Primary Care Provider Encounter Details Date Type Department Care Team Description 12/31/2011 Orders Only Rheumatology at [facility] Harry Mcintyre MD [facility] [place] [address] RHEUMATOLOGY DEPT. [phone] [place], [place] [address] (Wo rk) Social History Tobacco [...] Visit Hematology and Oncology Navid Armendariz MD [facility] ER [address] [place], [place] [address] (Wo rk) 10/23/2021 Infusion Hematology and Oncology documented as of this encounter Procedures Procedure Name Priority Date/Time Associated Diagnosis Comme [facility] FILM LIBRARY Routine 12/31/2011 9:15 AM Results f or this STORAGE ONLY DX EST procedure ar e in HAND the results section. documented in this encounter Results Film Library- Storage only DX Hand (12/31/2011 9:15 AM EST) Specimen (Source) Anatomical Collection Method Collection Time Re ceived Time Location / / Volume Laterality 12/31/2011 9:15 AM EST Narrative RAD - 10/08/2013 7:06 PM EDT This is a non-reportable exam. Procedure Note EmmyWard - 10/08/2013Formatti ng of this note might be different from the original. This is a non-reportable exam. Harry Mcintyre MD IM FILM LIBRARY ORDERABLES Performing Organization Address City/State/ZIP Code Phon e Number [facility] [address] [facility] [place] [address] documented in this encounter Visit Diagnoses Not on filedocumented in this encounter Care Teams Grain Grader Relationship Specialty Start Date End Date Betty Tipton MD PCP - General 02/18/12 01/19/17 [address] [place] [address] documented as of this encounter
--- OUTSIDE RECORDS SUMMARY | 2021-10-23 02:26 | XMS_ITS | Encounter Summary ---
:1955 Author Organization [facility] [place] [address] Care Team Providers Name Role Phone Betty Tipton MD Primary Care Provider Encounter Details Date Type Department Care Team Description 02/24/2012 External Results XRay at [facility] Veronica Chun MD [address] [place] [address] [place] [address] [facility] [place], [place] [address] (Wo rk) Social History Tobacco Use Types [...] Armendariz MD [facility] [address] [place], [place] [address] (Wo rk) 10/23/2021 Infusion Hematology and Oncology documented as of this encounter Procedures Procedure Name Priority Date/Time Associated Diagnosis Comme nts DIAGNOSTIC RADIOLOGY SCAN Routine 12/31/2011 documented in this encounter Results Scan Doc: Diagnostic Radiology (12/31/2011) Anatomical Region Laterality Modality Other Narrative This result has an attachment that is no t available. Veronica Chun MD MEDIA MGR SCAN EXT ORDR/RSLT documented in this encounter Visit Diagnoses Not on filedocumented in this encounter Care Teams Independent Living Specialist Relationship Specialty Start Date End Date Betty Tipton MD PCP - General 02/18/12 01/19/17 [address] [place] [address] documented as of this encounter
--- OUTSIDE RECORDS SUMMARY | 2021-10-23 02:26 | XMS_ITS | Encounter Summary ---
:1955 Author Organization [facility] [place] [address] Care Team Providers Name Role Phone Unavailable Primary Care Provider Unavailable Encounter Details Date Type Department Care Team Description 12/08/2005 Ancillary Procedure Radiology Library at [facility] Morenita welch MD [facility] [address] [address] [place], [place] [phone] (Wo rk) [phone] Social History Tobacco Use Types Packs/Day Years [...] Navid Armendariz MD [facility] DR ONCOLOGY [place], [place] [address] (Wo rk) 10/23/2021 Infusion Hematology and Oncology documented as of this encounter Procedures Procedure Name Priority Date/Time Associated Diagnosis Comme nts FILM LIBRARY Routine 12/08/2005 12:00 AM Results for this STORAGE ONLY MAMMO EDT procedure are in the results section. documented in this encounter Results Film Library- Storage Only Mammo (12/08/2005 12:00 AM EDT) Specimen (Source) Anatomical Location Collection Method / Collectio n Time Received Time / Laterality Volume Narrative RAD - 06/20/2018 11:43 AM EDT This exam is auto-finalizing. It's purpo se is for storage only. Morenita Ochoa MD [facility] FILM LIBRARY ORDERABLES Performing Organization Address City/State/ZIP Code Phon e Number [facility] [place], [place] documented in this encounter Visit Diagnoses Not on filedocumented in this encounter
--- OUTSIDE RECORDS SUMMARY | 2021-10-23 02:26 | XMS_ITS | Encounter Summary ---
:1955 Author Organization [facility] [place] [address] Care Team Providers Name Role Phone Betty Tipton MD Primary Care Provider Reason for Visit Reason Comments Thyroid Nodule Encounter Details Date Type Department Care Team Description 02/23/2012 Office Visit Endocrinology at [facility] C Juve Stark, Thyroid nodule [facility] (Primary Dx) [address] [phone] [place] [address] [phone] Social History Tobacco Use Types Packs/Day Years [...] - Inhaled Oxygen Concentration - - Weight 108.9 kg (240 lb) 02/23/2012 10:03 AM EST Height 162.6 cm (5' 4) 02/23/2012 10:03 AM EST Body Mass Index 41.2 02/23/2012 10:03 AM EST documented in this encounter Progress Notes Juve Stark MD - 02/23/2012 10:37 AM EST Patient seen in consultation at the request of: Dr Chun Reason for consult: Thyroid nodule Corina Brewster is a very pleasant 56 y.o. year old female who was incidentally noted to have thyroidnodules during a carotid US examination. A f/u dedicated thyroid US confirmed this finding. She has no prior history of thyroid disease. History of H+N XRT exposure: No Family history of thyroid cancer: No Thyroid Compressive symptoms: Globus sensation: No Dysphagia: No Dysphonia: No Dyspnea: No Symptoms of thyroid hormone excess / deficiency Heat intolerance: No Cold intolerance: No Diarrhea: No Constipation: No Weight loss / gain: Gain / can't lose Anxiety: No Jitteriness: No Tremors: No Palpitations: No Difficulty concentrating: No Fatigue: Yes She is also complaining of myalgias and arthralgias and dry mouth. TSH 0.26 FT4 0.80 Patient Active Problem List Diagnoses Code ??? Thyroid nodule 241.0 Family History GM - goiter Social History Nonsmoker Review of Systems See HPI. All other systems negative. Physical Exam GEN: A+O 3; WDWN; Comfortable; Mood and affect appropriate. EYES: AMADA; No stare, no lid lag, no conjunctival injection NECK: Trachea midline, no neck masses; Thyroid not enlarged; Non-nodular; No cervical lymphadenopathy CHEST: Clear to auscultation; No dullness to percussion CV: Regular rate and rhythm; No murmurs rubs or gallops; no peripheral edema ABD: Soft and non-tender; No masses notes MSK: Normal gait and station; No clubbing or cyanosis of digits SKIN: Intact without lesions or rashes NEURO: CN II-XII grossly intact with normal coordination, muscle strength and tone; No tremor of outstretched hands; DTRs 2+ w/ normal relaxation phase THYROID ULTRASOUND: Indication: Thyroid nodule on prior study; Considering FNA - clarify size, position and US characteristics Date: 02/23/2012 Comparison: Real time images of the thyroid gland were obtained using a SonGenOilaxx and an HFL38/13-6 broadband linear array transducer. Right Lobe: The right lobe is mildly enlarged and diffusely heterogeneous / nodular. The largest nodule is in, or abutting, the upper pole on the lateral side and is 2.5x2.3x2.5cm. The nodule has sharp margins; There are no intranodular calcifications; There is minimal flow on color doppler. Left Lobe: The left lobe is moderately enlarged and diffusely heterogeneous / nodular. The largest nodule is in the lateral midlobe and is 1.9x1.7cm. The nodule has sharp margins; There are no intranodular calcifications; There is minimal flow on color doppler. ASSESSMENT / PLAN: 1. Thyroid Nodule Nodules as above. Probably representing a nodular goiter, although the appearance of the RUP nodule is slightly atypical for this. No significant compressive symptoms. I discussed with her the prevalence of thyroid nodules: Approximately 5% of individuals have palpable thyroid nodules and 30% or more of adults have non- palpable nodules. The prevalence of nodules increases with age, so that perhaps 50% of individuals older than 60 years of age have nodules. Many of these nodules will be well under 1cm in size. The incidence of thyroid cancer is low, but rising. About 44,700 individuals will be found to have thyroid cancer in 2010. The prevalence of thyroid cancer is low compared with the prevalence of thyroid nodule. In 2007, there were about 434,000 individuals in the [place] with a history of thyroid cancer. There have been a number of studies that have estimated risk of malignancy in thyroid nodule. The estimated risk varies with size and other characteristics of nodules selected for biopsy, the techniqueused for the biopsy, the institution and its referral patterns, and the characteristics of the localpopulation. Most studies have estimated malignancy risk in nodules that are palpable or > 1cm on U/S to be in the range of 3-15%. At [facility], the nodules selected for biopsy are histologically positive in about 7% of cases. In general, options for further evaluation include: - Follow with serial U/S - Fine needle aspiration biopsy - Thyroidectomy At [facility], our criteria for FNA biopsy includes: - All palpable nodules - All nodules > 1cm in two or more dimension - Nodules > 8-9mm in two or more dimensions with high risk sonographic features, or occuring in patients with high risk historical features - Nodules that have been previously biopsied and found to have benign cytology but which have subsequently enlarged or changed significantly - Simple cysts do not require FNA biopsy Nodules not meeting the above criteria can generally be followed with ultrasound. Based on the above, I recommend FNA biopsy. Thyroid FNA involves passing a 25g needle into the nodule under ultrasound guidance a total of two or three times. There is little risk of significant bleeding or infection. Bruising at the biopsy site and swelling can occur. I reviewed the possible outcomes of an FNA, which are: - Benign - Insufficient - Indeterminate - Suspicious or positive for malignancy In the event of an insufficient result, the FNA should be repeated. Thyroid surgery is usually required if the result is indeterminate or suspicious. She understands the above, and wishes to proceed with FNA. 2. Abnormal TSH Her TSH is very mildly suppressed with a normal FT4. She is clinically euthyroid -- Definitely has no signs/symptoms of thyrotoxicosis., This is most likely to represent a transient TSH fluctuation that will spontaneously resolve. Alternatively, she could have a mild excess of T3 production, possibly from one/more of her nodules. At this point no treatment or additional evaluation is required other than follow-up TFTs in severalmonths. 3. Various other symptoms Fatigue, weight gain, dry mouth are not attributable to either thyroid nodules or a mild abnormalityof thyroid function such as is present in this case. PROCEDURE: THYROID FNA Indication: Right and Left nodules Informed consent was obtained after a discussion of the nature of the procedure, its risks, benefitsand possible alternatives. Immediately prior to the start of the procedure a time out was taken: - The patient's identity was confirmed using two identifiers - The intended procedure, patient positioning and availability of all required equipment was also confirmed. - The proper site(s)/side(s) of the nodule(s) was/were confirmed by visualization with ultrasound. The biopsy site(s) on the patient's neck was/were prepared using isopropyl alchohol. 2 passes of a 25g needle were performed atr each site. The needle placement was ultrasound guided. The needle was visualized in the nodule in each pass. The procedure was well tolerated by the patient. The patient was given a thyroid FNA post-procedure handout upon completion. . documented in this encounter Plan of Treatment Upcoming Encounters Date Type Specialty Care Team Description 10/23/2021 Office Visit Hematology and Oncology Navid Armendariz MD [facility] ONCOLOGY [place], [place] [address] (Wo rk) 10/23/2021 Infusion Hematology and Oncology documented as of this encounter Procedures Procedure Name Priority Date/Time Associated Comments Diagnosis NON-BILLBOARD POSTER FINAL REPORT Routine 02/23/2012 12:04 Res ults for this PM EST procedure are i n the results section. CYTOPATHOLOGY Routine 02/23/2012 10:47 Thyroid nodule Results for this NON-GYNECOLOGICAL AM EST procedure are in the results section. CYTOPATHOLOGY Routine 02/23/2012 10:47 Thyroid nodule Results for this NON-GYNECOLOGICAL AM EST procedure are in the results section. documented in this encounter Results Non-Risk Management Director Final Report (02/23/2012 12:04 PM EST) Component Value Ref Test Analysis Performed At [facility] Range Method Time Signature Non-Risk Management Director Final CERNER Report ? [facility] ? Provider: ?? JUVE STARK ?Pt. Name: ?? VANDA Austin, CORINA Sheffield ? Acc #: ?[id number] ?Pt. MRN: ?[id number] ? Col Date: ?? 02/23/2012 ?/Sex: ?1955,(56 years),Female ? Rec Date: ?? 02/23/2012 ?LOC: ?5C ? CYTOPATHOLOGY: ??NGYN ? ---Adequacy--- ? Specimen submitted is less than optimal. ??See Commen t. ? ---Cytopathologic Diagnosis--- ? Negative for Malignancy ? 02/24/12 ?Screened by: ? [facility] ? Rescreened by: ?? BISCUITWARE BRUSHER,BISCUITWARE BRUSHER ? 02/29/12 ?Verified by: ? LONG OMER, Sravani BARRAZA ?Pathol ogist ? (Electronic Signature) ? ---Comment--- ? Thyroid, Right, US-guided FNA: ? Cytologic preservation: ?Adequate but gordon ls noted within blood clot and this somewhat limits ? interpretation ? Cellularity (follicular cells): ?Adequate- Low. Follicular and Hurthle cells pres ent. ? Colloid: ?Scant, mainly blood in the background ? Macrophages: ?Few ? Architectural pattern: ?Mixed micro-macr ofollicular pattern, consistent with a benign follicular ? nodule. ? ---Clinical Information--- ? Specimen Source: ?Thyroid, Right, US-guided FNA ? Pertinent Clinical Data and Significant Therapy: ?Nodule ? Clinical Impression: ?Nodule ? Pertinent Radiologic Findings: ?Size: ??2.5cm ? [facility] ? Provider: ?? JUVE STARK ?Pt. Name: ?? CORINA DILL ? Acc #: ?[id number] ?Pt. MRN: ?[id number] ? Col Date: ?? 02/23/2012 ?/Sex: ?1955,(56 years),Female ? Rec Date: ?? 02/23/2012 ?LOC: ?5C ? CYTOPATHOLOGY: ??NGYN ?Echogenicity: ??Hypo ?Cystic: ??Partial ?Calcification: ??No ?Vascularity: ??Absent/Low ? Gross Description: ?Received in Cyto rich Red, approximately 10 ml. total volume of clear, ? pink fluid. ?Total Preparation: Liquid Based Prep 1; Diff Quik 1; Pap Stain 1. Specimen (Source) Anatomical Collection Method Collection Time Re ceived Time Location / / Volume Laterality 02/23/2012 12:04 PM EST Jvue Stark MD PATHOLOGY/CYTOLOGY ORDERABLE S Performing Organization Address City/[facility]/[place] [address] [email or web address] Cytopathology Non-Gynecological (02/23/2012 10:47 AM EST) Specimen Anatomical Collection Method Collection Time Receive d Time (Source) Location / / Volume Laterality AP Specimen 02/23/2012 10:47 02/23/2012 AM EST 10:47 AM EST Narrative CERNER MILLENNIUM - 02/23/2012 10:47 AM EST Specimen requisition ordered. ??Separate Pathology report to follow Juve Stark MD PATHOLOGY/CYTOLOGY ORDERABLE S Performing Organization Address City/[facility]/[place] [address] CERNER MILLENNIUM Cytopathology Non-Gynecological (02/23/2012 10:47 AM EST) Specimen Anatomical Collection Method Collection Time Receive d Time (Source) Location / / Volume Laterality AP Specimen 02/23/2012 10:47 02/23/2012 AM EST 10:47 AM EST Narrative CERNER MILLENNIUM - 02/23/2012 10:47 AM EST Specimen requisition ordered. ??Separate Pathology report to follow Juve Stark MD PATHOLOGY/CYTOLOGY ORDERABLE S Performing Organization Address City/[facility]/[place] [address] [facility] documented in this encounter Visit Diagnoses Diagnosis Thyroid nodule - Primary Nontoxic uninodular goiter Breast cancer, stage 1, left documented in this encounter Care Teams Suction Worker Relationship Specialty Start Date End Date Betty Tipton MD PCP - General 02/18/12 01/19/17 [address] [place] [address] documented as of this encounter
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
--- OUTSIDE RECORDS SUMMARY | 2021-10-23 02:26 | XMS_ITS | Encounter Summary ---
:1955 Author Organization [facility] Address [address] [place] [address] Care Team Providers Name Role Phone Betty Tipton MD Primary Care Provider Encounter Details Date Type Department Care Team Description 02/23/2012 Hospital Encounter XRay at [facility] Osteoarthrosis, [address] [place] [address] generalized or [phone] localized, hand Social History Tobacco Use Types Packs/Day Years [...] mg by 0 02/01/2017 tablet mouth daily. diclofenac (VOLTAREN) 50 mg Take 50 mg by 0 02/28/2012 EC tablet mouth 2 times daily. meloxicam (MOBIC) 7.5 mg Take 1 [...] and Oncology Navid Armendariz MD [facility] ER [address] ONCOLOGY [place], [place] [address] (Wo rk) 10/23/2021 Infusion Hematology and Oncology documented as of this encounter Procedures Procedure Name Priority Date/Time Associated Diagnosis Comme nts XR HANDS MIN 3 Routine 02/23/2012 4:28 PM Osteoarthrosis, Resu lts for this VIEWS BILAT EST unspecified whether procedur e are in generalized or the results localized, hand section. documented in this encounter Results XR hands bilateral (02/23/2012 4:28 PM EST) [...] osteoarthropathy. Harry Mcintyre MD IMG DX ORDERABLES documented in this encounter Visit Diagnoses Diagnosis Osteoarthrosis, unspecified whether gene ralized or localized, hand Breast cancer, stage 1, left documented in this encounter Care Teams Cost Accountant Relationship Specialty Start Date End Date Betty Tipton MD PCP - General 02/18/12 01/19/17 [address] [place] [address] documented as of this encounter
--- OUTSIDE RECORDS SUMMARY | 2021-10-23 02:26 | XMS_ITS | Encounter Summary ---
:1955 Author Organization [facility] [place] [address] Care Team Providers Name Role Phone Betty Tipton MD Primary Care Provider Encounter Details Date Type Department Care Team Description 12/31/2011 Orders Only [place] [facility] [place] Mcintyre MD [facility] [place] [address] RHEUMATOLOGY DEPT. [phone] [place], [place] [address] (Wo rk) Social History Tobacco [...] Navid Armendariz MD [facility] ER [address] [place], [place] [address] (Wo rk) 10/23/2021 Infusion Hematology and Oncology documented as of this encounter Procedures Procedure Name Priority Date/Time Associated Diagnosis Comme [facility] FILM LIBRARY Routine 12/31/2011 10:15 AM Results for this STORAGE ONLY DX EST procedure ar e in KNEE the results section. documented in this encounter Results Film Library- Storage only DX Knee (12/31/2011 10:15 AM EST) Specimen (Source) Anatomical Collection Method Collection Time Re ceived Time Location / / Volume Laterality 12/31/2011 10:15 AM EST Narrative RAD - 10/08/2013 7:06 PM EDT This is a non-reportable exam. Procedure Note Ward Booth - 10/08/2013Formatti ng of this note might be different from the original. This is a non-reportable exam. Harry Mcintyre MD IM FILM LIBRARY ORDERABLES Performing Organization Address City/State/ZIP Code Phon e Number [facility] [address] [facility] [address] documented in this encounter Visit Diagnoses Not on filedocumented in this encounter Care Teams Stator Plate Washer Relationship Specialty Start Date End Date Betty Tipton MD PCP - General 02/18/12 01/19/17 [address] [place] [address] documented as of this encounter
--- OUTSIDE RECORDS SUMMARY | 2021-10-23 02:26 | XMS_ITS | Encounter Summary ---
:1955 Author Organization [facility] [place] [address] Care Team Providers Name Role Phone Unavailable Primary Care Provider Unavailable Encounter Details Date Type Department Care Team Description 07/11/2008 Ancillary Procedure Radiology Library at [facility] Morenita welch MD [facility] [place] [address] [address] [place], [place] [phone] (Wo rk) [phone] Social History Tobacco Use Types Packs/Day Years [...] MD [facility] DR ONCOLOGY [place], [place] [address] (Wo rk) 10/23/2021 Infusion Hematology and Oncology documented as of this encounter Procedures Procedure Name Priority Date/Time Associated Diagnosis Comme nts FILM LIBRARY Routine 07/11/2008 12:00 AM Results for this STORAGE ONLY MAMMO EDT procedure are in the results section. documented in this encounter Results Film Library- Storage Only Mammo (07/11/2008 12:00 AM EDT) Specimen (Source) Anatomical Location Collection Method / Collectio n Time Received Time / Laterality Volume Narrative [place] - 06/20/2018 11:43 AM EDT This exam is auto-finalizing. It's purpo se is for storage only. Morenita Ochoa MD IM[facility] FILM LIBRARY ORDERABLES Performing Organization Address City/State/ZIP Code Phon e Number [facility] [place], [place] documented in this encounter Visit Diagnoses Not on filedocumented in this encounter
--- OUTSIDE RECORDS SUMMARY | 2021-10-23 02:31 | XMS_ITS | Encounter Summary ---
:[address] [facility] Address [address] [place] [address] Care Team Providers Name Role Phone Unknown, Provider Primary Care Provider Encounter Details Date Type Department Care Team Description 09/01/2020 Lab Requisition [facility] Outr Resulting Lab, Pathology & Laboratory Provider [facility] [address] [place] [address] Social History Tobacco Use Types Packs/Day Years Used Date Never Assessed Sex Assigned at Date Recorded Not on file documented as of this encounter Plan of Treatment Not on filedocumented as of this encounter Procedures Procedure Name Priority Date/Time Associated Diagnosis Comme nts T3, TOTAL Routine 09/01/2020 8:58 EDT Results for this procedure are i n the results section . documented in this encounter Results T3, TOTAL (09/01/2020 8:58 EDT) Pathologist Sig nature T3, Total 155 97 - 169 ng/dL [facility] Specimen Blood - Venous blood (substance) Performing Organization Address City/State/ZIP Code Phon e Number [facility] [address] [place] [address] SERVICES documented in this encounter Visit Diagnoses Not on filedocumented in this encounter Care Teams Feather Renovator Relationship Specialty Start Date End Date Unknown, Provider, PCP - General 12/25/14 documented as of this encounter
--- OUTSIDE RECORDS SUMMARY | 2021-10-23 02:31 | XMS_ITS | Encounter Summary ---
:[address] [facility] Address [address] [place] [address] Care Team Providers Name Role Phone Unavailable Primary Care Provider Unavailable Encounter Details Date Type Department Care Team Description 12/31/1999 Results Only [facility] - Martinez Sosa MD conversion [address] [place] [address] Social History Tobacco Use Types Packs/Day Years Used Date Never Assessed Sex Assigned at Date Recorded Not on file documented as of this encounter Plan of Treatment Not on filedocumented as of this encounter Procedures Procedure Name Priority Date/Time Associated Diagnosis Comme nts SURGICAL PATHOLOGY Routine 12/31/1999 0:00 EST Re sults for this procedure are i n the results section. documented in this encounter Results SURGICAL PATHOLOGY (12/31/1999 0:00 EST) Pathology Report: SURGICAL PATHOLOGY REPORT CARMELITA Arroyo BECKYOMA Reports generated via electronic interface contain otilia ginal data; LAB however they are lacking the format of the original re port. Caution should be taken when reading/interpreting unfo rmatted reports. Name: ? CORINA LIN ? Accession #: ? [id number] ? : ? 1955 (Age: 44) ??F ? Collect Date: ? 12/31/1999 ? Location: ? [facility] ? Receive Date: ? 000 ? Provider: MARTINEZ ARELLANO MD Copy to: JINA CHACKO MD ? Final Pathologic Diagnosis: A. ?Ovary and f allopian tube, right, unilateral salpingo-oophorectomy: 1. ?Ovary: ? - Benign cyst adenofibroma (10.5 cm in greatest dimension). 2. ?Fallopian tube: ? - No pathologic features. B. ?Soft tissue, omentum, biopsy: 1. ?Mature adipose tissue with no patholo gic features. Document reviewed and electronically signed by: ROLF RO MD Report ??Date: 01/05/2000 15:48 By the signature above, the attending physician certif ies that he/she has personally conducted a gross and/or microscopic examin ation of the described specimens and rendered or confirmed the above diagnosi s. Specimen(s) Received: A. ?R tube and ovary B. ?Omentum Clinical History: ? Pelvic mass; indurated omentum Intraoperative Interpretation: ? Ovary and fallopian t ube, right, resection: ??Serous tumor, favor serous cystadenoma/adenofibroma, ca nnot rule out borderline malignant lesion. ??Defer to permanents (three premium service representative sections) ??Dr. Sukhi guidry Gross Description: ? Received fresh labelled Hastie and R tube an d ovary is a large multicystic mass which weighs 93 grams. ??Examination reveals that the overall dimensions of the mass are 1 0.5 x 7.0 x 4.5 cm. ??Multiple thin walled cysts are evident ranging from 6.0 to 0.5 cm in maximum dimension. ??Also present is a 2.9 x 2.0 x 1.4 cm firm bosselat ed mass present among the cysts. ??A segment of the fallopian tube is present with its fimbriated end and measures 4.0 x 0.5 cm. These cysts are filled with clear fluid and are generally smooth walled without papillary excrescences. ??Focally, the lining appears folded with firm (non-papillary) tissue underlying them. ??Representati ve sections of the bosselated mass are submitted as FS1A. ??Two r epresentative sections of the firm tissue associated with the cyst wall are submitted as FS1B and FS1C for frozen section diagnosis with the interpretation as ab ove. ?? BLOCK SMITH A1 ?Frozen section control FS1A A2 ?Frozen section control FS1B A3 ?Frozen section control FS1C A4 ?Bosselated mass (cassetted) A5-A13 ?Drop Clipper sections of cyst a nd cyst wall Received in formalin brenda lela Lin and #2 omentum is a portion of omentum which weighs 105 grams and m easures 13.0 x 7.0 x 3.5 cm. ??The surface is covered by a aguilar-pink translucent serosal membrane which is unremarkable. ??Palpation reveals that the omentum is slightly firmer in consist ency in one region. Drop Clipper sections of omentum including the firm region are submitted as (B1) through (B3). ??(Dr. Gregorio)/davon End of Report Specimen Performing Organization Address City/State/ZIP Code Phon e Number [facility] [address] [place] [address] SERVICES [facility] [address] [place] [address] documented in this encounter Visit Diagnoses Not on filedocumented in this encounter
--- OUTSIDE RECORDS SUMMARY | 2021-10-23 02:31 | XMS_ITS | Encounter Summary ---
:1955 Author Organization [facility] Address [address] [place] [address] Care Team Providers Name Role Phone Unknown, Provider Primary Care Provider Encounter Details Date Type Department Care Team Description 09/20/2019 Lab Requisition [facility] Outr Resulting Lab, Pathology & Laboratory Provider [facility] [address] [place] [address] Social History Tobacco Use Types Packs/Day Years Used Date Never Assessed Sex Assigned at Date Recorded Not on file documented as of this encounter Plan of Treatment Not on filedocumented as of this encounter Procedures Procedure Name Priority Date/Time Associated Diagnosis Comme nts T3, TOTAL Routine 09/20/2019 8:19 EDT Results for this procedure are i n the results section . documented in this encounter Results T3, TOTAL (09/20/2019 8:19 EDT) Pathologist Sig nature T3, Total 145 97 - 169 ng/dL [facility] Specimen Blood - Venous blood (substance) Performing Organization Address City/State/ZIP Code Phon e Number [facility] [address] [place] [address] SERVICES documented in this encounter Visit Diagnoses Not on filedocumented in this encounter Care Teams Magnet Maker Relationship Specialty Start Date End Date Unknown, Provider, PCP - General 12/25/14 documented as of this encounter
--- OUTSIDE RECORDS SUMMARY | 2021-10-23 02:31 | XMS_ITS | Clinical Summary ---
:1955 Author Organization [facility] Address [address] [place] [address] Care Team Providers Name Role Phone Unknown, Provider Primary Care Provider Social History Tobacco Use Types Packs/Day Years Used Date Never Assessed Sex Assigned at Date Recorded Not on file Plan of Treatment Health Maintenance Due Date Last Done Comments Fall Risk Screening 07/30/2020 Insurance Payer Benefit Plan / Subscriber ID Effective Phone Address T ype Group Dates [place] [id number] 2020-Prese [address] [place] [facility] [id number] Care Teams Horse Race Timer Relationship Specialty Start Date End Date Unknown, Provider, PCP - General 12/25/14
[2021-10-23 12:59] LABS: Abs Immature Grans 0.02 10^3/uL (0.0-0.06); Absolute Basophil Count 0.07 10^3/uL (0.0-0.2); Absolute Eosinophil Count 0.21 10^3/uL (0.0-0.7); Absolute Monocyte Count 0.58 10^3/uL (0.1-0.8); Absolute Neutrophil Count 4.19 10^3/uL (1.2-6.7); Basophils % 1.2; Eosinophils % 3.5; HCT 44.8 % (36.0-46.0); HGB 13.9 g/dL (11.2-15.7); Immature Grans % 0.3; Lymphocytes % 16.5; MCH 26.8 pg (27.0-33.0); MCV 87 fL (80-95); MPV 10.2 fL (8.0-11.0); Monocytes % 9.6; Neutrophils % 68.9; Platelet Count 205 10^3/uL (130-400); RBC 5.18 10^6/uL (3.93-5.22); RDW 14.6 % (11.7-14.6); RDW-SD 46.7 fL; WBC 6.07 10^3/uL (4.4-10.8)
[2021-10-23 13:27] LABS: ALT 32 U/L (14-59); AST 16 U/L (15-37); Albumin 3.9 g/dL (3.4-5.0); Alkaline Phosphatase 65 U/L (46-116); Anion Gap 8.2 mmol/L (3-11); BUN 17 mg/dL (7-18); Bilirubin, Total 0.4 mg/dL (0.2-1.0); CO2 30.8 mmol/L (21.0-32.0); CREATININE 0.9 mg/dL (0.55-1.02); Calcium 9.4 mg/dL (8.5-10.1); Chloride 101 mmol/L (98-107); Estimated GFR 70.51 (mL/min/1.73m2); Glucose 184 mg/dL (74-106); Potassium 3.7 mmol/L (3.5-5.1); Sodium 140 mmol/L (136-145); Total Protein 7.8 g/dL (6.4-8.2)
== END 2021-10-23 02:19 | disposition home or self-care (01) ==
LOC: LBO 02:19
PROVIDERS: PCP Nurse Practitioner Family; Visit Provider Internal Medicine Hematology & Oncology
DX: C50.912 Malignant neoplasm of unspecified site of left female breast (principal); Z17.0 Estrogen receptor positive status [ER+]; Z79.811 Long term (current) use of aromatase inhibitors
CPT/HCPCS: 36415; 80053; 85025

== ENCOUNTER 2022-05-05 02:56 | Outpatient (CLI) | payer MEDICARE, MEDICAID, SELFPAY ==
[2022-05-05 13:33] LABS: ALT 33 U/L (14-59); AST 18 U/L (15-37); Albumin 3.6 g/dL (3.4-5.0); Alkaline Phosphatase 72 U/L (46-116); Anion Gap 6.8 mmol/L (3-11); BUN 16 mg/dL (7-18); Bilirubin, Total 0.4 mg/dL (0.2-1.0); CO2 31.2 mmol/L (21.0-32.0); CREATININE 0.9 mg/dL (0.55-1.02); Calcium 9.8 mg/dL (8.5-10.1); Chloride 104 mmol/L (98-107); Estimated GFR 70.51 (mL/min/1.73m2); Glucose 158 mg/dL (74-106); Sodium 142 mmol/L (136-145)
[2022-05-05 13:49] LABS: Vitamin D 25 Total 40.7 ng/mL (30-100)
== END 2022-05-05 02:57 | disposition home or self-care (01) ==
LOC: LBO 02:56
PROVIDERS: PCP Nurse Practitioner Family; Visit Provider Internal Medicine Hematology & Oncology
DX: C50.412 Malignant neoplasm of upper-outer quadrant of left female breast (principal); E55.9 Vitamin D deficiency, unspecified
CPT/HCPCS: 36415; 80053; 82306

== ENCOUNTER 2022-08-30 01:21 | Outpatient (CLI) | payer MEDICARE, MEDICAID, SELFPAY ==
--- NOTE | 2022-08-30 | DI.MAMMO_ITS ---
Exam(s) MG MAMMO SCREENING 60 MIN DUR EXAM: MG MAMMO SCREENING 60 MIN DUR CLINICAL HISTORY: SCREENING MAMMO FOR BREAST CANCER Z12.31 LEFT BREAST CANCER C50.412 Z17.0. TECHNIQUE: Bilateral full field digital CC and MLO mammographic images were obtained with 3D tomosyn thesis and utilizing computer aided detection (CAD). Also performed spot compression view of the left breast. COMPARISON: Prior mammograms dating back to 2014 were reviewed. This patient underwent prior left breast lumpectomy. FINDINGS: Asymmetric density at the lumpectomy site in the upper quadrant of the left breast is again noted, ap pearing slightly more spiculated than previous but probably representing scar tissue. Increasing adrián ign-appearing microcalcifications in the upper-outer quadrant of the left breast are noted. In the opposite-right breast there is a small group of microcalcifications is slightly more evident t simmons previous, best seen on the CC view. No associated mass at this level. IMPRESSION: Left breast lumpectomy site findings as above. Recommend follow-up ultrasound. Also recommend spot Mag 2D view of microcalcifications in the opposite-right breast. BI-RADS Category 0 - Assessment Incomplete: Need additional imaging evaluation Breast Density - Category B - Scattered areas of fibroglandular density Breast density Category C or D implies that the patient has dense breast tissue. Dense breast tissue can make it harder to find cancer on a mammogram. Dense breast tissue is also associated with an incr eased risk of breast cancer. This information about the result of the mammogram report was provided to the patient to raise their awareness. Use this report when you speak with the patient about their risks for breast cancer, which includes their family history. At that time, you may recommend additional screening tests (Ultrasoun d or MRI) as these tests may add significant information. A negative radiographic report should not delay biopsy if a dominant or clinically suspicious mass is present. Up to ten percent of cancers are not identified on mammography. A negative report may reinforce clinical impression. Adenosis and dense breasts may obscure an underlying neoplasm. False positive reports average 6 to 10%. Patient will receive a letter notifying them of these results.
== END 2022-08-30 01:41 ==
PROVIDERS: PCP Nurse Practitioner Family; Visit Provider Nurse Practitioner Family
DX: Z12.31 Encounter for screening mammogram for malignant neoplasm of breast (principal); C50.412 Malignant neoplasm of upper-outer quadrant of left female breast; Z17.0 Estrogen receptor positive status [ER+]
CPT/HCPCS: 77063; 77067

== ENCOUNTER 2022-08-31 07:15 | Outpatient (CLI) | payer MEDICARE, MEDICAID, SELFPAY ==
--- NOTE | 2022-08-31 | DI.US_ITS ---
Exam(s) US BREAST LT COMPLETE EXAM: US BREAST LT COMPLETE CLINICAL HISTORY: F/U MAMMO 08/30, LT ASYMMETRIC DENSITY,R92.8. TECHNIQUE: Complete ultrasound of the LEFT breast was performed including all 4 quadrants, the retro areolar region, and the ipsilateral axilla. COMPARISON: Prior mammograms were reviewed. FINDINGS: At the 1 o'clock position there is a finding which corresponds to the density on the mammogram, this measuring approximately 3.8 x 1.8 cm. This does not have the appearance of a seroma. May represent scar tissue. This area exhibits predominantly neutral and minimally decreased through transmission. No other focal findings in the 4 quadrants of the left breast. Scanning of the left axilla is negative for adenopathy IMPRESSION: There is a 3.8 x 1.8 cm slightly irregular mass at the 1 o'clock position (approximately 4 cm from ni pple) which corresponds to the finding on the mammogram. This is at the lumpectomy site. Does not h ave the appearance of a seroma but may just represent prominent area of scarring. Recommend follow-u p examination with breast surgeon to determine if percutaneous core biopsy is recommended. Discussed by myself with the patient today. report and recommendations also called by myself to the referring physician today. BI-RADS Category 4 - Suspicious Abnormality: Biopsy should be considered Breast Density - Category B - Scattered areas of fibroglandular density Breast density Category C or D implies that the patient has dense breast tissue. Dense breast tissue can make it harder to find cancer on a mammogram. Dense breast tissue is also associated with an incr eased risk of breast cancer. This information about the result of the mammogram report was provided to the patient to raise their awareness. Use this report when you speak with the patient about their risks for breast cancer, which includes their family history. At that time, you may recommend additional screening tests (Ultrasoun d or MRI) as these tests may add significant information. A negative radiographic report should not delay biopsy if a dominant or clinically suspicious mass is present. Up to ten percent of cancers are not identified on mammography. A negative report may reinforce clinical impression. Adenosis and dense breasts may obscure an underlying neoplasm. False positive reports average 6 to 10%. Patient will receive a letter notifying them of these results.
--- NOTE | 2022-08-31 | DI.MAMMO_ITS ---
Exam(s) MAMMO SCREEN CALL BACK UNI EXAM: MAMMO SCREEN CALL BACK UNI-RIGHT CLINICAL HISTORY: F/U MAMM0,GROUP OF MICROCALCIFICATIONS. TECHNIQUE: Unilateral RIGHT spot mammographic images obtained with 3D tomosynthesisand utilizing com puter aided detection (CAD). . COMPARISON: Prior mammograms were reviewed. This additional imaging was performed due to findings described on the recent screening mammogram of 08/30/2022. FINDINGS: DIAGNOSTIC MAMMOGRAM: Additional 2D SPOT MAG mammographic views performed todayreveal the right breast microcalcification g roup to be presently benign appearance.Recommend follow-up mammogram and spot Mag views of the right breast in 6 months. IMPRESSION: 1. RIGHT BREAST microcalcification group which requires repeat Mag view in 6 months 2. See separate LEFT BREAST ULTRASOUND report from today. There is a separate BI-RADS for the left breast on that report The patient was informed of these findings and recommendations by myself prior to leaving the located within [facility] ent today. RIGHT BREAST BI-RADS Category 3 - 6 month - Probably Benign Finding: Recommend follow-up mammography in 6 months Breast Density - Category B - Scattered areas of fibroglandular density Breast density Category C or D implies that the patient has dense breast tissue. Dense breast tissue can make it harder to find cancer on a mammogram. Dense breast tissue is also associated with an incr eased risk of breast cancer. This information about the result of the mammogram report was provided to the patient to raise their awareness. Use this report when you speak with the patient about their risks for breast cancer, which includes their family history. At that time, you may recommend additional screening tests (Ultrasoun d or MRI) as these tests may add significant information. A negative radiographic report should not delay biopsy if a dominant or clinically suspicious mass is present. Up to ten percent of cancers are not identified on mammography. A negative report may reinforce clinical impression. Adenosis and dense breasts may obscure an underlying neoplasm. False positive reports average 6 to 10%. Patient will receive a letter notifying them of these results.
== END 2022-08-31 07:35 ==
LOC: DI 07:16
PROVIDERS: PCP Nurse Practitioner Family; Visit Provider Nurse Practitioner Family
DX: Z12.31 Encounter for screening mammogram for malignant neoplasm of breast (principal); R92.8 Other abnormal and inconclusive findings on diagnostic imaging of breast; N63.21 Unspecified lump in the left breast, upper outer quadrant
CPT/HCPCS: 76642; 77063; 77067

== ENCOUNTER 2022-09-17 00:29 | Outpatient (CLI) | payer MEDICARE, MEDICAID, SELFPAY ==
--- NOTE | 2022-09-17 | DI.US_ITS ---
Exam(s) US NEEDLE LOCAL BREAST WO RAD EXAM: LT BREAST MASS, ULTRASOUND GUIDED BX COMPARISON: No exams were available for comparison TECHNIQUE: Ultrasound performed using standard protocol. FINDINGS: Sonography was provided for Dr. Leos during the performance of a left breast biopsy. Please refe r to the procedure report for complete details. DATA REPOSITORY:
--- NOTE | 2022-09-17 12:33 | BREAST_PTH ---
PATIENT: Corina Brewster LOC: [facility] U#:[id number] AGE/SX: 67/F ROOM: RE09/17/[address]: Lesley Leos MD : 1955 BED: DIS: 09/17/2022 SPEC #: [id number] RECD: 09/17/22 12:46 STATUS: MELISSA REShanita #: [id number] RICARDO: 09/17/22 12:[address]: Lesley Leos DEPT: Surgical Specimen RECD BY: Amparo Carrasco ENTERED: 09/17/22 12:47 SP TYPE: Breast OTHR DR: Shaheed Gottlieb, HEADER MACHINE OPERATOR ION GUTIERREZ Tissues: 1 - BREAST BX NEEDLE Procedures: GROSS AND MICRO LEVEL 4 Comments: [id number]
--- NOTE | 2022-09-17 17:08 | W.PROCNOTE ---
Date of service: 09/17/22 Time of Service: 12:20 Procedure Note Date of procedure: 09/17/22 Procedure: US guided biopsy of Left Breast lesion Surgeon/Proceduralist/Physician: Lesley Leos Procedure Diagnosis: Abnormal mammogram, Hx of Breast cancer (Left), s/p lumpectomy Procedure Indications: Mrs. Brewster is a very pleasant 67-year-old female who 4 years ago was diagnosed with breast cancer on her left side. She underwent lumpectomy followed by radiation. She also had a little lymph node resection. She believes she had 7 lymph nodes removed. She is now on hormonal therapy. She had a routine yearly mammogram which was read as increased spiculations around what is believed to be the scar tissue from the lumpectomy. Patient was seen at [facility] and more studies were done which were abnormal. We were asked to see the patient to do an ultrasound-guided biopsy. I saw the patient in the radiology department. We reviewed the procedure as well as the risks and complications. Complications include but are not limited to inability to get enough tissue, bleeding, hematoma, and need for further biopsies. Her questions were answered to her satisfaction and she wished to proceed. She seemed to have a good understanding of the procedure and its possible complications. The patient has no family history of breast cancer. She has not noticed any nipple discharge or skin changes. She has not had any issues with lymphedema since her prior surgery. Procedure Description: Pre-op Dx: Left Breast abnormal mammogram/US, Hx of Breast cancer (s/p lumpectomy) Post-op Dx: same Procedure: US guided core needle biopsy Surgeon: Obed Leos MD Anesthesia: Local anesthesia with 1% Lidocaine Blood loss: 2 cc Specimen: Core needle biopsy x3 Complications: no immediate complications Procedure: After informed consent was obtained the patient was placed in a supine position. US was done of the Breast and the lesion was localized by the US tech. The skin was cleaned with alcohol and infiltrated with the above local anesthetic. The skin was then prepped. An incision was made with an 11 blade. Using a 14 gauge core needle 3 specimens were removed from the middle, superior and inferior margins. 2 other biopsies were attempted but only got serous fluid. The specimens were placed on telfa and placed in formalin. A clip was then placed into the lesion under US guidence. The skin was cleaned and dried and a band aid was applied. The patient tolerated the procedure well and there were no immediate complications.
== END 2022-09-17 00:49 ==
LOC: DI 00:29
PROVIDERS: PCP Nurse Practitioner Family; Visit Provider Surgery
DX: N63.21 Unspecified lump in the left breast, upper outer quadrant (principal); Z85.3 Personal history of malignant neoplasm of breast
CPT/HCPCS: 88305; 76942

== ENCOUNTER → 2022-10-01 11:23 | Outpatient (BNVA) | payer MEDICARE, MEDICAID, SELFPAY | PROVIDERS: PCP Nurse Practitioner Family; Referring Provider Nurse Practitioner Family; Visit Provider Surgery | DX: N61.1 Abscess of the breast and nipple (principal) | CPT/HCPCS: 99212; 99213 ==

== ENCOUNTER 2022-10-01 11:41 | Outpatient (REF) | payer MEDICARE, MEDICAID, SELFPAY | END 2022-10-01 11:42 | disposition home or self-care (01) | LOC: LBN 11:41 | PROVIDERS: PCP Nurse Practitioner Family; Visit Provider Surgery | DX: N61.1 Abscess of the breast and nipple (principal) | CPT/HCPCS: 87070; 87075; 87205 ==

== ENCOUNTER → 2022-10-05 14:10 | Outpatient (BNVA) | payer MEDICARE, MEDICAID, SELFPAY | PROVIDERS: PCP Nurse Practitioner Family; Referring Provider Nurse Practitioner Family; Visit Provider Surgery | DX: N61.1 Abscess of the breast and nipple (principal) | CPT/HCPCS: 99212; 99213 ==

== ENCOUNTER 2022-11-03 03:27 | Outpatient (CLI) | payer MEDICARE, MEDICAID, SELFPAY ==
[2022-11-03 11:11] LABS: ALT 24 U/L (14-59); AST 15 U/L (15-37); Albumin 3.5 g/dL (3.4-5.0); Alkaline Phosphatase 61 U/L (46-116); BUN 17 mg/dL (7-18); Bilirubin, Total 0.4 mg/dL (0.2-1.0); CREATININE 0.8 mg/dL (0.55-1.02); Calcium 9.5 mg/dL (8.5-10.1); Calculated LDL 64 mg/dL (<100); Chloride 102 mmol/L (98-107); Cholesterol 139 mg/dL (<200); Estimated GFR 80.71 (mL/min/1.73m2); Glucose 127 mg/dL (74-106); HDL Cholesterol 57 mg/dL (40-60); Potassium 4.1 mmol/L (3.5-5.1); Sodium 139 mmol/L (136-145); Total Protein 7.1 g/dL (6.4-8.2); Triglyceride 91 mg/dL (<150)
== END 2022-11-03 03:28 | disposition home or self-care (01) ==
LOC: LBO 03:28
PROVIDERS: PCP Nurse Practitioner Family; Visit Provider Internal Medicine Medical Oncology
DX: E78.2 Mixed hyperlipidemia (principal); C50.412 Malignant neoplasm of upper-outer quadrant of left female breast; Z17.0 Estrogen receptor positive status [ER+]; E11.9 Type 2 diabetes mellitus without complications; I10 Essential (primary) hypertension
CPT/HCPCS: 36415; 80053; 80061; 82565; 84132

== ENCOUNTER → 2023-03-03 02:25 | Outpatient (CLI) | payer MEDICARE, MEDICAID, SELFPAY ==
--- NOTE | 2023-03-03 | DI.MAMMO_ITS ---
Exam(s) MG MAMMO DIAGNOSTIC UNI EXAM: MG MAMMO DIAGNOSTIC UNI -RIGHT CLINICAL HISTORY: F/U ABNL MAMMO, R92.8,MICROCALCIFICATION,6 MO F/U. TECHNIQUE: Unilateral spot MAG mammographic images were obtained with 3D tomosynthesis technique and utilizing computer aided detection (CAD). COMPARISON: Prior mammograms were reviewed, the most recent being August 2022. FINDINGS: Diagnostic right breast mammogram: The previously described microcalcification group medial aspect of the right breast remains benign ap pearance. IMPRESSION: Stable appearance of right breast microcalcification group Appropriate follow-up is to perform repeat Mag view of these microcalcifications at time for next yea rly mammogram which would be in August 2023.. The patient was informed of the findings and follow-up recommendations prior to leaving the [facility] today. BI-RADS Category 3 - 6 month - Probably Benign Finding: Recommend follow-up mammography in 6 months Breast Density - Category B - Scattered areas of fibroglandular density Breast density Category C or D implies that the patient has dense breast tissue. Dense breast tissue can make it harder to find cancer on a mammogram. Dense breast tissue is also associated with an incr eased risk of breast cancer. This information about the result of the mammogram report was provided to the patient to raise their awareness. Use this report when you speak with the patient about their risks for breast cancer, which includes their family history. At that time, you may recommend additional screening tests (Ultrasoun d or MRI) as these tests may add significant information. A negative radiographic report should not delay biopsy if a dominant or clinically suspicious mass is present. Up to ten percent of cancers are not identified on mammography. A negative report may reinforce clinical impression. Adenosis and dense breasts may obscure an underlying neoplasm. False positive reports average 6 to 10%. Patient will receive a letter notifying them of these results.
== END ==
PROVIDERS: PCP Nurse Practitioner Family; Visit Provider Nurse Practitioner Family
DX: Z12.31 Encounter for screening mammogram for malignant neoplasm of breast (principal); R92.8 Other abnormal and inconclusive findings on diagnostic imaging of breast
CPT/HCPCS: 77061; 77065; G0279

== ENCOUNTER 2023-05-06 02:33 | Outpatient (CLI) | payer MEDICARE, MEDICAID, SELFPAY ==
[2023-05-06 12:41] LABS: ALT 15 U/L (14-59); AST 13 U/L (15-37); Albumin 3.6 g/dL (3.4-5.0); Alkaline Phosphatase 58 U/L (46-116); Anion Gap 8.7 mmol/L (3-11); BUN 14 mg/dL (7-18); Bilirubin, Total 0.4 mg/dL (0.2-1.0); CO2 29.3 mmol/L (21.0-32.0); CREATININE 0.8 mg/dL (0.55-1.02); Calcium 9.7 mg/dL (8.5-10.1); Chloride 105 mmol/L (98-107); Estimated GFR 80.71 (mL/min/1.73m2); Glucose 134 mg/dL (74-106); Potassium 3.7 mmol/L (3.5-5.1); Sodium 143 mmol/L (136-145); Total Protein 6.9 g/dL (6.4-8.2)
== END 2023-05-06 02:34 | disposition home or self-care (01) ==
PROVIDERS: PCP Nurse Practitioner Family; Visit Provider Nurse Practitioner Family
DX: C50.412 Malignant neoplasm of upper-outer quadrant of left female breast (principal); Z17.0 Estrogen receptor positive status [ER+]
CPT/HCPCS: 36415; 80053

== ENCOUNTER → 2023-09-08 01:41 | Outpatient (CLI) | payer MEDICARE, MEDICAID, SELFPAY ==
--- NOTE | 2023-09-08 | DI.DEXA_ITS ---
Exam(s) XR DEXA BONE DENSITY W/WO JOE EXAM: XR DEXA BONE DENSITY W/WO JOE CLINICAL HISTORY: PRISON CURRENT USE OF AROMASTASE INHIBITOR, Z79.811 TECHNIQUE: Routine DEXA evaluation of the lumbar spine, hip, or forearm. COMPARISON: CR XR DEXA BONE DENSITY W/WO JOE from 04/02/2021 FINDINGS: Performed on a [employer] unit. Lateral image: No compression fracture evident. Lumbar Spine total T-score: 0.1. Prior 2021 reading was -0.6 Hip total T-score:-1.0. Prior 2021 reading was -1.2. Independent reading at the level of the femoral neck yields T-score of -1.9 Forearm total T-score: -1.6 IMPRESSION: Bone mineral density measures in the osteopenia range. Fracture risk is moderate. Note: Any spine fracture indicates 5x risk for subsequent spine fracture and 2x risk for subsequent h ip fracture. World Health Organization criteria for BMD interpretation classify patients: Normal...... T- Score at or above -1.0 Osteopenic... T- Score between -1.0 and -2.5 Osteoporosis... T-Score at or below -2.5
--- NOTE | 2023-09-08 | DI.MAMMO_ITS ---
Exam(s) MG MAMMO SCREENING 60 MIN DUR EXAM: MG MAMMO SCREENING 60 MIN DUR CLINICAL HISTORY: SCREENING, Z12.31, HX OF BREAST CANCER SURG 4YRS. TECHNIQUE: Bilateral full field digital CC and MLO mammographic images were obtained with 3D tomosyn thesis and utilizing computer aided detection (CAD). COMPARISON: Prior mammograms were reviewed. This patient underwent left breast lumpectomy for renay vargas in July 2018. She subsequently underwent ultrasound-guided biopsy of the left breast on 2022. This was negative for malignancy. FINDINGS: No new right breast findings. Previously described right breast microcalcifications remain stable. Left breast lumpectomy site remains stable and there is a biopsy marker clip in the upper-outer quadr ant region of prior lumpectomy (performed 09/17/2022). There are no new spiculated masses. Benign-a ppearing microcalcifications in left breast again noted. One of these groups appears cutaneous. Is no new significant architectural distortion IMPRESSION: Benign findings. No radiographic evidence of malignancy. BI-RADS Category 2 - Benign Findings Breast Density - Category B - Scattered areas of fibroglandular density Breast density Category C or D implies that the patient has dense breast tissue. Dense breast tissue can make it harder to find cancer on a mammogram. Dense breast tissue is also associated with an incr eased risk of breast cancer. This information about the result of the mammogram report was provided to the patient to raise their awareness. Use this report when you speak with the patient about their risks for breast cancer, which includes their family history. At that time, you may recommend additional screening tests (Ultrasoun d or MRI) as these tests may add significant information. A negative radiographic report should not delay biopsy if a dominant or clinically suspicious mass is present. Up to ten percent of cancers are not identified on mammography. A negative report may reinforce clinical impression. Adenosis and dense breasts may obscure an underlying neoplasm. False positive reports average 6 to 10%. Patient will receive a letter notifying them of these results.
== END ==
PROVIDERS: PCP Nurse Practitioner Family; Visit Provider Nurse Practitioner Family
DX: Z12.31 Encounter for screening mammogram for malignant neoplasm of breast (principal); Z85.3 Personal history of malignant neoplasm of breast; Z79.811 Long term (current) use of aromatase inhibitors; M85.88 Other specified disorders of bone density and structure, other site
CPT/HCPCS: 77063; 77067; 77080

== ENCOUNTER 2023-10-31 02:00 | Outpatient (CLI) | payer MEDICARE, MEDICAID, SELFPAY ==
[2023-10-31 12:25] LABS: Abs Immature Grans 0.02 10^3/uL (0.0-0.06); Absolute Basophil Count 0.07 10^3/uL (0.0-0.2); Absolute Eosinophil Count 0.12 10^3/uL (0.0-0.7); Absolute Lymphocyte Count 0.88 10^3/uL (1.2-3.4); Absolute Monocyte Count 0.43 10^3/uL (0.1-0.8); Absolute Neutrophil Count 4.42 10^3/uL (1.2-6.7); Basophils % 1.2 %; HCT 45.8 % (36.0-46.0); HGB 14.6 g/dL (11.2-15.7); Immature Grans % 0.3 %; Lymphocytes % 14.8 %; MCH 28.8 pg (27.0-33.0); MCHC 31.9 % (32.0-36.0); MCV 90 fL (80-95); MPV 10.7 fL (8.0-11.0); Monocytes % 7.2 %; Neutrophils % 74.5 %; Platelet Count 216 10^3/uL (130-400); RBC 5.07 10^6/uL (3.93-5.22); RDW 14.1 % (11.7-14.6); RDW-SD 46.8 fL; WBC 5.94 10^3/uL (4.4-10.8)
[2023-10-31 12:43] LABS: ALT 26 U/L (14-59); AST 16 U/L (15-37); Albumin 3.5 g/dL (3.4-5.0); Alkaline Phosphatase 53 U/L (46-116); Anion Gap 6.6 mmol/L (3-11); BUN 15 mg/dL (7-18); Bilirubin, Total 0.58 mg/dL (0.2-1.0); CO2 30.4 mmol/L (21.0-32.0); CREATININE 0.8 mg/dL (0.55-1.02); Calcium 9.6 mg/dL (8.5-10.1); Chloride 104 mmol/L (98-107); Estimated GFR 80.21 (mL/min/1.73m2); Glucose 122 mg/dL (74-106); Potassium 3.7 mmol/L (3.5-5.1); Sodium 141 mmol/L (136-145); Total Protein 6.8 g/dL (6.4-8.2)
== END 2023-10-31 02:01 | disposition home or self-care (01) ==
PROVIDERS: PCP Nurse Practitioner Family; Visit Provider Nurse Practitioner Family
DX: C50.412 Malignant neoplasm of upper-outer quadrant of left female breast (principal); Z17.0 Estrogen receptor positive status [ER+]
CPT/HCPCS: 36415; 80053; 85025